=== PATIENT | male | born 1955 | race Caucasian/White ===

== ENCOUNTER 2024-01-25 13:30 | Emergency (ER) | payer MEDICARE, MEDICAID, SELFPAY ==
[2024-01-25 13:35] VITALS: BP 158/99; PULSE 58; TEMP 36.6; O2SAT 97; BMI 25.1
--- NOTE | 2024-01-25 15:04 | ED_ITS ---
HPI - Skin/Abscess/Foreign Bdy General Chief complaint: Skin/Abscess/Foreign Body Stated complaint: RASH ON BODY Time Seen by Provider: 01/25/24 13:36 Source: patient Mode of arrival: walk-in Limitations: no limitations History of Present Illness HPI narrative: Patient is a 68-year-old male presents to the ER with concerns of pruritic skin rash, noted at bilateral hands, forearms and back. Denies involvement of the groin or abdomen. Notes there are some areas on his right ankle. Patient denies any new soaps lotions or detergents. States he is highly allergic to poison reyna. He was mowing grass earlier in the week. Symptoms have been present for a week but was just [place] now to get into the ER to be seen. He denies any new foods. He is without any abdominal pain lip swelling or tongue swelling. He denies any chest pain or shortness of breath. He denies any exposures to people with scabies or bedbugs. He just MD complaint: Reports rash Location: Reports back, LUE and RUE Related Data Previous Rx's ?Medication ?Instructions ?Recorded famotidine 20 mg tablet (Pepcid) 20 mg PO DAILY 14 days #14 tabs 01/25/24 prednisone 20 mg tablet 40 mg (2 x 20 mg) PO BID 5 days 01/25/24 #20 tabs Allergies Allergy/AdvReac Type Severity Reaction Status Date / Time No Known Drug Allergies Allergy Verified 01/25/24 13:35 Review of Systems ROS Constitutional Denies: fever or chills Eyes Denies: change in vision or blurry vision Ears, nose, mouth, and throat Denies: throat pain or neck pain Cardiovascular Denies: chest pain or palpitations Respiratory Denies: shortness of breath Gastrointestinal Denies: abdominal pain, nausea or vomiting Musculoskeletal Denies: back pain or neck pain Integumentary/Breast Reports: rash and itching; Denies: redness or skin tenderness Hematologic/Lymphatic Denies: easy bruising Allergic/Immunologic Denies: hives, throat swelling, tongue swelling, facial swelling, wheezing or itchy eyes Exam Narrative Exam Narrative: Vital Signs and nurse's notes are reviewed. The patient is not hypoxic. General: Alert, no acute distress, patient resting comfortably Skin: warm, intact, no pallor noted. The patient has evidence of dry skin to the bilateral MCPs. No burrowing. Patient has small erythematous papules that almost represents a urticaria with excoriation on the dorsal forearms. There is no blistering. There is no evidence of cellulitis. The patient has no evidence of petechiae, purpura, or vesicles. The patient has no sloughing of the skin. The patient does have blanching noted. The patient has no involvement of the palms, soles, or oral mucosa. Involvement of the back, mostly noted to the bilateral upper extremities distal to the elbow. Head: Normocephalic, atraumatic Eye: Normal conjunctiva, No exudates Ears, nose, throat: moist mucous membranes, there is no involvement of the oral mucosa, there is no lip or tongue swelling. The patient has airway patent. The patient has no tonsillar hypertrophy or swelling to the posterior oropharynx. No evidence of Vesicles. Neck: The patient has no masses, warmth, or erythema. The patient has no meningeal signs. The patient has no nuchal rigidity noted. Cardiovascular: Regular Rate and Rhythm Respiratory: No acute distress, tachypnea, mild rhonchi and wheezing noted in bilateral lung [place]. No round noted. No retractions or stridor. Abdomen: Normal bowel sounds, soft, nontender, no rebound, guarding or rigidity noted. No masses detected. Musculoskeletal: Normal range of motion, no calf tenderness noted bilaterally, no edema noted. Negative Chuyita's sign bilaterally. no evidence of cyanosis or mottling noted to the extremities. Pulses intact. Neurological: alert and oriented x4, normal speech, normal motor, normal sensory Psychiatric: Cooperative Constitutional Vital Signs, click to edit/add: Last Vital Signs Temp 97.9 F 01/25/24 13:35 Pulse 58 L 01/25/24 13:35 Resp 18 01/25/24 13:35 BP 158/99 H 01/25/24 13:35 Pulse Ox 97 01/25/24 13:35 O2 Del Method Room Air 01/25/24 13:35 Course Vital Signs Vital signs: Vital Signs Temperature 97.9 F 01/25/24 13:35 Pulse Rate 58 L 01/25/24 13:35 Respiratory Rate 18 01/25/24 13:35 Blood Pressure 158/99 H 01/25/24 13:35 Pulse Oximetry 97 01/25/24 13:35 Oxygen Delivery Method Room Air 01/25/24 13:35 Temperature 97.9 F 01/25/24 13:35 Pulse Rate 58 L 01/25/24 13:35 Respiratory Rate 18 01/25/24 13:35 Blood Pressure 158/99 H 01/25/24 13:35 Pulse Oximetry 97 01/25/24 13:35 Oxygen Delivery Method Room Air 01/25/24 13:35 MDM - Skin/Abscess/Foreign Bdy MDM Narrative Medical decision making narrative: Pruritic skin rash present for over a week, only noted after possibly mowing the lawn. Denies any other exposures for cause. Patient without jaundice. Eating well. Denies fever or recent illness. Denies any new medications. We discussed symptomatic treatment with IM Kenalog injection, oral steroid and Pepcid pending follow-up with PCP. Contact dermatitis suspected but excoriation makes diagnosis difficult. Patient does not appear to have any burrowing from scabies. We discussed medication and Benadryl or cetirizine as needed at home for itching. Risks and benefits of steroid treatment discussed, patient to use emollients on dry skin of hands. The patient is to followup with primary care physician in next 2-3 days or to return to the emergency department should any of the signs or symptoms worsen or new symptoms develop. Patient had questions answered. The patient agrees with the following Diagnosis and Treatment plan and the patient will be discharged home. SUPERVISED APC VISIT, PHYSICIAN ATTESTATION: Based on the medical record the care appears appropriate. ? Discharge Plan Discharge Stand Alone Forms: Portal Instructions Chief Complaint: Skin/Abscess/Foreign Body Clinical Impression: Skin rash Patient Disposition: Home, Self-Care Condition: Good Prescriptions / Home Meds: New famotidine [Pepcid] 20 mg tablet 20 mg PO DAILY 14 Days Qty: 14 0RF prednisone 20 mg tablet 40 mg PO BID 5 Days Qty: 20 0RF Print Language: [place] Instructions: Acute Rash (ED) Referrals: RENAY ESCOBEDO [Primary Care Provider] - 1 week Discharge Date/Time: 01/25/24 15:16
[2024-01-25] MEDS: TRIAMCINOLONE ACETONIDE 40 MG/ML VIAL IM (15:10)
[2024-01-25] MEDS: FAMOTIDINE 20 MG TABLET PO (15:10)
== END 2024-01-25 15:16 | disposition home or self-care (01) ==
PROVIDERS: Emergency Provider Student in an Organized Health Care Education/Training Program; PCP Family Medicine
DX: R21 Rash and other nonspecific skin eruption (principal)
CPT/HCPCS: 96372; 99284; J3301

== ENCOUNTER 2024-02-08 10:43 | Emergency (ER) | payer MEDICARE, MEDICAID, SELFPAY ==
[2024-02-08 10:47] VITALS: BP 166/97; PULSE 60; TEMP 36.8; O2SAT 96; BMI 26.3
[2024-02-08 10:56] VITALS: O2SAT 98
--- NOTE | 2024-02-08 11:02 | ED.SKABFB1 ---
HPI - Skin/Abscess/Foreign Bdy General Chief complaint: Skin/Abscess/Foreign Body Stated complaint: RASH Time Seen by Provider: 02/08/24 10:44 Source: patient and family Mode of arrival: walk-in Limitations: no limitations History of Present Illness HPI narrative: This patient is here for generalized itching and a rash to his skin. He was seen here approximately [address] Andersen and prescribed steroids and Pepcid. He said while on steroids the itching was much better. He does notice that the heat and sun and warm showers make it worse. He has not developed any fever. He says he has generalized aches and pains but no specific arthropathy. He has no autoimmune diseases. He is on a new medications. In fact he is not taking any medication. 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 He cannot think of any new dietary intake. No new skin lotions or ointments soaps salves or shampoos. He does have mild irritation of his scalp but most of the problems on his forearms abdomen and little bit less so on his lower extremities. He has not been on any antibiotics. He does not have any known autoimmune diseases. He has not seen a transmission and coordination engineer. Does not have any lesions in his mouth or oral cavity. Does not have any involvement on the palmar aspect of his hands. no history of STD. Related Data Previous Rx's ?Medication ?Instructions ?Recorded famotidine 20 mg tablet (Pepcid) 20 mg PO DAILY 14 days #14 tabs 01/25/24 prednisone 20 mg tablet 40 mg (2 x 20 mg) PO BID 5 days 01/25/24 #20 tabs Allergies Allergy/AdvReac Type Severity Reaction Status Date / Time No Known Drug Allergies Allergy Verified 01/25/24 13:35 Exam Narrative Exam Narrative: This patient has a dry excoriated erythematous rash primarily in the forearms scattered lesions on his abdomen. I do not see anything on his scalp area. His oral cavity is free of any type of lesions or vesicles. His lips are not swollen. Does not have any discomfort or sores in his intranasal area. His palms of his hands are asymptomatic. There is no tenderness to palpation but if he touches this area of rash he says it makes him itch. Does not have any obvious swollen joints but has diffuse achiness and several aches and pains in his muscle area. Constitutional Vital Signs, click to edit/add: Last Vital Signs Temp 98.2 F 02/08/24 10:47 Pulse 60 02/08/24 10:47 Resp 20 02/08/24 10:47 BP 166/97 H 02/08/24 10:47 Pulse Ox 98 02/08/24 10:56 O2 Del Method Room Air 02/08/24 10:56 Course Vital Signs Vital signs: Vital Signs Temperature 98.2 F 02/08/24 10:47 Pulse Rate 60 02/08/24 10:47 Respiratory Rate 20 02/08/24 10:47 Blood Pressure 166/97 H 02/08/24 10:47 Pulse Oximetry 96 02/08/24 10:47 Oxygen Delivery Method Room Air 02/08/24 10:47 Temperature 98.2 F 02/08/24 10:47 Pulse Rate 60 02/08/24 10:47 Respiratory Rate 20 02/08/24 10:47 Blood Pressure 166/97 H 02/08/24 10:47 Pulse Oximetry 98 02/08/24 10:56 Oxygen Delivery Method Room Air 02/08/24 10:56 MDM - Skin/Abscess/Foreign Bdy MDM Narrative Medical decision making narrative: This patient temporarily responded to steroids and Pepcid but now has a recurrence. He has to nonspecific inflammatory markers elevated but his eosinophil count is normal. He will need referral to rheumatology for further up on this and we will restart him on the steroid. He is to take cool compresses and bathtubs with Epsom salt Discharge Plan Discharge Stand Alone Forms: Work/School Release, Portal Instructions Chief Complaint: Skin/Abscess/Foreign Body Clinical Impression: Contact dermatitis Patient Disposition: Home, Self-Care Time of Disposition Decision: 12:31 Prescriptions / Home Meds: No Action famotidine [Pepcid] 20 mg tablet 20 mg PO DAILY 14 Days Qty: 14 0RF prednisone 20 mg tablet 40 mg PO BID 5 Days Qty: 20 0RF Print Language: Malay Additional Instructions: Follow-up with a transmission and coordination engineer, start steroids. Cool baths with Epsom salt. You may need to see a juvenile justice specialist because of the blood test Referrals: RENAY ESCOBEDO [Primary Care Provider] - 1 week
--- OUTSIDE RECORDS SUMMARY | 2024-02-08 11:24 | XMS_ITS | CCD ---
Author Organization [facility] CliniSyga Care Team Providers Care Egg Gatherer Name Role Phone Lazaro Escobedo Primary Care Provider Unknown, Referring Provider Unavailable Unav ailable Unavailable Unavailable Gonzalez Lazaro Cortes Unavailable BOB SCHOFIELD Consulting Unavailable PAY, DR PEDROZA Attending Unavailable PAY, DR PEDROZA Admitting Unavailable HOUSE, DR NIÑO Primary Care Unavailable SchreibJameel lin Consulting Unavailable KANWAL, BOB ORLANDO Consulting Unavailable PAY, DR PEDROZA Attending Unavailable PAY, DR PEDROZA Admitting Unavailable HOUSE, DR NIÑO Primary Care Unavailable PAY, DR PEDROZA Attending Unavailable PAY, DR PEDROZA Admitting Unavailable HOUSE, DR NIÑO Primary Care Unavailable ZIEBER, DR ALEISHA Sandoval Consulting Unavailable MEKALEE Attending Unavailable MEKA, LEE Admitting Unavailable HOUSE, DR NIÑO Primary Care Unavailable MEKA, LEE Consulting Unavailable TIMMIS, DR DUVAL Consulting Unavailable HOUSE, DR NIÑO Primary Care Unavailable TIMMIS, DR DUVAL Attending Unavailable TIMMIS, DR DUVAL Admitting Unavailable TIMMIS, DR DUVAL Consulting Unavailable HOUSE, DR NIÑO Primary Care Unavailable TIMMIS, DR DUVAL Attending Unavailable TIMMIS, DR DUVAL Admitting Unavailable TIMMIS, DR DUVAL Consulting Unavailable HOUSE, DR NIÑO Primary Care Unavailable TIMMIS, DR DUVAL Attending Unavailable TIMMIS, DR DUVAL Admitting Unavailable LONG, VADIM Consulting Unavailable TIMMIS, DR DUVAL Consulting Unavailable HOUSE, DR NIÑO Primary Care Unavailable TIMMIS, DR DUVAL Attending Unavailable TIMMIS, DR DUVAL Admitting Unavailable LONG, VADIM Consulting Unavailable DERROW, DARREN Consulting Unavailable DORKOSKIECARL Consulting Unavailable HOUSE, DR NIÑO Primary Care Unavailable TIMMIS, DR DUVAL Attending Unavailable TIMMIS, DR DUVAL Admitting Unavailable LAKESHA, BOB VALERA Consulting Unavailable MARKER, DR ORONA Attending Unavailable MARKER, DR ORONA Admitting Unavailable HOUSE, DR NIÑO Primary Care Unavailable BERRY, DR FERNANDES Consulting Unavailable BERRY, DR FERNANDES Attending Unavailable BERRY, DR FERNANDES Admitting Unavailable HOUSE, DR NIÑO Primary Care Unavailable Darryn, Dr. Gregg Maurer Attending Unavail able House, Dr. Lazaro Read [facility] Unava ilable Gonzalez, Dr. Lazaro Read [facility] Unava ilable Darryn, Dr. Gregg Maurer Attending Unavail able Darryn, Dr. Gregg Maurer Attending Unavail able House, Dr. Lazaro Read [facility] Unava ilable Darryn, Dr. Gregg Maurer Attending Unavail able Darryn, Dr. Gregg Maurer Referring Unavail able House, Dr. Lazaro Read [facility] Unava ilable Darryn, Dr. Gregg Maurer Referring Unavail able Darryn, Dr. Gregg Maurer Attending Unavail able Darryn, Dr. Gregg Maurer Admitting Unavail able [place], Dr. Lazaro Read [facility] Gonzalez SAGASTUME, Lazaro [facility] Primary [facility] Provider Medications Completed/Discontinued Medications Medication Drug Class(es) Dates Sig (Normalized) Sig (Original) acetaminophen 325 mg / HYDROcodone bitartrate 5 mg oral tablet (2 sources) Opioid Agonist Start: 04-13-2021 HYDROcodone-Acetam inophen 5-325 MG Oral Tablet Quantity: 10 Refills: 0 Ordered: 13-Apr-2021 DO Start : 13-Apr-2021 Complete amLODIPine 5 mg oral tablet (11 sources) Dihydropyridine Calcium Channel Lesley Start: 06-12-2021 End: 09-25-2021 take 1 tablet by mouth once daily amLODIPine Besylate 5 MG Oral Tablet TAKE 1 TABLET DAILY. Quantity: 0 Refills: 0 Ordered: 12-Jun-2021 DO Start : 12-Jun-2021 End : 25-Sep-2021 Complete amoxicillin 875 mg / clavulanate 125 mg oral tablet (7 sources) Penicillin-class Antibacterial Start: 08-07-2021 End: 09-25-2021 take 1 tablet by mouth twice daily Amoxicillin-Pot Clavulanate 875-125 MG Oral Tablet TAKE 1 TABLET TWICE DAILY UNTIL FINISHED. Quantity: 20 Refills: 0 Ordered: 12-Sep-2021 Gregg Cates MD Start : 07-Aug-2021 End : 25-Sep-2021 Complete ciprofloxacin 750 mg oral tablet (2 sources) Quinolone Antimicrobial Start: 04-03-2021 take 1 tablet by mouth twice daily Ciprofloxacin HCl - 750 MG Oral Tablet TAKE 1 TABLET BY MOUTH TWICE A DAY FOR 10 DAYS Quantity: 20 Refills: 0 Ordered: 03-Apr-2021 DO Start : 03-Apr-2021 Complete ciprofloxacin 3 mg/ml / dexamethasone 1 mg/ml otic suspension (3 sources) Corticosteroid, Quinolone Antimicrobial Start: 09-12-2021 End: 09-25-2021 Ciprofloxacin-Dexa methasone 0.3-0.1 % Otic Suspension INSTILL 5 DROP 3 times daily into T-tube Quantity: 1 Refills: 2 Ordered: 12-Sep-2021 Gregg Cates MD Start : 12-Sep-2021 End : 25-Sep-2021 Complete levoFLOXacin 500 mg oral tablet (2 sources) Quinolone Antimicrobial Start: 04-27-2021 take 1 tablet by mouth once daily levoFLOXacin 500 MG Oral Tablet TAKE 1 TABLET BY MOUTH EVERY DAY Quantity: 7 Refills: 0 Ordered: 28-Apr-2021 DO Start : 27-Apr-2021 Complete No Reported Medications (8 sources) No Reported Medications Quantity: 0 Refills: 0 Ordered: 31-Dec-2021 DO Active predniSONE 20 mg oral tablet (2 sources) Start: 04-13-2021 predniSONE 20 MG Oral Tablet TAKE 3 TABLETS ON DAY 1, THEN 2 TABLETS ON DAYS 2-3, THEN 1 TABLET ON DAYS 4-5 Quantity: 9 Refills: 0 Ordered: 13-Apr-2021 DO Start : 13-Apr-2021 Complete traMADol hydrochloride 50 mg oral tablet (1 source) Opioid Agonist Start: 07-03-2021 take 1-2 tablets by mouth every four to six hours as needed for pain, then take 8 tablets by mouth once daily as needed for pain traMADol HCl - 50 MG Oral Tablet TAKE 1 TO 2 TABLETS EVERY 4 TO 6 HOURS NEEDED FOR PAIN. NO MORE THAN 8 TABLETS PER DAY. 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] Onset: 04-02-2021 Chronic Cancer of head and neck (2 sources) Personal history of malignant neoplasm of larynx; Translations: [Personal history of malignant neoplasm of unspecified site of lip, oral cavity, and pharynx] Onset: 11-29-2020 Episodic Chronic obstructive pulmonary disease and bronchiectasis (1 source) Chronic obstructive pulmonary disease, unspecified; Translations: [COPD UNSPECIFIED] Onset: 05-11-2021 Chronic Complications of surgical procedures or medical care (3 sources) Tracheo-esophageal fistula following tracheostomy; Translations: [Tracheoesophageal fistula following tracheostomy] Onset: 10-09-2022 10-16-2022 Episodic Essential hypertension (3 sources) Essential (primary) hypertension; Translations: [Essential hypertension] Onset: 05-11-2021 10-16-2022 Chronic Headache; including migraine (1 source) Headache; including migraine; Translations: [HEADACHE UNSPECIFIED] Onset: 04-02-2021 Other aftercare (1 source) Other manager long term care (current) drug therapy; Translations: [OTH SENIOR LIVING CURRENT DRUG THERAPY] Onset: 09-24-2021 Episodic Other upper respiratory disease (4 sources) Encounter for attention to tracheostomy; Translations: [ENC FOR ATTENTION TRACHEOSTOMY] Onset: 09-21-2021 Chronic Other upper respiratory disease (5 sources) Tracheostomy status; Translations: [TRACHEOSTOMY STATUS] Onset: 04-10-2021 Chronic Other upper respiratory disease (2 sources) Paralysis of vocal cords and larynx, unspecified; Translations: [Paralysis of vocal cords and larynx, unspecified] Onset: 10-09-2022 Chronic Other upper respiratory disease (1 source) Paralysis of larynx; Translations: [Paralysis of vocal cords and larynx, unspecified] 10-09-2022 Chronic Other upper respiratory disease (20 sources) Edema of larynx; Translations: [Edema of larynx] Episodic Other upper respiratory disease (20 sources) Hoarse; Translations: [Dysphonia] Episodic Other upper respiratory disease (4 sources) Dysphonia; Translations: [DYSPHONIA] Onset: 01-10-2021 Episodic Other upper respiratory disease (2 sources) Vocal cord strain; Translations: [Other diseases of vocal cords] Episodic Other upper respiratory disease (2 sources) Other specified diseases of upper respiratory tract; Translations: [Other specified diseases of upper respiratory tract] Onset: 10-09-2022 Episodic Other upper respiratory disease (1 source) Disorder of upper respiratory system; Translations: [Other specified diseases of upper respiratory tract] 10-09-2022 Episodic Other upper respiratory disease (1 source) Dysphonia; Translations: [Dysphonia] 10-16-2022 Episodic Screening and history of mental health and substance abuse codes (3 sources) Personal history of nicotine dependence; Translations: [Personal history of tobacco use] Onset: 04-02-2021 10-16-2022 Episodic Substance-related disorders (1 source) Nicotine dependence, cigarettes, uncomplicated; Translations: [NICOTINE DEPEND CIGARETTES UNCOMP] Onset: 05-11-2021 Chronic Unclassified (1 source) CONTACT W/AND (SUSP) EXPOS COVID-19; Translations: [CONTACT W/AND (SUSP) EXPOS COVID-19] Onset: 05-08-2021 Unclassified (1 source) COUGH, UNSPECIFIED; Translations: [COUGH, UNSPECIFIED] Onset: 03-28-2021 Past or Other Problems Problem Classification Problem Date Documented Da te Episodic/Chronic Other non-traumatic joint disorders (4 sources) Pain in left knee; Translations: [PAIN IN LEFT KNEE] Onset: 04-13-2021 Episodic Other non-traumatic joint disorders (1 source) Pain in right knee; Translations: [PAIN IN RIGHT KNEE] Onset: 04-17-2021 Episodic Other non-traumatic joint disorders (1 source) Effusion, left knee; Translations: [EFFUSION LEFT KNEE] Onset: 04-17-2021 Episodic Other skin disorders (4 sources) Localized swelling, mass and lump, neck; Translations: [LOCALIZED SWELLING MASS AND LUMP NECK] Onset: 11-27-2020 Episodic Other upper respiratory disease (4 sources) Other diseases of larynx; Translations: [OTHER DISEASES OF LARYNX] Onset: 05-01-2021 Episodic Other upper respiratory disease (4 sources) Other diseases of vocal cords; Translations: [OTHER DISEASES OF VOCAL CORDS] Onset: 12-05-2020 Episodic Other upper respiratory disease (1 source) Other diseases of pharynx; Translations: [OTHER DISEASES OF PHARYNX] Onset: 11-29-2020 Episodic Other upper respiratory disease (1 source) Edema of larynx; Translations: [Edema of larynx] Onset: 02-12-2022 Episodic Residual codes; unclassified (1 source) Personal history of other specified conditions; Translations: [PERSONAL HISTORY OTH SPEC CONDITION] Onset: 04-17-2021 Episodic Residual codes; unclassified (1 source) Other specified health status; Translations: [Other specified health status] Onset: 02-12-2022 Episodic Substance-related disorders (1 source) Cannabis use, unspecified, uncomplicated; Translations: [CANNABIS USE UNS UNCOMPLICATED] Onset: 05-11-2021 Episodic Results Test Name Value Interpretation Reference Range Facility SPANISH LECTURER (Voice Evaluation)on SPANISH LECTURER (Voice Evaluation) Therapy Diagnosis Assessed Vocal cord strain (478.5) (J38.3) Hoarseness (784.42) (R49.0) 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 Patient will increase ability to produce voice without tension within 5 minute conversational task x80% accuracy as judged by clinician observation and/or patient report. Patient will demonstrate independent use of voice/breathing techniques x80% accuracy. Patient will increase the balance/coordination of laryngeal/respiratory musculature. Projected STG completion date: x4 ST sessions conducted x1/wk Recommendations For Therapeutic Interventions: speech/voice exercises and vocal hygiene program Patient/family understands and agrees with goals/plan. Potential for improvement: good Factors affecting prognosis: none Discussed plan of care with: patient and caregiver/family Discussed risks/benefits with patient/caregiver. Patient/caregiver agreeable with plan of care. Plan of care was developed with input and agreement by the patient. 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 Surgeon: MD Darryn Resident/Fellow/Other Human Service Coordinator: MD Mauricio Procedure: 1. microdirect larngoscopy diagnostic 2. microdirect laryngoscopy with porlaryn gel injection of the right 3. Closure of tracheocutaneous fistula with muscle flap Anesthesia: GETA Estimated Blood Loss: 5cc Findings: right vocal fold injection with 0.2cc of prolaryn gel, closure with muscle flap Initial voice presentation met with sig laryngeal strain resulting in breathiness and poor vocal quality. Given cues for confidential voicing, RVT hum, patient able to improve vocal quality with an increase in MPT, limited rasp, minimal strain. Patient and daughter agree with vocal improvement. Patient able to maintain this voice within monologue task, negative for speaking on residual air. States breathing has been good with no e/o continued tracheocutaneous fistula. Patient given education on modified voice rest, confidential voicing, RVT - hum with practice dosage. Reviewed POC options for vocal rehabilitation. All questions answered. Patient will follow ST on as needed basis. Treatment recommendations: treatment indicated (see goals below) Overall, patient would benefit from skilled ST in the area of voice x1/wk for x4 wks in order to increase vocal wellness, healthy voicing to foster increased participation and comfort levels at home and in the community environment. Additional recommendations: [facility] possible future repeat injection versus additional augmentation procedures to be determined by my laryngology partner, Dr. Cates. Reason For Visit An interactive audio and video telecommunication system which permits real time communications between the patient (at the originating site) and provider (at the distant site) was utilized to provide this telehealth service. Verbal consent was requested and obtained from LAZARO PETTY on this date, 10/16/2022 08:00 AM , for a telehealth visit. 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 Surgeon: MD Darryn Resident/Fellow/Other Human Service Coordinator: MD Mauricio Procedure: 1. microdirect larngoscopy diagnostic 2. microdirect laryngoscopy with porlaryn gel injection of the right 3. Closure of tracheocutaneous fistula with muscle flap Anesthesia: GETA Estimated Blood Loss: 5cc Findings: right vocal fold injection with 0.2cc of prolaryn gel, closure with muscle flap Adult Risk Screening There are no spiritual/cultural practices/values/needs that are important to know Initial Fall Risk Screening: LAZARO has not fallen in the last 6 months. Pain Scale: On a scale of 0 to 10, the patient rates the pain at 0. Hernandez Learner(s) are identified by the patient as person(s) most likely to participate in providing care, such as managing medications or taking them to doctors? appointments. Primary Language for learning: Italian . Insurance Insurance reviewed Visit number: 1 Subjective Living Environment: home Patient arrival: accompanied by daughter Voice evaluation: Reason for Referral: vocal rehabilitation postop - vocal fold injection, h/o laryngeal cancer Referred by: Dr. Cates Self rating scale totals: Preoperative history per Dr. 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 Normal [facility] Order Reconciliationon 10-09 Order Reconciliation Page 1 Discharge Reconciliation Document Reconciliation Type: Discharge requested on behalf of Romulo Martínez (Resident) done by Romulo Martínez ( (Resident)) Discharge - Reconciliation: 09-Oct-2022 12:45 by: Romulo Martínez ( (Resident)) Home Medications EnteredHOME MEDICATIONS AT DISCHARGE DateReconciliation Comment/ Additional Information None 09-Oct-2022 11:32 None 09-Oct-2022 11:32 None is continued as None Current OrdersDateHOME MEDICATIONS AT DISCHARGE DateReconciliation Comment/ Additional Information HYDROmorphone Injectable (DILAUDID)DOSE = 0.25 mg IntraVenous Push Every 5 Minutes, PRN Pain - Mod (4-6) (PACU)Clinician Notes: Alanis-operative order ONLYMax total of 4 mg regardless of dose. 08-Oct-2022 12:11 HYDROmorphone Injectable is not required HYDROmorphone Injectable (DILAUDID)DOSE = 0.5 mg IntraVenous Push Every 5 Minutes, PRN Pain - Severe (7-10) (PACU)Clinician Notes: Alanis-operative order ONLYMax total of 4 mg regardless of dose. 08-Oct-2022 12:11 HYDROmorphone Injectable is not required Ondansetron Injectable (ZOFRAN)DOSE = 4 mg IntraVenous Push Once, PRN PONV, first lineClinician Notes: Alanis-operative order ONLY 08-Oct-2022 12:11 Ondansetron Injectable is not required oxyCODONE Immediate Release Tablet (OXYIR, ROXICODONE)DOSE = 5 mg Oral Every 4 Hours, PRN Pain - Mod (4-6) (PACU) when able to take OralClinician Notes: Alanis-operative order ONLY 08-Oct-2022 12:11 oxyCODONE Immediate Release is not required Prochlorperazine Injectable (COMPAZINE)DOSE = 5 mg IntraVenous Push Once, PRN persistent post-op nausea/vomitingClinician Notes: Alanis-operative order ONLY 08-Oct-2022 12:11 Prochlorperazine Injectable is not required Promethazine IV Piggy Back in Sodium Chloride 0.9% 50 mL (PHENERGAN)DOSE = 6.25 mg Once, PRN persistent PONV if first line ineffectiveRecommended Infusion Time: 15 minute(s)Clinician Notes: Alanis-operative order ONLY 08-Oct-2022 12:11 Promethazine IV Piggy Back is not required Home Medications Added During Discharge Reconciliation cephalexin 500 mg oral capsule 1 cap(s) orally 3 times a day x 7 days sennosides-docusate 8.6 mg-50 mg oral tablet 2 tab(s) orally once a day (at bedtime) traMADol 50 mg oral tablet 1 tab(s) orally every 6 hours x 5 days, As Needed -for severe pain G89.18 All Active Home Medications at time of Discharge Reconciliation: 09-Oct-2022 12:45 cephalexin 500 mg oral capsule 1 cap(s) orally 3 times a day x 7 days None sennosides-docusate 8.6 mg-50 mg oral tablet 2 tab(s) orally once a day (at bedtime) traMADol 50 mg oral tablet 1 tab(s) orally every 6 hours x 5 days, As Needed -for severe pain G89.18 Normal [facility] Patient Profile - Preop v3on 10-09-2022 Patient Profile - Preop v3 Patient Profile - Preop: Initial Info: Patient DemographicsName: LAZARO PETTY Date: 1955 Address: [address] [place] [address] Primary Phone [phone] How to be Addressedchuck Spoken Language PreferredEnglish Source of Informationpatient Stated Reason for Admissionfixing trach healing site Primary Contact Name and NumberFrandy daughter [phone] Limitations on Visitors/Phone Callsnone Medications Brought to Hospitalno General Health: Weight in kg81 kilogram(s) Weight in brk161.5 pound(s) Weight Methodactual (measured) Scale Typestanding Height in feet5 feet Height in poscjb51 inch(es) Height in cm177.8 centimeter(s) Height Methodstated BMI (kg/m2)25.622 square meter Patient or Family Member Reaction to Anesthesiano previous reaction Blood Avoidance/Restrictionsnone Previous Transfusion Reactionnot applicable Health Mgmt: Symptoms/Conditions Managed at Homevocal cord cancer, HTN Barriers to Managing Healthnone Relationship/Environ: Lives Withdependent child(livia) Living Arrangementshouse Resource/Environmental Concernsnone Anticipated Transition [place] [facility] Anticipated at Transitionnone Tobacco Use: Tobacco Useno Pre-op Checklist: NPOyes Last Food [id number] 21:00 Last Clear Fluid [id number] 08:50 ID Band On Patientpatient ID (name), falls risk Consent Signedpending H&P Completepending Anesthesia Assessment Completedpending EKG Performednot ordered Chest X-Ray Performednot ordered Preop Antibioticsnot ordered Soap and Water Bath the Night Before Surgeryyes Surgical Site Infection Preventionyes Pain Scales and Managementyes Additional Information: Information Review: Allergies, Home Meds and Significant Events have been Reviewed and Verified with Patient/Familyyes Allergy, Intolerance, Adverse Event: Allergies: No Known Allergies: Active Electronic Signatures: Macie Cavazos (PORSHA) (Signed 09-Oct-2022 11:13) Authored: Initial Info, General Health, Health Mgmt, Relationship/Environ, Tobacco Use, Pre-op Checklist, Additional Information Last Updated: 09-Oct-2022 11:13 by Macie Cavazos) [facility] Established Visit (Otolaryng ology)on 08-22-2022 Established Visit (Otolaryngology) Diagnoses/Problems 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 Cates examined your vocal cords 2.We ordered surgery 3.Dr. Cates would like to see you back for this If your symptoms change, or if you have any further questions or concerns, please call the office so we can see you. General Appointment Line: [phone] For general questions or scheduling issues, call our corporation secretary at [phone]. For medical questions or surgery scheduling issues, call [phone]. To reach speech therapy, for appointments or questions, call [phone]. By signing my name below, I, Cynthia Chavis, attest that this documentation has been prepared under the direction and in the presence of Dr. Erasto Cates MD. All medical record entries made by the Scribe were at my direction and personally dictated by me. I have reviewed the chart and agree that the record accurately reflects my personal performance of the history, physical exam, discussion and plan. 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 HE is doing well with no concerning issues at this time. 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 No air leak at this time. He will have a small wheezing from area after a shower. We discussed repairing this in the OR + Scar revision. 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 We will consider this at a time that works for the patient. Avoid submerging/water exposure. 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 He is able to clear his secretions with ocugh. 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 He is here for repeat evaluation. He reports that he is doing well. 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 He is breathing well without any recent problems. Recall: 09/17/2021 This is a 66 year old male previously seen by me on 08/07/2021 with a history of biopsies of granulation tissue with Dr. Domingo which were negative for SCCa. He has findings of necrotic cartilage and ORN of the trachea. We recommended speech therapy and was seen twice where he worked on voicing, breath support, and PMV tolerance. He does have improved voice quality. We discussed the potential for a Cintron stent for him. He reports that he was seen in the ER when his trach fell out. While he was the ED, they were unable to reinsert the tube. He was breathing better without the tube, per his . He was seen by Dr. Christy who was able to insert the tube. After the reinsertion of the tube, his states that his voice has worsened. He has trouble breathing, per his . He reports that he is able to swallow well. He is able to cap his tube. He currently has 6.[address]. Recall: 08/07/2021 LAZARO PETTY is a 66 year old male referred to me today by Dr Chayo CROOK, Joon P for ORN and necrotic bone within larynx. Referred to Dr. Domingo by Dr. Christy He has a history of laryngeal cancer treated with XRT. He subsequently had issues with voice and airway. He has a biopsy of the right posterior arytenoid mucosa which was hyperplastic with granulation with fragments of necrotic cartilage and bone with giant cell reaction, but evidence of carcinoma. The right TVC was seen with fibrin deposition with atrophy. There is no evidence of amyloid in this specimen. Lastly, a a deep right TVC showed granulation tissue with acute on chronic inflammation, necrotic bone, and giant cell reaction without evidence of cancer He reports he has been doing well. He has a hard time with vocalizing and breathing while finger occluding his tracheostomy. Denies fevers, chills, night sweats, nausea/vomiting, wt loss or hemoptysis. No complaints of otalgia. Denies facial pain, pressure or headaches. Denies chronic nasal congestion, stuffiness or postnasal drainage. Review of Systems A 10 point ROS survey and extensive HANDN symptom survey was conducted and discussed with the patient. Pertinent positive items are discussed in HPI. The patient was advised to discuss the non-ENT issues with their PCP. 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 Catse discussed your symptoms 2.Dr. Cates would like to see you back as needed If your symptoms change, or if you have any further questions or concerns, please call the office so we can see you. General Appointment Line: [phone] For general questions or scheduling issues, call our corporation secretary at [phone]. For medical questions or surgery scheduling issues, call [phone]. To reach speech therapy, for appointments or questions, call [phone]. By signing my name below, I, Caitlin Chavisibaamir, attest that this documentation has been prepared under the direction and in the presence of Dr. Erasto Cates MD. All medical record entries made by the Scribe were at my direction and personally dictated by me. I have reviewed the chart and agree that the record accurately reflects my personal performance of the history, physical exam, discussion and plan. 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 He is here in regards to voice changes. 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 He has done well and he was able to cap continuous and was decannulated on 12/2021. Today, he has a pin hole fistula which is improved from where I expect him to be. 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 He is followed by Dr. Christy, and based upon with the patient's desire, he would like to be seen by him for surveillance evaluation. 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 He is here for repeat evaluation. He reports that he is doing well. 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 He is breathing well without any recent problems. Recall: 09/17/2021 This is a 66 year old male previously seen by me on 08/07/2021 with a history of biopsies of granulation tissue with Dr. Domingo which were negative for SCCa. He has findings of necrotic cartilage and ORN of the trachea. We recommended speech therapy and was seen twice where he worked on voicing, breath support, and PMV tolerance. He does have improved voice quality. We discussed the potential for a Cintron stent for him. He reports that he was seen in the ER when his trach fell out. While he was the ED, they were unable to reinsert the tube. He was breathing better without the tube, per his . He was seen by Dr. Christy who was able to insert the tube. After the reinsertion of the tube, his states that his voice has worsened. He has trouble breathing, per his . He reports that he is able to swallow well. He is able to cap his tube. He currently has 6.[address]. Recall: 08/07/2021 LAZARO PETTY is a 66 year old male referred to me today by Dr Chayo CROOK, Joon Cortes for ORN and necrotic bone within larynx. Referred to Dr. Domingo by Dr. Christy He has a history of laryngeal cancer treated with XRT. He subsequently had issues with voice and airway. He has a biopsy of the right posterior arytenoid mucosa which was hyperplastic with granulation with fragments of necrotic cartilage and bone with giant cell reaction, but evidence of carcinoma. The right TVC was seen with fibrin deposition with atrophy. There is no evidence of amyloid in this specimen. Lastly, a a deep right TVC showed granulation tissue with acute on chronic inflammation, necrotic bone, and giant cell reaction without evidence of cancer He reports he has been doing well. He has a hard time with vocalizing and breathing while finger occluding his tracheostomy. Denies fevers, chills, night sweats, nausea/vomiting, wt loss or hemoptysis. No complaints of otalgia. Denies facial pain, pressure or headaches. Denies chronic nasal congestion, stuffiness or postnasal drainage. Review of Systems A 10 point ROS survey and extensive HANDN symptom survey was conducted and discussed with the patient. Pertinent positive items are discussed in HPI. The patient was advised to discuss the non-ENT issues with their PCP. 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 Over the last 2 weeks have you felt down, depressed or hopele (more content not included)... 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 Cates decannulated you 2.We ordered dressing changes twice a week 3.Dr. Cates would like to see you back in 4-6 weeks. If your symptoms change, or if you have any further questions or concerns, please call the office so we can see you. General Appointment Line: [phone] For general questions or scheduling issues, call our corporation secretary at [phone]. For medical questions or surgery scheduling issues, call [phone]. To reach speech therapy, for appointments or questions, call [phone]. By signing my name below, I, Caitlin Chavisibe, attest that this documentation has been prepared under the direction and in the presence of Dr. Erasto Cates MD. All medical record entries made by the Scribe were at my direction and personally dictated by me. I have reviewed the chart and agree that the record accurately reflects my personal performance of the history, physical exam, discussion and plan. Provider Impressions This is a 66 year old male with sever chondronecrosis of the tracheal cartilages and immobility of CA joints. He has findings of improvement in breathing since his last visit. He is able to cap continuously. He presented with a PMV and reports that he is able to cap without difficulty. Finger occlusion of the trach and naked stoma showed good breathing. There is no concerning granulation and has good opening of the posterior glottis during breathing on bronchoscopy. We were able to evaluate the back of the oropharynx from below. After discussion risks and benefits - He was decannulated to and he will have him changes hi dressing BID. He will have some difficulty with healing based on his history. We will consider him for an operative tracheocutaneous fistula closure PRN. I will see him back in 4-6 weeks. Chief Complaint Trach follow-up History of Present IllnessThis is a 66 year old male previously seen by me on 09/25/2021 with severe chondronecrosis of the tracheal cartilages and immobility of CA joints. A size 4-0 tracheostomy was placed. He reports that he is breathing well. He has been performing PMV trials and tolerates this well. He has not changed his trach since his last visit. Recall: 09/25/2021 This is a 66 year old male previously seen by me on 08/07/2021 with a history of biopsies of granulation tissue with Dr. Domingo which were negative for SCCa. He has findings of necrotic cartilage and ORN of the trachea. We recommended speech therapy and was seen twice where he worked on voicing, breath support, and PMV tolerance. He does have improved voice quality. We discussed the potential for a Cintron stent for him. He reports that he was seen in the ER when his trach fell out. While he was the ED, they were unable to reinsert the tube. He was breathing better without the tube, per his . He was seen by Dr. Christy who was able to insert the tube. After the reinsertion of the tube, his states that his voice has worsened. He has trouble breathing, per his . He reports that he is able to swallow well. He is able to cap his tube. He currently has 6.[address]. Recall: 08/07/2021 LAZARO EPTTY is a 66 year old male referred to me today by Dr Chayo CROOK, Joon Cortes for ORN and necrotic bone within larynx. Referred to Dr. Domingo by Dr. Christy He has a history of laryngeal cancer treated with XRT. He subsequently had issues with voice and airway. He has a biopsy of the right posterior arytenoid mucosa which was hyperplastic with granulation with fragments of necrotic cartilage and bone with giant cell reaction, but evidence of carcinoma. The right TVC was seen with fibrin deposition with atrophy. There is no evidence of amyloid in this specimen. Lastly, a a deep right TVC showed granulation tissue with acute on chronic inflammation, necrotic bone, and giant cell reaction without evidence of cancer He reports he has been doing well. He has a hard time with vocalizing and breathing while finger occluding his tracheostomy. Denies fevers, chills, night sweats, nausea/vomiting, wt loss or hemoptysis. No complaints of otalgia. Denies facial pain, pressure or headaches. Denies chronic nasal congestion, stuffiness or postnasal drainage. Review of Systems A 10 point ROS survey and extensive HANDN symptom survey was conducted and discussed with the patient. Pertinent positive items are discussed in HPI. The patient was advised to discuss the non-ENT issues with their PCP. 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 Normal [facility] Tobacco Screening.on Adult depression screening assessment No [facility] [facility] Work Phone: Fall risk assessment a) No falls within the last year [facility] [facility] Work Phone: Tobacco use status CPHS b) No [facility] [facility] Work Phone: Tobacco Screening.on Fall risk assessment a) No falls within the last year [facility] Work Phone: Tobacco use status CPHS b) No [facility] Work Phone: Tobacco Screening.on Fall risk assessment a) No falls within the last year [facility] [facility] [place] Work Phone: Tobacco use status CPHS b) No [facility] [facility] [place] Work Phone: Tobacco Screening.on Fall risk assessment a) No falls within the last year [facility] [facility] Work Phone: Tobacco use status CPHS b) No [facility] [facility] Work Phone: No Panel Informationon 07-02 [facility] Work Phone: Coronavirus 2019 RNA by PCR, Screening Asymptomticon 06-30-2021 Coronavirus 2019 RNA by PCR, Screening Asymptomtic Not detected Normal See Below [facility] Work Phone: Comment on above: SOURCE: Nasal, Nasop haryngealReference Range: Not Detected.This assay is designed to detect the N, ORF1ab and/or S genes of SARS-CoV-2 via nucleic acid amplification. A Negative (NOT DETECTED) result does not preclude 2019-nCoV infection since the adequacy of sample collection and/or low viral burden may result in presence of viral nucleic acids below the clinical sensitivity of this test method. Negative (NOT DETECTED) result should not be used as the sole basis for treatment or other patient management decisions. Rather negative results should be combined with clinical observations, patient history, and epidemiological information to make patient management decisions.Fact sheet for providers: https://www.fda.gov/media/534320/downloadFact sheet for patients: https://www.fda.gov/media/818728/downloadThis test has received FDA Emergency Use Authorization (EUA) and has been verified by [facility] ([facility]). This test is only authorized for the duration of time that circumstances exist to justify the authorization of the emergency use of in vitro diagnostic tests for the detection of SARS-CoV-2 virus and/or diagnosis of COVID-19 infection under section 564(b)(1) of the Act, 21 U.S.C. 360bbb-3(b)(1), unless the authorization is terminated or revoked sooner. [facility] is certified under CLIA-88 as qualified to perform high complexity testing. Testing is performed in the [facility] laboratories located at [address] [place] [address]. Laboratory - Chemistry and C hemistry - challengeon 2021 Albumin BCP dye [Mass/Vol] 4.4 g/dL 3.4 - 5.0 [facility] Work Phone: ALP [Catalytic activity/Vol] 73 U/L 33 - 136 [facility] [facility] Work Phone: 11 ALT With P-5'-P [Catalytic activity/Vol] 11 U/L 10 - 52 [facility] [facility] Work Phone: 11 Comment on above: Patients treated wit h Sulfasalazine may generate falsely decreased results for ALT. Anion gap [Moles/Vol] 15 mmol/L 10 - 20 [facility] [facility] Work Phone: 11 AST With P-5'-P [Catalytic activity/Vol] 17 U/L 9 - 39 [facility] [facility] Work Phone: 11 Bilirubin [Mass/Vol] 0.6 mg/dL 0.0 - 1.2 [facility] [facility] Work Phone: 11 Calcium [Mass/Vol] 10.1 mg/dL 8.6 - 10.6 [facility] [facility] Work Phone: 11 Chloride [Moles/Vol] 101 mmol/L 98 - 107 [facility] [facility] Work Phone: 11 CO2 [Moles/Vol] 24 mmol/L 21 - 32 [facility] [facility] Work Phone: 11 Creatinine [Mass/Vol] 0.60 mg/dL See Below [facility] [facility] Work Phone: 11 Comment on above: Reference Range: 0.5 0 - 1.30 Glucose [Mass/Vol] 73 mg/dL below low threshold 74 - 99 [facility] [facility] Work Phone: 11 Potassium [Moles/Vol] 4.3 mmol/L 3.5 - 5.3 [facility] [facility] Work Phone: 11 Protein [Mass/Vol] 6.9 g/dL 6.4 - 8.2 [facility] [facility] Work Phone: 11 Sodium [Moles/Vol] 136 mmol/L 136 - 145 [facility] [facility] Work Phone: 11 Urea nitrogen [Mass/Vol] 8 mg/dL 6 - 23 [facility] [facility] Work Phone: 11 Laboratory - Hematology and Cell countson 2021 Erythrocyte distribution width (RBC) [Ratio] 14.1 % See Below [facility] [facility] Work Phone: 11 Comment on above: Reference Range: 11. 5 - 14.5 Hematocrit (Bld) [Volume fraction] 43.5 % See Below [facility] [facility] Work Phone: 11 Comment on above: Reference Range: 41. 0 - 52.0 Hemoglobin (Bld) [Mass/Vol] 14.7 g/dL See Below [facility] [facility] Work Phone: 11 Comment on above: Reference Range: 13. 5 - 17.5 MCHC (RBC) [Mass/Vol] 33.8 g/dL See Below [facility] [facility] Work Phone: 11 Comment on above: Reference Range: 32. 0 - 36.0 MCV (RBC) [Entitic vol] 94 fL 80 - 100 [facility] [facility] Work Phone: 11 Platelets (Bld) [#/Vol] 286 10*3/uL 150 - 450 [facility] [facility] Work Phone: 11 RBC (Bld) [#/Vol] 4.65 {x10E12/L} See Below [facility] [facility] Work Phone: 11 Comment on above: Reference Range: 4.5 0 - 5.90 WBC (Bld) [#/Vol] 8.6 10*3/uL 4.4 - 11.3 [facility] [facility] Work Phone: [phone] Panel Informationon 06-19 >90 >90 [facility] [facility] Work Phone: [phone] Comment on above: CALCULATIONS OF GABI MATED GFR ARE PERFORMED USING THE 2020 CKD-EPI STUDY REFIT EQUATION WITHOUT THE RACE VARIABLE FOR THE IDMS-TRACEABLE CREATININE METHODS.https://jasn.asnjournals.org/content/early//ASN .2676927042 0.0 {/100_WBC} 0.0-0.0 [facility] [facility] Work Phone: 1 11 http://[email or web address] 1:8080 /musescripts/museweb.dll?R etrieveTestByDateTime?Marie yruQO=[id number]&Date=04-09&Time=14%3a40%3a26%3a 00&TestType=ECG&Site=1&Out putType=PDF&Ext=PDF [facility] [facility] Work Phone: 1 11 Normal sinus rhythm [facility] Work Phone: 11 Abnormal [facility] [facility] Work Phone: [phone] [facility] [facility] Work Phone: [phone] [facility] [facility] Work Phone: [phone] [facility] [facility] Work Phone: [phone] [facility] [facility] Work Phone: [phone] [facility] [facility] Work Phone: 11 [phone] 1 [facility] [facility] Work Phone: [phone] [facility] [facility] Work Phone: [phone] 1 [facility] [facility] Work Phone: [phone] [facility] [facility] Work Phone: [phone] [facility] [facility] Work Phone: [phone] [facility] [facility] Work Phone: [phone] [facility] [facility] Work Phone: [phone] [facility] [facility] Work Phone: [phone] TSH - Thyroid Stimulating Ho Vicente membrenoon 2021 TSH Qn 3.80 m[IU]/L See Below [facility] [facility] Work Phone: [phone] Comment on above: Reference Range: 0.4 4 - 3.98 TSH testing is performed using different testing methodology at [facility] than at other [facility]. Direct result comparisons should only be made within the same method. CNOVon 06-18-2021 CNOV Office Visit ([facility] ) -- ALZARO PETTY ([id number]) 1955 M Date Time Provider Department 06/18/21 10:00 AM NIK THAYER During your visit today, we recorded the following information about you: Temperature Pulse Respiration Blood pressure 97.8 degrees 66/minute 18/minute 151/83 Weight 84.6 kg Nik Thayer MD 07/06/2021 1:56 AM Addendum Radiation Oncology - Follow Up Note PATIENT NAME: Lazaro Petty PATIENT DIAGNOSIS/PATIENT IDENTIFICATION: Mr. 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 Completed a course of definitive external beam radiation therapy to the larynx on 05/22/2020 (6300 cGy in 28 fractions). INTERVAL HISTORY/ROS: Mr. Petty returns to clinic today for routine follow-up approximately one year after the completion of his radiation treatments and six months since his last visit on 12/15/2020. In the interim, he unfortunately had difficulty breathing and had a tracheostomy placed by Dr. Christy. He recently did a laryngoscopy on 04/11/2021 which showed swelling in the area of the throat and multiple biopsies were taken which were all negative for malignancy. He has been referred to the ENT group at for further evaluation. Today Mr. Montiel is breathing well with the new tracheostomy and is able to swallow and eat all consistencies. He has some soreness at the trach site but otherwise denies any pain or discomfort or any mucositis or dry mouth or loss of taste or new lumps or bumps in the neck. His skin has healed up after the radiation treatments and is no longer using a moisturizer. He does note fatigue with good appetite and hydration with an approximate 10 pound weight gain. He otherwise denies any recent fevers, chills, headaches, difficulty with speech/swallowing, shortness of breath, chest pain/palpitations, abdominal pain, nausea, vomiting, change in bowel/urinary habits, difficulty with gait/balance, recent falls, etc. The remainder of the review of systems was performed and was otherwise noncontributory. ALLERGIES ALLERGIES Allergen Reactions - Lisinopril Cough MEDICATIONS: Current Outpatient Medications: - omeprazole (PRILOSEC) 40 mg capsule - ciprofloxacin HCl (CIPRO) 500 mg tablet - amLODIPine (NORVASC) 5 mg tablet - famotidine (PEPCID) 20 mg tablet PHYSICAL EXAM: GENERAL: middle-aged gentleman sitting in chair in no acute distress. VITALS: BP 151/83 Pulse 66 Temp (Src) 97.8 (Temporal) Resp 18 Wt 186 lb 9.6 oz (84.6kg) SpO2 98% KPS: 80 HEENT: NC/AT, anicteric sclera; trach HEART: S1S2 LUNGS: non-labored breathing ABDOMEN: soft MUSCULOSKELETAL: no peripheral edema, moves all extremities. NEURO: no focal deficit; AANDO X3. PATHOLOGIC DATA: 05/01/2021 ASSESSMENT AND PLAN: Mr. 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 Completed a course of definitive external beam radiation therapy to the larynx on 05/22/2020 (6300 cGy in 28 fractions). He has since had a tracheostomy placed due to laryngeal edema causing airway obstruction. Mr. Petty is without evidence of disease based on recent laryngoscopy and biopsies obtained by Dr. Christy on 05/01/2021. However unfortunately he has required the placement of a tracheostomy due to airway obstruction from laryngeal edema. He is following with the ENT group at for further evaluation. I will plan to see him back in approximately 1 year. The patient is aware to contact the clinic in the interim should any questions or concerns arise. Thank you for allowing us to participate in the care of this patient. Signed by: Nik Thayer MD I spent a total of 20 minutes on the date of the service which included preparing to see the patient, [id number] patient care and counseling and educating the patient/family/caregiver. This document has been created with the use of voice recognition technology. It may contain inaccuracies, misspellings, inaccurate syntax or inappropriate word context that are a result of the inadequacies/shortcomings of said technology/software. Referring Provider: NIK THAYER [[id number]] Allergies As of Date: 06/18/2021 Noted Allergy Reaction LISINOPRIL 12/15/2020 3 - Cough Date Reviewed: 06/18/2021 Reviewed by: Vangie Yeager - Fully Assessed Reason for Visit: malignant neoplasm of glottis [Other] Cmt: follow up Primary Visit Diagnosis:Malignant neoplasm of glottis (HCC) [C32.0] Prescriptions as of 07/06/2021 - omeprazole (PRILOSEC) 40 mg capsule TAKE 1 CAPSULE BY MOUTH EVERY MORNING 30-60 MINUTES BEFORE BREAKFAST - ciprofloxacin HCl (CIPRO) 500 mg tablet TAKE 1 TABLET BY [place] (more content not included)... Normal [facility] Tobacco Screening.on 01-04-2 022 Fall risk assessment a) No falls within the last year [facility] Work Phone: [phone] Tobacco use status CPHS b) No [facility] Work Phone: Coding Queryon 05-16-2021 Coding Query [id number]#[id number]:[id number] Normal [facility] Covid-19 PCR (CVDTB)on 04-10 SARS-CoV-2 (COVID-19) RNA MARCELL+probe Ql (Unsp spec) Not detected Normal NOT DETECTED [facility] Comment on above: Result Comment: This test is not yet approved or cleared by the [place] FDA. When there are no FDA-approved or cleared tests available, and other criteria are met, FDA can make tests available under an emergency access mechanism called an Emergency Use Authorization (EUA). The EUA for this test is supported by the [employer] of Health and Human Service's (HHS's) declaration that circumstances exist to justify the emergency use of in vitro diagnostics for the detection and/or diagnosis of the virus that causes COVID-19. This EUA will remain in effect (meaning this test can be used) for the duration of the COVID-19 declaration justifying emergency of IVDs, unless it is terminated or revoked by FDA (after which the test may no longer be used). When diagnostic testing is negative, the possibility of a false negative should be considered in the context of a patient's recent exposures and the presence of clinical signs and symptoms consistent with SARS-CoV-2. Performed By: #### C VDTB #### [facility] [address], [place] [address] Dontrell Helen CBC AUTO DIFFon 04-24-2021 BASO # 0.0 103/ul Normal 0.0-0.1 [facility] Comment on above: Performed By: #### C VDTB #### [facility] [address], [place] [address] Dontrell Helen Basophils/100 WBC (Bld) 0.3 % Normal 0.2-2.0 [facility] Comment on above: Performed By: #### C VDTBH #### [facility] [address] [place] [id number] Dontrell Helen EO # 0.2 103/ul Normal 0.0-0.7 [facility] Comment on above: Performed By: #### C VDTBH #### [facility] [address] [place] [id number] Dontrell Helen Eosinophils/100 WBC (Bld) 2.1 % Normal 0.9-7.0 [facility] Comment on above: Performed By: #### C VDTBH #### [facility] [address] [place] [address] Dontrell Helen Erythrocyte distribution width (RBC) [Ratio] 12.6 % Normal 11.0-15.0 [facility] Comment on above: Performed By: #### C VDTBH #### [facility] [address] [place] [address] Dontrell Helen Hematocrit (Bld) [Volume fraction] 38.7 % Critically low 42.0-54.0 [facility] Comment on above: Performed By: #### C VDTBH #### [facility] [address] [place] [address] Dontrell Helen Hemoglobin (Bld) [Mass/Vol] 12.9 g/dL Critically low 14.0-18.0 [facility] Comment on above: Performed By: #### C VDTBH #### [facility] [address] [place] [address] Dontrell Helen IG # 0.07 10e3/ul Critically high 0.00-0.03 [facility] Comment on above: Performed By: #### C VDTBH #### [facility] [address] [place], [place] [id number] Dontrell Helen IG % 0.7 % Critically high 0.0-0.5 [facility] Comment on above: Performed By: #### C VDTBH #### [facility] [address] [place] [address] Dontrell Helen LYMPH # 1.6 103/ul Normal 1.2-3.8 [facility] Comment on above: Performed By: #### C VDTBH #### [facility] [address] [place], [place] [address] Dontrelljameel Cervantes Lymphocytes/100 WBC (Bld) 15.7 % Critically low 20.5-60.0 [facility] Comment on above: Performed By: #### C VDTBH #### [facility] [address], [place] [address] Dontrelljameel Cervantes MANUAL DIFF REQ NO Normal [facility] Comment on above: Performed By: #### C VDTBH #### [facility] [address] [place], [place] [address] Dontrelljameel Cervantes MCH (RBC) [Entitic mass] 31.1 pg Normal 25.9-34.0 [facility] Comment on above: Performed By: #### C VDTBH #### [facility] [address] [place], [place] [id number] Dontrelljameel Cervantes MCHC (RBC) [Mass/Vol] 33.3 g/dL Normal 29.9-35.2 [facility] Comment on above: Performed By: #### C VDTBH #### [facility] [address] [place], [place] [id number] Dontrelljameel Cervantes MCV (RBC) [Entitic vol] 93.3 fL Normal 80.0-94.0 [facility] Comment on above: Performed By: #### C VDTBH #### [facility] [address] [place], [place] [id number] Dontrell Helen MONO # 1.0 103/ul Critically high 0.3-0.8 [facility] Comment on above: Performed By: #### C VDTBH #### [facility] [address] [place], [place] [address] Dontrelljameel Cervantes Monocytes/100 WBC (Bld) 9.9 % Normal 1.7-12.0 [facility] Comment on above: Performed By: #### C VDTBH #### [facility] [address] [place] [id number] Dontrell Helen NEUT # 7.1 103/ul Critically high 1.4-6.5 [facility] Comment on above: Performed By: #### C VDTBH #### [facility] [address] [place], [place] [address] Dontrell Cervantes Neutrophils/100 WBC (Bld) 71.3 % Normal 43.0-75.0 [facility] Comment on above: Performed By: #### C VDTBH #### [facility] [address] [place] [id number] Dontrell Cervantes Platelet mean volume (Bld) [Entitic vol] 9.7 fL Normal 9.5-13.5 [facility] Comment on above: Performed By: #### C MEGATBH #### [facility] [address] [place], [place] [address] Dontrell Fernándezen PLT 280 103/ul Normal 150-450 [facility] Comment on above: Performed By: #### C MEGATBH #### [facility] [address] [place], [place] [address] Dontrell Cervantes RBC 4.15 106/ul Critically low 4.70-6.10 [facility] Comment on above: Performed By: #### C MEGATBH #### [facility] [address] [place], [place] [address] Dontrell Cervantes WBC 10.0 103/ul Normal 4.0-11.0 [facility] Comment on above: Performed By: #### C VDTBH #### [facility] [address] [place], [place] [address] Dontrell Cervantes ACETONE SERUMon 04-13-2021 ACETONE Negative Normal NEGATIVE [facility] Comment on above: Performed By: #### C VDTBH #### [facility] [address] [place] [address] Dontrell Cervantes CBC W MANUAL DIFFon 04-13-20 ATYPICAL LYMPH # Normal [facility] Comment on above: Performed By: #### Garry MURPHY #### [facility] [address] [place] [address] [address] [address] Sachin Jackson ATYPICAL LYMPH % Normal [facility] Comment on above: Performed By: #### Garry MURPHY #### [facility] [address] [place] [address] Dr. Sachin Jackson BAND # Normal 0.0-0.3 [facility] Comment on above: Performed By: #### C BCMAN #### [facility] [address] [place] [address] Dr. Sachin Jackson BAND % Normal 0-5 [facility] Comment on above: Performed By: #### C BCMAN #### [facility] [address] [place] [address] Dr. Sachin Jackson BASOM # 0.00 103/ul Normal 0.00-0.10 [facility] Comment on above: Performed By: #### C BCCHASIDY #### [facility] [address] [place] [address] Dr. Sachin Jackson BASOM % 0.0 % Critically low 0.2-2.0 [facility] Comment on above: Performed By: #### C JEFFREY #### [facility] [address] [place] [address] Dr. Sachin Jackson BLAST # Normal [facility] Comment on above: Performed By: #### C JEFFREY #### [facility] [address] [place] [address] Dr. Sachin Jackson BLAST % Normal [facility] Comment on above: Performed By: #### C JEFFREY #### [facility] [address] [place] [address] Dr. Sachin Jackson CORRECTED WBC Normal 4.0-11.0 [facility] Comment on above: Performed By: #### C BCCHASIDY #### [facility] [address] [place] [address] Dr. Sachin Jackson EOS # 0.00 103/ul Normal 0.00-0.70 [facility] Comment on above: Performed By: #### C BCMAN #### [facility] [address] [place] [address] Dr. Sachin Jackson EOS% 0.0 % Critically low 0.9-7.0 [facility] Comment on above: Performed By: #### C JEFFREY #### [facility] [address] [place] [address] Dr. Sachin Jackson HCT 42.3 % Normal 42.0-54.0 [facility] Comment on above: Performed By: #### C JEFFREY #### [facility] [address] [place] [address] [address] Sachin Jackson HGB 14.2 g/dl Normal 14.0-18.0 [facility] Comment on above: Performed By: #### C JEFFREY #### [facility] [address] [place] [address] [address] Sachin Jackson LYMPHM # 1.74 103/ul Normal 1.20-3.80 [facility] Comment on above: Performed By: #### C JEFFREY #### [facility] [address] [place] [address] Dr. Sachin Jackson LYMPHM% 12.0 % Critically low 20.5-60.0 [facility] Comment on above: Performed By: #### C JEFFREY #### [facility] [address] [place] [address] Dr. Sachin Jackson MCH 31.2 pg Normal 25.9-34.0 [facility] Comment on above: Performed By: #### C JEFFREY #### [facility] [address] [place] [address] Dr. Sachin Jackson MCHC 33.6 g/dl Normal 29.9-35.2 [facility] Comment on above: Performed By: #### C JEFFREY #### [facility] [address] [place] [address] Dr. Sachin Jackson MCV 93.0 fL Normal 80.0-94.0 [facility] Comment on above: Performed By: #### C JEFFREY #### [facility] [address] [place] [address] Dr. Sachin Jackson METAMYELOCYTE # Normal [facility] Comment on above: Performed By: #### C JEFFREY #### [facility] [address] [place] [address] Dr. Sachin Jackson METAMYELOCYTE % Normal [facility] Comment on above: Performed By: #### C JEFFREY #### [facility] [address] [place] [address] [address] Sachin Jackson MONOM# 1.59 103/ul Critically high 0.30-0.80 [facility] Comment on above: Performed By: #### C JEFFREY #### [facility] [address] [place] [address] [address] Sachin Jackson MONOM% 11.0 % Normal 1.7-12.0 [facility] Comment on above: Performed By: #### C JEFFREY #### [facility] [address] [place] [address] Dr. Sachin Jackson MPV 10.1 fL Normal 9.5-13.5 [facility] Comment on above: Performed By: #### C JEFFREY #### [facility] [address] [place] [address] Dr. Sachin Jackson MYELOCYTE # Normal [facility] Comment on above: Performed By: #### C JEFFREY #### [facility] [address] [place] [address] [address] Sachin Jackson MYELOCYTE % Normal [facility] Comment on above: Performed By: #### C JEFFREY #### [facility] [address] [place] [address] Dr. Sachin Jackson NRBC Normal [facility] Comment on above: Performed By: #### C JEFFREY #### [facility] [address] [place] [address] Dr. Sachin Jackson PLT 288 103/ul Normal 150-450 [facility] Comment on above: Performed By: #### C JEFFREY #### [facility] [address] [place] [address] Dr. Sachin Jackson RBC 4.55 106/ul Critically low 4.70-6.10 [facility] Comment on above: Performed By: #### C JEFFREY #### [facility] [address] [place] [address] Dr. Sachin Jackson RDW 12.1 % Normal 11.0-15.0 [facility] Comment on above: Performed By: #### C JEFFREY #### [facility] [address] [place] [address] [address] Sachin Jackson SEG # 11.16 103/ul Critically high 1.40-6.50 [facility] Comment on above: Performed By: #### C VERONICAMAN #### [facility] [address] [place] [address] Dr. Sachin Jackson SEG % 77.0 % Critically high 43.0-75.0 [facility] Comment on above: Performed By: #### C VERONICAMAN #### [facility] [address] [place] [address] Dr. Sachin Jackson WBC 14.5 103/ul Critically high 4.0-11.0 [facility] Comment on above: Performed By: #### C BCMAN #### [facility] [address] [place] [address] Dr. Sachin Jackson CRPon 04-13-2021 CRP [Mass/Vol] mg/L Critically high <=1.0 [facility] Comment on above: Performed By: #### T SH, CRP, CMP #### [facility] [address] [place] [address] Dr. Sachin Jackson CULTURE BLOODon 04-13-2021 Microscopic examination of blood, culture Culture Observations: No growth at 5 days. Normal [facility] Comment on above: Performed By: #### S EDR #### [facility] [address] [place] [address] Dr. Sachin Jackson Covid-19 PCR (CVDTB)on SARS-CoV-2 (COVID-19) RNA MARCELL+probe Ql (Unsp spec) Not detected Normal NOT DETECTED [facility] Comment on above: Result Comment: When diagnostic testing is negative, the possibility of a false negative should be considered in the context of a patient's recent exposures and the presence of clinical signs and symptoms consistent with SARS-CoV-2. This test is not yet approved or cleared by the [place] Food and Drug Administration (FDA). This test was developed by [employer], [place], [place]. The performance characteristics of this test were validated by [facility]. The results are not intended to be used as the sole means for clinical diagnosis or patient management decisions. [facility] is authorized under Clinical Laboratory Improvement Amendments (CLIA) to perform high- complexity testing. Performed By: #### S EDR #### [facility] [address] [place] [address] Dr. Sachin Jackson LACTATE/LACTIC ACIDon 2020 Lactate [Moles/Vol] 1.4 mmol/L Normal 0.7-2.0 [facility] Comment on above: Performed By: #### L ACT #### [facility] [address] [place] [address] Dr. Sachin Jackosn PROF 14(COMP METB)on 021 Albumin [Mass/Vol] 2.7 g/dL Critically low 3.5-5.0 [facility] Comment on above: Performed By: #### T SH, CRP, CMP #### [facility] [address] [place] [address] Dr. Sachin Jackson Albumin/Globulin [Mass ratio] 0.5 {ratio} Normal [facility] Comment on above: Performed By: #### T SH, CRP, CMP #### [facility] [address] [place] [address] Dr. Sachin Jackson ALP [Catalytic activity/Vol] 66 U/L Normal 38-126 [facility] Comment on above: Performed By: #### T SH, CRP, CMP #### [facility] [address] [place] [address] Dr. Sachin Jackson ALT [Catalytic activity/Vol] 28 U/L Normal 21-72 [facility] Comment on above: Performed By: #### T SH, CRP, CMP #### [facility] [address] [place] [address] Dr. Sachin Jackson Anion gap [Moles/Vol] 9.6 mmol/L Normal [facility] Comment on above: Performed By: #### T SH, CRP, CMP #### [facility] [address] [place] [address] Dr. Sachin Jackson AST [Catalytic activity/Vol] 18 U/L Normal 17-59 [facility] Comment on above: Performed By: #### T SH, CRP, CMP #### [facility] [address] [place] [address] [address] Sachin Jackson Bilirubin [Mass/Vol] 0.8 mg/dL Normal 0.2-1.3 [facility] Comment on above: Performed By: #### T SH, CRP, CMP #### [facility] [address] [place] [address] Dr. Sachin Jackson Calcium [Mass/Vol] 9.6 mg/dL Normal 8.4-10.2 [facility] Comment on above: Performed By: #### T SH, CRP, CMP #### [facility] [address] [place] [address] Dr. Sachin Jackson Chloride [Moles/Vol] 97 mmol/L Critically low 98-107 [facility] Comment on above: Performed By: #### T SH, CRP, CMP #### [facility] [address] [place] [address] Dr. Sachin Jackson CO2 [Moles/Vol] 28.5 mmol/L Normal 22.0-30.0 [facility] Comment on above: Performed By: #### T SH, CRP, CMP #### [facility] [address] [place] [address] Dr. Sachin Jackson Creatinine [Mass/Vol] 0.73 mg/dL Normal 0.66-1.25 [facility] Comment on above: Performed By: #### T SH, CRP, CMP #### [facility] [address] [place] [address] Dr. Sachin Jackson EGFR-AF FIJIAN >60 Normal >=60 [facility] Comment on above: Performed By: #### T SH, CRP, CMP #### [facility] [address] [place] [address] Dr. Sachin Jackson EGFR-NON AF FIJIAN >60 Normal >=60 [facility] Comment on above: Performed By: #### T SH, CRP, CMP #### [facility] [address] [place] [address] Dr. Sachin Jackson Globulin (S) [Mass/Vol] 5.1 g/dL Normal [facility] Comment on above: Performed By: #### T SH, CRP, CMP #### [facility] [address] [address] [address] Sachin Jackson Glucose [Mass/Vol] 111 mg/dL Critically high 74-106 [facility] Comment on above: Performed By: #### T SH, CRP, CMP #### [facility] [address] [address] [address] Sachin Jackson Potassium [Moles/Vol] 4.1 mmol/L Normal 3.4-5.0 [facility] Comment on above: Performed By: #### T SH, CRP, CMP #### [facility] [address] [place] [address] Dr. Sachin Jackson Protein [Mass/Vol] 7.8 g/dL Normal 6.1-8.2 [facility] Comment on above: Performed By: #### T SH, CRP, CMP #### [facility] [address] [place] [address] Dr. Sachin Jackson Sodium [Moles/Vol] 131 mmol/L Critically low 137-145 [facility] Comment on above: Performed By: #### T SH, CRP, CMP #### [facility] [address] [place] [address] Dr. Sachin Jackson Urea nitrogen [Mass/Vol] 9.0 mg/dL Normal 9.0-20.0 [facility] Comment on above: Performed By: #### T SH, CRP, CMP #### [facility] [address] [place] [address] Dr. Sachin Jackson Urea nitrogen/Creatinine [Mass ratio] 12.3 mg/mg Normal [facility] Comment on above: Performed By: #### T SH, CRP, CMP #### [facility] [address] [place] [address] Dr. Sachin Jackson SED RATE [facility] 2020 SED RATE >130 Critically high <=20 [facility] Comment on above: Performed By: #### S EDR #### [facility] [address] [place] [address] Dr. Sachin Jackson TSHon 04-13-2021 TSH 2.795 uIU/mL Normal 0.470-4.680 [facility] Comment on above: Performed By: #### T SH, CRP, CMP #### [facility] [address], [place] [address] Dr. Sachin Jackson TSH RANGE SEE BELOW Normal [facility] Comment on above: Result Comment: <0.3 4 UIU/ml HYPERTHYROID 0.34-5.60 UIU/ml EUTHYROID >5.60 UIU/ml HYPOTHYROID Performed By: #### T SH, CRP, CMP #### [facility] [address], [place] [address] Dr. Sachin Jackson XR CHEST 1 Von 04-13-2021 XR CHEST 1 V EXAM: XR CHEST 1 V HISTORY: The patient is a 65-year-old male with fever. COMPARISON: 12/05/2020. FINDINGS: There is a tracheostomy tube at the level of the clavicles. The lungs are well-inflated and relatively clear with no confluent airspace infiltrates, pleural effusions, or pneumothoraces. The heart and mediastinum are within normal limits. The trachea is midline. IMPRESSION: No acute cardiopulmonary abnormalities. Electronically authenticated by: JAMEEL NOONAN Date: 2021-04-13 17:24 Normal [facility] XR KNEE KIERA 3 Von 04-13-2021 XR KNEE KIERA 3 V EXAM: XR KNEE KIERA 3 V HISTORY the patient is a 65-year-old male with bilateral knee pain. COMPARISON: None. FINDINGS: The lateral views demonstrate evidence of bilateral effusions within the suprapatellar pouches, larger on the left. I suspect there is narrowing of the patellofemoral compartments, although this could be better evaluated with a patellofemoral view. There is chondrocalcinosis within the lateral compartments of both knee joints. Overall, these findings raise suspicion of calcium pyrophosphate deposition disease. No fractures or dislocations are seen within or around either knee joint. The widths of the medial and lateral compartments of both knees are maintained. No erosions are seen. Small osteophytes are present on the left. IMPRESSION: Findings suggesting CPPD. Electronically authenticated by: JAMEEL NOONAN Date: 2021-04-13 17:28 Normal [facility] Coding Summary.on 04-11-2021 Coding Summary. CD:[id number] Gh0bWw +PGhlYWQ+SN3JGPIoQ79usWYjd H7PB5qQLO3DPEYMFHEHIL9DJW5 ieRW3QMuyY9PczbGl JkahtAGaEG91YDa1SZJ9hTqkUM cryB1moAPiY4m2VzLbVN56jG28 KVptOCWrDwM9MlJtamrvqLZy P8ezKqLxcIToNms+PHRhYmxlIH fuEHRpOUnxAVKeQlBokDebTU8r Qd0rBLRvTATcpKkksSMyFsBb i1hrWVEtIPfxJI9poUojT8FblW K3IKBlp3k5Hc73oTG+PHRkIHN0 zIclEGnah740CgBwq7krZCL9 tKLkZWnzZTK0G10wg1G5ROLlUD HyFCV3dLZ4nZ4nbGemkznkU0Yz hYXuVcM5GSN7pDSnhW8heLog udikcT9oOmi+F80MPL3QEEFTAR 7HJav8C0GzMiyaeHC+LL30AHOl MZ62fKXcwAEsb6iuqOs5GmFe YJCqDBR2nSzqOCyjn2ZkBMZyZ0 3zrXPuh5H1PHKibJcifLRkDuHa oFJ8sC9zCDowudmfl8iwxoyu Hthka4pnbm03dW68L79pKNbyDK VlTSK3RPWfPRJujSytak1eaY5w Ii8+CEjwt3qaa5qkrFf9YySu QTToscQkaTujJJI6t0RbEt82M0 ZldErbo7XsEny3ys17yYTid7O5 tAC3QCqiXXLnwZ0hVMfhZlK7 GXXsXkSteN09eGOfFQbkWv6klU ftfZrrJW0aWIWenrmqPVGkuO5v LKZbxOIqyAbkPW4rNYYvntsv x773RsCzPEI0SOCekHTzY2FlxB 2zLcTfCWOnTKGfU2RrnZStTKvl P412ZMkjUuG9SMPinzJkX9Po SIDokZfkFaP1g1Q2Bw9Cp4Uemf ebKJW3UWrpEHPvYrSpRyWaDmO6 F0YcDgn5IIRwxJxyVI7fS1Sa NMQncgehcqsgnRS7LCPtYRVbxI 57bDOkADkwMi0sa1H5a409VKAc XHUgeV46Mg6moDkdJMOshZWH zO6jnsprk8nkvdrmWgQcOQKmGA s2OSp1BWFutXwcOtFiWFM3HxG4 PLC2eBPkiX9vpLmipwdmmF9w Oyc+R16jgF5rNVP2LDU5ssuqGA XrxvIdQD10CJ23G8RdLuljjNTb bGU+KTPrljFctYsbPX3oEoSn g4gjy3PtHNctU8SbUAHiMQovLj w5BVYwQRZ9tSV3lE1uPMPmIHvt n0Z1nFV1K9XhkpPyig4xm5qt RVTpQMrpB93ptMOmi9D9UFGmtG G3CGYjhLtxWsDrxQ53Xol+PGNv yLglj3SaUmqxm2ktx3gcyNu9 VyDgRAUjhyFrnKveDKD9d3NvJy 22O60eJIhdWXAmWZSgPTDdJAXw mKvltm9yeF7rXp0+PGNvbCB3 nVC2fD6zBNNaGbQ1TKiwX689Yi FimUHdOajtq3rab5kshXz7LnSo BRIejuXuuNmlMHT9g7PfNx15 C79iQVnrIIGtZJHgSOUvQVVieF xeti8blG5wAj4+LQ9ck7sijw22 eF66cAB+PVLrMHQ7lQieRLok WUTduM7fDBzbXvD8EOPoGyUhfE 68fGVbREmwEr0liJjwdIgvHB3d POIwvxmdu720WyZan9qoOQXu oRXgKDnvMGG4M33hp6M0YOGoGE GxJOG0rJR4zX6faHsmyjeyrHNp lHvtykEyeRpgNDrkCWndH802 IHRvcDsnPlBhdGllbnQgTmFtZT w6B4OyBpl1SMHycGxvQV6wcTFc ARhyKo4dqVrijFggJL7oWJCo pyipk568QpBye0cbJDVgsLCkXR udIAO6V19ch8B7TBKzSEBeNWG9 lJO6tO3bcXzxzlztnNSllLsy inMtrIgjBVmcBPnaI866VVYufI pxUnNubcLzCTFieMH8SO38TW75 gKEuc7J8pXP0G3NaCPSoupwi vbulaXP7BEEiJIMisW57Cl3shT ckZu9nDLYcPDW2CVEpeCFqB0Mr qX6uRzVmEZHeDAKtJ5AslGVl MDvxN381RSshWlM4IEFxrzNlS9 HaKDNrsCgzWiA1g7K6Af2QW8K3 UY11UK27cPPvq3X7fPW8N1Kt ZBZxumdsjpvxlYU3SCOjJGRaxI 57Ka6onEawIe8yICMaNQK1PYNw kMJaD7QbiY8rKrScKEOqOIXz N6LapKGnXFttZ641MOlwAhJ6CB NekvKcY5QsSXXthIjhCzR2p2K7 Oi0VISa6VA57QJ84cZEmd3O8 lEL4U2RdABQoxblnwdzijRL9BS UrREYscH47Pm4cuNfxUx0oZEVy JDM1SRQvzHEoX7SqlL8eToAe HSCiTKVnM0GvbKVqWZmhH439NX khUiL7XTHpawGyV6SkRQAnxAqn XeL6k2B7Ai6SIHEpHH01ZCH0 oRI2JO42TZ03F6VgAmgreUQaxM U+PHRhYmxlIHdpZHRoPScxMDAl IbRcwYyuBC8xQf5cOATmFSZj sHzowUXqNwLoe0glBBYgLDfkWB 2jdVieE3TskLT7JOXhz8o6Ic55 A13zK6OymEZ+SVPgwBD1sMJ5 fB6aXrHzLxQ3OZrzO106KuGwdA SlSqhet6fle7gaiXo4BwT5PXGu qwDbvRhvUUF3c8RvSz90G59j IHdpZHRoPSIxNSUiIHZhbGlnbj 8ljB7hJy4+UPStqFL2gFV9bZ7u UhRhSpJ7SYchZ476HpCwbNOy Xutzf5ggh0mbkMr6WoZnMZZthw ElrMpfGJI5b7JgAf94M7ZydRyb e2DoPwd1gz95fUMjd3I0nBS1 X8LkBVJtikwlpVWzsZiuXK0pIG XhbwmlQLAnzB9nLURdK9v1KrDo FmE9PJozU3GpscT2MWPriBCz EEdcPGI4F26gj9H1KVElVTCpLM A4nTY8lI4zcOygfnjonFSruJzz pmOxlCmzAElhOYyoA995IDPo bKmjXVPuqA8bULPllIKpiXeaSM 3xYDXtlfraXo4YBY5xXGKBTRYU RVMgTDwvdGQ+MVYiHNT8fRvn ASowYXHdpG6kZCQzS8v1BsHjGh H0FXjkH8WxEHImouxqMp98cC8f RiWiCtB4AVjkZ1OqatT4QQJz uHWuGCcyKOS1M55de5B6JJMbDU DgZXS7rDL8oL2biRsedbfpoBKq jBpmxnOfpMtoPJypEGhiE127 UVLtfFvhNkDbObCpJpT9RLD5C1 XxZna4VWFisKojGI3bdCDmEQyu Wh0ilBjahYctAI8mUVDexxix TRBkaH1wBYKeqBXbbJorQR5eHG Yrlnyon188NtBtVNB8FFJttIEr G1CvoN3mDfGzECQbYYQoY9Mp gZJwOYueL120GWukIoY5EPQxwm DuO6YhLWNfjJnyIfD0f3V2Kh08 NyBZZWFyczwvdGQ+PHRkIHN0 rTiaXQyiCRTntJ3vCFCvT5c2Lt OgQfL0KIckU8OcRRQwynpmEq87 xM0lMrDdBrJ1NJnpM4VryxQ1 JDQmbJMwTDiwHJC6A46ea4D8QA LdKMVuDBX2kNC5jA0mlEurfhfr bGVmdDsgdmVydGljYWwtYWxp B817AWTdsDnyEv4jaQF6I4LkDz j6XKBuhFrcEC0khVPuFLigTu2b lQxaxKbjEC4vJVVjrwihMWTl nK3aEAUsnLZfqVzfBU5bAIZksc nng545HyAkXRQ6IHNvyCKjQ2Fd kC6yVvLjKVNsWTYmT6JwiPYe FEpuY909UElzGeV8IREhsoUhS9 AkAWQvvOcyOcR4k4S2Ui5UonOn cKzrpdW6S2XqTwdcsON+PC90 GAWvPW02zMZonZRyj4vrdLz3Xw ZkRSJxWOU2gXqfRInap1SjQLMz P88veSJzi1U2PIKwbWuduNRg FnRphUO9sT7aZXsfgomzh2mwsj yjBxqgs7ptgn99qK73G28aCDtg IXApLENaNHVoMIBwkRsdjb5g fJ1tOr7+EBStkVY9zON3jM6gTy KfFzQ0ORsmI298BlVpgWYmZyfh k8ohd1ujyGr5QhUiUFUtbaOv aUadYQH8z4UsNl21W58yRMrzMK OsPRIrBXKvDMQawCecfb2mxZ6z Ii8+BW2jq8ingg85bU37fOA+ BQNaLKP6iQyfEMbtBOVotW8mCJ wuDlF9FCVnEqYqiJ51nYJqWDpj Md6ugOnvyXnrFY1kYHSmisaf y104TwBxa7xpMSAklLGlUYbkXQ M9E99rr6B2PBZdQTAqUXI5hYT6 nY7avAerzoxqtDIqbEsgabTq aXtfZVswFXkcT135NEDojRezHo OwfUPoH4pjomOBYR2xSxcpnPT+ HJJvDHN9sOwyPZvkXWEltF9f ICYdD0o9RySpNnZ8LIaiE7Gytd H1LZPntPQoBULkwADOgJ2jjyte d2riacltJcSzEJAqTQp6SBr9 TXSjfXupLyBeAKV6VtT1TBH4rK HdsV0edRzcnzrmdY3gNry+RklO OjwvdGQ+KISvLOL1pAthJQhh RFZudT8kJCTiS4r2EqRyGcO9XA ulT7HjulM2QTRpvERsQRHkbTNS aW4mhohvh0dzjczmHvMjNNEn XHg3HCy6KBEqyMidWkDjXSE7Um K8EPJ0fCNqzZ6boGqauyiyuJ3i Oyc+TVJOOjwvdGQ+PHRkIHN0 wUnkUVqdATBupQ5eFHCeD1m6Zx OaRtL6MOxlO1QhniU6OSBgsTGx KBGjgYKHxV3qdiajj8ocnrxm KmTeMTYqMFq4ACx2FVPmbRwiZg NxPOA6FtF4KSF3cJSnjN7fsInp xxwjtI5gVzw+LDU3ILX2KD69 WE74X8EuHcewuUGzvKD+PHRhYm xlIHdpZHRoPScxMDAlJyBzdHls YJ0dOg6pAXZiWXFnfUhmmTYx OiBj (more content not included)... Normal [facility] NM PET/CT SKULL-THIGH INITon 04-11-2021 NM PET/CT SKULL-THIGH INIT * * *Final Report* * * DATE OF EXAM: Apr 11 2021 10:45AM NRN 0060 - NM PET/CT SKULL-THIGH INIT / PROCEDURE REASON: Vocal cord cancer * * * * Physician Interpretation * * * * RESULT: EXAMINATION: NM PET/CT SKULL-THIGH INIT HISTORY: 65 years old Male with Vocal cord cancer. 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 TECHNIQUE: F18-FDG administered IV was followed about 60 minutes later by PET imaging from skull vertex to proximal thighs. Free breathing low dose CT was performed without contrast for attenuation correction and anatomic localization. Blood glucose before FDG injection: 82 mg/dL FDG radionuclide dose: 10.[address] Dose-Length Product (DLP): 234 mGy*cm. CT Dose Reduction Employed: Automated exposure control COMPARISON: No prior PET/CT for comparison. CORRELATION: Outside CT neck 11/27/2020 RESULT: - Mediastinum blood pool activity: Max SUV: 2.4 - Background liver activity: Max SUV: 3.7 HEAD AND NECK: Physiologic uptake seen in the visualized brain, extraocular muscles, base of tongue, and salivary glands. Focal increased uptake in the right vocal cord posteriorly involving the right arytenoid cartilage measuring approximately 1.5 cm with max SUV 13.1 , with cartilaginous changes. This finding could be related to radiation necrosis with inflammation, however given the intense uptake possibility of neoplasm is not excluded. ENT correlation recommended. No FDG avid cervical lymphadenopathy. No FDG avid thyroid lesion. Tracheostomy with surrounding increased uptake likely inflammatory postprocedure. CHEST: Chest wall and axilla: No FDG avid axillary lymphadenopathy. Lungs and tracheobronchial tree and pleura: No FDG avid consolidation or FDG avid pulmonary nodule. Note that PET/CT is not sensitive for pulmonary nodules less than 8 mm. No FDG avid pleural effusion or pleural mass. Retained secretions in the right interlobar bronchus Mediastinum and Lymph nodes: No FDG avid mediastinal mass, mediastinal or hilar lymphadenopathy. Heart and great vessels: Physiologic uptake in the heart. Coronary artery calcifications. Ascending aorta measures 3.7 cm. ABDOMEN AND PELVIS: Physiologic uptake seen in the and GI tracts. Liver: No FDG avid lesion. Biliary: Gallbladder is unremarkable. Spleen: No FDG avid lesion. No splenomegaly. Pancreas: No FDG avid lesion. Adrenals: No FDG avid lesion. Kidneys: No stones, hydronephrosis, or FDG avid lesions. GI tract: No dilation or focal suspicious FDG avid lesion. Lymph nodes: No FDG avid abdominal or pelvic lymphadenopathy. Mesentery/Peritoneum: No ascites or FDG avid mass. Vasculature: Vascular patency cannot be assessed due to lack of IV contrast. Atherosclerotic calcifications of the abdominal aorta and iliac vessels without aneurysm. Pelvis: No ascites, fluid collection or FDG avid process. Fat-containing bilateral inguinal and umbilical hernias. BONES AND EXTREMITIES: No suspicious FDG avid osseous lesion. The imaged portions of the skeleton demonstrates age-related degenerative changes. No destructive osseous lesions. Kiln Packer (topogram) images: No additional findings. IMPRESSION: 1. NECK: * Hypermetabolic focus in the right vocal cord posteriorly about the arytenoid cartilage as described. This finding could be related to radiation necrosis with inflammation, however given the intense uptake possibility of viable neoplasm is not excluded. ENT correlation recommended. * No hypermetabolic cervical lymphadenopathy. 2. CHEST: * No FDG avid neoplastic process. 3. ABDOMEN/PELVIS: * No FDG avid neoplastic process. 4. EXTREMITIES/SKELETON: * No suspicious FDG avid osseous lesion. Transcribe Date/Time: Apr 11 2021 10:52A Dictated by: LIAM MARSH MD This examination was interpreted and the report reviewed and electronically signed by: KASI LEAL MD on Apr 11 2021 12:24PM EST Thank you for allowing us to participate in the care of your patient. Should there be any questions regarding this interpretation, please call [phone]. If you are unable to reach us at the number above, please feel free to contact [facility] eRadiology at [phone]. [id number] Normal [facility] Coding Queryon 04-06-2021 Coding Query - From: Gonzalez East RN To: Kelby MENESES MD; Sent: 04/04/2021 07:53:48 EDT ! 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 Final Diagnosis (Verified) RIGHT LARYNX, BIOPSY: ? HYPERPLASTIC SQUAMOUS EPITHELIUM WITH FOCAL INFLAMMATION AND ULCERATIVE CHANGES. ? NO EVIDENCE OF MALIGNANCY OR DYSPLASIA IDENTIFIED. Based on your medical judgment of the documented diagnoses and clinical indicators outlined above, can you please specify the condition or conditions that after study occasioned this patient's admission? Document/clarify: In responding to this request, please exercise your independent professional judgement. The fact that a question is asked does not imply that any particular answer is desired or expected. Thank you![email or web address] [id number] From: Kelby MENESES MD To: Gonzalez East RN; Sent: 04/04/2021 08:17:05 EDT Subject: RE: Coding Query This should be sent to ENT Dr. Christy. Diagnosis: hyperplastic polyp From: Gonzalez East RN To: Mukund Christy MD; Sent: 04/06/2021 14:03:31 EDT Subject: FW: Coding Query Due Date/Time: 04/07/2021 14:03:00 EDT Normal [facility] Pathology Reporton Pathology Report [id number]:127 Normal [facility] IntraOperative Documentson 1 IntraOperative Documents [id number]:127 Normal [facility] SURGICAL PATHOLOGYon 021 SURGICAL PATHOLOGY Specimen #: [id number] Submitting Physician: MUKUND CHRISTY M.D. FINAL DIAGNOSIS Slides and a block labeled [id number]-[id number] are received from [facility] ([place], [place]), collected March 15, 2021. Right larynx, biopsy: - Hyperplastic squamous mucosa with focal ulceration, acute and chronic inflammation, and stromal changes consistent with prior radiation (see comment). - Negative for dysplasia and invasive carcinoma. COMMENT Thank you for sharing this case in consultation. This right larynx biopsy shows reactive/inflammatory changes with evidence of radiation change in the underlying stroma. There is no evidence of dysplasia or carcinoma. The surface epithelium is hyperplastic but bland without evidence of atypia or dysplasia. There is focal ulceration of this epithelium with an associated fibrinopurulent exudate and the underlying stroma shows mixed inflammation. The stroma is moderately cellular with scattered larger nuclei. These nuclei have smudgy chromatin and are focally vacuolated. There is also associated cytomegaly thus preserving the overall nuclear to cytoplasmic ratio. Immunostains performed in you laboratory and at the [facility] show an absence of tumor gene expression and epithelial markers (see microscopic description for stain details). The overall findings are those of a reactive process consistent with the patient's known history of radiation therapy. Chang Grant M.D., PhD (Electronic Signature) SPECIMEN SUBMITTED A: 5 SLIDES and 1 BLOCK ([id number]) MICROSCOPIC DESCRIPTION Ancillary studies performed by the referring institute are as follows: p16: Focal reactivity (negative as a surrogate marker for high-risk HPV p53: Positive in scattered cells in a wild-type pattern Ancillary studies performed by the [facility] (block A1) are as follows: Cam5.2: Negative CK JESSI: Positive only in surface epithelium CK5/6: Positive only in surface epithelium AE1/3: Positive only in surface epithelium p63: Positive only in surface epithelium Laboratory Developed Test (LDT) Disclaimer: Positive and negative controls stain appropriately. Performance characteristics of immunohistochemical, immunofluorescent and chromogenic in-situ hybridization tests have been determined by [facility]'s [facility] Pathology and Laboratory Medicine [place] ([facility]) in a manner consistent with CLIA requirements. One or more of these tests have not been cleared or approved by the FDA. [facility] is regulated under CLIA as qualified to perform high-complexity testing. These tests are used for clinical purposes. They should not be regarded as investigational or for research. CLINICAL DATA None provided. Date of Report: 04/02/2021 Date of Procedure: 03/26/2021 Date of Receipt: 03/26/2021 Submitted by: MUKUND CHRISTY M.D. Location: Diagnostic interpretation performed at [facility], [address] [place] [address]. CLIA Number: [id number] Normal [facility] Reference Lab Comment on above: Performed By: #### S #### See report for performing lab information. CTA Cheston 03-23-2021 CTA Chest Exam Date/Time: 03/23/2021 09:41 EDT Reason for Exam: PE suspected, high prob;Other (please specify) Report IMPRESSION: NO EVIDENCE OF PULMONARY EMBOLI OR ACTIVE CARDIOPULMONARY DISEASE. TRACHEOSTOMY IN EXPECTED POSITION. MILD PROBABLE DEPENDENT ATELECTASIS. EXAM: CTA Chest DATE: 03/23/2021 CLINICAL HISTORY: PE suspected, high prob. COMPARISON: None available. TECHNIQUE: Spiral enhanced images were obtained of the chest after the infusion of approximately 71 mL of Isovue 370 contrast with pulmonary artery CTA protocol. Routine and volume rendered images were performed on a three-dimensional workstation. All CT scans at this facility use dose modulation, iterative reconstruction, and/or weight based dosing when appropriate to reduce radiation dose to as low as reasonably achievable. FINDINGS: A tracheostomy catheter is noted in expected position. No filling defects are identified within the pulmonary arterial vasculature to suggest pulmonary emboli. The thoracic aorta is mildly ectatic with mild atherosclerotic plaquing. There is no dissection. The heart is not enlarged. Mild probable dependent atelectasis is noted of the lung bases, worsening inferiorly. There are no other significant pulmonary infiltrates, lymphadenopathy, worrisome nodules, pleural or pericardial effusions. Mild to moderate degenerative change thoracic spine are present. There are no fractures identified. Report The limited images of the upper abdomen are noncontributory. FINAL REPORT Dictated: 03/23/2021 10:33 am Ulises Camacho MD Signed (Electronic Signature): 03/23/2021 10:33 am Signed by: Ulises Camacho MD Transcribed by: GIORGI Technologist: MINOO Technical Comments GFR (mL/min/1/73m2) >60 Contrast: Isovue 370 Contrast amount in ml's: 71 Normal [facility] Consent for Procedure/Surger yon 03-23-2021 Consent for Procedure/Surgery [id number]#[id number]:127 Normal [facility] Discharge Instructionson Discharge Instructions [id number]#[id number]:127 Normal [facility] Inpatient Clinical Summaryon 03-23-2021 Inpatient Clinical Summary [place] [id number] Clinical Summary Person Information: Name: LAZARO PETTY Age: 65 Years : 1955 Sex: Male PCP: Lazaro Escobedo DO Marital Status: Race: White Ethnicity: Non- or Language: Italian Visit Id: Visit Reason: VOCAL CORD CA Speciality: Acuity: Enc Type: Inpatient Med Service: Surgery Arrival: 03/15/2021 10:59:05 Discharge: Dispo Type: Address: [address] [place] [id number] Provider Notes: Diagnosis: 1:Larynx cancer; 2:Swelling of left knee joint; 3:Chronic obstructive pulmonary disease; 4:Hypertension; 5:Sequential compression device (SCD) in place on patient Problems Active Chronic obstructive pulmonary disease Hypertension Marijuana use Smoking Status: Former Smoker Functional Status: Sensory Deficits: History of Falls: Mobility Assistance Prior to Admission: ADLs: Minimal assistance Current Level of Assistance for Self-Care/Mobility: Cognitive Status: Oriented x 3 Allergies Bee Stings (Swelling) Measurements: Height: 177.8 cm Weight: 80.8 kg Blood Pressure: 120 mmHg / 71 mmHg BMI: 25.53 kg/m2 Procedures Laryngoscopy (03/15/2021) Immunizations No Immunizations Documented This Visit Final Med List: amlodipine (amLODIPine 5 mg Tab) 1 Tablets By Mouth every day. camphor/menthol/methyl salicylate topical (camphor/menthol/methyl salicylate 4%-10%-30% topical cream) 1 Application Topical 4 times a day as needed Pain. famotidine (famotidine 20 mg Tab) 1 Tablets By Mouth 2 times a day. naproxen (Aleve 220 mg oral capsule) 1 tab By Mouth as needed as needed for pain. Care Team Members: Attending Physician: Mukund Christy MD Consulting Physician: Benjamin Johnson DO, MD, Joe Mancera Referring Physician: Mukund Christy MD Follow up: With: Address: When: Mukund Christy [address] [facility] [address], [address] [place] [address] Business (1) In 1 week 03/30/2021 With: Address: When: [facility] [address] [place] [address] Business (1) Patient Education Information: Tracheostomy Normal [facility] Inpatient Patient Summaryon 03-23-2021 Inpatient Patient Summary [place] [id number] Patient Discharge Instructions PERSON INFORMATION Name: LAZARO PETTY Date of : 1955 Current Date: 03/23/2021 14:11:18 PHYSICIANS Admitting Physician: Mukund Christy MD Primary Care Physician: Lazaro Escobedo DO PCP Comment: Discharge Diagnosis: 1:Larynx cancer; 2:Swelling of left knee joint; 3:Chronic obstructive pulmonary disease; 4:Hypertension; 5:Sequential compression device (SCD) in place on patient Condition at Discharge: Stable LAZARO PETTY has been given the following list of follow-up instructions, prescriptions, and patient education materials: PATIENT FOLLOW-UP INFORMATION Diet: Regular Discharge Activity: Discharge Restrictions: No restrictions Wound Care Instructions: Remove Your Dressing In Days Call Your Doctor For: IF UNABLE TO CONTACT YOUR PHYSICIAN AND YOU FEEL IT IS AN EMERGENCY, GO TO THE NEAREST EMERGENCY ROOM OR CALL 911 Home Treatment: Devices/Equipment: Special Services: Additional Instructions: Primary Care Physician to provide the following pending test results: None Follow up: With: Address: When: Mukund Christy [address] [place] [address] [address], [address] [place] [phone] Business (1) In 1 week 03/30/2021 With: Address: When: Lazaro Escobedo [address] [place] [address] Business (1) In the event that this physician does not participate in your insurance network, please consult with your insurance company to find a nearby participating provider. Comment: IDREW CHARLES L, have received the attached patient education materials/instructions and have verbalized understanding: Patient Signature __ Date Clinican/Nurse Signature Date HERE ARE THE MEDICATION CHANGES THAT OCCURRED DURING YOUR HOSPITAL STAY New Medications Other Medications camphor/menthol/methyl salicylate topical (camphor/menthol/methyl salicylate 4%-10%-30% topical cream) 1 Application Topical 4 times a day as needed Pain. Last Dose: N ext Dose: famotidine (famotidine 20 mg Tab) 1 Tablets By Mouth 2 times a day. Last Dose: N ext Dose: Medications to Continue with No Changes Other Medications amlodipine (amLODIPine 5 mg Tab) 1 Tablets By Mouth every day. Last Dose: N ext Dose: naproxen (Aleve 220 mg oral capsule) 1 tab By Mouth as needed as needed for pain. Last Dose: N ext Dose: Comment: MEDICATION LIST PROVIDED FOR YOU IS A LIST OF YOUR CURRENT MEDICATIONS. PLEASE CARRY THIS WITH YOU AT ALL TIMES. amlodipine (amLODIPine 5 mg Tab) 1 Tablets By Mouth every day. camphor/menthol/methyl salicylate topical (camphor/menthol/methyl salicylate 4%-10%-30% topical cream) 1 Application Topical 4 times a day as needed Pain. famotidine (famotidine 20 mg Tab) 1 Tablets By Mouth 2 times a day. naproxen (Aleve 220 mg oral capsule) 1 tab By Mouth as needed as needed for pain. [facility]: PATIENT EDUCATION INFORMATION Instructions: Tracheostomy A tracheostomy is a procedure to create an opening in the windpipe (trachea). A breathing tube (tracheostomy tube) is then placed in this opening. This allows you to breathe without using your nose or mouth. A tracheostomy may be permanent or temporary. It may be planned and performed in an operating room, or it may be an emergency procedure performed at your hospital bedside or in an emergency room. You may need to have a tracheostomy if: ? You need long-term help with breathing (ventilation). ? Your airway is blocked by: ? Swelling. ? Injury. ? Tumor. ? A foreign object. ? A vocal cord problem. ? Severe narrowing of the trachea. ? You have too much mucus or other fluids (secretions) in your airway that need to be suctioned often. Tell a health care provider about: ? Any allergies you have. ? All medicines you are taking, including vitamins, herbs, eye drops, creams, and uhkj-tvn-jrgirbr medicines. ? Any problems you or family members have had with anesthetic medicines. ? Any blood disorders you have. ? Any surgeries you have had. ? Any medical conditions you have. ? Whether you are or may be . What are the risks? Generally, this is a safe procedure. However, problems may occur, including: ? Infection. ? Bleeding. ? Puncture of one or both lungs (pneumothorax). ? Narrowing of the trachea, making it hard to breathe. ? Damage to the gland in the lower front part of the neck (thyroid gland). What (more content not included)... Normal [facility] Interdisciplinary Note - Jeremy e Manageron 03-23-2021 Interdisciplinary Note - Billing Coordinator CRM spoke with patient in room. Patient is alert and oriented and participates in discharge planning. No family in room. Patient white board updated, and CRM contact information provided. Discussed CRM spoke with Dr Meneses who saw patient earlier today and will have CT chest d/t still has a cough. If CT okay will plan to discharge to [facility] today. patient is on room air and has trach collar at bedside. patient has passe alexei valve and able to verbalize. Reviewed Medicare rights with patient , he denies any questions and gave him copy of signed form. [id number] CRM called daughter Frandy and updated her patient will dc today. She will transport patient to [facility] today. she denies any other questions Normal [facility] Comment on above: Result Comment: Elec tronically Signed By: Franck STORY, Madonna\.br\Date and Time Signed: 03/23/21 14:12 EDT Interdisciplinary Note - Nut ritionon 03-23-2021 Interdisciplinary Note - Nutrition Pt reassessed. Results of MBS noted. Pt diet adv to regular with MM5 consistency. Pt has no teeth. Demonstrated good intake at k this am eating 100% of meal. Meets nutrition goal, POC d/c'd. Normal [facility] Comment on above: Result Comment: Elec tronically Signed By: Michelle FLETCHER, MALIK., Blank\.br\Date and Time Signed: 03/23/21 10:44 EDT PT & PTTon 03-23-2021 aPTT Coag (PPP) [Time] 30.8 second(s) Normal 25.1-36.5 [facility] Comment on above: Result Comment: Hepa rin therapeutic range (represented by Anti-Factor Xa activity of 0.2 - 0.4 U/mL) corresponds to PTT of 56.6 - 109.0 sec. Performed By: #### 2 [id number] #### [facility] [address] [place] [address] INR Coag (PPP) [Relative time] 1.4 {INR} Invalid Interpretation Code [facility] Comment on above: Result Comment: INR results are specifically intended to assess patients stabilized on long-term Anticoagulation therapy suggested INR?s ?Less Intensive Anticoagulation? 2.0 ? 3.0 Conventional Range 3.0 ? 4.5 Performed By: #### 2 368389, 1805037, 9290200, 67584284, 74102009, 0044084, 0953121 #### [facility] [address] [place] [address] PT Coag (PPP) [Time] 16.7 second(s) High 10.2-12.9 [facility] Comment on above: Performed By: #### 2 138584, 6130450, 7531415, 89067455, 39618886, 5870735, 2031602 #### [facility] [address] [place] [address] Progress Note-Physicianon Progress Note-Physician ENT POD 8 Pt reports he feels SOB when laying down. Transfer to [facility] planned for later today per nurse. Pt passed bedside swallowing eval and diet advanced. AVSS Trach in place and stable with good airflow. Lungs CTA after extensive effort to cough, and sx resolved. Cough with Passey Toyin valve results in sig leak around trach due to severity of laryngeal obstruction. I will order a CXR this morning. Nurse to check a pulse ox. SOB not due to trach issues. I will defer to hospitalist to determine whether pulmonary issues should delay transfer. Unless needed sooner, I will plan to see pt next Friday in my [place] office Normal [facility] Comment on above: Result Comment: Elec tronically Signed By: Juliette CROOK, Mukund Storey\.br\Date and Time Signed: 03/23/21 07:24 EDT Transfer Documentson 021 Transfer Documents [id number]:127 Normal [facility] Auto Diffon 03-22-2021 Basophils/100 WBC (Bld) 0.7 % Normal 0.0-2.0 [facility] Comment on above: Order Comment: Order Added by Discern Expert. Performed By: #### 2 082109, 93933802, 9667197, 3470527 ####[facility] [address] [place] [address] Basophils/Leukocytes Auto (Bld) [Pure # fraction] 0.1 E9/L Normal 0.0-0.2 [facility] Comment on above: Order Comment: Order Added by Discern Expert. Performed By: #### 2 198000, 90595805, 1690375, 1144726 ####[facility] [address] [place] [address] Eosinophils/100 WBC (Bld) 1.7 % Normal 0.0-8.0 [facility] Comment on above: Order Comment: Order Added by Discern Expert. Performed By: #### 2 241441, 18878984, 0039094, 5988446 ####[facility] [address] [place] [address] Eosinophils/Leukocyt es Auto (Bld) [Pure # fraction] 0.2 E9/L Normal 0.0-0.5 [facility] Comment on above: Order Comment: Order Added by Discern Expert. Performed By: #### 2 228661, 33938444, 3676600, 4282923 ####[address] [address] Lymphocytes/100 WBC (Bld) 9.8 % Low 14.0-50.0 [facility] Comment on above: Order Comment: Order Added by Discern Expert. Performed By: #### 2 955915, 20838654, 8451923, 7772203 ####[address] [address] Lymphocytes/Leukocyt es Auto (Bld) [Pure # fraction] 0.9 E9/L Low 1.0-4.0 [facility] Comment on above: Order Comment: Order Added by Discern Expert. Performed By: #### 2 763539, 45940313, 4322168, 9264588 ####[address] [address] Monocytes/100 WBC (Bld) 12.6 % Normal 4.0-14.0 [facility] Comment on above: Order Comment: Order Added by Discern Expert. Performed By: #### 2 273519, 58971388, 1258023, 6670169 ####[address] [address] Monocytes/Leukocytes Auto (Bld) [Pure # fraction] 1.1 E9/L High 0.2-1.0 [facility] Comment on above: Order Comment: Order Added by Discern Expert. Performed By: #### 2 670870, 22565684, 8187074, 7558917 ####[address] [address] Neutrophils/100 WBC (Bld) 75.2 % High 36.0-75.0 [facility] Comment on above: Order Comment: Order Added by Discern Expert. Performed By: #### 2 914041, 82154751, 1795873, 3984946 ####[facility] [address] [place] [address] Neutrophils/Leukocyt es Auto (Bld) [Pure # fraction] 6.8 E9/L Normal 2.0-7.5 [facility] Comment on above: Order Comment: Order Added by Discern Expert. Performed By: #### 2 280640, 34418949, 8952646, 3788629 ####[facility] [address] [place] [address] BMPon 03-22-2021 Anion gap [Moles/Vol] 11 mmol/L Normal 6-16 [facility] Comment on above: Performed By: #### 2 295000, 04017222, 9439520, 8758741 ####[address] [place] [address] Calcium [Mass/Vol] 8.6 mg/dL Low 8.9-11.1 [facility] Comment on above: Performed By: #### 2 633990, 88215448, 1393175, 8876366 ####[facility] [address] [place] [address] Chloride [Moles/Vol] 93 mmol/L Low 101-111 [facility] Comment on above: Performed By: #### 2 944636, 03542738, 0929348, 2727710 ####[facility] [address] [place] [address] CO2 [Moles/Vol] 32 mmol/L High 21-31 [facility] Comment on above: Performed By: #### 2 505684, 97063490, 4405948, 6012317 ####[facility] [address] [place] [address] Creatinine [Mass/Vol] 0.7 mg/dL Normal 0.5-1.3 [facility] Comment on above: Performed By: #### 2 935184, 84058000, 7853536, 5107054 ####[facility] [address] [place] [address] Glucose [Mass/Vol] 155 mg/dL Normal 55-199 [facility] Comment on above: Result Comment: If t his glucose result represents a fasting glucose, interpretation should refer to the following reference range: 55-99 mg/dL Performed By: #### 2 999780, 30271268, 6423928, 8140493 ####[facility] [address] [place] [address] Potassium [Moles/Vol] 4.6 mmol/L Normal 3.5-5.3 [facility] Comment on above: Performed By: #### 2 257977, 05336132, 5928105, 2328994 ####[facility] [address] [place] [address] Sodium [Moles/Vol] 131 mmol/L Low 135-145 [facility] Comment on above: Performed By: #### 2 844592, 04479209, 2950194, 2893689 ####[facility] [address] [place] [address] Urea nitrogen [Mass/Vol] 16 mg/dL Normal 5-21 [facility] Comment on above: Performed By: #### 2 124302, 30347282, 1130664, 2860037 ####[facility] [address] [place] [address] Urea nitrogen/Creatinine [Mass ratio] 23 No Units High 10-20 [facility] Comment on above: Performed By: #### 2 905102, 40646434, 6057973, 1117211 ####[facility] [address] [place] [address] CBC w/ Auto Diffon Erythrocyte distribution width (RBC) [Ratio] 12.8 % Normal 10.9-14.2 [facility] Comment on above: Performed By: #### 2 658589, 29881996, 7345902, 2608547 ####[facility] [address] [place] [address] Hematocrit (Bld) [Volume fraction] 41.4 % Normal 37.7-49.0 [facility] Comment on above: Performed By: #### 2 176306, 29137893, 4011742, 5100079 ####[address] [address] Hemoglobin (Bld) [Mass/Vol] 14.0 g/dL Normal 13.5-17.5 [facility] Comment on above: Performed By: #### 2 545598, 18917644, 1470247, 5684512 ####[address] [address] MCH (RBC) [Entitic mass] 32.4 pg Normal 27.0-34.0 [facility] Comment on above: Performed By: #### 2 199013, 21352443, 4232741, 6000016 ####[address] [address] MCHC (RBC) [Mass/Vol] 33.9 g/dL Normal 31.4-36.0 [facility] Comment on above: Performed By: #### 2 493834, 85035968, 6666252, 4446605 ####[address] [address] MCV (RBC) [Entitic vol] 95.5 fL Normal 80.0-100.0 [facility] Comment on above: Performed By: #### 2 657770, 03015126, 8683584, 7492917 ####[address] [address] Platelet mean volume (Bld) [Entitic vol] 9.1 fL Normal 6.4-10.8 [facility] Comment on above: Performed By: #### 2 664965, 73235801, 4831647, 0358909 ####[address] [address] Platelets (Bld) [#/Vol] 255.0 E9/L Normal 150.0-500.0 [facility] Comment on above: Performed By: #### 2 513852, 20614088, 3573110, 7580232 ####[facility] [address] [place] [address] RBC (Bld) [#/Vol] 4.3 E12/L Normal 4.3-5.9 [facility] Comment on above: Performed By: #### 2 962284, 96601057, 0364894, 2425153 ####[facility] [address] [place] [address] WBC corrected for nucl RBC Auto (Bld) [#/Vol] 9.1 E9/L Normal 4.0-11.0 [facility] Comment on above: Performed By: #### 2 068560, 12378226, 8823084, 9397422 ####[facility] [address] [place] [address] Interdisciplinary Note - Jeremy e Manageron 03-22-2021 Interdisciplinary Note - Billing Coordinator Dr. Meneses rounded with patient earlier. CRM stopped by patients room, patient is resting with eyes closed. Per RN patient's trach downsized to size 6. Patient to have swallow eval done. CRM did not awaken patient. Anticipated discharge 03/23/2021 to [facility] with Dr Mason to follow. CRM to follow. CRM called patient;s daughter, Frandy and updated - Frandy is agreeable to [facility]. CRM proved contact information. Normal [facility] Comment on above: Result Comment: Elec tronically Signed By: Noemy STORY, Vandana Mckenzie\.adela\Date and Time Signed: 03/22/21 12:17 EDT Interdisciplinary Note - Spe ech Languageon 03-22-2021 Interdisciplinary Note - Speech Language Pt seen for Passy Toyin Speaking Valve (PMSV) placement upon request of Dr. Christy. Upon entering room pt's oxygen level at 98, respiration 15 and heart rate 80. PMSV place after discussion with pt in which pt tolerated well and was able to voice at sound, word and sentence level. Vital signs re-assessed after 5 minutes of wearing, oxygen 96, heart rate 85 and respirations at 21. Pt maintaining all vital signs with the exception of oxygenation which would fluctuate from 92-94. Upon leaving room pt oxygenation levels stable at 92. Discussed with nursing continued monitoring of oxygen levels over the next hour to determine further swallow evaluation. Discussed with pt wearing schedule/tolerance as well as cleaning. Pt expressed good verbal understanding of information discussed. Pt to be seen for BSE to further evaluate swallow function. No further language needs. Normal [facility] Monitor Recordon 03-22-2021 Monitor Record [id number]#[id number]:127 Normal [facility] Monitor Record [id number]#[id number]:127 Normal [facility] Progress Note - Pharmacyon 1 Progress Note - Pharmacy Pharmacy Medication Review - ICU Patients I have personally reviewed this patient's current inpatient medication orders and will communicate any recommendations to the attending physician. IV antibiotic(s): No Day of therapy: Mechanically ventilated: No Sedation: n/a Continuous infusion(s): No Renal dose adjustment: No Estimated CrCl: 105.73 mL/min Adjusted medications: Candidate for IV to PO conversion: n/a Need for PO/OG/Gtube conversion?no Need for modification of dosing weight vs. measured weight (>10% variance)? no GI Ulcer Prophylaxis yes famotidine VTE Prophylaxis: Below the Knee Intermittent Pneumatic Compression Device Ordered by: Mukund Christy - 03/15/2021 1439 Below the Knee Intermittent Pneumatic Compression Device Ordered by: Joe Mcintosh - 03/15/2021 1721 Labs: ADMISSION LAB WORK 03/22/21 05:40 Creatinine: 0.7 mg/dL 03/22/21 05:40 Calcium Lvl: 8.6 mg/dL 03/22/21 05:40 Sodium Lvl: 131 mmol/L 03/22/21 05:40 Potassium Lvl: 4.6 mmol/L 03/22/21 05:40 Chloride: 93 mmol/L 03/22/21 05:40 CO2: 32 mmol/L 03/22/21 05:40 AGAP: 11 mEq/L 03/22/21 05:40 BUN: 16 mg/dL 03/22/21 05:40 Glucose Lvl: 155 mg/dL 03/22/21 05:40 WBC: 9.1 E9/L 03/22/21 05:40 RBC: 4.3 E12/L 03/22/21 05:40 HGB: 14.0 gm/dL 03/22/21 05:40 Hct: 41.4 % 03/22/21 05:40 Neutro Auto: 75.2 % 03/22/21 05:40 Lymph Auto: 9.8 % 03/22/21 05:40 [place] Auto: 12.6 % 03/22/21 05:40 Eos Auto: 1.7 % 03/22/21 05:40 Basophil Auto: 0.7 % 03/22/21 05:40 Creatinine: 0.7 mg/dL 03/22/21 05:40 BUN/Creat Ratio: 23 03/22/21 05:40 AGAP: 11 mEq/L 03/22/21 05:40 CO2: 32 mmol/L 03/22/21 05:40 Glucose Lvl: 155 mg/dL 03/22/21 05:40 Sodium Lvl: 131 mmol/L 03/22/21 05:40 BUN: 16 mg/dL 03/22/21 05:40 Calcium Lvl: 8.6 mg/dL 03/22/21 05:40 Potassium Lvl: 4.6 mmol/L 03/22/21 05:40 Chloride: 93 mmol/L 03/22/21 05:40 eGFR: >60 mL/min/1.73 m2 03/22/21 05:40 eGFR AA: >60 mL/min/1.73 m2 03/22/21 05:40 Creatinine: 0.7 mg/dL 03/22/21 05:40 BUN/Creat Ratio: 23 03/22/21 05:40 AGAP: 11 mEq/L 03/22/21 05:40 CO2: 32 mmol/L 03/22/21 05:40 Glucose Lvl: 155 mg/dL 03/22/21 05:40 Sodium Lvl: 131 mmol/L 03/22/21 05:40 BUN: 16 mg/dL 03/22/21 05:40 Calcium Lvl: 8.6 mg/dL 03/22/21 05:40 Potassium Lvl: 4.6 mmol/L 03/22/21 05:40 Chloride: 93 mmol/L 03/22/21 05:40 eGFR: >60 mL/min/1.73 m2 03/22/21 05:40 eGFR AA: >60 mL/min/1.73 m2 03/22/21 05:40 Basophil Auto: 0.7 % 03/22/21 05:40 Eos Auto: 1.7 % 03/22/21 05:40 Hct: 41.4 % 03/22/21 05:40 HGB: 14.0 gm/dL 03/22/21 05:40 Lymph Auto: 9.8 % 03/22/21 05:40 RBC: 4.3 E12/L 03/22/21 05:40 RDW: 12.8 % 03/22/21 05:40 MCH: 32.4 pg 03/22/21 05:40 MCHC: 33.9 gm/dL 03/22/21 05:40 MCV: 95.5 fL 03/22/21 05:40 [place] Auto: 12.6 % 03/22/21 05:40 MPV: 9.1 fL 03/22/21 05:40 Neutro Auto: 75.2 % 03/22/21 05:40 Platelet: 255.0 E9/L 03/22/21 05:40 WBC: 9.1 E9/L 03/22/21 05:40 [place] Absolute: 1.1 E9/L 03/22/21 05:40 Eos Absolute: 0.2 E9/L 03/22/21 05:40 Basophil Absolute: 0.1 E9/L 03/22/21 05:40 Neutro Absolute: 6.8 E9/L 03/22/21 05:40 Lymph Absolute: 0.9 E9/L Normal [facility] Progress Note - Pharmacy Pharmacy Medication Review - ICU Patients I have personally reviewed this patient's current inpatient medication orders and will communicate any recommendations to the attending physician. IV Antibiotic(s): No Day of therapy: Mechanically Ventilated: Yes, Tracheostomy Sedation: No Medications Switched to OG: Yes Medications (9) Active Scheduled: (3) amLODIPine 5 mg Tab [F] 5 mg 1 tab(s), NG-Tube, Daily famotidine 10 mg/mL IV Ninoska [F] 20 mg 2 mL, IV Push, BID lactulose Oral Syrup 20 gm/30 mL [F] 30 gram 45 mL, Oral, Once Continuous: (1) Jevity 1.5 Josr 237 mL 237 mL, NG-Tube, 60 mL/hr PRN: (5) hydrALAZINE 20 mg/mL Inj [F] 10 mg 0.5 mL, IV Push, q4hr HYDROmorphone 1 mg/mL SOLN [F] 1 mg 1 mL, IV Push, q4hr methyl salicylate/menthol/camphor cream [F] 1 georgi, Topical, QID ondansetron 2 mg/mL Inj [F] 4 mg 2 mL, IV, Once promethazine 25 mg/mL Inj [F] 6.25 mg 0.25 mL, IV, q6hr Renal dose adjustment: No CrCl: 106 mL/min (scr-0.7) Adjusted Medications:All medications are dosed appropriately for the current renal function. Candidate for IV to PO Conversion: No VTE Prophylaxis: Below the Knee Intermittent Pneumatic Compression Device Ordered by: Joe Mcintosh - 03/15/2021 1721 Labs: Last Month Basic Metabolic Panel: Hematology: : () HGB: 14.0 (03/22/21) : () : () : () : () : () : () : () : () Creatinine: 0.7 (03/22/21) : () Additional - Last Month AGAP: 11 (03/22/21) Basophil Absolute: 0.1 (03/22/21) Basophil Auto: 0.7 (03/22/21) BUN: 16 (03/22/21) BUN/Creat Ratio: 23 (03/22/21) Calcium Lvl: 8.6 (03/22/21) Cell Cnt BF Type: Synovial fluid (03/18/21) Chloride: 93 (03/22/21) Clarity BF: Cloudy (03/18/21) CO2: 32 (03/22/21) Color BF: Yellow (03/18/21) CRP: 20.4 (03/18/21) Crystal: Crystal (03/18/21) Crystal Spec Source: Knee L (03/18/21) Crystal Spec Type: Synovial fluid (03/18/21) eGFR: >60 (03/22/21) eGFR AA: >60 (03/22/21) Eos Absolute: 0.2 (03/22/21) Eos Auto: 1.7 (03/22/21) Fluid Culture: NEG (03/18/21) Glucose Lvl: 155 (03/22/21) Glucose Random: 108 (03/14/21) Hct: 41.4 (03/22/21) Lymph Absolute: 0.9 (03/22/21) Lymph Auto: 9.8 (03/22/21) Lymph BF: 3 (03/18/21) Magnesium: 2.1 (03/18/21) MCH: 32.4 (03/22/21) MCHC: 33.9 (03/22/21) MCV: 95.5 (03/22/21) [place] Absolute: 1.1 (03/22/21) [place] Auto: 12.6 (03/22/21) MPV: 9.1 (03/22/21) Neutro Absolute: 6.8 (03/22/21) Neutro Auto: 75.2 (03/22/21) Phosphorus: 3.7 (03/16/21) Platelet: 255.0 (03/22/21) Potassium Lvl: 4.6 (03/22/21) RBC: 4.3 (03/22/21) RBC BF: 178 (03/18/21) RDW: 12.8 (03/22/21) Sed Rate Automated: 40 (03/18/21) Segs BF: 97 (03/18/21) Sodium Lvl: 131 (03/22/21) Uric Acid: 2.9 (03/17/21) WBC: 9.1 (03/22/21) WBC BF: 04130 (03/18/21) GI Ulcer Prophylaxis: famotidine 10 mg/mL IV Ninoska [F] 20 mg 2 mL, IV Push, BID Normal [facility] Progress Note-Physicianon Progress Note-Physician Assessment/Plan 68-year-old male with past medical history of COPD, hypertension, 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 Patient tolerated the procedure well on 03/15/2021. He has been seen by hospitalist service for medical management 1. Larynx cancer, (C32.9: Malignant neoplasm of larynx, unspecified)Larynx cancer Postop day #6 Tracheostomy downsized to [address] Christy Patient can move out to the floor Speech and swallow consulted for Passy-Dayton valve followed by swallow evaluation CorPak removed 2. Swelling of left knee joint (M25.462: Effusion, left knee) Improved Continue with PT OT-will need rehab for placement Transfer out of ICU to telemetry floor 3. Chronic obstructive pulmonary disease (J44.9: Chronic obstructive pulmonary disease, unspecified) Stable May need O2 on discharge 4. Hypertension (I10: Essential (primary) hypertension) Amlodipine 5. Sequential compression device (SCD) in place on patient (Z78.9: Other specified health status) SCDs Orders: famotidine, 20 mg = 1 tab(s), Tab, Oral, BID, Routine, Start date 03/22/21 9:00:00 EDT, 03/22/21 8:21:00 EDT naproxen, 250 mg = 1 tab(s), Tab, Oral, BID PRN Pain, Routine, Start date 03/22/21 8:21:00 EDT, 03/22/21 8:21:00 EDT Automated Diff Basic Metabolic Panel CBC w/ Auto Diff eGFR Speech Language Pathology Swallow Eval; Evaluate Pt, Develop a Plan of Care & Implement Plan Transfer Patient Intrahospital Plan discussed with patient at bedside This report was transcribed using voice recognition software. Every effort was made to ensure accuracy, however, inadvertently computerized director food safety mistakes may be present. Kelby Meneses Hospitalist Subjective Tracheostomy downsized by Dr. Christy this morning at bedside patient tolerated the procedure well. Can move out to the floor. Had a bowel movement again yesterday Review of Systems Feels well. Still has some secretions Objective Vitals & Measurements T: 36.4 ?C (Oral) TMIN: 36.4 ?C (Oral) TMAX: 37.4 ?C (Oral) HR: 72(Monitored) RR: 18 BP: 112/69 SpO2: 97% Intake & Output This visit (24 hour periods starting at 07:00 EDT) 03/22/21 * 03/21/21 03/20/21 Total Summary Intake mL -- 1,260 568 Output mL -- 440 1,200 Fluid Balance -- 820 -632 Intake (5) Enteral Tube Intake mL -- 540 540 Gastric Tube Intake mL -- 711 -- docusate mL -- -- 20 famotidine mL -- 4 4 hydromorphone mL -- 5 4 Total -- 1,260 568 Output (3) Residual Amount mL -- -- -- Residual Discarded mL -- -- -- Urine Voided mL -- 440 1,200 Total -- 440 1,200 Counts (2) Stool Count 1 1 1 Urine Count -- 2 -- * This column has not completed the indicated time period. Physical Exam General: alert, no acute distress ENMT: Tracheostomy with trach shield at 5 L Cardiovascular: regular rate and rhythm, normal peripheral perfusion Respiratory: Lungs CTA, respirations non labored Abdomen: Soft, nontender, without rebound or rigidity, positive bowel sounds Extremities: no deformity, no trauma. Improving bilateral knee swelling Neurological: oriented x 4, LOC appropriate for age, CN II-XII intact, motor strength equal & normal bilaterally, sensation equal & normal bilaterally, speech normal Lab Results WBC: 9.1 E9/L (03/22/21 05:40:00) RBC: 4.3 E12/L (03/22/21 05:40:00) HGB: 14 gm/dL (03/22/21 05:40:00) Hct: 41.4 % (03/22/21 05:40:00) MCV: 95.5 fL (03/22/21 05:40:00) MCH: 32.4 pg (03/22/21 05:40:00) MCHC: 33.9 gm/dL (03/22/21 05:40:00) RDW: 12.8 % (03/22/21 05:40:00) Platelet: 255 E9/L (03/22/21 05:40:00) MPV: 9.1 fL (03/22/21 05:40:00) Neutro Auto: 75.2 % High (03/22/21 05:40:00) Lymph Auto: 9.8 % Low (03/22/21 05:40:00) [place] Auto: 12.6 % (03/22/21 05:40:00) Eos Auto: 1.7 % (03/22/21 05:40:00) Basophil Auto: 0.7 % (03/22/21 05:40:00) Neutro Absolute: 6.8 E9/L (03/22/21 05:40:00) Lymph Absolute: 0.9 E9/L Low (03/22/21 05:40:00) [place] Absolute: 1.1 E9/L High (03/22/21 05:40:00) Eos Absolute: 0.2 E9/L (03/22/21 05:40:00) Basophil Absolute: 0.1 E9/L (03/22/21 05:40:00) Glucose Lvl: 155 mg/dL (03/22/21 05:40:00) BUN: 16 mg/dL (03/22/21 05:40:00) Creatinine: 0.7 mg/dL (03/22/21 05:40:00) eGFR: >60 (03/22/21 05:40:00) eGFR AA: >60 (03/22/21 05:40:00) BUN/Creat Ratio: 23 High (03/22/21 05:40:00) Sodium Lvl: 131 mmol/L Low (03/22/21 05:40:00) Potassium Lvl: 4.6 mmol/L (03/22/21 05:40:00) Chloride: 93 mmol/L Low (03/22/21 05:40:00) CO2: 32 mmol/L High (03/22/21 05:40:00) AGAP: 11 mEq/L (03/22/21 05:40:00) Calcium Lvl: 8.6 mg/dL Low (03/22/21 05:40:00) Problem List/Past Medical History Ongoing Chronic obstructive pulmonary disease Hypertension Marijuana use Historical Smoker Medications Inpatient amLODIPine 5 mg Tab, 5 mg= 1 tab(s), NG-Tube, Daily camphor/menthol/methyl salicyl (more content not included)... Normal [facility] Comment on above: Result Comment: Elec tronically Signed By: ZAIRA CROOK, Kelby Cortes\.br\Date and Time Signed: 03/22/21 11:59 EDT Progress Note-Physician ENT POD 7 Pt resting comfortably AVSS Trach changed to Shiley 6CFS. Stoma healing well and widely patent. NG Removed Trach downsized without complication. Pt tolerated well. OK to transfer to the floor. Consult speech for Passey-Dayton valve (first) and bedside swallowing eval (second). Pt should be able to advance quickly to a regular diet as the obstruction that necessitated his trach will also limit possible aspiration. Planning can now proceed to d/c to rehab (I prefer the TCU if available). Normal [facility] Comment on above: Result Comment: Elec tronically Signed By: Juliette CROOK, Mukund Storey\.adela\Date and Time Signed: 03/22/21 07:49 EDT Vaccinationson 03-22-2021 Vaccinations [id number]#1.00CD:127 Normal [facility] eGFRon 03-22-2021 GFR/1.73 sq M.predicted among blacks MDRD (S/P/Bld) [Vol rate/Area] mL/min/{1.73_m2} Normal >=59 [facility] Comment on above: Order Comment: Order added by Discern Expert. Result Comment: eGFR is race adjusted. AA=. Performed By: #### 2 [id number], [id number], 7150449, [id number] ####[facility] [address] [place] [address] GFR/1.73 sq M.predicted among non-blacks MDRD (S/P/Bld) [Vol rate/Area] mL/min/{1.73_m2} Normal >=59 [facility] Comment on above: Order Comment: Order added by Discern Expert. Result Comment: Student Counselor karen kidney disease could be indicated at eGFR's of less than 60 mL/min/1.73m2. Kidney failure is indicated at less than 15 mL/min/1.73m2. Performed By: #### 2 801081, [id number], 7099301, 7671069 ####[facility] [address] [place] [address] Progress Note - Pharmacyon 1 Progress Note - Pharmacy Pharmacy Medication Review - ICU Patients I have personally reviewed this patient's current inpatient medication orders and will communicate any recommendations to the attending physician. IV Antibiotic(s): No Day of therapy: NA Mechanically Ventilated: Yes tracheostomy Sedation: No Medications Switched to NG: Yes Medications (10) Active Scheduled: (4) amLODIPine 5 mg Tab [F] 5 mg 1 tab(s), Oral, Daily docusate 10 mg/mL Liqu [F] 100 mg 10 mL, Oral, BID famotidine 10 mg/mL IV Ninoska [F] 20 mg 2 mL, IV Push, BID lactulose Oral Syrup 20 gm/30 mL [F] 30 gram 45 mL, Oral, Once Continuous: (1) Jevity 1.5 Josr 237 mL 237 mL, NG-Tube, 60 mL/hr PRN: (5) hydrALAZINE 20 mg/mL Inj [F] 10 mg 0.5 mL, IV Push, q4hr HYDROmorphone 1 mg/mL SOLN [F] 1 mg 1 mL, IV Push, q4hr methyl salicylate/menthol/camphor cream [F] 1 georgi, Topical, QID ondansetron 2 mg/mL Inj [F] 4 mg 2 mL, IV, Once promethazine 25 mg/mL Inj [F] 6.25 mg 0.25 mL, IV, q6hr Renal dose adjustment: No CrCl: 105 mL/min (scr-0.5) Adjusted Medications:All medications are dosed appropriately for the current renal function. Candidate for IV to PO Conversion: No VTE Prophylaxis: Below the Knee Intermittent Pneumatic Compression Device Ordered by: Mukund Christy - 03/15/2021 1439 Below the Knee Intermittent Pneumatic Compression Device Ordered by: Joe Mcintosh - 03/15/2021 1721 Labs: Last Month Basic Metabolic Panel: Hematology: : () HGB: 14.4 (03/20/21) : () : () : () : () : () : () : () : () Creatinine: 0.5 (03/20/21) : () Additional - Last Month AGAP: 12 (03/20/21) Basophil Absolute: 0.0 (03/20/21) Basophil Auto: 0.4 (03/20/21) BUN: 16 (03/20/21) BUN/Creat Ratio: 32 (03/20/21) Calcium Lvl: 8.6 (03/20/21) Cell Cnt BF Type: Synovial fluid (03/18/21) Chloride: 96 (03/20/21) Clarity BF: Cloudy (03/18/21) CO2: 30 (03/20/21) Color BF: Yellow (03/18/21) CRP: 20.4 (03/18/21) Crystal: Crystal (03/18/21) Crystal Spec Source: Knee L (03/18/21) Crystal Spec Type: Synovial fluid (03/18/21) eGFR: >60 (03/20/21) eGFR AA: >60 (03/20/21) Eos Absolute: 0.2 (03/20/21) Eos Auto: 2.0 (03/20/21) Glucose Lvl: 143 (03/20/21) Glucose Random: 108 (03/14/21) Hct: 41.4 (03/20/21) Lymph Absolute: 0.9 (03/20/21) Lymph Auto: 9.0 (03/20/21) Lymph BF: 3 (03/18/21) Magnesium: 2.1 (03/18/21) MCH: 32.8 (03/20/21) MCHC: 34.8 (03/20/21) MCV: 94.2 (03/20/21) [place] Absolute: 1.4 (03/20/21) [place] Auto: 14.1 (03/20/21) MPV: 8.9 (03/20/21) Neutro Absolute: 7.4 (03/20/21) Neutro Auto: 74.5 (03/20/21) Phosphorus: 3.7 (03/16/21) Platelet: 254.0 (03/20/21) Potassium Lvl: 3.9 (03/20/21) RBC: 4.4 (03/20/21) RBC BF: 178 (03/18/21) RDW: 12.8 (03/20/21) Sed Rate Automated: 40 (03/18/21) Segs BF: 97 (03/18/21) Sodium Lvl: 134 (03/20/21) Uric Acid: 2.9 (03/17/21) WBC: 9.9 (03/20/21) WBC BF: 73685 (03/18/21) GI Ulcer Prophylaxis: famotidine 10 mg/mL IV Ninoska [F] 20 mg 2 mL, IV Push, BID Normal [facility] Progress Note-Physicianon Progress Note-Physician Assessment/Plan 68-year-old male with past medical history of COPD, hypertension, 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 Patient tolerated the procedure well on 03/15/2021. He has been seen by hospitalist service for medical management 1. Larynx cancer, (C32.9: Malignant neoplasm of larynx, unspecified)Larynx cancer S/p laryngoscopy and tracheostomy on 03/15 Patient doing well and has plan for downsizing her tracheostomy tube on when appropriate size is available Continue with tube feeds via [employer] Management as per ENT GI prophylaxis with famotidine Had a bowel movement on 03/20/2021 2. Swelling of left knee joint (M25.462: Effusion, left knee) Has improved Continue with PT Orthopedic consult has been noted and they signed off for now. No signs of infection Outpatient corticosteroid injection 3. Chronic obstructive pulmonary disease (J44.9: Chronic obstructive pulmonary disease, unspecified) Stable Breathing treatment as needed Wean down O2 May need rehab upon discharge 4. Hypertension (I10: Essential (primary) hypertension) Amlodipine 5. Sequential compression device (SCD) in place on patient (Z78.9: Other specified health status) SCDs Orders: Physical Therapy Additional Tx Physical Therapy Evaluate Patient, Develop a Plan of Care and Implement Plan Referral to Resource Center Referral to Resource Center Plan discussed with patient at bedside This report was transcribed using voice recognition software. Every effort was made to ensure accuracy, however, inadvertently computerized director food safety mistakes may be present. Kelby Meneses Hospitalist Subjective Patient doing better. The swelling has been going down. Talked with physical therapy. Had a bowel movement yesterday and feels much better Review of Systems No other complaints. Had a bowel movement. Knee pain is better with ice pack Objective Vitals & Measurements T: 36.9 ?C (Oral) TMIN: 36.5 ?C (Oral) TMAX: 37.5 ?C (Oral) HR: 73(Monitored) RR: 17 BP: 122/73 SpO2: 98% Intake & Output This visit (24 hour periods starting at 07:00 EDT) 03/21/21 * 03/20/21 03/19/21 Total Summary Intake mL 183 568 217 Output mL -- 1,200 400 Fluid Balance 183 -632 -183 Intake (5) Enteral Tube Intake mL 180 540 -- Jevity 1.5 Ojsr 237 mL mL -- -- 210 docusate mL -- 20 -- famotidine mL 2 4 4 hydromorphone mL 1 4 3 Total 183 568 217 Output (3) Residual Amount mL -- -- -- Residual Discarded mL -- -- -- Urine Voided mL -- 1,200 400 Total -- 1,200 400 Counts (1) Stool Count -- 1 -- * This column has not completed the indicated time period. Physical Exam General: alert, no acute distress ENMT: Tracheostomy with trach collar in place on 5 L nasal cannula Cardiovascular: regular rate and rhythm, normal peripheral perfusion Respiratory: Lungs CTA, respirations non labored Abdomen: Soft, nontender, without rebound or rigidity, positive bowel sounds Extremities: no deformity, no trauma Neurological: oriented x 4, LOC appropriate for age, CN II-XII intact, motor strength equal & normal bilaterally, sensation equal & normal bilaterally, speech difficult to talk Lab Results No qualifying data available. Problem List/Past Medical History Ongoing Chronic obstructive pulmonary disease Hypertension Marijuana use Historical Smoker Medications Inpatient amLODIPine 5 mg Tab, 5 mg= 1 tab(s), NG-Tube, Daily camphor/menthol/methyl salicylate 4%-10%-30% topical cream, 1 georgi, Topical, QID, PRN Dilaudid 1 mg/mL injectable solution, 1 mg= 1 mL, IV Push, q4hr, PRN famotidine 10 mg/mL IV Ninoska, 20 mg= 2 mL, IV Push, BID hydrALAZINE 20 mg/mL Inj, 10 mg= 0.5 mL, IV Push, q4hr, PRN Jevity 1.5 Josr (Continuous) 237 mL, 237 mL, NG-Tube lactulose 20 g/30 mL Oral Syrup, 30 gm= 45 mL, Oral, Once Phenergan 25 mg/mL Injection, 6.25 mg= 0.25 mL, IV, q6hr, PRN Zofran 4 mg/2 mL Injection, 4 mg= 2 mL, IV, Once, PRN Home Aleve 220 mg oral capsule, 1 tab, Oral, PRN amLODIPine 5 mg Tab, 5 mg= 1 tab(s), Oral, Daily Normal [facility] Comment on above: Result Comment: Elec tronically Signed By: ZAIRA CROOK, Kelby Cortes\.br\Date and Time Signed: 03/21/21 11:33 EDT Auto Diffon 03-20-2021 Basophils/100 WBC (Bld) 0.4 % Normal 0.0-2.0 [facility] Comment on above: Order Comment: Order Added by Discern Expert. Performed By: #### 2 [id number], 0166601, [id number], [id number] ####[address] [address] Basophils/Leukocytes Auto (Bld) [Pure # fraction] 0.0 E9/L Normal 0.0-0.2 [facility] Comment on above: Order Comment: Order Added by Discern Expert. Performed By: #### 2 347132, 1392734, [id number], 8206224 ####[address] [address] Eosinophils/100 WBC (Bld) 2.0 % Normal 0.0-8.0 [facility] Comment on above: Order Comment: Order Added by Discern Expert. Performed By: #### 2 016967, 7533313, [id number], 3480430 ####[address] [address] Eosinophils/Leukocyt es Auto (Bld) [Pure # fraction] 0.2 E9/L Normal 0.0-0.5 [facility] Comment on above: Order Comment: Order Added by Discern Expert. Performed By: #### 2 492920, 3777247, 40450895, 1816152 ####[address] [address] Lymphocytes/100 WBC (Bld) 9.0 % Low 14.0-50.0 [facility] Comment on above: Order Comment: Order Added by Discern Expert. Performed By: #### 2 653414, 5130137, 56911806, 2975897 ####[address] [address] Lymphocytes/Leukocyt es Auto (Bld) [Pure # fraction] 0.9 E9/L Low 1.0-4.0 [facility] Comment on above: Order Comment: Order Added by Discern Expert. Performed By: #### 2 863920, 0626522, 23309828, 7006358 ####[facility] [address] [place] [address] Monocytes/100 WBC (Bld) 14.1 % High 4.0-14.0 [facility] Comment on above: Order Comment: Order Added by Discern Expert. Performed By: #### 2 249752, 8307767, 36539867, 5475345 ####[address] [place] [address] Monocytes/Leukocytes Auto (Bld) [Pure # fraction] 1.4 E9/L High 0.2-1.0 [facility] Comment on above: Order Comment: Order Added by Discern Expert. Performed By: #### 2 473736, 0523899, 18497801, 6662397 ####[address] [place] [address] Neutrophils/100 WBC (Bld) 74.5 % Normal 36.0-75.0 [facility] Comment on above: Order Comment: Order Added by Discern Expert. Performed By: #### 2 367767, 9369194, 43931826, 7835179 ####[address] [place] [address] Neutrophils/Leukocyt es Auto (Bld) [Pure # fraction] 7.4 E9/L Normal 2.0-7.5 [facility] Comment on above: Order Comment: Order Added by Discern Expert. Performed By: #### 2 027942, 0403087, 32042266, 7927995 ####[facility] [address] [place] [address] BMPon 03-20-2021 Anion gap [Moles/Vol] 12 mmol/L Normal 6-16 [facility] Comment on above: Performed By: #### 2 210247, 5273958, 95286348, 4847370 ####[address] [place] [address] Calcium [Mass/Vol] 8.6 mg/dL Low 8.9-11.1 [facility] Comment on above: Performed By: #### 2 067884, 3026542, 86264183, 5680217 ####[facility] [address] [place] [address] Chloride [Moles/Vol] 96 mmol/L Low 101-111 [facility] Comment on above: Performed By: #### 2 011668, 1958532, 13135099, 9187753 ####[facility] [address] [place] [address] CO2 [Moles/Vol] 30 mmol/L Normal 21-31 [facility] Comment on above: Performed By: #### 2 622992, 5473012, 09676235, 3835519 ####[facility] [address] [place] [address] Creatinine [Mass/Vol] 0.5 mg/dL Normal 0.5-1.3 [facility] Comment on above: Performed By: #### 2 553938, 0267998, 61844213, 6541419 ####[facility] [address] [place] [address] Glucose [Mass/Vol] 143 mg/dL Normal 55-199 [facility] Comment on above: Result Comment: If t his glucose result represents a fasting glucose, interpretation should refer to the following reference range: 55-99 mg/dL Performed By: #### 2 552992, 5183355, 52543337, 8931814 ####[facility] [address] [place] [address] Potassium [Moles/Vol] 3.9 mmol/L Normal 3.5-5.3 [facility] Comment on above: Performed By: #### 2 787993, 4330059, 02831692, 3374867 ####[facility] [address] [place] [address] Sodium [Moles/Vol] 134 mmol/L Low 135-145 [facility] Comment on above: Performed By: #### 2 118225, 3931237, 75149631, 5525695 ####[facility] [address] [place] [address] Urea nitrogen [Mass/Vol] 16 mg/dL Normal 5-21 [facility] Comment on above: Performed By: #### 2 671430, 5587454, 74797032, 5209806 ####[facility] [address] [place] [address] Urea nitrogen/Creatinine [Mass ratio] 32 No Units High 10-20 [facility] Comment on above: Performed By: #### 2 037961, 2443522, 49032969, 6903791 ####[facility] [address] [place] [address] CBC w/ Auto Diffon Erythrocyte distribution width (RBC) [Ratio] 12.8 % Normal 10.9-14.2 [facility] Comment on above: Performed By: #### 2 841390, 1609322, 44666319, 3638784 ####[facility] [address] [place] [address] Hematocrit (Bld) [Volume fraction] 41.4 % Normal 37.7-49.0 [facility] Comment on above: Performed By: #### 2 532783, 6259441, 99475200, 9567242 ####[facility] [address] [place] [address] Hemoglobin (Bld) [Mass/Vol] 14.4 g/dL Normal 13.5-17.5 [facility] Comment on above: Performed By: #### 2 015826, 1802510, 37518527, 7039826 ####[facility] [address] [place] [address] MCH (RBC) [Entitic mass] 32.8 pg Normal 27.0-34.0 [facility] Comment on above: Performed By: #### 2 477689, 7592549, 25742566, 0901562 ####[facility] [address] [place] [address] MCHC (RBC) [Mass/Vol] 34.8 g/dL Normal 31.4-36.0 [facility] Comment on above: Performed By: #### 2 876568, 9246790, 77260494, 0369723 ####[facility] [address] [place] [address] MCV (RBC) [Entitic vol] 94.2 fL Normal 80.0-100.0 [facility] Comment on above: Performed By: #### 2 496627, 9280872, 97425188, 0561913 ####[address] [address] Platelet mean volume (Bld) [Entitic vol] 8.9 fL Normal 6.4-10.8 [facility] Comment on above: Performed By: #### 2 264702, 0017681, 16771703, 3107563 ####[address] [address] Platelets (Bld) [#/Vol] 254.0 E9/L Normal 150.0-500.0 [facility] Comment on above: Performed By: #### 2 763325, 6198652, 37551139, 7979359 ####[address] [address] RBC (Bld) [#/Vol] 4.4 E12/L Normal 4.3-5.9 [facility] Comment on above: Performed By: #### 2 493724, 0102166, 25308024, 2956108 ####[address] [address] WBC corrected for nucl RBC Auto (Bld) [#/Vol] 9.9 E9/L Normal 4.0-11.0 [facility] Comment on above: Performed By: #### 2 721215, 9159112, 35580605, 1012949 ####[address] [address] Progress Note - Pharmacyon 1 Progress Note - Pharmacy Pharmacy Medication Review - ICU Patients I have personally reviewed this patient's current inpatient medication orders and will communicate any recommendations to the attending physician. IV Antibiotic(s): NO Mechanically Ventilated: NO Sedation: N/A Continuous Infusion(s): n/a Renal Dose Adjustment: N/A Estimated CrCl: 106 mL/min (SCr 0.5) Adjusted medication(s): All medications are dosed appropriately for renal function at this time Candidate for IV to PO Conversion: YES > 10% weight variance between dosing weight and measured weight? No VTE Prophylaxis: Below the Knee Intermittent Pneumatic Compression Device Ordered by: Joe Mcintosh - 03/15/2021 1721 Labs: platelets 254, hgb 14.4, hct 41.4 today GI Prophylaxis: pepcid 20 mg IV BID [facility] Progress Note-Physicianon Progress Note-Physician ENT POD 5 Pt resting in chair. Unable to walk due to kiera knee effusions. Has started working with PT AVSS Trach in place and stable Prescriptions written for home supplies. May need PT and rehab once ready for d/c due to knee issues. 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 Patient tolerated the procedure well on 03/15/2021. He has been seen by hospitalist service for medical management 1. Larynx cancer, (C32.9: Malignant neoplasm of larynx, unspecified)Larynx cancer S/p laryngoscopy and tracheostomy on 03/15 Patient doing well and has plan for downsizing her tracheostomy tube on Continue with tube feeds via [employer] Management as per ENT GI prophylaxis with famotidine Still has not had a bowel movement yet-we will add Colace twice a day liquid Ordered: Sbsq Hospital Care/Day Moderate 25 Minutes [address] 2. Swelling of left knee joint (M25.462: Effusion, left knee) Now happening in both the knee Orthopedic on consult No need for aspiration at this point Continue pain control We will start physical therapy to see if that will help with some of the swelling going down 3. Chronic obstructive pulmonary disease (J44.9: Chronic obstructive pulmonary disease, unspecified) Stable Breathing treatment as needed Oxygen being weaned down to 5 L and patient is saturating well He does not have hypoxemic respiratory failure he was placed on [employer] tracheostomy 4. Hypertension (I10: Essential (primary) hypertension) Amlodipine 5. Sequential compression device (SCD) in place on patient (Z78.9: Other specified health status) SCDs Orders: docusate, 100 mg, Soln-Oral, Oral, BID, Routine, Start date 03/20/21 9:00:00 EDT, 03/20/21 7:43:00 EDT lactulose, 30 gram = 45 mL, Syrup, Oral, Once, Stop date 03/19/21 13:21:00 EDT, NOW, Start date 03/19/21 13:21:00 EDT, 03/19/21 13:21:00 EDT Automated Diff Basic Metabolic Panel CBC w/ Auto Diff eGFR Physical Therapy Evaluate Patient, Develop a Plan of Care and Implement Plan Plan discussed with patient at bedside in ICU This report was transcribed using voice recognition software. Every effort was made to ensure accuracy, however, inadvertently computerized director food safety mistakes may be present. Kelby Meneses Hospitalist Subjective Both knees are starting to fill back again with fluids. Previously it was on the left knee. Pain is 4 out of 10. Still has not had a bowel movement for total of 4 days Review of Systems 4 out of 10 pain. Knee pain. Constipation Objective Vitals & Measurements T: 36.5 ?C (Oral) TMIN: 36.5 ?C (Oral) TMAX: 37.4 ?C (Oral) HR: 68(Monitored) RR: 14 BP: 125/76 SpO2: 97% Intake & Output This visit (24 hour periods starting at 07:00 EDT) 03/20/21 * 03/19/21 03/18/21 Total Summary Intake mL -- 217 785 Output mL -- 400 450 Fluid Balance -- -183 335 Intake (5) Enteral Tube Intake mL -- -- 540 Jevity 1.5 Josr 237 mL mL -- 210 235 famotidine mL -- 4 4 hydromorphone mL -- 3 3 morphine mL -- -- 3 Total -- 217 785 Output (3) Residual Amount mL -- -- -- Residual Discarded mL -- -- -- Urine Voided mL -- 400 450 Total -- 400 450 Counts (0) * This column has not completed the indicated time period. Physical Exam General: alert, mild distress ENMT: On trach collar shield at 5 L with moisturizer Cardiovascular: regular rate and rhythm, normal peripheral perfusion Respiratory: Lungs CTA, respirations non labored Abdomen: Soft, nontender, without rebound or rigidity, positive bowel sounds Extremities: no deformity, no trauma Neurological: oriented x 4, LOC appropriate for age, CN II-XII intact, motor strength equal & normal bilaterally, sensation equal & normal bilaterally, speech normal Lab Results WBC: 9.9 E9/L (03/20/21 05:47:00) RBC: 4.4 E12/L (03/20/21 05:47:00) HGB: 14.4 gm/dL (03/20/21 05:47:00) Hct: 41.4 % (03/20/21 05:47:00) MCV: 94.2 fL (03/20/21 05:47:00) MCH: 32.8 pg (03/20/21 05:47:00) MCHC: 34.8 gm/dL (03/20/21 05:47:00) RDW: 12.8 % (03/20/21 05:47:00) Platelet: 254 E9/L (03/20/21 05:47:00) MPV: 8.9 fL (03/20/21 05:47:00) Neutro Auto: 74.5 % (03/20/21 05:47:00) Lymph Auto: 9 % Low (03/20/21 05:47:00) [place] Auto: 14.1 % High (03/20/21 05:47:00) Eos Auto: 2 % (03/20/21 05:47:00) Basophil Auto: 0.4 % (03/20/21 05:47:00) Neutro Absolute: 7.4 E9/L (03/20/21 05:47:00) Lymph Absolute: 0.9 E9/L Low (03/20/21 05:47:00) [place] Absolute: 1.4 E9/L High (03/20/21 05:47:00) Eos Absolute: 0.2 E9/L (03/20/21 05:47:00) Basophil Absolute: 0 E9/L (03/20/21 05:47:00) Glucose Lvl: 143 mg/dL (03/20/21 05:47:00) BUN: 16 mg/dL (03/20/21 05:47:00) Creatinine: 0.5 mg/dL (03/20/21 05:47:00) eGFR: >60 (03/20/21 05:47:00) eGFR AA: >60 (03/20/21 05:47:00) BUN/Creat Ratio: 32 High (03/20/21 05:47:00) Sodium Lvl: 134 mmol/L Low (03/20/21 05:47:00) Potassium Lvl: 3.9 mmol/L (03/20/21 05:47:00) Chloride: 96 mmol/L Low (03/20/21 05:47:00) CO2: 30 mmol/L (03/20/21 05:47:00) AGAP: 12 (more content not included)... Normal [facility] Comment on above: Result Comment: Elec tronically Signed By: Kelby MENESES MD\.br\Date and Time Signed: 03/20/21 07:47 EDT eGFRon 03-20-2021 GFR/1.73 sq M.predicted among blacks MDRD (S/P/Bld) [Vol rate/Area] mL/min/{1.73_m2} Normal >=59 [facility] Comment on above: Order Comment: Order added by Discern Expert. Result Comment: eGFR is race adjusted. AA=. Performed By: #### 2 327329, 9664042, 37329510, [id number] ####[facility] [address] [place] [address] GFR/1.73 sq M.predicted among non-blacks MDRD (S/P/Bld) [Vol rate/Area] mL/min/{1.73_m2} Normal >=59 [facility] Comment on above: Order Comment: Order added by Discern Expert. Result Comment: Student Counselor karen kidney disease could be indicated at eGFR's of less than 60 mL/min/1.73m2. Kidney failure is indicated at less than 15 mL/min/1.73m2. Performed By: #### 2 372247, 6506785, 78508194, 1743616 ####[address] [place] [address] Coding Summary.on 03-19-2021 Coding Summary. [id number] Gh0bWw +PGhlYWQ+SB0AFXPhO53dcJTqt N2QH2mXDG1XDLDARWSCNU0QRT4 fxQB4JVadT0QmytEb UwwlzDWwIS07HTv3MHX0xGcrOP kblB0ycLKyB3c8HaRyNX03mT86 MNmrVSVeSiK4FsBlulibxRXk W7zwLzAunVSpBaj+PHRhYmxlIH aqLAGqQIcwXGKxUvXroYjlPG5a Hp1aYWVjEUTzeEdxgZTmDaXc i5dwYIDiSGrzYU3ewFatG0VyhE N6PCSwy1n0Ke48nSD+PHRkIHN0 lHwkJTdir868KzHuz9xhYJB4 kGHpLCavKMX8R48jf8A0TRTkCN IeLAA8vWR6sC9zlMrliddjR6Am hWDnVrI2JRJ3lIDqrJ8ecLam qypyyS1aTrw+M50WBB7MDOAKBZ 4HZzr7D7HdAztgjJQ+WX41LVSu QS27yBKnyHTar6fshDa2DxIj OHPeAUN9jAarJOhmi0IyHVHpZ8 5uvRGsl9J7NWKduFxluUCbSoJz cMB0gR8lXMnhnwhvp3whhutf Hdted6yxrl02tF05P90pYWktXG LsQVG7NBJdKBAvnHwlft8neE4d Ii8+HNwwn6ban6yakXb3PoPe TXAyzcRmeRqoAWF0l0EfId11T5 UiiEuzi7KcMvv9ou27lFFrf2L9 sHN7TGxqMDOkaK9vAZoqCuI5 DIKrCdXveI08fSNhIBjhOp9hrD epnSwnYM2xLQHyueggLRFhfG4x NKUxsKYafUdbPS9xWYQtzbqs p171PnPwIQP9EIEijPKbL9HhkQ 5vCeUkIIAuAQRtC5YgyKQqJIst P039BMhlEyY1XZTgvaAkQ3Ee ZNLelAwkTyF7d9M2Ht8Cc3Wxew twIPH8OJlcMYGkAxTcTgLkJjY3 C1GkTqo9KORikPasOO4pU0Xl YUHkeahtznsifBP5VJNoDIJjfW 08bSCeSSanIy9ao5V1p577IKYi GWQqwZ91Ts6dgXiqGEKseVAD tY3uimxcl9ygrwmxMoSpFNSqUY p8GAx2SYFdaYisIjIcDTN1HlF4 MIR9nDKtfL7gwSzfzsbijK9i Oyc+Y77evQ8hHPU2NYC6yuueEM IvtaIdAJ50DE25M9YmQkwfwAHo bGU+CICgeuGglBmbCJ1dJgKd d5jmr8ImMKfsJ8GjMGBeKRnrFd p8IDJaRCB0zIV8sZ9dBXXxZPez p7D8qPW7W6StxtRcrj5tz4qa EAGtEHujK27pvYYbd3X3KNLzhX B8SHReyPolQpUanG99Sbf+PGNv zNgwi4UcNipmb2yse7dfkDw4 VmBgMCElcsQcbSimYYM1k3XrBx 60I65hVZyrWOBoIQNwBQPhPOHr mWzvuk5rsD1nUh6+PGNvbCB3 tKY9jP6iHQZxMhE3WTygT690Hh GpbDSlTxbkw2ddi5vhmSb9NpKv XZJefkSwfDkcQHP3n5UuSi90 D94vPFbuDEWtDNKdFUFzQTDpsG xvdc3uoH3nUo9+WB6qh1mljg18 hD14eFU+CPHoMDO9zQcuVWil UNUzwX0mMEmlBjS1QXVrYqJskS 46lVPoCNllVj0flIqxqVznPF9g OHNmbcovy288SdPrw6zrTZQo rOQeFTywMCM7R46gg1V7PPYkRE EmDLQ5mRI3xT9poIkhcinwtKWi yEsezfVthQgyHJylAHitP096 IHRvcDsnPlBhdGllbnQgTmFtZT e4K8GdUie4QCAutVsuUW2hjHCb POghBi7txDtmhEjzLY9tNBCp hwhzd033OsZjd9qcNVDofGBmHL ptHAQ3N36ir3X2APOwFEInVGB0 gOG8aG0yyJeoxsnwbHZwkYpl zoLhbJkhNFznTZhrF521GBKogP ljJtCzntNcTGXmkJT7ZB30EH78 jDGut3W9lHR3R8PeLMKmgcbq rlzjbME5RQBiVRUzwZ44Ec9ukS ldZb1hXGSzVSV6ORCrsYPaU2Kz rO3nTgCxOAVnXXStI9UssAJc NQqdA131FVrtBgR6WYCnvvTgP4 UbCGYjxYfeZgT1d0O3At6ZP0A3 LR66WJ78oACat5A2nTF5R2Br TEBjwcblqrceyLZ7MLLzODQgqJ 89Mg3ttJetQj6zGBHgUZC3LMWg lTXiH7QbwJ9xDiSlMTLvNALy C5WzsLHfGNztY180JSojTlG0ZJ LdnoKoM4GyUQMecUeaNgV6y7R7 Tv9BHVu1QK51PG26yMRih1P9 bER1F1PqFWCovefwbubzsIV1ZS VzUPTnvV85Rm5cgJodJp1dBYPj OUM6NVQevNXrB9IaxS0uRvAt ZNXoKKUuM8WwaOBeAAydH430UL kfGgD5JDYuzcWoB1TtPHBviPnq FvZ8o4R8Rs5JKNBhBA41NLA8 uSQ5PG74TC53Y3VqLbzfbFUsbH U+PHRhYmxlIHdpZHRoPScxMDAl EgLahSlrLR0jBw6bXDWjKWCu tWtbiAPzVoKkr4npGXOaPQvgTO 6dsAxgC1HjdOY7YSTbh2n4Nz21 G29yO3KptUB+FFCakRM6aES5 fO3mDbIxTxE9TEwaR479KoHitD LnPulyy3ena8sxhHb0UcK5KFOo kiCjfDysVPT9m4SyHd26V89i IHdpZHRoPSIxNSUiIHZhbGlnbj 0spQ0hMk0+QWPfwBP9dRR8zN0j CkRiOjV8TWelA806IjFcrOYh Wlxzk4fsc2ytmUq8HiOvBGFkil XpxHhwCEQ0w8HjWw48H4GehWku e4VjOgq1ok89hBJcg0O9pCV8 B1SaBCNojvyjuIGihOceAF4pDJ ZxqvbgIXUfyC0gPSSzF1i0KdPc YsL6AAixQ1BeyfP9KDEruEOz AKlmJFG1S89qy9L0NHVgRRNmDE T9lMF7aA7rdSusqwaavLSyyUpv wnAkwBtgZJvgGXvzT676RIDd mPvlHFAvtI4oDOHhoNKawHgbGX 2qSKUlxakiAh1NRK8cAYGOFGXA RVMgTDwvdGQ+OWUzBPU9cJcf PHtoSJKzuZ2bFDCjE9g8XwYkAh E4ISppJ9AmTCNaawhmPw44sO8a ZjQmGcZ4ALgwG0IdcdV2AADg mABeGSvxZXR3H52jy7F1QCDvYU PaQXU1pNV2yC2diYpnqhiujOQp dIrsufVaeJbzELvaTZbxF145 VFUloSqpFcVrLdMeTiM7FLN2Z4 GxWhd4GJHptIjqCV1iuYDcCEhw Jc0tlOenxWrtOG6lSSBombvf GAYnkK9zZMBmpWVawQigTK7pDM Rfffopy187HzPyZEF9HVVqsAXg N4GnuD4yIaEkUGSfSBPrR7Hd uDRwSNyaK685REjkFdR9IEQhgy WoR2IgADFjdYgpFvK4g0I5Jg15 NyBZZWFyczwvdGQ+PHRkIHN0 fMjyHFleYRHgxZ2wOMRhL6y6Mh LkVmA9QAytJ7ZpHZDsasrwNa56 rE1vWiQyRrY7PSqlX5PlkyN5 NWHkbTDtLJadYFM9Z04ux3Z4UD IsFYPgIDK7wNI0gY7ylIclrhmn bGVmdDsgdmVydGljYWwtYWxp F122LQRnzReuLr4ceTB4G6HpJn l2GIUlrAjzCA7phZWbOJkuKg2a sQtfhGguZS7lLJHqalslNLTj qN0uSTBvlAYejRjdEX9sVNKove hzq220YfUbRMA3NFJgzSPdC7Td oD2bKfEqYHTvTTCeE0YchYVi EUvrS251NZiwRyL8VOJrodYjF6 UkPSMttUnmGoQ7g2I3Tg4FlPWk KVSlYV91HZ90ST07Q2PvJgos dGFibGU+PHRhYmxlIHdpZHRoPS ffTWLgEvAsmSnjQE8fIy6tROYg MNCzjAkrkEFlHeEwt5auUGKk VUttWO7ntYysH9ZneWZ7DRNhj3 l4Me47N22dH5SujCG+PGNvbCB3 dCY6jO2pVhVkLvA0XHmmT423 UtQitYSeBnfkd4bob6bmzKj6Qw IsKAXrvjZyyWhjJXS0t7FnFq93 Y10mRCflGICnQDXnWFHyFKZx gMspbq7haR3lUb2+DZRdjSW0oZ J2cE5mEdVmZqO3FGxuQ693CeXg pJFaNnsmE05dE4LryXD+PHRy Gsp0JWQlpPdnHF0khTZjCWbzUk 2oPEK3SqGsZgSjEGerL5LiMGXx fvbrslkozUB0SWIvVLWgzV20 Kg3leIuhHt8lHPDaZSY6ZMFdxF NpQ3YsyN4lAdBjDTVqNMVyU0Ty xGMzAEmgE096LVhbUpQ7OZXj yrRcR3NdMDYskPqlRqY7m4W5Dj 3MtWbwwJMxAJ6hKnRzSCg3X1Mw Oiw9YFNybFvdSA1ndIQqTUwn Gk3nlMjxoWjwWO2iEHTgjommr8 90MlUmf5beDCKsaMMcDLfgMVX0 P95so1H9GGDxLSCyZGU2xXN4 hN5ftMfyssnnlYYfxGhmvnRwhW shHOhnITqpM869WJCfbPxkSpUO Dto2F7FfOxe3NDTghXwhKQ3t gSCgCBiyCt0gaAbdpFmuMM1bZQ Kbpewvj531CrBkf1iiBYXkkJYt UWvbQFZ7M72xw4Q2MUNdIBMn SKG8mLS3fX5euYexnqhccCCtpH jidiRxrGafWAltQQimM633IPRz jJoyWl2GNzs3U3RiIsp6BOJg cTfjZH3dtHYsYYysSd0qwXmxxN vkUD1bLEWdhwqft175WaMkc4kw GWVzzNKaSCvdUVL0G83bv4J4 EOBzAQRtORT7aGQ5pG2hjJpsgq ogbGVmdDsgdmVydGljYWwtYWxp I457DIRlyNfqYhPfyVKsZvoy dGQ+WE32ra26E2TeTdhkEqr6UK SzNXC3mBK1cU7cRXYyCDzoq3K0 uGM5U8TcwsCuew6ad6dqSJZy ZTog (more content not included)... Normal [facility] Crystal Examon 03-19-2021 Crystal No pathologic maribel ls identified by light and polarized microscopy. Invalid Interpretation Code [facility] Comment on above: Performed By: #### 2 035753, [id number], [id number] ####[facility] [address] [place] [address] Crystal Spec Source Knee L Invalid Interpretation Code [facility] Comment on above: Performed By: #### 2 597675, [id number], [id number] ####[facility] [address] [place] [address] Crystal Spec Type Synovial fluid Normal [facility] Comment on above: Performed By: #### 2 826905, [id number], [id number] ####[facility] [address] [place] [address] Interdisciplinary Note - Jeremy e Manageron 03-19-2021 Interdisciplinary Note - Billing Coordinator Home Health Vran-is-Qfte Encounter Type: Medicare Reason for Revs-cg-Qgur (Diagnosis): s/p tracheotomy Encounter Detail I certify that I, or an advanced practice nurse in collaboration with me or a physician custody assistant under my supervision conducted and documented a zuiu-wv-xcuv (F2F) encounter with the consumer. My clinical findings support the need for the following service(s). Alf: Yes Physical Therapy: _ Occupational Therapy: _ Speech Therapy: _ Flavorer: _ Grab Driver: _ Need for Home Health Services I certify based on my findings that... a. Home health services are medically necessary for this patient, including either intermittent care home and/or therapy, AND b. The patient cannot leave his/her home due to the following reasons: Cardiovasular -_ _ _ _ _ _ _ Pulmonary -? Copious secretions ? at risk for airway obstruction. Frequent suctioning of new tracheostomy required. _ _ _ _ _ _ Musculoskeletal -_ _ _ _ _ _ _ Renal/Endocrine -_ _ _ _ _ _ _ GI -_ _ _ _ _ _ _ Neuro -? Unsteady gait, dizziness, syncope _ _ _ _ _ Integumentary -? At risk for falls ? further injury _ _ _ _ _ _ HIV/AIDS/Immunuocompromise d -_ _ _ _ _ _ _ Cancer -_ _ _ _ _ _ _ [facility] Comment on above: Result Comment: Elec tronically Signed By: Vandana Salguero RN\.br\Date and Time Signed: 03/19/21 12:29 EDT\.br\Electronically Co-Signed By: ZAIRA CROOK, Kelby Cortes\.br\Date and Time Co-Signed: 03/19/21 12:37 EDT Interdisciplinary Note - Billing Coordinator Dr. Meneses rounded with patient earlier. CRM stopped by patients room, Patient is in bed resting with eyes closed. CRM did not awaken patient. Patient has trach shield on at this time. Per RN plan to downsize trach tomorrow. Patient is set up with [facility] 03/22/2021. CRM to follow. [facility] Comment on above: Result Comment: Elec tronically Signed By: Vandana Salguero RN\.br\Date and Time Signed: 03/19/21 12:25 EDT Interdisciplinary Note - Nut ritionon 03-19-2021 Interdisciplinary Note - Nutrition Pt reassessed. Remains on Jevity 1.5 at goal of 60 ml/hr. This provides 2160 kcal with 91 gm protein and 1100 cc free water and meets 93% estimated calorie and 100% estimated protein needs. Pt tolerating feeding with zero residual. Remains on water flush 180 cc q 4 hours. Total water infused from feeding and flush 2180 cc. Meets goal, POC extended. [facility] Comment on above: Result Comment: Elec tronically Signed By: Michelle FLETCHER, MALIK., Blank\.br\Date and Time Signed: 03/19/21 08:23 EDT Main OR Intraoperative Recor don 03-19-2021 Main OR Intraoperative Record IntraOp Document Type FT Summary Primary Physician: Mukund Christy MD Finalized Date/Time: 03/19/21 09:51:11 Pt. Name: LAZARO PETTY /Sex: 1955 Male Med Rec #: [id number] Physician: Mukund Christy MD Financial #: [id number] Pt. Type: I Room/Bed: [place] [address] Admit/Disch: 03/15/21 10:59:05 - Institution: Case Times FT Entry 1 Patient Times In Room 03/15/21 12:49:00 Out Room 03/15/21 14:36:00 Procedure Times Start 03/15/21 13:05:00 Stop 03/15/21 14:25:00 Anesthesia Times Start 03/15/21 12:49:00 Stop 03/15/21 14:36:00 Last Modified By: Asiya RN, Abigail Bonilla 03/15/21 14:36:08 General Comments: Tracheostomy procedure started at 1336. Trach placed and ETT removed at 1410. O.PORSHA Braden 03/19/21 CHART OPEN TO REVIEW AND SEND CHARGES Jonah ALBA RN Case Attendance FT Entry 1 Entry 2 Entry 3 Case Attendee Kenia Wilson MD, Hilary H Wilhelm CST, Benjamin Role Performed Anesthesiologist Surgeon - Primary CORE INSERTER/ Human Service Coordinator Time In 03/15/21 12:49:00 03/15/21 12:56:00 03/15/21 12:49:00 Time Out 03/15/21 14:36:00 03/15/21 14:27:00 03/15/21 14:36:00 Procedure LARYNGOSCOPY MICRO(.) LARYNGOSCOPY MICRO(.) LARYNGOSCOPY MICRO(.) Comments Dr. Cannon supervising Last Modified By: Asiya RN, Abigail Braden RN, Abigail Tate RN 03/15/21 14:36:16 03/15/21 14:36:16 03/15/21 14:36:16 Entry 4 Entry 5 Entry 6 Case Attendee Asiya STORY, Abigail Canales RN, Munira Dominguez CORE INSERTER, Donna Woods Role Performed Field Care Advocate - Primary Field Care Advocate - Primary Scrub - Primary Time In 03/15/21 12:49:00 03/15/21 12:49:00 03/15/21 12:49:00 Time Out 03/15/21 14:36:00 03/15/21 14:36:00 03/15/21 14:36:00 Procedure LARYNGOSCOPY MICRO(.) LARYNGOSCOPY MICRO(.) LARYNGOSCOPY MICRO(.) Comments Orientation Precepting Orientation Last Modified By: Asiya STORY, Abigail Braden RN, Abigail Braden RN, Abigail Bonilla 03/15/21 14:36:16 03/15/21 14:36:16 03/15/21 14:36:16 Entry 7 Entry 8 Case Attendee Yennifer Carter RN, CNOR, Yamilet Guzman Role Performed Scrub - Primary Field Care Advocate - Relief Time In 03/15/21 12:49:00 03/15/21 12:00:00 Time Out 03/15/21 14:36:00 03/15/21 12:40:00 Procedure LARYNGOSCOPY MICRO(.) LARYNGOSCOPY MICRO(.) Comments Precepting Lunch relief Last Modified By: Asiya STORY, Abigail Braden RN, Abigail Bonilla 03/15/21 14:36:16 03/15/21 14:37:51 Perioperative Protocols FT Pre-Care Text: Implements protective measures prior to operative or invasive procedure, confirms identity before the operative or invasive procedure, verifies operative procedure, surgical site, and laterality Entry 1 Procedure(s) LARYNGOSCOPY MICRO(.) Patient Identity Birthday, ID Band Verified (select at Check, Patient least 2): Participation Consents / H and P Anesthesia Consent, Operative Site N/A Verified HandP, Surgery/Procedure Marking Verified Consent, Transfusion Consent Surgical Site Yes Laterality Verified n/a Verified Procedure Verified Yes Correct Patient Yes Position Verified Availability Equipment, Medication Prep Dry n/a Verified (If Applicable) PreOp Antibiotic No Time Out Kenia Wilson Participants EJamie, Juliette CROOK, Asiya Celaya RN, London Alfaro CST, Parker Pavon RN, Alberto Desouza CST, Raul Nunez Rachel L Time Out Complete 03/15/21 13:02:00 Outcomes Met? Yes Last Modified By: Abigail Braden RN 03/15/21 13:18:05 Post-Care Text: The patient is free from signs and symptoms of injury caused by extraneous objects Fire Risk Assessment FT Pre-Care Text: Nursing Diagnosis: Risk for injury (137529) Nursing Interventions: Use supplies and equipment within safe parameters (Im.60) Entry 1 A. Is an No B. Is the Yes alcohol-based skin operative or other antiseptic or other invasive procedure flammable solution being performed being used above the xiphoid preoperatively? process or in the oropharynx? C. Is open oxygen No D. Is an Yes or nitrous oxide electrosurgical being administered? unit, laser, or fiber-optic light being used? E. Are there other No Outcome Met Yes possible contributors (eg, defibrillators, drills, saws, burrs)? Last Modified By: Abigail Braden RN 03/15/21 13:52:53 Post-Care Text: Outcome: Patient is free from signs and symptoms of injury related to thermal sources (O.10) Allergy Information FT Pre-Care Text: Verifies allergies Entry 1 Allergies Reviewed? Yes Allergies Reviewed Self/Patient With Outcomes Met? Yes Last Modified By: Abigail Braden RN 03/15/21 13:17:22 Post-Care Text: The patient received appropriate medication(s) safely administered during the perioperative period Surgical Procedures FT Entry 1 Entry 2 Procedure Description Procedure LARYNGOSCOPY MICRO TRACHEOSTOMY Modifiers . . Surgeon Description MICRO LARYNGOSCOPY WITH MICRO LARYNGOSCOPY WITH BIOPSY AND TRACHEOTOMY BIOPSY AND TRACHEOTOMY Primary Procedure Yes N (more content not included)... Normal [facility] Message from Medicareon 03-09 Message from Medicare [id number]#[id number]:127 Normal [facility] Monitor Recordon 03-19-2021 Monitor Record [id number]#[id number]:127 Normal [facility] Monitor Record [id number]#1.00CD:127 Normal [facility] Progress Note - Pharmacyon 1 Progress Note - Pharmacy Pharmacy Medication Review - ICU Patients I have personally reviewed this patient's current inpatient medication orders and will communicate any recommendations to the attending physician. IV antibiotic(s): No Day of therapy: Mechanically ventilated: No Sedation: n/a Continuous infusion(s): No Renal dose adjustment: No Estimated CrCl: 105.73 mL/min Adjusted medications: Candidate for IV to PO conversion: No Need for PO/OG/Gtube conversion?no Need for modification of dosing weight vs. measured weight (>10% variance)? 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 Patient tolerated the procedure well on 03/15/2021. He has been seen by hospitalist service for medical management 1. Larynx cancer, (C32.9: Malignant neoplasm of larynx, unspecified)Larynx cancer S/p laryngoscopy and tracheostomy on 03 15 Patient doing well and has plan for downsizing her tracheostomy tube on Continue with tube feeds via [employer] Management as per ENT GI prophylaxis with famotidine 2. Swelling of left knee joint (M25.462: Effusion, left knee) Status post aspiration No need for antibiotics Patient feeling better Continue with pain control Appreciate Dr. Johnson input and help 3. Chronic obstructive pulmonary disease (J44.9: Chronic obstructive pulmonary disease, unspecified) Stable Breathing treatment as needed We will wean down O2 4. Hypertension (I10: Essential (primary) hypertension) Amlodipine 5. Sequential compression device (SCD) declined (Z78.9: Other specified health status) SCDs Orders: lactulose, 30 gram = 45 mL, Syrup, Oral, Once, Stop date 03/19/21 13:21:00 EDT, NOW, Start date 03/19/21 13:21:00 EDT, 03/19/21 13:21:00 EDT Plan discussed with patient at bedside This report was transcribed using voice recognition software. Every effort was made to ensure accuracy, however, inadvertently computerized director food safety mistakes may be present. Kelby Meneses Hospitalist Subjective Patient doing well. Tolerating tube feeds. Has not had a bowel movement. No other complaints besides minimal pain that is well controlled with medications Review of Systems No complaints Objective Vitals & Measurements T: 37 ?C (Oral) TMIN: 37 ?C (Oral) TMAX: 37.5 ?C (Oral) HR: 64(Monitored) RR: 14 BP: 100/68 SpO2: 97% WT: 80.8 kg Intake & Output This visit (24 hour periods starting at 07:00 EDT) 03/19/21 * 03/18/21 03/17/21 Total Summary Intake mL 2 785 899 Output mL -- 450 600 Fluid Balance 2 335 299 Intake (5) Enteral Tube Intake mL -- 540 891 Jevity 1.5 Josr 237 mL mL -- 235 -- famotidine mL 2 4 4 hydromorphone mL -- 3 -- morphine mL -- 3 4 Total 2 785 899 Output (3) Residual Amount mL -- -- -- Residual Discarded mL -- -- -- Urine Voided mL -- 450 600 Total -- 450 600 Counts (0) * This column has not completed the indicated time period. Physical Exam General: alert, no acute distress ENMT: Trach collar in place at 10 L with moisturizer Cardiovascular: regular rate and rhythm, normal peripheral perfusion Respiratory: Lungs CTA, respirations non labored Abdomen: Soft, nontender, without rebound or rigidity, positive bowel sounds Extremities: no deformity, no trauma Neurological: oriented x 4, LOC appropriate for age, CN II-XII intact, motor strength equal & normal bilaterally, sensation equal & normal bilaterally, speech normal Lab Results Cell Cnt BF Type: Synovial fluid (03/18/21 17:55:00) Color BF: Yellow2 (03/18/21 17:55:00) Clarity BF: Cloudy (03/18/21 17:55:00) RBC BF: 178 High (03/18/21 17:55:00) WBC BF: 65754 High (03/18/21 17:55:00) Segs BF: 97 % (03/18/21 17:55:00) Lymph BF: 3 % (03/18/21 17:55:00) Crystal Spec Type: Synovial fluid (03/18/21 17:55:00) Crystal Spec Source: Knee L (03/18/21 17:55:00) Crystal: Crystal (03/18/21 17:55:00) Problem List/Past Medical History Ongoing Chronic obstructive pulmonary disease Hypertension Marijuana use Historical Smoker Medications Inpatient amLODIPine 5 mg Tab, 5 mg= 1 tab(s), Oral, Daily camphor/menthol/methyl salicylate 4%-10%-30% topical cream, 1 georgi, Topical, QID, PRN Dilaudid 1 mg/mL injectable solution, 1 mg= 1 mL, IV Push, q4hr, PRN famotidine 10 mg/mL IV Ninoska, 20 mg= 2 mL, IV Push, BID hydrALAZINE 20 mg/mL Inj, 10 mg= 0.5 mL, IV Push, q4hr, PRN Jevity 1.5 Josr (Continuous) 237 mL, 237 mL, NG-Tube lactulose 20 g/30 mL Oral Syrup, 30 gm= 45 mL, Oral, Once morphine 2 mg/mL Inj, 2 mg= 1 mL, IV, q2hr, PRN Phenergan 25 mg/mL Injection, 6.25 mg= 0.25 mL, IV, q6hr, PRN Zofran 4 mg/2 mL Injection, 4 mg= 2 mL, IV, Once, PRN Home Aleve 220 mg oral capsule, 1 tab, Oral, PRN amLODIPine 5 mg Tab, 5 mg= 1 tab(s), Oral, Daily Normal [facility] Comment on above: Result Comment: Elec tronically Signed By: ZAIRA CROOK, Kelby P\.br\Date and Time Signed: 03/19/21 13:26 EDT Progress Note-Physician ENT POD 4 Pt resting comfortably. Knee pain improved somewhat after aspiration last evening AVSS Trach in place and stable Pt stable and doing well. Appreciate Dr Johnson' assistance [facility] Comment on above: Result Comment: Elec tronically Signed By: Juliette CROOK, Mukund Storey\.br\Date and Time Signed: 03/19/21 07:39 EDT Progress Note-Physician Patient: LAZARO PETTY Age: 65 years Sex: Male : 1955 Associated Diagnoses: None Author: Benjamin Johnson DO Basic Information Pt seen and examined. Pain little better left knee. Effusion much improved, no sign of cellulitis, infection or DVT. Cell count reviewed, probable OA vs pseudogout flare, GS cxl, culture pending. No ortho sx at this time. ICE, PT WBAT, Sleeve, Fall precautions. Await final cultures (no abx required at this point). Health Status Allergies: Allergic Reactions (All) Severity Not Documented Bee Stings- Swelling. Normal [facility] Comment on above: Result Comment: Elec tronically Signed By: Benjamin Johnson DO\.br\Date and Time Signed: 03/19/21 07:03 EDT Auto Diffon 03-18-2021 Basophils/100 WBC (Bld) 0.6 % Normal 0.0-2.0 [facility] Comment on above: Order Comment: Order Added by Discern Expert. Performed By: #### 2 379854, 4867021, 9553439, 84316591, 41945512, 5276856, 4948807 #### [facility] [address] [place] [address] Basophils/Leukocytes Auto (Bld) [Pure # fraction] 0.1 E9/L Normal 0.0-0.2 [facility] Comment on above: Order Comment: Order Added by Discern Expert. Performed By: #### 2 804102, 7115719, 2699905, 95358514, 39639117, 8193152, 2340581 #### [facility] [address] [place] [address] Eosinophils/100 WBC (Bld) 1.4 % Normal 0.0-8.0 [facility] Comment on above: Order Comment: Order Added by Discern Expert. Performed By: #### 2 651126, 4512503, 4635439, 20338624, 03866725, 6726393, 4724969 #### [facility] [address] [place] [address] Eosinophils/Leukocyt es Auto (Bld) [Pure # fraction] 0.1 E9/L Normal 0.0-0.5 [facility] Comment on above: Order Comment: Order Added by Discern Expert. Performed By: #### 2 747842, 0212930, 5556525, 56414724, 91641385, 0355057, 4412819 #### [facility] [address] [place] [address] Lymphocytes/100 WBC (Bld) 8.5 % Low 14.0-50.0 [facility] Comment on above: Order Comment: Order Added by Discern Expert. Performed By: #### 2 258480, 0239681, 9303418, 11002229, 18730355, 8644965, 3168502 #### [facility] [address] [place] [address] Lymphocytes/Leukocyt es Auto (Bld) [Pure # fraction] 0.9 E9/L Low 1.0-4.0 [facility] Comment on above: Order Comment: Order Added by Discern Expert. Performed By: #### 2 716589, 8574359, 6191965, 72073107, 86935135, 2687367, 2934628 #### [facility] [address] [place] [address] Monocytes/100 WBC (Bld) 11.0 % Normal 4.0-14.0 [facility] Comment on above: Order Comment: Order Added by Discern Expert. Performed By: #### 2 804691, 4568333, 8524097, 13354771, 19704751, 6678459, 6717542 #### [facility] [address] [place] [address] Monocytes/Leukocytes Auto (Bld) [Pure # fraction] 1.2 E9/L High 0.2-1.0 [facility] Comment on above: Order Comment: Order Added by Deshawn Expert. Performed By: #### 2 265486, 9106092, 1964301, 73166255, 74214983, 8352313, 2950381 #### [facility] [address] [place] [address] Neutrophils/100 WBC (Bld) 78.5 % High 36.0-75.0 [facility] Comment on above: Order Comment: Order Added by Discern Expert. Performed By: #### 2 027070, 3165835, 2212288, 01935007, 99243886, 3240279, 0804806 #### [facility] [address] [place] [address] Neutrophils/Leukocyt es Auto (Bld) [Pure # fraction] 8.3 E9/L High 2.0-7.5 [facility] Comment on above: Order Comment: Order Added by Discern Expert. Performed By: #### 2 396871, 9126635, 2904852, 98015410, 63737164, 4515449, 8722837 #### [facility] [address] [place] [address] BF Cell Cnton 03-18-2021 Clarity (Unsp spec) Cloudy Normal [facility] Comment on above: Performed By: #### 2 587586, 02981819, 75288484 ####[facility] [address] [place] [address] Color (Body fld) YELLOW Normal [facility] Comment on above: Performed By: #### 2 720477, 17847644, 51154709 ####[facility] [address] [place] [address] RBC Auto (Body fld) [#/Vol] 178 High <=0 [facility] Comment on above: Performed By: #### 2 309740, 89362748, 73599000 ####[facility] [address] [place] [address] Specimen type Nom (Spec) Synovial fluid Normal [facility] Comment on above: Performed By: #### 2 310558, 88785441, 23634263 ####[facility] [address] [place] [address] [place] [address] High <=0 [facility] Comment on above: Performed By: #### 2 264086, 69976216, 69324650 ####[facility] [address] [place] [address] BF Diffon 03-18-2021 Lymphocytes Manual cnt (Body fld) [#/Vol] 3 % Invalid Interpretation Code [facility] Comment on above: Order Comment: Order Added By Discern Expert. Performed By: #### 2 963648, 81181721, 51030393 ####[facility] [address] [place] [address] Segmented neutrophils Manual cnt (Body fld) [#/Vol] 97 % Invalid Interpretation Code [facility] Comment on above: Order Comment: Order Added By Discern Expert. Performed By: #### 2 195466, 77476014, 77628849 ####[facility] [address] [place] [address] BMPon 03-18-2021 Anion gap [Moles/Vol] 14 mmol/L Normal 6-16 [facility] Comment on above: Performed By: #### 2 902861, 2941286, 2861483, 77060129, 77948268, 2900391, 4835197 #### [facility] [address] [place] [address] Calcium [Mass/Vol] 8.5 mg/dL Low 8.9-11.1 [facility] Comment on above: Performed By: #### 2 801094, 9964516, 2240488, 62270895, 73484892, 5229332, 6953581 #### [facility] [address] [place] [address] Chloride [Moles/Vol] 93 mmol/L Low 101-111 [facility] Comment on above: Performed By: #### 2 482767, 9106285, 9370432, 11315001, 67410878, 0268204, 9037798 #### [facility] [address] [place] [address] CO2 [Moles/Vol] 29 mmol/L Normal 21-31 [facility] Comment on above: Performed By: #### 2 300091, 4817573, 0744685, 23095105, 40311538, 2306951, 2305397 #### [facility] [address] [place] [address] Creatinine [Mass/Vol] 0.7 mg/dL Normal 0.5-1.3 [facility] Comment on above: Performed By: #### 2 224121, 8070490, 3261302, 22814589, 33802470, 0448081, 8773081 #### [facility] [address] [place] [address] Glucose [Mass/Vol] 132 mg/dL Normal 55-199 [facility] Comment on above: Result Comment: If t his glucose result represents a fasting glucose, interpretation should refer to the following reference range: 55-99 mg/dL Performed By: #### 2 934089, 3957775, 2318453, 21121251, 68598739, 4754231, 5438929 #### [facility] [address] [place] [address] Potassium [Moles/Vol] 3.5 mmol/L Normal 3.5-5.3 [facility] Comment on above: Performed By: #### 2 839668, 1083802, 3605275, 30683260, 52056186, 2553618, 5749348 #### [facility] [address] [place] [address] Sodium [Moles/Vol] 132 mmol/L Low 135-145 [facility] Comment on above: Performed By: #### 2 594366, 3714316, 2127431, 65788061, 41112646, 2205216, 9497752 #### [facility] [address] [place] [address] Urea nitrogen [Mass/Vol] 11 mg/dL Normal 5-21 [facility] Comment on above: Performed By: #### 2 177620, 9708411, 1318393, 87181524, 09787879, 6111496, 3497894 #### [facility] [address] [place] [address] Urea nitrogen/Creatinine [Mass ratio] 16 No Units Normal 10-20 [facility] Comment on above: Performed By: #### 2 194602, 8127713, 9073923, 39748178, 86281865, 5431154, 5767371 #### [facility] [address] [place] [address] CBC w/ Auto Diffon Erythrocyte distribution width (RBC) [Ratio] 12.8 % Normal 10.9-14.2 [facility] Comment on above: Performed By: #### 2 626918, 8197876, 7220057, 62626356, 23094344, 8895251, 0767703 #### [facility] [address] [place] [address] Hematocrit (Bld) [Volume fraction] 43.3 % Normal 37.7-49.0 [facility] Comment on above: Performed By: #### 2 732109, 5945723, 7680001, 38503564, 80598431, 0104201, 7217839 #### [facility] [address] [place] [address] Hemoglobin (Bld) [Mass/Vol] 14.8 g/dL Normal 13.5-17.5 [facility] Comment on above: Performed By: #### 2 647418, 7592945, 5058636, 12973613, 99580014, 6050745, 6765658 #### [facility] [address] [place] [address] MCH (RBC) [Entitic mass] 32.5 pg Normal 27.0-34.0 [facility] Comment on above: Performed By: #### 2 667401, 2003285, 1699667, 10621256, 11659405, 7469696, 7019071 #### [facility] [address] [place] [address] MCHC (RBC) [Mass/Vol] 34.3 g/dL Normal 31.4-36.0 [facility] Comment on above: Performed By: #### 2 230644, 4677966, 3377436, 54429960, 27855959, 4786128, 7842800 #### [facility] [address] [place] [address] MCV (RBC) [Entitic vol] 94.9 fL Normal 80.0-100.0 [facility] Comment on above: Performed By: #### 2 716654, 8520917, 9574748, 47807900, 16945370, 0238932, 5828989 #### [facility] [address] [place] [address] Platelet mean volume (Bld) [Entitic vol] 8.2 fL Normal 6.4-10.8 [facility] Comment on above: Performed By: #### 2 875707, 0088313, 9289037, 49102160, 91551853, 5022542, 6079076 #### [facility] [address] [place] [address] Platelets (Bld) [#/Vol] 216.0 E9/L Normal 150.0-500.0 [facility] Comment on above: Performed By: #### 2 753949, 9844871, 4428545, 12418914, 79737381, 6064244, 5406839 #### [facility] [address] [place] [address] RBC (Bld) [#/Vol] 4.6 E12/L Normal 4.3-5.9 [facility] Comment on above: Performed By: #### 2 255212, 2078879, 9326634, 27543534, 86014089, 6283993, 3833267 #### [facility] [facility] [address] [place] [address] WBC corrected for nucl RBC Auto (Bld) [#/Vol] 10.6 E9/L Normal 4.0-11.0 [facility] Comment on above: Performed By: #### 2 [id number], [id number] #### [facility] [address] [place] [address] CRPon 03-18-2021 CRP [Mass/Vol] 20.4 mg/dL High <=1.9 [facility] Comment on above: Performed By: #### 2 [id number] #### [facility] [address] [place] [address] Magnesiumon 03-18-2021 Magnesium [Mass/Vol] 2.1 mg/dL Normal 1.3-2.4 [facility] Comment on above: Performed By: #### 2 [id number], [id number], [id number], [id number], [id number] #### [facility] [address] [place] [address] Monitor Recordon 03-18-2021 Monitor Record [id number]:[id number] Normal [facility] Progress Note - Pharmacyon 1 Progress Note - Pharmacy Pharmacy Medication Review - ICU Patients I have personally reviewed this patient's current inpatient medication orders and will communicate any recommendations to the attending physician. IV antibiotic(s): No Mechanically ventilated: No Sedation: n/a Continuous infusion(s): No Renal dose adjustment: No Estimated CrCl: 105.73 mL/min Adjusted medications: Candidate for IV to PO conversion: No Need for PO/OG/Gtube conversion?no Need for modification of dosing weight vs. measured weight (>10% variance)? no GI Ulcer Prophylaxis not indicated VTE Prophylaxis: Below the Knee Intermittent Pneumatic Compression Device Ordered by: Mukund Christy - 03/15/2021 1439 Below the Knee Intermittent Pneumatic Compression Device Ordered by: Joe Mcintosh - 03/15/2021 1721 Labs: ADMISSION LAB WORK No Lab Work Done on Admit Date Normal [facility] Progress Note-Physicianon Progress Note-Physician Patient: LAZARO PETTY Age: 65 years Sex: Male : 1955 Associated Diagnoses: None Author: Benjamin Johnson DO Basic Information Full ortho Consult Dictated Left knee atraumatic effusion (hx one other time years ago with intermittent arthritic pain) Xray c moderate OA with large effusion, no fx, tumor or dislocation Consent signed for aspiration, nurse Isaak present. 70cc Straw color fluid aspirated under sterile technique (sent for stat GS and cell count, routine crystals and culture). No signs of infection but will confirm with labs (hold abx) Will follow. Add ice prn. Health Status Allergies: Allergic Reactions (All) Severity Not Documented Bee Stings- Swelling. 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 Larynx cancer s/p laryngoscopy and tracheostomy on 03/15 Procedure was unremarkable. Mild subcutaneous emphysema post procedure ENT following On morphine prn for pain Pt to remain in ICU til and then pt will have down sizing of tracheostomy tube Dietitian following. on TFs via corpak L knee swelling Since 03/17 night. non traumatic. mild to moderate pain. No prosthesis. Mild tenderness on palpation. No redness, erythema. Range of motion is limited No leukocytosis, fever, sepsis. No history of gout. Patient mentioned his knee becomes like this when he does not move around much Uric acid normal f/u left knee x-ray. will consider CT knee depending on what X-ray showed. pt night need aspiration if significant fluid Chronic obstructive pulmonary disease (J44.9: Chronic obstructive pulmonary disease, unspecified) Currently not in acute exacerbation Hypertension (I10: Essential (primary) hypertension) On amlodipine Diet: on TFs Code: Full code DVT prophylaxis: SCDs This report was transcribed using voice recognition software. Every effort was made to ensure accuracy, however, inadvertently computerized director food safety mistakes may be present. Dr. Jeo Mcintosh Hospitalist 1. Larynx cancer, (C32.9: Malignant neoplasm of larynx, unspecified)Larynx cancer 2. Swelling of left knee joint (M25.462: Effusion, left knee) 3. Chronic obstructive pulmonary disease (J44.9: Chronic obstructive pulmonary disease, unspecified) 4. Hypertension (I10: Essential (primary) hypertension) Orders: Add on Test Uric Acid XR Chest Single View XR Knee 1 or 2 Views Left Subjective No major overnight events. No chest pain, palpitations dizziness, shortness of breath, fever, chills, nausea, vomiting, diarrhea. Patient still has left knee swelling with mild to moderate pain. Limited range of motion Objective Vitals & Measurements T: 37.2 ?C (Oral) TMIN: 37.0 ?C (Oral) TMAX: 37.4 ?C (Oral) HR: 73(Monitored) RR: 18 BP: 122/76 SpO2: 97% Intake & Output This visit (24 hour periods starting at 07:00 EDT) 03/18/21 * 03/17/21 03/16/21 Total Summary Intake mL 3 899 481 Output mL -- 600 651 Fluid Balance 3 299 -170 Intake (4) Enteral Tube Intake mL -- 891 -- Jevity 1.5 Josr 237 mL mL -- -- 474 famotidine mL 2 4 4 morphine mL 1 4 3 Total 3 899 481 Output (3) Residual Amount mL -- -- -- Residual Discarded mL -- -- -- Urine Voided mL -- 600 651 Total -- 600 651 Counts (1) Stool Count -- -- 1 * This column has not completed the indicated time period. Physical Exam General: alert, NAD HEENT: eyes show no evidence of icterus Cardiovascular: regular rate and rhythm, no S3/S4 Respiratory: good air entry b/l, rhonchi at bases, respirations non labored Abdomen: soft, non-tender, positive bowel sounds, no organomegaly, no guarding, no rigidity Psych: cooperative Extremities: no peripheral edema Neurological: speech normal Lab Results Uric Acid: 2.9 mg/dL (03/17/21 20:21:00) Problem List/Past Medical History Ongoing Chronic obstructive pulmonary disease Hypertension Marijuana use Historical Smoker Medications Inpatient amLODIPine 5 mg Tab, 5 mg= 1 tab(s), Oral, Daily camphor/menthol/methyl salicylate 4%-10%-30% topical cream, 1 georgi, Topical, QID, PRN famotidine 10 mg/mL IV Ninoska, 20 mg= 2 mL, IV Push, BID hydrALAZINE 20 mg/mL Inj, 10 mg= 0.5 mL, IV Push, q4hr, PRN Jevity 1.5 Josr (Continuous) 237 mL, 237 mL, NG-Tube morphine 2 mg/mL Inj, 2 mg= 1 mL, IV, q2hr, PRN Phenergan 25 mg/mL Injection, 6.25 mg= 0.25 mL, IV, q6hr, PRN Zofran 4 mg/2 mL Injection, 4 mg= 2 mL, IV, Once, PRN Home Aleve 220 mg oral capsule, 1 tab, Oral, PRN amLODIPine 5 mg Tab, 5 mg= 1 tab(s), Oral, Daily L knee X-ray read came back. pt has large effusion. ESR 40, CRP 20. Orthopaedics consulted. I discussed case with Dr. Johnson over the phone. Joint will be aspirated either later today or tomorrow morning. At this time no signs of infection, will hold antibiotics. 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 Normal [facility] Comment on above: Result Comment: Elec tronically Signed By: Dayna CROOK, Joe Mancera\.br\Date and Time Signed: 03/18/21 16:08 EDT Progress Note-Physician ENT POD 3 Pt resting comfortably, but now knee pain limiting mobility. Ortho to be consulted in the morning. AVSS Trach in place and stable. No sign of wound infection or breakdown. Continue intensive nursing due to severe glottic airway obstruction should trach become dislodged Normal [facility] Comment on above: Result Comment: Elec tronically Signed By: Juliette CROOK, Mukund Storey\.br\Date and Time Signed: 03/18/21 16:02 EDT Progress Note-Physician Patient: LAZARO PETTY Age: 65 years Sex: Male : 1955 Associated Diagnoses: None Author: Edmundo Cannon Jr., DO Postoperative Information Post Operative Note: Post Anesthesia Care Unit. Anesthetic utilized: General. Health Status Allergies: Allergic Reactions (Selected) Severity Not Documented Bee Stings- Swelling. Problem list: All Problems High blood pressure / SNOMED CT 7343970132 / Confirmed Marijuana use / SNOMED CT 6019257936 / Confirmed Larynx cancer / SNOMED CT 549439514 / Confirmed Resolved: Smoker / SNOMED CT 779505741 Added secondary to documentation in Social History. quit smoking 5 months ago Physical Examination Vital Signs 03/15/2021 15:31 EDT Peripheral Pulse Rate 77 bpm Respiratory Rate 20 br/min Systolic Blood Pressure 150 mmHg HI Diastolic Blood Pressure 94 mmHg HI Blood Pressure Location Right arm SpO2 98 % FIO2 35 % 03/15/2021 15:28 EDT Heart Rate Monitored 84 bpm Systolic Blood Pressure 135 mmHg Diastolic Blood Pressure 89 mmHg Mean Arterial Pressure, Cuff 104 mmHg SpO2 100 % 03/15/2021 15:00 EDT Temperature Temporal Artery 36.4 DegC Heart Rate Monitored 72 bpm Respiratory Rate Monitored 16 br/min Systolic Blood Pressure 156 mmHg HI Diastolic Blood Pressure 111 mmHg HI Blood Pressure Location Right arm Mean Arterial Pressure, Cuff 126 mmHg SpO2 100 % FIO2 35 % 03/15/2021 14:50 EDT Heart Rate Monitored 76 bpm Respiratory Rate Monitored 22 br/min Systolic Blood Pressure 130 mmHg Diastolic Blood Pressure 83 mmHg Blood Pressure Location Right arm Mean Arterial Pressure, Cuff 99 mmHg SpO2 100 % FIO2 35 % 03/15/2021 14:45 EDT Heart Rate Monitored 77 bpm Respiratory Rate Monitored 25 br/min Systolic Blood Pressure 150 mmHg HI Diastolic Blood Pressure 106 mmHg HI Blood Pressure Location Right arm Mean Arterial Pressure, Cuff 121 mmHg SpO2 100 % FIO2 35 % 03/15/2021 14:40 EDT Heart Rate Monitored 72 bpm Respiratory Rate Monitored 20 br/min Systolic Blood Pressure 157 mmHg HI Diastolic Blood Pressure 95 mmHg HI Blood Pressure Location Right arm Mean Arterial Pressure, Cuff 116 mmHg SpO2 100 % FIO2 35 % 03/15/2021 14:36 EDT Temperature Temporal Artery 36.2 DegC LOW Heart Rate Monitored 70 bpm Respiratory Rate Monitored 22 br/min Systolic Blood Pressure 154 mmHg HI Diastolic Blood Pressure 93 mmHg HI Blood Pressure Location Right arm Mean Arterial Pressure, Cuff 113 mmHg SpO2 100 % FIO2 35 % Pain assessment: Pain Assessment 03/15/2021 15:00 EDT Pain Symptoms Self Report No, able to self report Patient Preferred Pain Tool Verbal descriptor scale Verbal Descriptor Pain Scale No pain Verbal Descriptor Pain Score 0 03/15/2021 14:36 EDT Pain Symptoms Self Report No, able to self report Patient Preferred Pain Tool Verbal descriptor scale Verbal Descriptor Pain Scale No pain Verbal Descriptor Pain Score 0 , Controlled. General: Alert and oriented, No acute distress, No nausea. Adequate hydration.. Respiratory: Adequate air exchange.. Cardiovascular: stable. Neurologic: Normal sensory. Review / Management Condition: Stable. Assessment Anesthetic outcome No anesthetic complications noted. Plan Transfer/ Discharge: Condition stable. Normal [facility] Comment on above: Result Comment: Elec tronically Signed By: Davis Kelley DO, Edmundo Gagnon\.br\Date and Time Signed: 03/18/21 10:10 EDT Sed Rate Automatedon 021 Sed Rate Automated 40 mm/hr High 0-19 [facility] Comment on above: Performed By: #### 2 [id number], [id number], [id number], [id number], [id number], [id number], [id number] #### [facility] [address] [place] [address] XR Knee 1 or 2 Views Lefton 03-18-2021 XR Knee 1 or 2 Views Left Exam Date/Time: 03/17/2021 22:18 EDT Reason for Exam: non traumatic swelling;Other (please specify) Report IMPRESSION: No acute osseous abnormality. Large knee joint effusion. EXAMINATION/TECHNIQUE: XR Knee 1 or 2 Views Left HISTORY: Left knee pain TECHNIQUE: 2 views of the left knee COMPARISON: None RESULT: There are no acute fractures or dislocations. Patellofemoral predominant arthrosis. Large knee joint effusion. There is no focal soft tissue swelling. FINAL REPORT Dictated: 03/18/2021 3:24 pm Marie Mulligan MD, V. Signed (Electronic Signature): 03/18/2021 3:24 pm Signed by: Marie Mulligan MD, V. Transcribed by: GIORGI Technologist: JOHNIE Ahmadi [facility] eGFRon 03-18-2021 GFR/1.73 sq M.predicted among blacks MDRD (S/P/Bld) [Vol rate/Area] mL/min/{1.73_m2} Normal >=59 [facility] Comment on above: Order Comment: Order added by Discern Expert. Result Comment: eGFR is race adjusted. AA=. Performed By: #### 2 [id number], [id number], [id number], [id number], [id number], [id number], [id number] #### [facility] [address] [place] [address] GFR/1.73 sq M.predicted among non-blacks MDRD (S/P/Bld) [Vol rate/Area] mL/min/{1.73_m2} Normal >=59 [facility] Comment on above: Order Comment: Order added by Discern Expert. Result Comment: Student Counselor karen kidney disease could be indicated at eGFR's of less than 60 mL/min/1.73m2. Kidney failure is indicated at less than 15 mL/min/1.73m2. Performed By: #### 2 [id number], [id number], [id number], [id number], [id number], [id number], [id number] #### [facility] [address] [place] [address] Monitor Recordon 03-17-2021 Monitor Record [id number]:127 Normal [facility] Monitor Record [id number]:127 Normal [facility] Monitor Record [id number]:127 Normal [facility] Operative Reporton Operative Report SURGERY DATE: 2020 PRIMARY CARE PHYSICIAN: Lazaro Escobedo D.O. 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 He has been returning for monthly surveillance examinations. In November of 2020 he underwent microlaryngoscopy for possible left tumor, however, biopsies were negative. At that time there was no significant abnormality clearly evident on the right-hand side. He has continued his monthly follow ups and his most recent follow up yesterday reported that he had had a significant increase in his shortness of breath and difficulty breathing. Fiberoptic laryngoscopy in the office yesterday was very suggestive of possible recurrent right-sided carcinoma. The patient was brought to the Operating Room today for direct laryngoscopy and biopsy and probable elective tracheotomy. The patient was intubated under GlideScope which I witnessed and there was significant difficulty passing a 6.0 endotracheal tube through the patient's endolarynx. ANESTHESIA: General endotracheal PROCEDURE: The patient identified in the Holding Area and taken back to the Operating Room where he was placed in the supine position. After induction of general endotracheal anesthesia as noted above, the table was turned, a shoulder roll placed and tooth guard put in position. An anterior commissure laryngoscope was used to examine the endolarynx which showed marked fullness of the right hemilarynx without obvious discrete tumor. The fullness was causing complete obstruction of the anterior larynx so a straight and upbiting cup forceps were used to obtain multiple biopsies throughout the right larynx. Once this was accomplished an endoscope was used to visualize the superior trachea. The scope was passed immediately anterior to the endotracheal tube and the subglottic larynx and superior trachea were examined. There was no abnormality evident. It was clear that the patient did not have sufficient airway to support life and therefore as potentially planned a decision was made to proceed with elective tracheotomy. The table was then turned and the neck was prepped and draped in a sterile fashion. A 4 cm transverse incision was made two finger breadths above the sternal notch. Dissection was carried out with electrocautery medially. The patient had bilateral prominent anterior jugular veins which were identified, dissected and were transected after suture ligation. The dissection continued medially with electrocautery to the strap muscles. Once the strap muscles were identified the strap muscles were incised in the midline and retracted laterally. The patient had a fairly generous thyroid isthmus overlying the superior trachea and decision was made to transect the thyroid isthmus in order to gain exposure of the superior trachea. This was accomplished using harmonic scalpel and then the attachment of the thyroid to the anterior trachea was incised with electrocautery. This resulted in excellent exposure of the anterior trachea. At this point care was taken to ensure that there was no bleeding from skin edges or the thyroid. Using electrocautery an incision was marked out between the first and second intercartilaginous rings and then inferiorly through the second intercartilaginous ring. A cricoid hook was put in position and then the airway was entered with a 15 blade knife after asking anesthesia to pass the patient's tube distally to minimize the risk that the balloon would be ruptured. Then after entering the airway a curved Davila scissors was used to make further incisions through the cartilaginous ring laterally and then inferiorly as planned. A superior and inferior 2-0 Silk stay suture was placed through the inferiorly based cartilage flap inferiorly and through the first cartilaginous ring superiorly. A #8 Shiley low pressure cuff tracheotomy tube was tested. The cuff found to be intact and then the endotracheal tube was gradually withdrawn until it was immediately superior to the patient's tracheotomy site. The trach was then suctioned and with superior and inferior control of the trachea the tracheotomy tube was inserted without difficulty. The cuff was inflated and end tidal carbon dioxide verified by Anesthesia. Once this was completed the patient was ventilated through his endotracheal tube and the orotrac (more content not included)... Normal [facility] Comment on above: Result Comment: Elec tronically Signed By: Juliette CROOK, Mukund Storey\.br\Date and Time Signed: 03/17/21 11:46 EDT Progress Note - Pharmacyon 1 Progress Note - Pharmacy Pharmacy Medication Review - ICU Patients I have personally reviewed this patient's current inpatient medication orders and will communicate any recommendations to the attending physician. IV antibiotic(s): No Day of therapy: Mechanically ventilated: No Sedation: n/a Continuous infusion(s): No Renal dose adjustment: No Estimated CrCl: 105.73 mL/min Adjusted medications: Candidate for IV to PO conversion: No Need for PO/OG/Gtube conversion?no Need for modification of dosing weight vs. measured weight (>10% variance)? no GI Ulcer Prophylaxis yes famotidine VTE Prophylaxis: Below the Knee Intermittent Pneumatic Compression Device Ordered by: Mukund Christy - 03/15/2021 1439 Below the Knee Intermittent Pneumatic Compression Device Ordered by: Joe Argueta 03/15/2021 1721 Labs: ADMISSION LAB WORK No Lab Work Done on Admit Date Normal [facility] Progress Note-Physicianon Progress Note-Physician Assessment/Plan 68-year-old male with past medical history of COPD, hypertension, vocal cord squamous cell carcinoma status post radiation presented for laryngoscopy and tracheostomy. Larynx cancer s/p laryngoscopy and tracheostomy Procedure was unremarkable. Mild subcutaneous emphysema post procedure ENT following On morphine prn for pain Pt to remain in ICU til and then pt will have down sizing of tracheostomy tube Dietitian following. on TFs via corpak L knee swelling For 1 day. non traumatic. mild to moderate pain. Mild tenderness on palpation. No redness, erythema. Range of motion is normal. No leukocytosis, fever, sepsis. No history of gout. Patient mention his knee becomes like this when he does not move around much Check uric acid, left knee x-ray Chronic obstructive pulmonary disease (J44.9: Chronic obstructive pulmonary disease, unspecified) Currently not in acute exacerbation Hypertension (I10: Essential (primary) hypertension) On amlodipine Diet: on TFs Code: Full code DVT prophylaxis: SCDs This report was transcribed using voice recognition software. Every effort was made to ensure accuracy, however, inadvertently computerized director food safety mistakes may be present. Dr. Joe Mcintosh Hospitalist 1. Larynx cancer, (C32.9: Malignant neoplasm of larynx, unspecified)Larynx cancer 2. Chronic obstructive pulmonary disease (J44.9: Chronic obstructive pulmonary disease, unspecified) 3. Hypertension (I10: Essential (primary) hypertension) Orders: Referral to Resource Center XR Chest Single View Subjective No major overnight events. No chest pain, palpitation or dizziness, nausea, vomiting, diarrhea, shortness of breath. Patient is comfortable. Patient is not complaining of anything Objective Vitals & Measurements T: 37.0 ?C (Oral) TMIN: 36.7 ?C (Oral) TMAX: 37.4 ?C (Oral) HR: 79(Monitored) RR: 25 BP: 137/82 SpO2: 96% Intake & Output This visit (24 hour periods starting at 07:00 EDT) 03/17/21 * 03/16/21 03/15/21 Total Summary Intake mL 2 481 1,241.5 Output mL -- 651 5 Fluid Balance 2 -170 1,236.5 Intake (15) Dextrose 5% in Water, clindamycin mL -- -- 50 Jevity 1.5 Josr 237 mL mL -- 474 -- Lactated Ringers Injection mL -- -- 1,100 Lactated Ringers Injection 1,000 mL mL -- -- 50 Oral Intake mL -- -- -- dexamethasone mL -- -- 1 famotidine mL 2 4 2 lidocaine mL -- -- 1.5 midazolam mL -- -- 2 morphine mL -- 3 2 ondansetron mL -- -- 2 propofol mL -- -- 20 rocuronium mL -- -- 5 succinylcholine mL -- -- 4 sugammadex mL -- -- 2 Total 2 481 1,241.5 Output (4) EBL Surgery mL -- -- 5 Residual Amount mL -- -- -- Residual Discarded mL -- -- -- Urine Voided mL -- 651 -- Total -- 651 5 Counts (1) Stool Count -- 1 -- * This column has not completed the indicated time period. Physical Exam General: alert, NAD HEENT: eyes show no evidence of icterus Cardiovascular: regular rate and rhythm, no S3/S4 Respiratory: Lungs CTABL, respirations non labored Abdomen: soft, non-tender, positive bowel sounds, no organomegaly, no guarding, no rigidity Psych: cooperative Extremities: no peripheral edema Neurological: speech normal Lab Results No qualifying data available. Problem List/Past Medical History Ongoing Chronic obstructive pulmonary disease Hypertension Marijuana use Historical Smoker Medications Inpatient amLODIPine 5 mg Tab, 5 mg= 1 tab(s), Oral, Daily camphor/menthol/methyl salicylate 4%-10%-30% topical cream, 1 georgi, Topical, QID, PRN famotidine 10 mg/mL IV Ninoska, 20 mg= 2 mL, IV Push, BID hydrALAZINE 20 mg/mL Inj, 10 mg= 0.5 mL, IV Push, q4hr, PRN Jevity 1.5 Josr (Continuous) 237 mL, 237 mL, NG-Tube morphine 2 mg/mL Inj, 2 mg= 1 mL, IV, q2hr, PRN Phenergan 25 mg/mL Injection, 6.25 mg= 0.25 mL, IV, q6hr, PRN Zofran 4 mg/2 mL Injection, 4 mg= 2 mL, IV, Once, PRN Home Aleve 220 mg oral capsule, 1 tab, Oral, PRN amLODIPine 5 mg Tab, 5 mg= 1 tab(s), Oral, Daily Normal [facility] Comment on above: Result Comment: Elec tronically Signed By: Dayna CROOK, Joe Mancera\.br\Date and Time Signed: 03/17/21 19:09 EDT Progress Note-Physician ENT POD 2 Pt resting comfortably. C/O left knee swelling AVSS Trach in place and stable Moderate left knee swelling. Warm to the touch Pt stable and doing well. Nurse to ask hospitalist to check knee and order ortho consult if they feel appropriate. Normal [facility] Comment on above: Result Comment: Elec tronically Signed By: Juliette CROOK, Mukund Storey\.br\Date and Time Signed: 03/17/21 11:56 EDT Uric Acidon 03-17-2021 Urate [Mass/Vol] 2.9 mg/dL Normal 2.2-7.4 [facility] Comment on above: Performed By: #### 2 [id number] ####[facility] [address] [place] [address] XR Chest Single Viewon 03-17 XR Chest Single View Exam Date/Time: 03/17/2021 06:27 EDT Reason for Exam: progression of subcutaenous empysema;Other (please specify) Report IMPRESSION: STABLE CHEST COMPARED TO YESTERDAY. EXAM: XR Chest Single View DATE: 03/17/2021 CLINICAL HISTORY: progression of subcutaneous emphysema. COMPARISON: 03/16/2021 TECHNIQUE: A portable upright AP radiograph of the chest was obtained. FINDINGS: Soft tissue emphysema in the neck base more prominently on the left appears unchanged. A tracheostomy cannula remains in expected position. Mild streaky infiltrates of the mid to lower lung [place] appear unchanged. There is no pneumothorax, cardiomegaly, or other significant changes identified. FINAL REPORT Dictated: 03/17/2021 10:44 am Ulsies Camacho MD Signed (Electronic Signature): 03/17/2021 10:44 am Signed by: Ulises Camacho MD Transcribed by: GIORGI Technologist: CRISTÓBAL Normal [facility] Auto Diffon 03-16-2021 Basophils/100 WBC (Bld) 0.4 % Normal 0.0-2.0 [facility] Comment on above: Order Comment: Order Added by Discern Expert. Performed By: #### 2 638583, 8817151, 9789813, 80182995, 6664235, 3102824 ####[address] [place] [address] Basophils/Leukocytes Auto (Bld) [Pure # fraction] 0.0 E9/L Normal 0.0-0.2 [facility] Comment on above: Order Comment: Order Added by Discern Expert. Performed By: #### 2 425202, 0691829, 9711236, 77388256, 2766425, 6385728 ####[address] [address] Eosinophils/100 WBC (Bld) 0.2 % Normal 0.0-8.0 [facility] Comment on above: Order Comment: Order Added by Discern Expert. Performed By: #### 2 929227, 7501333, 7004970, 88557794, 0310694, 2624850 ####[address] [place] [address] Eosinophils/Leukocyt es Auto (Bld) [Pure # fraction] 0.0 E9/L Normal 0.0-0.5 [facility] Comment on above: Order Comment: Order Added by Discern Expert. Performed By: #### 2 720071, 3490633, 6338253, 98443560, 7848199, 0049394 ####[address] [place] [address] Lymphocytes/100 WBC (Bld) 10.6 % Low 14.0-50.0 [facility] Comment on above: Order Comment: Order Added by Discern Expert. Performed By: #### 2 579811, 1880158, 2864677, 22738531, 3149808, 5451972 ####[address] [address] Lymphocytes/Leukocyt es Auto (Bld) [Pure # fraction] 1.1 E9/L Normal 1.0-4.0 [facility] Comment on above: Order Comment: Order Added by Discern Expert. Performed By: #### 2 590269, 1408119, 5069293, 62400465, 3707345, 6288064 ####[facility] [address] [place] [address] Monocytes/100 WBC (Bld) 9.7 % Normal 4.0-14.0 [facility] Comment on above: Order Comment: Order Added by Discern Expert. Performed By: #### 2 413780, 2879531, 2923680, 21273364, 8080730, 5273380 ####[address] [place] [address] Monocytes/Leukocytes Auto (Bld) [Pure # fraction] 1.0 E9/L Normal 0.2-1.0 [facility] Comment on above: Order Comment: Order Added by Discern Expert. Performed By: #### 2 491790, 3585346, 2522359, 73007031, 5828269, 7586691 ####[address] [address] Neutrophils/100 WBC (Bld) 79.1 % High 36.0-75.0 [facility] Comment on above: Order Comment: Order Added by Discern Expert. Performed By: #### 2 444545, 3600225, 6483495, 23923373, 5159452, 4491855 ####[facility] [address] [place] [address] Neutrophils/Leukocyt es Auto (Bld) [Pure # fraction] 8.4 E9/L High 2.0-7.5 [facility] Comment on above: Order Comment: Order Added by Discern Expert. Performed By: #### 2 573378, 1109383, 9618727, 75701021, 5495608, 0151080 ####[facility] [address] [place] [address] BMPon 03-16-2021 Anion gap [Moles/Vol] 12 mmol/L Normal 6-16 [facility] Comment on above: Performed By: #### 2 291853, 7767438, 7806213, 07242988, 0279769, 8392330 ####[facility] [address] [facility] [place] [address] Calcium [Mass/Vol] 8.8 mg/dL Low 8.9-11.1 [facility] Comment on above: Performed By: #### 2 174602, 6858274, 7441721, 52197683, 2524539, 5988425 ####[facility] [address] [place] [address] Chloride [Moles/Vol] 99 mmol/L Low 101-111 [facility] Comment on above: Performed By: #### 2 008892, 7215287, 6268277, 10404240, 4808058, 0515022 ####[facility] [address] [place] [address] CO2 [Moles/Vol] 31 mmol/L Normal 21-31 [facility] Comment on above: Performed By: #### 2 985710, 0927415, 5485621, 40439193, 6558550, 5942017 ####[facility] [address] [place] [address] Creatinine [Mass/Vol] 0.6 mg/dL Normal 0.5-1.3 [facility] Comment on above: Performed By: #### 2 024496, 7423707, 4565339, 69007933, 8031363, 8111041 ####[facility] [address] [place] [address] Glucose [Mass/Vol] 135 mg/dL Normal 55-199 [facility] Comment on above: Result Comment: If t his glucose result represents a fasting glucose, interpretation should refer to the following reference range: 55-99 mg/dL Performed By: #### 2 798135, 9235258, 2981699, 78654703, 5407326, 0271624 ####[facility] [address] [place] [address] Potassium [Moles/Vol] 4.1 mmol/L Normal 3.5-5.3 [facility] Comment on above: Performed By: #### 2 201638, 6971832, 1742284, 04389466, 5844064, 7574603 ####[facility] [address] [place] [address] Sodium [Moles/Vol] 138 mmol/L Normal 135-145 [facility] Comment on above: Performed By: #### 2 816798, 6573400, 2934057, 51378386, 0052013, 4806344 ####[facility] [address] [place] [address] Urea nitrogen [Mass/Vol] 11 mg/dL Normal 5-21 [facility] Comment on above: Performed By: #### 2 477140, 1459749, 4820332, 34517478, 4906415, 9223160 ####[facility] [address] [place] [address] Urea nitrogen/Creatinine [Mass ratio] 18 No Units Normal 10-20 [facility] Comment on above: Performed By: #### 2 933264, 2776763, 6774994, 50796607, 8764397, 3918498 ####[facility] [address] [place] [address] CBC w/ Auto Diffon Erythrocyte distribution width (RBC) [Ratio] 13.0 % Normal 10.9-14.2 [facility] Comment on above: Performed By: #### 2 490659, 0629289, 9691717, 72651665, 1944031, 7960674 ####[facility] [address] [place] [address] Hematocrit (Bld) [Volume fraction] 43.7 % Normal 37.7-49.0 [facility] Comment on above: Performed By: #### 2 947817, 2129720, 4813533, 28005991, 7652761, 6651187 ####[address] [place] [address] Hemoglobin (Bld) [Mass/Vol] 14.9 g/dL Normal 13.5-17.5 [facility] Comment on above: Performed By: #### 2 998461, 0574463, 3223860, 52475506, 5018886, 4353247 ####[address] [address] MCH (RBC) [Entitic mass] 32.4 pg Normal 27.0-34.0 [facility] Comment on above: Performed By: #### 2 503069, 1443708, 6807753, 07955124, 3611044, 1346037 ####[address] [address] MCHC (RBC) [Mass/Vol] 34.1 g/dL Normal 31.4-36.0 [facility] Comment on above: Performed By: #### 2 824216, 5607191, 3958216, 69516976, 0600608, 8415202 ####[address] [address] MCV (RBC) [Entitic vol] 95.1 fL Normal 80.0-100.0 [facility] Comment on above: Performed By: #### 2 095276, 8583249, 7857292, 34115653, 3885248, 5391297 ####[address] [address] Platelet mean volume (Bld) [Entitic vol] 8.3 fL Normal 6.4-10.8 [facility] Comment on above: Performed By: #### 2 823316, 4836137, 2638885, 60046392, 4984638, 9906158 ####[address] [address] Platelets (Bld) [#/Vol] 222.0 E9/L Normal 150.0-500.0 [facility] Comment on above: Performed By: #### 2 257042, 1518774, 3714392, 49877176, 4344761, 4361161 ####[facility] [address] [place] [address] RBC (Bld) [#/Vol] 4.6 E12/L Normal 4.3-5.9 [facility] Comment on above: Performed By: #### 2 133689, 7811576, 1300214, 70544895, 0344126, 5294922 ####[facility] [address] [place] [address] WBC corrected for nucl RBC Auto (Bld) [#/Vol] 10.7 E9/L Normal 4.0-11.0 [facility] Comment on above: Performed By: #### 2 712058, 2889815, 6948483, 08893286, 3203050, 5534955 ####[facility] [address] [place] [address] Consent for Anesthesiaon Consent for Anesthesia [id number]#1.00CD:127 Normal [facility] Interdisciplinary Note - Nut ritionon 03-16-2021 Interdisciplinary Note - Nutrition Pt assessed and briefly interviewed to review nutrition POC. Pt with no weight loss reported this far into his cancer treatment. Pt s/p trach and flexiflo placement. Recommend use of Jevity 1.5 with goal rate of 60 ml/hr. This provides 2160 kcal with 91 gm protein and 1100 cc free water and meets 93% estimated calorie and 100% estimated protein needs. Recommend water flush 180 cc q 4 hours. Total water infused from feeding and flush 2180 cc. POC established. Normal [facility] Comment on above: Result Comment: Elec tronically Signed By: Michelle FLETCHER, MALIK., Blank\.br\Date and Time Signed: 03/16/21 10:08 EDT IntraOperative Documentson 1 IntraOperative Documents [id number]#1.00CD:127 Normal [facility] IntraOperative Documents [id number]#1.00CD:127 Normal [facility] Magnesiumon 03-16-2021 Magnesium [Mass/Vol] 1.7 mg/dL Normal 1.3-2.4 [facility] Comment on above: Performed By: #### 2 711062, 8473701, 4129073, 58218913, 1544956, 7316071 ####[facility] [address] [place] [address] Monitor Recordon 03-16-2021 Monitor Record [id number]#1.00CD:127 Normal [facility] Monitor Record [id number]#1.00CD:127 Normal [facility] Monitor Record [id number]#1.00CD:127 Normal [facility] Phosphoruson 03-16-2021 Phosphate [Mass/Vol] 3.7 mg/dL Normal 1.9-4.6 [facility] Comment on above: Performed By: #### 2 392814, 8943178, 6437180, 42428502, 2855359, 5792395 ####[facility] [address] [place] [address] Physician Orderon 03-16-2021 Physician Order [id number]#1.00CD:127 Normal [facility] Preoperative Documentson Preoperative Documents [id number]#1.00CD:127 Normal [facility] Progress Note - Pharmacyon 1 Progress Note - Pharmacy Pharmacy Medication Review - ICU Patients I have personally reviewed this patient's current inpatient medication orders and will communicate any recommendations to the attending physician. IV Antibiotic(s): NO Mechanically Ventilated: NO Sedation: N/A Continuous Infusion(s): D5/.45NS @ 100 mL/hr Renal Dose Adjustment: N/A Estimated CrCl: 106 mL/min (SCr 0.6) Adjusted medication(s): All medications are dosed appropriately for renal function at this time Candidate for IV to PO Conversion: NO NPO with no exceptions > 10% weight variance between dosing weight and measured weight? 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 Larynx cancer s/p laryngoscopy and tracheostomy ENT following On morphine prn for pain Pt to remain in ICU for 7 days and then pt will have down sizing of tracheostomy tube Dietitian following. d/c IVFs. Will start TFs along with water flushes today via corpak Chronic obstructive pulmonary disease (J44.9: Chronic obstructive pulmonary disease, unspecified) Currently not in acute exacerbation Hypertension (I10: Essential (primary) hypertension) On amlodipine Diet: NPO. Start TFs today Code: Full code DVT prophylaxis: SCDs This report was transcribed using voice recognition software. Every effort was made to ensure accuracy, however, inadvertently computerized director food safety mistakes may be present. Dr. Joe Mcintosh Hospitalist 1. Larynx cancer, (C32.9: Malignant neoplasm of larynx, unspecified)Larynx cancer 2. Chronic obstructive pulmonary disease (J44.9: Chronic obstructive pulmonary disease, unspecified) 3. Hypertension (I10: Essential (primary) hypertension) Orders: hydrALAZINE, 10 mg = 0.5 mL, Injection, IV Push, q4hr PRN Other (see comment), Routine, Start date 03/15/21 17:21:00 EDT, 03/15/21 17:21:00 EDT Automated Diff Basic Metabolic Panel Below the Knee Intermittent Pneumatic Compression Device CBC w/ Auto Diff eGFR Magnesium Level Phosphorus Level XR Chest Single View Subjective No major overnight events. Patient is hemodynamically stable. Patient is on trach shield. Pain around 4 out of 10. Patient is on morphine. No chest pain, palpitations, dizziness, nausea, vomiting. Patient is comfortable Objective Vitals & Measurements T: 36.6 ?C (Oral) TMIN: 36.2 ?C (Temporal Artery) TMAX: 36.6 ?C (Oral) HR: 71(Monitored) RR: 17 BP: 157/92 SpO2: 97% SpO2: 97% WT: 80.7 kg Intake & Output This visit (24 hour periods starting at 07:00 EDT) 03/16/21 * 03/15/21 03/14/21 Total Summary Intake mL 3 1,241.5 -- Output mL -- 5 -- Fluid Balance 3 1,236.5 -- Intake (14) Dextrose 5% in Water, clindamycin mL -- 50 -- Lactated Ringers Injection mL -- 1,100 -- Lactated Ringers Injection 1,000 mL mL -- 50 -- Oral Intake mL -- -- -- dexamethasone mL -- 1 -- famotidine mL 2 2 -- lidocaine mL -- 1.5 -- midazolam mL -- 2 -- morphine mL 1 2 -- ondansetron mL -- 2 -- propofol mL -- 20 -- rocuronium mL -- 5 -- succinylcholine mL -- 4 -- sugammadex mL -- 2 -- Total 3 1,241.5 -- Output (2) EBL Surgery mL -- 5 -- Urine Voided mL -- -- -- Total -- 5 -- Counts (0) * This column has not completed the indicated time period. Physical Exam General: alert, NAD HEENT: eyes show no evidence of icterus Cardiovascular: regular rate and rhythm, no S3/S4 Respiratory: Lungs CTABL, respirations non labored Abdomen: soft, non-tender, positive bowel sounds, no organomegaly, no guarding, no rigidity Psych: cooperative Extremities: no peripheral edema Neurological: speech normal Lab Results WBC: 10.7 E9/L (03/16/21 05:33:00) RBC: 4.6 E12/L (03/16/21 05:33:00) HGB: 14.9 gm/dL (03/16/21 05:33:00) Hct: 43.7 % (03/16/21 05:33:00) MCV: 95.1 fL (03/16/21 05:33:00) MCH: 32.4 pg (03/16/21 05:33:00) MCHC: 34.1 gm/dL (03/16/21 05:33:00) RDW: 13 % (03/16/21 05:33:00) Platelet: 222 E9/L (03/16/21 05:33:00) MPV: 8.3 fL (03/16/21 05:33:00) Neutro Auto: 79.1 % High (03/16/21 05:33:00) Lymph Auto: 10.6 % Low (03/16/21 05:33:00) [place] Auto: 9.7 % (03/16/21 05:33:00) Eos Auto: 0.2 % (03/16/21 05:33:00) Basophil Auto: 0.4 % (03/16/21 05:33:00) Neutro Absolute: 8.4 E9/L High (03/16/21 05:33:00) Lymph Absolute: 1.1 E9/L (03/16/21 05:33:00) [place] Absolute: 1 E9/L (03/16/21 05:33:00) Eos Absolute: 0 E9/L (03/16/21 05:33:00) Basophil Absolute: 0 E9/L (03/16/21 05:33:00) Glucose Lvl: 135 mg/dL (03/16/21 05:33:00) BUN: 11 mg/dL (03/16/21 05:33:00) Creatinine: 0.6 mg/dL (03/16/21 05:33:00) eGFR: >60 (03/16/21 05:33:00) eGFR AA: >60 (03/16/21 05:33:00) BUN/Creat Ratio: 18 (03/16/21 05:33:00) Sodium Lvl: 138 mmol/L (03/16/21 05:33:00) Potassium Lvl: 4.1 mmol/L (03/16/21 05:33:00) Chloride: 99 mmol/L Low (03/16/21 05:33:00) CO2: 31 mmol/L (03/16/21 05:33:00) AGAP: 12 mEq/L (03/16/21 05:33:00) Calcium Lvl: 8.8 mg/dL Low (03/16/21 05:33:00) Phosphorus: 3.7 mg/dL (03/16/21 05:33:00) Magnesium: 1.7 mg/dL (03/16/21 05:33:00) Problem List/Past Medical History Ongoing Chronic obstructive pulmonary disease Hypertension Marijuana use Historical Smoker Medications Inpatient famotidine 10 mg/mL IV Ninoska, 20 mg= 2 mL, IV Push, BID hydrALAZINE 20 mg/mL Inj, 10 mg= 0.5 mL, IV Push, q4hr, PRN Jevity 1.5 Josr (Continuous) 237 mL, (more content not included)... Normal [facility] Comment on above: Result Comment: Elec tronically Signed By: Dayna CROOK, Joe Mancera\.br\Date and Time Signed: 03/16/21 10:32 EDT Progress Note-Physician ENT POD 1 Pt resting comfortably in bed. AVSS Trach in place and stable. Minimal bloody secretions. OK to start NG fluids and nutrition. OK to ambulate. Keep cuff inflated and do not adjust strap. Appreciate hospitalist comanagement of day to day medical issues. Normal [facility] Comment on above: Result Comment: Elec tronically Signed By: Juliette CROOK, Mukund Storey\.br\Date and Time Signed: 03/16/21 07:22 EDT XR Chest Single Viewon 03-16 XR Chest Single View Exam Date/Time: 03/16/2021 05:53 EDT Reason for Exam: f/u. s/p trachostomy;Other (please specify) Report IMPRESSION: MINIMAL SUPERIOR MEDIASTINUM. INTERVAL INCREASE OF THE SUBCUTANEOUS EMPHYSEMA ALONG THE BILATERAL NECK. CLINICAL HISTORY: f/u. s/p tracheostomy COMPARISON: 03/15/2021. FINDINGS: AP upright portable chest shows trachea stone tube in good position. There is an enteric tube crossing the diaphragm. The size of the heart is within normal limit. Both lungs are clear. There is minimal superior pneumomediastinum. There is interval increase of subcutaneous emphysema along the bilateral neck. FINAL REPORT Dictated: 03/16/2021 8:57 am Ezekiel Mcnally M.D. Signed (Electronic Signature): 03/16/2021 8:57 am Signed by: Ezekiel Mcnally M.D. Transcribed by: GIORGI Technologist: MAURILIO Normal [facility] eGFRon 03-16-2021 GFR/1.73 sq M.predicted among blacks MDRD (S/P/Bld) [Vol rate/Area] mL/min/{1.73_m2} Normal >=59 [facility] Comment on above: Order Comment: Order added by Discern Expert. Result Comment: eGFR is race adjusted. AA=. Performed By: #### 2 092202, 2325436, 1062471, 08865052, 0357723, 4718334 ####[facility] [address] [place] [address] GFR/1.73 sq M.predicted among non-blacks MDRD (S/P/Bld) [Vol rate/Area] mL/min/{1.73_m2} Normal >=59 [facility] Comment on above: Order Comment: Order added by Discern Expert. Result Comment: Student Counselor karen kidney disease could be indicated at eGFR's of less than 60 mL/min/1.73m2. Kidney failure is indicated at less than 15 mL/min/1.73m2. Performed By: #### 2 494382, 5378780, 4569453, 97573851, 0021690, 8163954 ####[facility] [address] [place] [address] Consent for Treatmenton Consent for Treatment [id number]#1.00CD:127 Normal [facility] H&P Updateon 03-15-2021 H&P Update [id number]#1.00CD:127 Normal [facility] Main OR PACU I Recordon Main OR PACU I Record PACU Phase I Document Type FT Summary Primary Physician: Mukund Christy MD Finalized Date/Time: 03/15/21 15:32:03 Pt. Name: LAZARO PETTY D.O.B./Sex: 1955 Male Med Rec #: [id number] Physician: Mukund Christy MD Financial #: [id number] Pt. Type: A Room/Bed: [address] [address] [address] Admit/Disch: 03/15/21 10:59:05 - Institution: Case Times PACU I FT Pre-Care Text: Identifies barriers to communication and implements measures to provide psychological support Develops individualized plan of care, and ensures continuity of care Maintains patient's dignity and privacy, and maintains patient confidentiality Identifies and reports philosophical, cultural, and spiritual beliefs and values Identifies individual values and wishes concerning care Implements aseptic technique, and administers prescribed antibiotic therapy and immunizing agents as ordered Evaluates postoperative tissue perfusion Implements thermoregulation measures, and monitors body temperature Evaluates postoperative respiratory status Evaluates postoperative cardiac status Evaluates postoperative neurological status Assesses pain control, collaborated in initiating patient-controlled analgesia and implements alternative methods of pain control Verifies allergies, administers prescribed medications and solutions, evaluates response to medications Entry 1 In PACU I 03/15/21 14:36:00 Discharge from PACU 03/15/21 15:06:00 I Outcomes Met? Yes Last Modified By: Charisse Painting RN 03/15/21 15:31:25 Post-Care Text: The patient demonstrates knowledge of the expected response to the operative or invasive procedure The patient's care is consistent with the individualized perioperative plan of care The patient's right to privacy is maintained The patient's value system, lifestyle, ethnicity, and culture are considered, respected, and incorporated into the perioperative plan of care The patient participates in decisions affecting his or her perioperative plan of care The patient is free from signs and symptoms of infection The patient has wound/tissue perfusion consistent with or improved from baseline levels established preoperatively The patient is at or returning to normothermia at the conclusion of the immediate postoperative period The patient's respiratory function is consistent with or improved from baseline levels established preoperatively The patient's cardiovascular status is consistent with or improved from baseline levels established preoperatively The patient's cardiovascular status is consistent with or improved from baseline levels established preoperatively The patient demonstrates and/or reports adequate pain control throughout the perioperative period The patient received appropriate medication(s), safely administered during the perioperative period Acuity Level PACU I FT Entry 1 Start Time 03/15/21 14:36:00 Stop Time 03/15/21 15:06:00 Acuity Level Acuity Level I Last Modified By: Charisse Painting RN 03/15/21 15:32:02 Finalized By: Charisse Painting RN Document Signatures Signed By: Charisse Painting RN 03/15/21 15:32 Normal [facility] Main OR Preoperative Recordo n 03-15-2021 Main OR Preoperative Record PreOp Document Type FT Summary Primary Physician: Mukund Christy MD Finalized Date/Time: 03/15/21 13:54:40 Pt. Name: LAZARO PETTY /Sex: 1955 Male Med Rec #: [id number] Physician: Mukund Christy MD Financial #: [id number] Pt. Type: A Room/Bed: Admit/Disch: 03/15/21 10:59:05 - Institution: Case Times PreOp FT Pre-Care Text: Verifies consent for planned procedure, identifies individual values and wishes concerning care, includes family members in perioperative teaching Entry 1 Patient Times. In Pre Surgery 03/15/21 11:05:00 Out Pre Surgery 03/15/21 12:47:00 Outcomes Met? Yes Last Modified By: Abigail Braden RN 03/15/21 13:54:35 Post-Care Text: The patient participates in decisions affecting his or her perioperative plan of care Finalized By: Abigail Braden RN Document Signatures Signed By: Abigail Braden RN 03/15/21 13:54 Normal [facility] Monitor Recordon 03-15-2021 Monitor Record [id number]#[id number]:127 Normal [facility] Monitor Record [id number]#1.00CD:127 [facility] Progress Note-Physicianon Progress Note-Physician Patient: LAZARO PETTY Age: 65 years Sex: Male : 1955 Associated Diagnoses: None Author: Edmundo Cannon Jr., DO Preoperative Information Time patient last ate or drank:=== (NPO since midnight) Anesthesia history: Patient History: No prior problems with anesthesia.. Re-eval prior to induction: Inital eval reviewed: No significant interval change, Surgical H&P documented and on chart. Surgical consent signed and on chart.. Anesthesia results Review of Systems Cardiovascular: Negative except as documented in history of present illness. Respiratory: Negative. Neurologic: Negative. Health Status Allergies: Allergic Reactions (Selected) Severity Not Documented Bee Stings- Swelling., Allergies (1) Active Reaction Bee Stings Swelling Current medications: (Selected) Inpatient Medications Ordered HYDROmorphone 1 mg/mL injectable solution: 0.4 mg = 0.4 mL, Injection, IV Push, q4min PRN Pain for 5 dose(s), Stop date Limited # of times, Routine, Start date 03/15/21 10:48:00 EDT, 03/15/21 10:48:00 EDT Lactated Ringers IV Ninoska 1000 mL 1,000 mL: 1,000 mL, IV, 100 mL/hr, Routine, Start date 03/15/21 10:48:00 EDT, 10 hour(s), Total volume (mL): 1,000, 78.2 kg, 1.97, m2 Lactated Ringers IV Ninoska 1000 mL 1,000 mL: 1,000 mL, IV, 150 mL/hr, Routine, Start date 03/15/21 11:00:00 EDT, 6.7 hour(s), Total volume (mL): 1,000 Phenergan 25 mg/mL Injection: 12.5 mg = 0.5 mL, Injection, IV Push, q2min PRN Other (see comment) for 2 dose(s), Stop date Limited # of times, Routine, Start date 03/15/21 10:48:00 EDT, 03/15/21 10:48:00 EDT Documented Medications Documented Aleve 220 mg oral capsule: 1 tab, Oral, PRN as needed for pain, Refills(s) 0 amLODIPine 5 mg Tab: 5 mg = 1 tab(s), Oral, Daily, High blood pressure Histories Past Medical History: No active or resolved past medical history items have been selected or recorded. Family History: No family history items have been selected or recorded. Procedure history: Diagnostic laryngoscopy ([id number]) on 11/29/2020 at 65 Years. Laryngoscopy ([id number]) on 03/02/2020 at 64 Years. Social History Social & Psychosocial Habits Alcohol 02/09/2020 Use: Current Type: Beer Frequency: Daily Substance Abuse 02/09/2020 Use: Current Type: Marijuana 03/14/2021 Use: Current Type: Marijuana Frequency: Daily Tobacco 02/09/2020 Risk Assessment: Denies Tobacco Use Comment: Quit 1 week ago - 02/09/2020 10:02 - Ashia STORY, Sari Ayala Physical Examination Measurements from flowsheet : Measurements 03/14/2021 13:05 EDT Height/Length Dosing 177.8 cm Weight Dosing 78.2 kg 03/14/2021 13:05 EDT Weight Dosing 78.2 kg Weight Measured 78.2 kg 03/14/2021 11:31 EDT Height/Length Measured 177.8 cm Height/Length Dosing 177.8 cm Weight Dosing 78.2 kg [place] Body Weight Calculated 73 kg BSA Measured 1.97 m2 Body Mass Index Measured 24.74 kg/m2 Weight Measured 78.2 kg Airway: Mallampati classification: II (soft palate, fauces, uvula visible). Respiratory: Lungs are clear to auscultation. Cardiovascular: Regular rhythm. Review / Management Results review: Lab results 03/14/2021 11:30 EDT WBC 8.7 E9/L RBC 5.0 E12/L HGB 16.3 gm/dL Hct 47.9 % MCV 94.7 fL MCH 32.2 pg MCHC 34.0 gm/dL RDW 12.8 % Platelet 253.0 E9/L MPV 9.1 fL Neutro Auto 77.8 % HI Lymph Auto 10.1 % LOW [place] Auto 11.0 % Eos Auto 0.6 % Basophil Auto 0.5 % Neutro Absolute 6.8 E9/L Lymph Absolute 0.9 E9/L LOW [place] Absolute 1.0 E9/L Eos Absolute 0.1 E9/L Basophil Absolute 0.0 E9/L Glucose Random 108 mg/dL BUN 18 mg/dL Creatinine 0.7 mg/dL eGFR >60 mL/min/1.73 m2 eGFR AA >60 mL/min/1.73 m2 Sodium Lvl 133 mmol/L LOW Potassium Lvl 4.2 mmol/L Chloride 95 mmol/L LOW CO2 27 mmol/L AGAP 15 mEq/L . Chest x-ray results * Final Report * Reason For Exam Pre Op POWERSCRIBE REPORT IMPRESSION: NO RADIOGRAPHIC EVIDENCE OF ACTIVE DISEASE IN THE CHEST. SMALL ELONGATED NODULAR DENSITY MEASURING 8 MM, PROBABLY IN THE LINGULAR SEGMENT OF THE LEFT UPPER LOBE. RECOMMEND FOLLOW-UP CT SCAN OF THE CHEST WITHOUT CONTRAST. CLINICAL INFORMATION: Pre Op COMPARISON: None available. FINDINGS: Two views of the chest were obtained. Heart and mediastinum appear normal. There is small elongated nodular density in the left lower lung field, probably in the lingular segment of the left upper lobe. Visualized bony thorax and remainder of the chest appears unremarkable, except for minimal degenerative or hypertrophic spurs from middle and lower dorsal vertebral bodies and old healed fracture of the left fourth through sixth posterolateral rib. Signature Line FINAL REPORT Dictated: 03/14/2021 1:46 pm Ezekiel Mcnally M.D. Signed (Electronic Signature): 03/14/2021 1:46 pm Signed by: Ezekiel Mcnally M.D. Transcribed by: GIORGI Technologist: SHRUTHI RAD REPORT This document has an image Result type: XR Chest 2 Views (more content not included)... Normal [facility] Comment on above: Result Comment: Elec tronically Signed By: Edmundo Cannon Jr., DO\.br\Date and Time Signed: 03/15/21 10:50 EDT XR Chest Single Viewon 03-15 XR Chest Single View Exam Date/Time: 03/15/2021 15:01 EDT Reason for Exam: S/P tracheotomy and feeding tube placement;Post Op Report IMPRESSION: SUPERIOR PNEUMOMEDIASTINUM. TRACHEOSTOMY TUBE IN GOOD POSITION. FEEDING TUBE WITH ITS TIP IN THE GASTRIC FUNDUS. CLINICAL HISTORY: Post Op, S/P tracheotomy and feeding tube placement COMPARISON: 03/14/2021. FINDINGS: AP upright portable chest shows normal-sized heart and unremarkable bronchovascular markings. There is a tracheostomy tube in good position. There is superior pneumomediastinum. There is subcutaneous emphysema in the bilateral neck. There is placement of a feeding tube with its tip in the gastric fundus. The previously seen irregular shaped nodule in the left lower lung field is not seen. Again there are multiple old fracture of the left upper middle posterior ribs. There is no pneumonic infiltrates or consolidation. Both costophrenic angles are sharp. FINAL REPORT Dictated: 03/15/2021 3:19 pm Ezekiel Mcnally M.D. Signed (Electronic Signature): 03/15/2021 3:19 pm Signed by: Ezekiel Mcnally M.D. Transcribed by: GIORGI Technologist: MINOO Normal [facility] Auto Diffon 03-14-2021 Basophils/100 WBC (Bld) 0.5 % Normal 0.0-2.0 [facility] Comment on above: Order Comment: Order Added by Discern Expert. Performed By: #### 2 [id number], [id number] ####[facility] [address] [place] [address] Basophils/Leukocytes Auto (Bld) [Pure # fraction] 0.0 E9/L Normal 0.0-0.2 [facility] Comment on above: Order Comment: Order Added by Discern Expert. Performed By: #### 2 743293, [id number] ####[place] [id number] [place] [address] Eosinophils/100 WBC (Bld) 0.6 % Normal 0.0-8.0 [facility] Comment on above: Order Comment: Order Added by Discern Expert. Performed By: #### 2 [id number], [id number] ####[facility] [address] [place] [address] Eosinophils/Leukocyt es Auto (Bld) [Pure # fraction] 0.1 E9/L Normal 0.0-0.5 [facility] Comment on above: Order Comment: Order Added by Discern Expert. Performed By: #### 2 084556, [id number] ####[facility] [address] [place] [address] Lymphocytes/100 WBC (Bld) 10.1 % Low 14.0-50.0 [facility] Comment on above: Order Comment: Order Added by Discern Expert. Performed By: #### 2 724328, [id number] ####[facility] [address] [place] [address] Lymphocytes/Leukocyt es Auto (Bld) [Pure # fraction] 0.9 E9/L Low 1.0-4.0 [facility] Comment on above: Order Comment: Order Added by Discern Expert. Performed By: #### 2 918959, [id number] ####[place] [place] [address] [place] [address] Monocytes/100 WBC (Bld) 11.0 % Normal 4.0-14.0 [facility] Comment on above: Order Comment: Order Added by Discern Expert. Performed By: #### 2 123076, [id number] ####[place] [place] [place] [address] Monocytes/Leukocytes Auto (Bld) [Pure # fraction] 1.0 E9/L Normal 0.2-1.0 [facility] Comment on above: Order Comment: Order Added by Deshawn Expert. Performed By: #### 2 858723, [id number] ####[address] [address] Neutrophils/100 WBC (Bld) 77.8 % High 36.0-75.0 [facility] Comment on above: Order Comment: Order Added by Deshawn Expert. Performed By: #### 2 367589, [id number] ####[address] [address] Neutrophils/Leukocyt es Auto (Bld) [Pure # fraction] 6.8 E9/L Normal 2.0-7.5 [facility] Comment on above: Order Comment: Order Added by Discern Expert. Performed By: #### 2 461750, 0484029 ####[address] [place] [place] [address] BUNon 03-14-2021 Urea nitrogen [Mass/Vol] 18 mg/dL Normal 5-21 [facility] Comment on above: Performed By: #### 2 288747, 8059993, 9952741, 74083646, 58802381, 5530369, 0405733 #### [facility] [address] [place] [address] CBC w/ Auto Diffon Erythrocyte distribution width (RBC) [Ratio] 12.8 % Normal 10.9-14.2 [facility] Comment on above: Performed By: #### 2 175446, [id number] ####[address] [address] Hematocrit (Bld) [Volume fraction] 47.9 % Normal 37.7-49.0 [facility] Comment on above: Performed By: #### 2 136791, 9299008 ####[address] [address] Hemoglobin (Bld) [Mass/Vol] 16.3 g/dL Normal 13.5-17.5 [facility] Comment on above: Performed By: #### 2 680012, 0011273 ####[address] [address] MCH (RBC) [Entitic mass] 32.2 pg Normal 27.0-34.0 [facility] Comment on above: Performed By: #### 2 568912, 6343668 ####[address] [address] MCHC (RBC) [Mass/Vol] 34.0 g/dL Normal 31.4-36.0 [facility] Comment on above: Performed By: #### 2 911781, 9075160 ####[address] [address] MCV (RBC) [Entitic vol] 94.7 fL Normal 80.0-100.0 [facility] Comment on above: Performed By: #### 2 238600, 5396261 ####[address] [address] Platelet mean volume (Bld) [Entitic vol] 9.1 fL Normal 6.4-10.8 [facility] Comment on above: Performed By: #### 2 642350, 4586996 ####[address] [address] Platelets (Bld) [#/Vol] 253.0 E9/L Normal 150.0-500.0 [facility] Comment on above: Performed By: #### 2 766669, 8399176 ####[facility] [address] [place] [address] RBC (Bld) [#/Vol] 5.0 E12/L Normal 4.3-5.9 [facility] Comment on above: Performed By: #### 2 831748, 1374142 ####[facility] [address] [place] [address] WBC corrected for nucl RBC Auto (Bld) [#/Vol] 8.7 E9/L Normal 4.0-11.0 [facility] Comment on above: Performed By: #### 2 898728, 8008641 ####[facility] [address] [place] [address] Consent for Procedure/Surger yon 03-14-2021 Consent for Procedure/Surgery [id number]:127 Normal [facility] Consent for Treatmenton 10-0 Consent for Treatment [id number]:127 Normal [facility] Creatinineon 03-14-2021 Creatinine [Mass/Vol] 0.7 mg/dL Normal 0.5-1.3 [facility] Comment on above: Performed By: #### 2 284081, 6435758, 0116494, 28300223, 39904477, 2551848, 8514884 #### [facility] [address] [place] [address] Glucoseon 03-14-2021 Glucose [Mass/Vol] 108 mg/dL Normal 55-199 [facility] Comment on above: Performed By: #### 2 346723, 6919306, 2574250, 91872994, 58139068, 5372912, 9185364 #### [facility] [address] [place] [address] Lyteson 03-14-2021 Anion gap [Moles/Vol] 15 mmol/L Normal 6-16 [facility] Comment on above: Performed By: #### 2 177915, 2813727, 4348440, 91113767, 83896863, 4628555, 5477107 #### [facility] [address] [place] [address] Chloride [Moles/Vol] 95 mmol/L Low 101-111 [facility] Comment on above: Performed By: #### 2 028991, 8767607, 7364737, 10980545, 29508252, 4879968, 3381546 #### [facility] [address] [place] [address] CO2 [Moles/Vol] 27 mmol/L Normal 21-31 [facility] Comment on above: Performed By: #### 2 790754, 6536528, 9573613, 12546198, 99880483, 0465101, 4299826 #### [facility] [address] [place] [address] Potassium [Moles/Vol] 4.2 mmol/L Normal 3.5-5.3 [facility] Comment on above: Performed By: #### 2 808895, 3537096, 7124257, 64897440, 50170676, 3304253, 6141436 #### [facility] [address] [place] [address] Sodium [Moles/Vol] 133 mmol/L Low 135-145 [facility] Comment on above: Performed By: #### 2 407987, 8668910, 1560606, 16084168, 29019225, 0064184, 6488021 #### [facility] [address] [place] [address] Outside Recordson 03-14-2021 Outside Records [id number]:127 Normal [facility] XR Chest 2 Viewson XR Chest 2 Views Exam Date/Time: 03/14/2021 12:07 EDT Reason for Exam: Pre Op Report IMPRESSION: NO RADIOGRAPHIC EVIDENCE OF ACTIVE DISEASE IN THE CHEST. SMALL ELONGATED NODULAR DENSITY MEASURING 8 MM, PROBABLY IN THE LINGULAR SEGMENT OF THE LEFT UPPER LOBE. RECOMMEND FOLLOW-UP CT SCAN OF THE CHEST WITHOUT CONTRAST. CLINICAL INFORMATION: Pre Op COMPARISON: None available. FINDINGS: Two views of the chest were obtained. Heart and mediastinum appear normal. There is small elongated nodular density in the left lower lung field, probably in the lingular segment of the left upper lobe. Visualized bony thorax and remainder of the chest appears unremarkable, except for minimal degenerative or hypertrophic spurs from middle and lower dorsal vertebral bodies and old healed fracture of the left fourth through sixth posterolateral rib. FINAL REPORT Dictated: 03/14/2021 1:46 pm Ezekiel Mcnally M.D. Signed (Electronic Signature): 03/14/2021 1:46 pm Signed by: Ezekiel Mcnally M.D. Transcribed by: GIORGI Technologist: SHRUTHI Normal [facility] eGFRon 03-14-2021 GFR/1.73 sq M.predicted among blacks MDRD (S/P/Bld) [Vol rate/Area] mL/min/{1.73_m2} Normal >=59 [facility] Comment on above: Order Comment: Order added by Discern Expert. Result Comment: eGFR is race adjusted. AA=. Performed By: #### 2 806249, 9038397, 3296402, 98402227, 11028449, 7351188, 7094181 #### [facility] [address] [place] [address] GFR/1.73 sq M.predicted among non-blacks MDRD (S/P/Bld) [Vol rate/Area] mL/min/{1.73_m2} Normal >=59 [facility] Comment on above: Order Comment: Order added by Discern Expert. Result Comment: Student Counselor karen kidney disease could be indicated at eGFR's of less than 60 mL/min/1.73m2. Kidney failure is indicated at less than 15 mL/min/1.73m2. Performed By: #### 2 986059, 9421046, 5532350, 55087301, 03724368, 4392703, 9420320 #### [facility] [address] [place] [address] CNOVon 12-15-2020 CNOV Office Visit (RADTSA ) -- LAZARO PETTY ([id number]) 1955 M Date Time Provider Department 12/15/20 9:00 AM NIK THAYER During your visit today, we recorded the following information about you: Temperature Pulse Respiration Blood pressure 97.7 degrees 68/minute 16/minute 111/76 Weight 81 kg Nik Thayer MD 01/06/2021 5:50 PM Signed Radiation Oncology - Follow Up Note PATIENT NAME: Lazaro Petty PATIENT DIAGNOSIS/PATIENT IDENTIFICATION: Mr. 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 Completed a course of definitive external beam radiation therapy to the larynx on 05/22/2020 (6300 cGy in 28 fractions). INTERVAL HISTORY/ROS: Mr. Petty returns to clinic today for follow-up approximately seven months after the completion of his radiation treatments. He had missed his scheduled follow-up a few months ago however I received a call from Dr. Christy last week as the patient presented to the ER with throat tightness/discomfort. He had recently started an SCOTTY inhibitor for his blood pressure (lisinopril) and had been coughing substantially. CT exam of the neck was performed in the ER which showed swelling in the area of the larynx with narrowing of the airway and no definable mass or cervical lymphadenopathy. He was discharged home on steroids and antibiotics along with stopping lisinopril he notes improvement in his cough as well as throat discomfort. He was seen as an outpatient by Dr. Christy who performed laryngoscopy which noted swelling and changes in the bilateral true vocal cords (left greater than right) concerning for radiation changes/necrosis. Biopsies were obtained and were negative for malignancy or infection but did show inflammation. As mentioned above, Mr. Petty felt improvement in his symptoms upon discharge from the ER and today reports no issues with breathing or swallowing with improvement in his voice. His skin is also recovered with no breakdown and is no longer using a moisturizer. He endorses stable energy appetite and hydration with increase in weight. He notes occasional headaches but otherwise denies any recent fevers, chills, difficulty with swallowing, shortness of breath, chest pain/palpitations, abdominal pain, nausea, vomiting, change in bowel/urinary habits, difficulty with gait/balance, recent falls, etc. The remainder of the review of systems was performed and was otherwise noncontributory. ALLERGIES ALLERGIES Allergen Reactions - Lisinopril Cough MEDICATIONS: Current Outpatient Medications: - ciprofloxacin HCl (CIPRO) 500 mg tablet - amLODIPine (NORVASC) 5 mg tablet - famotidine (PEPCID) 20 mg tablet - omeprazole (PRILOSEC) 40 mg capsule - diphenhydrAMINE 12.5 mg/5mL lidocaine visc 2 % MAALOX 200-200-20 mg/5 mL oral liquid 1:1:1 (CPD) - lisinopril (ZESTRIL, PRINIVIL) 10 mg tablet PHYSICAL EXAM: GENERAL: middle-aged gentleman sitting in chair in no acute distress. VITALS: BP 111/76 Pulse 68 Temp 97.7 Resp 16 Wt 178 lb 9.6 oz (81.0kg) SpO2 97% KPS: 80 HEENT: NC/AT, anicteric sclera NECK: No palpable lymphadenopathy, mild postradiation pigment changes noted. HEART: S1S2 LUNGS: non-labored breathing ABDOMEN: soft MUSCULOSKELETAL: no peripheral edema, moves all extremities. NEURO: no focal deficit; AANDO X3. RADIOLOGIC DATA: CT Neck (11/27/2020) PATHOLOGIC DATA: 12/05/2020 ASSESSMENT AND PLAN: Mr. 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 Completed a course of definitive external beam radiation therapy to the larynx on 05/22/2020 (6300 cGy in 28 fractions). Mr. Petty had been recovering well from his course of radiation therapy to the larynx approximately 7 months ago when he recently had a setback after developing substantial cough resulting throat pain and discomfort. CT examination of the neck noted swelling in the area of the larynx laryngoscopy evaluation by Dr. Christy was concerning for radiation changes and possible necrosis versus disease recurrence. Biopsy from the area of concern in the left vocal cord returned negative for malignancy or infection with inflammatory changes. His symptoms have improved substantially since stopping his SCOTTY inhibitor as well as his course of steroids. He will continue close follow-up with Dr. Christy and I will plan to see him back in approximately 6 months. The patient is aware to contact the clinic in the interim should any questions or concerns arise. Thank you for allowing us to participate in the care of this patient. Signed by: Nik Thayer MD I spent a total of 20 minutes on the date (more content not included)... Normal [facility] 12-05-2020 CNPN Telephone (RADTSA) -- LAZARO PETTY ([id number]) 1955 M Date Time Provider Department 12/05/20 NIK THAYER During your visit today, we recorded the following information about you: Gertrudis Thompson RN 12/05/2020 10:[address] Thayer, please contact pt and arrange for follow up sometime next week. PORSHA Chahal Pss 12/05/2020 10:42 AM Signed Called pt to schedule voicemail not set up to leave message, will try again later today Gayle Gomez Pss 12/05/2020 1:03 PM Signed Scheduled 12/15 @ 915a Allergies As of Date: 12/05/2020 (No Known Allergies) Date Reviewed: 05/23/2020 Reviewed by: Nik Thayer - Fully Assessed Reason for Visit: Future Appointment [[id number]] Prescriptions as of 12/05/2020 Sig: DIPHENHYDRAMINE 12.5 MG/5ML L* Swish/swallow 5-10 mL by mout* LISINOPRIL 10 MG TABLET Problem List As Of Date: 12/05/2020 (None) Encounter Status:Closed by GERTRUDIS THOMPSON on 12/07/20 Normal [facility] XR CHEST 2 Von 12-05-2020 XR CHEST 2 V CLINICAL HISTORY: [place] PD. COMPARISON: Chest radiograph 12/30/2019. FINDINGS: PA and lateral views of the chest obtained. Cardiomediastinal silhouette is normal. Lungs are clear, no evidence of infiltrate or pleural effusion. No suspicious nodule or mass. No evidence of pneumothorax. No acute bony abnormality. IMPRESSION: No acute abnormality. Electronically authenticated by: DARREN DU Date: 2020-12-05 08:29 Normal [facility] CULTURE THROATon 11-29-2020 CULTURE THROAT Isolate 1 Enterobacter cloacae complex Light growth of ORGANISM 1 Enterobacter cloacae complex ANTIBIOTIC M.I.C RX STATUS Piperacillin/Tazobactam <=4 S F Cefazolin >=64 R F Ceftazidime <=1 S F Ceftriaxone <=1 S F Ertapenem <=0.5 S F Imipenem <=0.25 S F Amikacin <=2 S F Gentamicin <=1 S F Tobramycin <=1 S F Ciprofloxacin <=0.25 S F Levofloxacin <=0.12 S F Trimethoprim/Sulfamethoxaz ole <=20 S F Normal [facility] Comment on above: Performed By: #### S EDR #### [facility] [address] [place] [address] Dr. Sachin Jackson CBC AUTO DIFFon 11-27-2020 BASO # 0.1 103/ul Normal 0.0-0.1 [facility] Comment on above: Performed By: #### S EDR #### [facility] [address] [place] [address] Dr. Sachin Jackson Basophils/100 WBC (Bld) 0.4 % Normal 0.2-2.0 [facility] Comment on above: Performed By: #### S EDR #### [facility] [address] [place] [address] Dr. Sachin Jackson EO # 0.1 103/ul Normal 0.0-0.7 [facility] Comment on above: Performed By: #### S EDR #### [facility] [address] [place] [address] Dr. Sachin Jackson Eosinophils/100 WBC (Bld) 1.2 % Normal 0.9-7.0 [facility] Comment on above: Performed By: #### S EDR #### [facility] [address] [place] [address] Dr. Sachin Jackson Erythrocyte distribution width (RBC) [Ratio] 12.4 % Normal 11.0-15.0 [facility] Comment on above: Performed By: #### S EDR #### [facility] [address] [place] [address] Dr. Sachin Jackson Hematocrit (Bld) [Volume fraction] 45.7 % Normal 42.0-54.0 [facility] Comment on above: Performed By: #### S EDR #### [facility] [address] [place] [address] Dr. Sachin Jackson Hemoglobin (Bld) [Mass/Vol] 16.0 g/dL Normal 14.0-18.0 [facility] Comment on above: Performed By: #### S EDR #### [facility] [address] [place] [address] Dr. Sachin Jackson IG # 0.05 10e3/ul Critically high 0.00-0.03 [facility] Comment on above: Performed By: #### S EDR #### [facility] [address] [place] [address] Dr. Sachin Jackson IG % 0.4 % Normal 0.0-0.5 [facility] Comment on above: Performed By: #### S EDR #### [facility] [address] [place] [address] Dr. Sachin Jackson LYMPH # 1.3 103/ul Normal 1.2-3.8 [facility] Comment on above: Performed By: #### S EDR #### [facility] [address] [place] [address] Dr. Sachin Jackson Lymphocytes/100 WBC (Bld) 10.5 % Critically low 20.5-60.0 [facility] Comment on above: Performed By: #### S EDR #### [facility] [address] [place] [address] Dr. Sachin Jackson MANUAL DIFF REQ NO Normal [facility] Comment on above: Performed By: #### S EDR #### [facility] [address] [place] [address] Dr. Sachin Jackson MCH (RBC) [Entitic mass] 33.8 pg Normal 25.9-34.0 [facility] Comment on above: Performed By: #### S EDR #### [facility] [address] [place] [address] Dr. Sachin Jackson MCHC (RBC) [Mass/Vol] 35.0 g/dL Normal 29.9-35.2 [facility] Comment on above: Performed By: #### S EDR #### [facility] [address] [place] [address] Dr. Sachin Jackson MCV (RBC) [Entitic vol] 96.6 fL Critically high 80.0-94.0 [facility] Comment on above: Performed By: #### S EDR #### [facility] [address] [place] [address] Dr. Sachin Jackson MONO # 1.4 103/ul Critically high 0.3-0.8 [facility] Comment on above: Performed By: #### S EDR #### [facility] [address] [place] [address] Dr. Sachin Jackson Monocytes/100 WBC (Bld) 11.9 % Normal 1.7-12.0 [facility] Comment on above: Performed By: #### S EDR #### [facility] [address] [place] [address] Dr. Sachin Jackson NEUT # 9.0 103/ul Critically high 1.4-6.5 [facility] Comment on above: Performed By: #### S EDR #### [facility] [address] [place] [address] Dr. Sachin Jackson Neutrophils/100 WBC (Bld) 75.6 % Critically high 43.0-75.0 [facility] Comment on above: Performed By: #### S EDR #### [facility] [address] [place] [address] Dr. Sachin Jackson Platelet mean volume (Bld) [Entitic vol] 9.9 fL Normal 9.5-13.5 [facility] Comment on above: Performed By: #### S EDR #### [facility] [address] [address] [address] Sachin Jackson PLT 290 103/ul Normal 150-450 [facility] Comment on above: Performed By: #### S EDR #### [facility] [address] [place] [address] Dr. Sachin Jackson RBC 4.73 106/ul Normal 4.70-6.10 [facility] Comment on above: Performed By: #### S EDR #### [facility] [address] [place] [address] Dr. Sachin Jackson WBC 11.9 103/ul Critically high 4.0-11.0 [facility] Comment on above: Performed By: #### S EDR #### [facility] [address] [place] [address] NECK ST W CONon [address] W CON EXAMINATION: CT NECK ST W CON HISTORY: Swelling , shortness of breath, hoarseness; diagnosed with laryngeal cancer a few months ago; post radiation therapy COMPARISON: No relevant comparison available. TECHNIQUE: Axial, Coronal, and Sagittal CT images created with IV contrast. Dose reduction techniques were achieved by using automated exposure control and/or adjustment of mA and/or kV according to patient size and/or use of iterative reconstruction technique. FINDINGS: NASOPHARYNX: No asymmetry of the fossae of Rosenmuller and torus tubarius. ORAL CAVITY: No visible mass. OROPHARYNX: Slight prominence of the left lingual tonsil with 2 small hypodense rounded areas, possibly representing cysts or abscesses within the tonsil. HYPOPHARYNX: No mass or other visible lesion. LARYNX: Soft tissue prominence/swelling within the larynx, slightly greater on left than right. No definable fluid collection or abscess. Narrowing of the airway, 9 x 7 mm. SINUSES: No significant fluid or mucosal thickening. NECK GLADS: No visible abnormality of the parotid, submandibular, and thyroid glands. LYMPH NODES: No pathological-appearing or enlarged lymph nodes. VASCULATURE: No suspicious abnormality. BONES: Multilevel moderate degenerative disc disease of the cervical spine. No significant osseous lesions. OTHER: No additional imaging findings. IMPRESSION: 1. Soft tissue prominence/swelling within the larynx causing airway narrowing to 9 x 7 mm. No definable mass. Increase in soft tissue prominence may be due to underlying tumor or post radiation inflammatory changes. 2. No lymphadenopathy. 3. 2 tiny hypodense areas within the left oral pharyngeal tonsil; chronic cystic areas are suspected. Post radiation changes or abscess cannot be completely excluded. Electronically authenticated by: ALEISHA JJ Date: 2020-11-27 10:49 Normal [facility] CT-CT NECK ST W CON IMPORTon 11-27-2020 CT-CT NECK ST W CON IMPORT Images were obtained outside of [facility] [id number] Normal [facility] Covid-19 PCR (CVDTB)on 11-08 SARS-CoV-2 (COVID-19) RNA MARCELL+probe Ql (Unsp spec) Not detected Normal NOT DETECTED [facility] Comment on above: Result Comment: This test is not yet approved or cleared by the [place] FDA. When there are no FDA-approved or cleared tests available, and other criteria are met, FDA can make tests available under an emergency access mechanism called an Emergency Use Authorization (EUA). The EUA for this test is supported by the Icer Machine of Health and Human Service's (HHS's) declaration that circumstances exist to justify the emergency use of in vitro diagnostics for the detection and/or diagnosis of the virus that causes COVID-19. This EUA will remain in effect (meaning this test can be used) for the duration of the COVID-19 declaration justifying emergency of IVDs, unless it is terminated or revoked by FDA (after which the test may no longer be used). When diagnostic testing is negative, the possibility of a false negative should be considered in the context of a patient's recent exposures and the presence of clinical signs and symptoms consistent with SARS-CoV-2. Performed By: #### C VDTB #### [facility] [address] [id number] Dontrell Cervantes PROF 14(COMP METB)on 021 Albumin [Mass/Vol] 3.5 g/dL Normal 3.5-5.0 [facility] Comment on above: Performed By: #### C MP #### [facility] [address] [id number] Dontrell Helen Albumin/Globulin [Mass ratio] 0.8 {ratio} Normal [facility] Comment on above: Performed By: #### C MP #### [facility] [address] [place], [place] [id number] Dontrell Helen ALP [Catalytic activity/Vol] 75 U/L Normal 38-126 [facility] Comment on above: Performed By: #### C MP #### [facility] [address] [place], [place] [id number] Dontrell Helen ALT [Catalytic activity/Vol] 15 U/L Critically low 21-72 [facility] Comment on above: Performed By: #### C MP #### [facility] [address] [id number] Dontrell Helen Anion gap [Moles/Vol] 12.5 mmol/L Normal [facility] Comment on above: Performed By: #### C MP #### [facility] [address] [place], [place] [id number] Dontrell Helen AST [Catalytic activity/Vol] 13 U/L Critically low 17-59 [facility] Comment on above: Performed By: #### C MP #### [facility] [address] [place], [place] [id number] Dontrell Helen Bilirubin [Mass/Vol] 1.1 mg/dL Normal 0.2-1.3 [facility] Comment on above: Performed By: #### C MP #### [facility] [address] [id number] Dontrell Helen Calcium [Mass/Vol] 9.4 mg/dL Normal 8.4-10.2 [facility] Comment on above: Performed By: #### C MP #### [facility] [address] [id number] Dontrell Helen Chloride [Moles/Vol] 102 mmol/L Normal 98-107 [facility] Comment on above: Performed By: #### C MP #### [facility] [address] [address] Dontrell Helen CO2 [Moles/Vol] 25.4 mmol/L Normal 22.0-30.0 [facility] Comment on above: Performed By: #### C MP #### [facility] [address] [place], [place] [id number] Dontrell Helen Creatinine [Mass/Vol] 0.62 mg/dL Critically low 0.66-1.25 [facility] Comment on above: Performed By: #### C MP #### [facility] [address] [place] [address] Dontrell Helen EGFR-AF FIJIAN >60 Normal >=60 [facility] Comment on above: Performed By: #### C MP #### [facility] [address] [place] [address] Dontrell Helen EGFR-NON AF FIJIAN >60 Normal >=60 [facility] Comment on above: Performed By: #### C MP #### [facility] [address] [place], [place] [id number] Dontrell Helen Globulin (S) [Mass/Vol] 4.2 g/dL Normal [facility] Comment on above: Performed By: #### C MP #### [facility] [address] [place] [address] Dontrell Helen Glucose [Mass/Vol] 97 mg/dL Normal 74-106 [facility] Comment on above: Performed By: #### C MP #### [facility] [address] [place] [address] Dontrell Helen Potassium [Moles/Vol] 3.9 mmol/L Normal 3.4-5.0 [facility] Comment on above: Performed By: #### C MP #### [facility] [address] [place] [address] Dontrell Helen Protein [Mass/Vol] 7.7 g/dL Normal 6.1-8.2 [facility] Comment on above: Performed By: #### C MP #### [facility] [address] [place] [address] Dontrell Cervantes Sodium [Moles/Vol] 136 mmol/L Critically low 137-145 [facility] Comment on above: Performed By: #### C MP #### [facility] [address] [place] [address] Dontrell Cervantes Urea nitrogen [Mass/Vol] 12.0 mg/dL Normal 9.0-20.0 [facility] Comment on above: Performed By: #### C MP #### [facility] [address] [place] [address] Dontrell Cervantes Urea nitrogen/Creatinine [Mass ratio] 19.4 mg/mg Normal [facility] Comment on above: Performed By: #### C MP #### [facility] [address] [place] [address] Dontrell Cervantes RAPID COVID-19 ANTIGENon EUA Statement SEE BELOW Normal [facility] Comment on above: Result Comment: This test has not been FDA cleared or approved, but has been authorized by the FDA under an Emergency Use Authorization (EUA) for use by authorized laboratories certified under CLIA that meet the requirements to perform moderate or high complexity testing. This test has been authorized only for the detection of proteins from SARS-CoV-2, not for any other viruses or pathogens. The emergency use of this test is authorized for the duration of the declaration that circumstances exist justifying the authorization of emergency use of in vitro diagnostic tests for detection and/or diagnosis of Covid-19 under section 564(b)(1) of the Act, 21 U.S.C. 360bbb-3(b)(1), unless the declaration is terminated or authorization is revoked sooner. Performed By: #### C VDAG #### [facility] [address] [place] [address] Dontrell Cervantes SARS-CoV-2 (COVID-19) RNA MARCELL+probe Ql (Unsp spec) Negative Normal NEGATIVE [facility] Comment on above: Result Comment: Nega tive results are presumptive. They do not preclude infection and should not be used as the sole basis for treatment decisions. Additional confirmatory testing by a molecular method should be considered. Performed By: #### C VDAG #### [facility] [address] [place], [place] [address] Dontrell Cervantes STREPT SCREENon 11-27-2020 STREP SCREEN A Negative Normal NEGATIVE [facility] Comment on above: Performed By: #### T HRTCX, SSCRN #### [facility] [address] [place], [place] [address] Dontrell Cervantes Vital Signs Date Time Vital Sign Value Performing Clinician Facility 10-09-2022 11:09-0400 Body height 177.8 cm Gregg Cates MD Work Phone: [phone] [place] [address] 10-09-2022 11:09-0400 Body mass index (BMI) [Ratio] 25.62 kg/m2 Gregg Cates MD Work Phone: [phone] [place] [address] 10-09-2022 11:09-0400 Body temperature 97 [degF] Gregg Cates MD Work Phone: [phone] [place] [address] 10-09-2022 11:09-0400 Body weight 81 kg Gregg Cates MD Work Phone: [phone] [place] [address] 10-09-2022 11:09-0400 Diastolic blood pressure 89 mm[Hg] Gregg Cates MD Work Phone: [facility] 10-09-2022 11:09-0400 Heart rate 69 /min Gregg Cates MD Work Phone: [facility] 10-09-2022 11:09-0400 Respiratory rate 18 /min Gregg Cates MD Work Phone: [facility] 10-09-2022 11:09-0400 Systolic blood pressure 150 mm[Hg] Gregg Cates MD Work Phone: [facility] 08-22-2022 08:11-0400 Body height 177.8 cm Lazaro Escobedo Work Phone: [address] [address] Work Phone: 08-22-2022 08:11-0400 Body mass index (BMI) [Ratio] 26.5 kg/m2 Lazaro P House Work Phone: -[facility] 3310 Work Phone: 08-22-2022 08:11-0400 Body surface area Derived from formula 2.02 m2 Lazaro P House Work Phone: -[facility] 3312 Work Phone: 08-22-2022 08:11-0400 Body temperature 98.7 [degF] Lazaro P House Work Phone: -[facility] 3317 Work Phone: 08-22-2022 08:11-0400 Body weight 83.78 kg Lazaro P House Work Phone: [facility] 3311 Work Phone: 02-12-2022 14:50-0400 Body height 177.8 cm Lazaro P House Work Phone: [facility] 3310 Work Phone: 02-12-2022 14:50-0400 0 1 Lazaro P House Work Phone: [facility] 3313 Work Phone: Comment on above: [employer] 12-31-2021 15:31-0400 Body height 177.8 cm Lazaro P House [facility]: [facility] Work Phone: 12-31-2021 15:31-0400 Body mass index (BMI) [Ratio] 28.71 kg/m2 Lazaro P House Work Phone: [facility] Work Phone: 12-31-2021 15:31-0400 Body surface area Derived from formula 2.09 m2 Lazaro P House Work Phone: [facility] [place] Work Phone: 12-31-2021 15:31-0400 Body temperature 97.2 [degF] Lazaro P House Work Phone: [facility] [place] Work Phone: 12-31-2021 15:31-0400 Body weight 90.77 kg Lazrao P Evergram Work Phone: [facility] [place] Work Phone: 09-25-2021 08:26-0400 Body height 177.8 cm Lazaro P Evergram Work Phone: [facility] [place] Work Phone: 09-25-2021 08:26-0400 Body mass index (BMI) [Ratio] 29.01 kg/m2 Lazaro P Evergram Work Phone: [facility] [place] Work Phone: 09-25-2021 08:26-0400 Body surface area Derived from formula 2.1 m2 Lazaro P Evergram Work Phone: [facility] [place] Work Phone: 09-25-2021 08:26-0400 Body temperature 97.4 [degF] Lazaro P Evergram Work Phone: [facility] [place] Work Phone: 09-25-2021 08:26-0400 Body weight 91.7 kg Lazaro P House Work Phone: [facility] [place] Work Phone: 09-25-2021 08:26-0400 0 1 Lazaro P House Work Phone: [facility] [place] Work Phone: Comment on above: [employer] 08-07-2021 13:35-0500 Body height 177.8 cm Lazaro P House Work Phone: [facility] [place] [facility] [place] Work Phone: 08-07-2021 13:35-0500 Body mass index (BMI) [Ratio] 27.84 kg/m2 Lazaro P House Work Phone: [facility] [place] [facility] [place] Work Phone: 08-07-2021 13:35-0500 Body surface area Derived from formula 2.06 m2 Lazaro P House Work Phone: [facility] [place] [facility] [place] Work Phone: 08-07-2021 13:35-0500 Body weight 88 kg Lazaro P House Work Phone: [facility] [place] [facility] [place] Work Phone: 08-07-2021 13:35-0500 0 1 Lazaro P House Work Phone: [facility] [place] [facility] [place] Work Phone: Comment on above: [employer] 07-10-2021 13:21-0500 Body height 177.8 cm Lazaro P House Work Phone: [facility] [place] Work Phone: 07-10-2021 13:21-0500 Body mass index (BMI) [Ratio] 26.9 kg/m2 Lazaro P House Work Phone: [facility] [place] Work Phone: 07-10-2021 13:21-0500 Body surface area Derived from formula 2.03 m2 Lazaro P House Work Phone: [facility] [place] Work Phone: 07-10-2021 13:21-0500 Body temperature 98 [degF] Lazaro Escobedo Work Phone: [facility] [place] Work Phone: 07-10-2021 13:21-0500 Body weight 85.05 kg Lazaro Escobedo Work Phone: [facility] [place] Work Phone: 06-12-2021 12:39-0500 Body height 177.8 cm Referring Provider Unknown [facility] [place] Work Phone: 06-12-2021 12:39-0500 Body mass index (BMI) [Ratio] 26.26 kg/m2 Referring Provider Unknown [facility] [place] Work Phone: 06-12-2021 12:39-0500 Body surface area Derived from formula 2.01 m2 Referring Provider Unknown [facility] [place] Work Phone: 06-12-2021 12:39-0500 Body temperature 97 [degF] Referring Provider Unknown [facility] [place] Work Phone: 06-12-2021 12:39-0500 Body weight 83.01 kg Referring Provider Unknown [facility] [place] Work Phone: 06-12-2021 12:39-0500 Respiratory rate 18 /min Referring Provider Unknown [facility] [place] Work Phone: Encounters Encounter Date Encounter Type Care Provider Facility Start: [facility]16[facility] [id number] Start: 10-16-2022 Patient encounter procedure Lazaro Escobedo Work Phone: [facility]-Sekrqbkew-Cbxetsj 4200 Work Phone: Start: 10-09-2022 End: 10-09-[address] Gregg Cates Facility[facility] Start: 10-09-2022 End: 10-09-2022 Subsequent hospital visit by physician Gregg Cates MD Work Phone: [facility] Comment on above: Other specified dise ases of upper respiratory tract; Paralysis of vocal cords and larynx, unspecified; Tracheo-esophageal fistula following tracheostomy (CMS/HCC); Dysphonia; Essential (primary) hypertension; Personal history of nicotine dependence Start: 08-22-2022 Office outpatient vi sit 25 minutes Lazaro P House Work Phone: [facility] 4[facility] Work Phone: Start: 08-22-2022 Patient encounter procedure Lazaro P House Work Phone: [facility] 2359 Work Phone: Start: 08-22-[address] Gregg Cates Facility:[id number] Start: 02-12-2022 Office outpatient vi sit 15 minutes Lazaro P House Work Phone: [facility] 9008 Work Phone: Start: 02-12-2022 Patient encounter procedure Lazaro P House Work Phone: [facility] 2557 Work Phone: Start: 02-12-[address] Gregg Cates Facility:[id number] Start: 12-31-2021 Office outpatient vi sit 15 minutes Lazaro P House Work Phone: OZ[facility] 5870 Work Phone: Start: 12-31-2021 Patient encounter procedure Lazaro P House Work Phone: MT-Rpfkbsedflccpb-Rox dman Work Phone: Start: 12-31-[address] Gregg Cates Facility:[facility] Start: 09-25-2021 Office outpatient vi sit 25 minutes Lazaro Escobedo Work Phone: FD-Dbrhqjhxcnjfap-Xxj dman Voice Work Phone: Start: 09-25-2021 Patient encounter procedure Lazaro Escobedo Work Phone: DB-Zcpvwjggtbzhab[place] Work Phone: Start: 09-21-2021 End: 09-21-[address] PEDROZA PAY Facility: Start: 09-12-2021 [facility], Provider : Janice Ruano, Status: Pen, Time: 9:45 AM Lazaro Escobedo Work Phone: [facility] Work Phone: Start: 09-03-2021 Patient encounter procedure Lazaro Escobedo Work Phone: BF-Evxgegpzt-Zbipdve 4200 Work Phone: Start: 08-07-2021 Office outpatient vi sit 25 minutes Lazaro Escobedo Work Phone: AG[facility]pdmnkrly[facility] 4100 Work Phone: Start: 08-07-2021 Patient encounter procedure Lazaro Escobedo Work Phone: ON-Hoxsydzmiiqbsl-Iuy n [facility] [place] Work Phone: Start: 07-10-2021 Office outpatient vi sit 15 minutes Lazaro Escobedo Work Phone: [facility] Work Phone: Start: 07-10-2021 Patient encounter procedure Lazaro Cortes House Work Phone: YJ-Wgamawyaebudyc-Rpr urban Work Phone: Start: 07-03-2021 AUDIT Lazaro [facility] Work Phone: PK-Gukdoprvrclwrd-Epa urban Work Phone: Start: 07-02-2021 Chart Update Lazaro [facility] Work Phone: RH-Drzmvjbviavmfk-Ejp urban Work Phone: Start: 06-12-2021 Office outpatient ne w 45 minutes Referring Provider Unknown VI-Zorzetusjcbgju-Hgb urban Work Phone: Start: 05-08-2021 Encounter for preprocedural laboratory examination DR MUKUND CHRISTY [facility] Start: 05-01-2021 End: 05-01-[address] MUKUND CHRISTY Facility:H1 Start: 04-28-2021 End: 04-28-[address] MUKUND CHRISTY Facility:[facility]1 Start: 04-28-2021 End: 04-28-2021 Encounter for preprocedural laboratory examination DR MUKUND CHRISTY Facility:H1 Start: 04-27-2021 End: 04-27-2021 ambulatory BOB SCHOFIELD Facility:H1 Start: 04-24-2021 End: 04-25-[address] MUKUND CHRISTY Facility:H1 Start: 04-13-2021 End: 04-13-2021 ambulatory BOB SCHOFIELD Facility:H1 Start: 04-10-2021 End: 04-11-[address] LAZARO ESCOBEDO Facility:H1 Start: 03-31-2021 End: 03-31-[address] DENA SMART Facility:H1 Start: 03-26-2021 End: 03-27-2021 ambulatory BOB CROWDER Facility:H1 Start: 12-05-2020 End: 12-05-[address] MUKUND CHRISTY Facility:H1 Start: 11-27-2020 End: 11-27-[address] ALEISHA JJ Facility:H1 Start: 03-17-2020 End: 03-17-2020 Patient encounter procedure External Provider [facility] Start: 03-17-2020 Results Only External Provider Exter nal-NonCCF Procedures Date Procedure Procedure Detail Performing Clinician Start: 03-17-2020 EXTERNAL LAB External P rovider Start: 03-17-2020 EXTERNAL PROCEDURE Exte rnal Provider Plan of Treatment Date Care Activity Detail Author Start: 02-07-2023 Influenza vaccination Influenza Vaccine (#1) [facility] Start: 10-16-2022 KAMI, Provider: Janice Ruano, Status: Pen, Time: 8:00 AM VIRFUVHOME, Provider: Janice Ruano, Status: Pen, Time: 8:00 AM [facility] Work Phone: Start: 10-09-2022 SURGAMC, Provider: Gregg Cates, Status: Pen, Time: 8:00 AM SURGAMC, Provider: Gregg Cates, Status: Pen, Time: 8:00 AM [facility] Work Phone: Start: 09-25-2021 FUV, Provider: Gregg Cates, Status: Pen, Time: 8:20 AM FUV, Provider: Gregg Cates, Status: Pen, Time: 8:20 AM QM-Fwsdxmaylpkeln-Agh n [facility] [place] Work Phone: Start: 07-10-2021 POV, Provider: Joon Domingo, Status: Pen, Time: 1:45 PM POV, Provider: Joon Domingo, Status: Pen, Time: 1:45 PM RY-Kfpqtibnnghtsg-Sdd urban Work Phone: Start: 02-08-2020 Influenza vaccination INFLUENZA (#1) [facility] Start: 2018 ADVANCE DIRECTIVE DISCUSSION ADVANCE DIRECTIVE DISCUSSION [facility] Start: 2018 Pneumococcal Vaccine: 65+ Years (1 - PCV) Pneumococcal Vaccine: 65+ Years (1 - PCV) [facility] Start: 2018 PNEUMOVAX AGE 65 AND OVER WITH 5YR LOOKBACK (#1) PNEUMOVAX AGE 65 AND OVER WITH 5YR LOOKBACK (#1) [facility] Start: 2008 PROSTATE CANCER SCREENING DISCUSSION PROSTATE CANCER SCREENING DISCUSSION [facility] Start: 2003 SHINGRIX VACCINE (1 of 2) SHINGRIX VACCINE (1 of 2) [facility] Start: 2003 Tuberculosis screening COLORECTAL CANCER SCREENING,SEE MODIFIER [facility] Start: 2003 Zoster Vaccines (1 of 2) Zoster Vaccines (1 of 2) [facility] Start: 1998 DIABETES SCREEN DIABETES SCREEN [facility] Start: 1988 LIPID SCREEN LIPID SCREEN [facility] Start: 1975 DTaP/Tdap/Td Vaccines (1 - Tdap) DTaP/Tdap/Td Vaccines (1 - Tdap) [facility] Start: 1972 Urine microalbumin profile DTAP,TDAP,TD (1 - Tdap) [facility] Start: 1971 Diabetes mellitus screening Diabetes Screening [facility] Start: 1971 HEPATITIS C SCREENING HEPATITIS C SCREENING [facility] Start: 1971 Hepatitis C screening Hepatitis C Screening [facility] Start: 1953 COVID-19 Vaccine (#1) COVID-19 Vaccine (#1) [facility] Start: 1953 Lipid panel Lipid Panel [facility] Start: 1953 Screening for malignant neoplasm of colon [facility] Start: 1953 Yearly Adult Physical Yearly Adult Physical [facility] Payers Date Payer Category Payer Medicare MEDICARE MEDICAR E A AND B [id number] 2018-Present [place], [place] Medicare [id number] 1959 Medicaid [id number] 1961 Medicare [id number] 1953 Unknown [id number] [id number] 1953 Unknown [id number] [id number] 1953 Unknown [id number] [id number] 1953 Unknown [id number] [id number] 1953 Unknown [id number] 2.16.840.1.562090.3.579.2.593 1953 Unknown [id number] 2.16.840.1.697666.3.579.2.593 1953 Unknown [id number] 2.16.840.1.570741.3.579.2.593 1953 Unknown [id number] 2.16.840.1.416586.3.579.2.593 1953 Unknown [id number] 2.16.840.1.782650.3.579.2.593 1953 Unknown [id number] 2.16.840.1.632205.3.579.2.593 1953 Unknown [id number] 2.16.840.1.292020.3.579.2.593 1953 Unknown [id number] 2.16.840.1.074860.3.579.2.356 1953 Unknown [id number] 2.16.840.1.011976.3.579.2.356 1953 Unknown [id number] 2.16.840.1.205036.3.579.2.356 1953 Unknown [id number] 1955 Unknown [id number] Unknown Social History Date Type Detail Facility Tobacco smoking status RIIS Unknown if ever smoked [facility] Start: 1955 Sex Assigned At Not on file [facility] Non-smoker Non-smoker [facility] in [facility] 4[address] Work Phone: Tobacco smoking status RIIS Tobacco smoking consumption unknown [facility] Work Phone: Gender identity Not [facility] file [facility] Medical Equipment Procedure Code Equipment Code Equipment Original Text Equipment Identifier Dates Pulmonary Standard Capacity Case [id number] Start: 07-02-2021 Comment on above: Description: Convert ed from [facility]. Please see archived information for full log information. Additional Information:per range oraxel price 08/21/2021 Clinical Notes 06-12-2020 to 10-16-2022 Op Note - Romulo Martínez MD - 10/09/2022 2:00 PM EDTOp Note - Romulo Martínez MD - 10/09/2022 2:00 PM EDTRomulo Martínez MD - 10/09/2022 11:09 AM EDT Note Date & Type Note Facility 10-16-2022 Reason for visit Narrative An interactive audio and video telecommunication system which permits real time communications between the patient (at the originating site) and provider (at the distant site) was utilized to provide this telehealth service.Verbal consent was requested and obtained from LAZARO PETTY on this date, 10/16/2022 08:00 AM , for a telehealth visit.Virtual Voice Evaluation, AdultReason for referral [id number] Work Phone: 10-16-2022 Reason for visit Narrative An interactive audio and video telecommunication system which permits real time communications between the patient (at the originating site) and provider (at the distant site) was utilized to provide this telehealth service.Verbal consent was requested and obtained from LAZARO PETTY on this date, 10/16/2022 08:00 AM , for a telehealth visit.Virtual Voice Evaluation, AdultReason for referral: postoperative vocal rehabilitations/p:PROCEDURE DETAILSPreoperative Diagnosis:hoarseness, tracheocutaneous fistula .Postoperative Diagnosis:hoarseness, tracheocutaneous fistula .Surgeon: Sarahi Cates/Fellow/Other Human Service Coordinator: GEOVANY Martínezrocedure:1. microdirect larngoscopy diagnostic2. microdirect laryngoscopy with porlaryn gel injection of the right3. Closure of tracheocutaneous fistula with muscle flapAnesthesia: GETAEstimated Blood Loss: 5ccFindings: right vocal fold injection with 0.2cc of prolaryn gel, closure withmuscle flap [id number] Work Phone: 10-09-2022 Note Additional Instructi ons: Handouts Given: Topic 1medication education Topic 2anesthesia education Topic 3surgical site infection Electronic Signatures: Quyen Hoover (RN) (Signed 09-Oct-2022 14:24) Authored: Additional Instructions Last Updated: 09-Oct-2022 14:24 by Quyen Hoover (RN) [facility] 10-09-2022 Note 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 Surgeon: MD Darryn Resident/Fellow/Other Human Service Coordinator: MD Mauricio Procedure: 1. microdirect larngoscopy diagnostic 2. microdirect laryngoscopy with porlaryn gel injection of the right 3. Closure of tracheocutaneous fistula with muscle flap Anesthesia: GETA Estimated Blood Loss: 5cc Findings: right vocal fold injection with 0.2cc of prolaryn gel, closure with muscle flap Complications: None immediately apparent Operative Report: Indications: 67-year-old malewho presented to the ENT clinic for consideration of the above issues. Examination in the office as well as appropriate imaging if applicable was completed and therefore the above procedures were recommended. Indications, risk, benefits, and alternatives were discussed with the patient did sign written informed consent to proceed. All questions were answered. For further information please see the ambulatory EMR. Procedure: The patient was brought back to the operating room and transferred to the operating room table. Preoperative huddle/timeout was performed. The patient was pre-oxygenated with 100% oxygen via facemask. Following time-out the patient received anesthesia and was intubated with 5-0 SALES ASSOCIATE CASHIER tube. The bed was turned 90 to the laryngology team. A dental guard was placed on the upper dentition. The Dedo Laryngoscope was introduced transorally along the right side of the tongue. No concerning masses or lesions were identified in the oral cavity, oropharynx, or hypopharynx. The laryngoscope was secured on the mustard stand and a 0 telescope was utilized to inspect the airway. The above findings were visualized. Attention was first directed to the right vocal fold. Prolaryn gel was injected 0.2cc until the anteiror portion of the cord came more medial. We then proceeded to the tracheocutaneous fistula closure. The anterior midline neck was prepped and draped in standard sterile fashion. We designed an elliptical incision in the horizontal plane that would incorporate the skin around the fistula as well as the fistula itself. This was injected with 1% lidocaine with 1-100,000 epinephrine. We then came through the skin through the soft tissue until we are down into the trachea freeing it from surrounding attachments. We then skeletonized it so only the fistulous tract remained. We then through a 4-0 Vicryl through the fistula itself starting on the right side and coming up the left side of the tract. We then sutured the mesh down and used a 15 blade to come through the more superficial portion which was removed from the patient. After this we copiously irrigated. We then undermined the skin and soft tissue in all directions. We then utilized the strap muscles/SCM to perform a muscle flap which was then secured over the fistula site using multiple 4-0 Vicryl's. We then set about closing of the skin. We used 4-0 Vicryl for the deeper layer and then used a running 5-0 fast for the skin layer. We then cleansed and dried the patient and applied bacitracin ointment. The patient was then turned back to the anesthesia team for extubation. The patient was transferred to the PACU in stable condition. Attestation: Note Completion: Attending AttestationI was present for the entire procedure I am a:Resident/Fellow Electronic Signatures: Gregg Cates) (Signed 09-Oct-2022 14:54) Authored: Post-Operative Note, Chart Review, Note Completion Co-Signer: Post-Operative Note, Chart Review Romulo Martínez (Resident)) (Signed 09-Oct-2022 14:04) Authored: Post-Operative Note, Chart Review Last Updated: 09-Oct-2022 14:54 by Gregg Cates) [facility] 10-09-2022 Miscellaneous Notes 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 Surgeon: MD Darryn Resident/Fellow/Other Human Service Coordinator: MD Mauricio Procedure: 1. microdirect larngoscopy diagnostic 2. microdirect laryngoscopy with porlaryn gel injection of the right 3. Closure of tracheocutaneous fistula with muscle flap Anesthesia: GETA Estimated Blood Loss: 5cc Findings: right vocal fold injection with 0.2cc of prolaryn gel, closure with muscle flap Complications: None immediately apparent Operative Report: Indications: 67-year-old malewho presented to the ENT clinic for consideration of the above issues. Examination in the office as well as appropriate imaging if applicable was completed and therefore the above procedures were recommended. Indications, risk, benefits, and alternatives were discussed with the patient did sign written informed consent to proceed. All questions were answered. For further information please see the ambulatory EMR. Procedure: The patient was brought back to the operating room and transferred to the operating room table. Preoperative huddle/timeout was performed. The patient was pre-oxygenated with 100% oxygen via facemask. Following time-out the patient received anesthesia and was intubated with 5-0 SALES ASSOCIATE CASHIER tube. The bed was turned 90 to the laryngology team. A dental guard was placed on the upper dentition. The Dedo Laryngoscope was introduced transorally along the right side of the tongue. No concerning masses or lesions were identified in the oral cavity, oropharynx, or hypopharynx. The laryngoscope was secured on the mustard stand and a 0 telescope was utilized to inspect the airway. The above findings were visualized. Attention was first directed to the right vocal fold. Prolaryn gel was injected 0.2cc until the anteiror portion of the cord came more medial. We then proceeded to the tracheocutaneous fistula closure. The anterior midline neck was prepped and draped in standard sterile fashion. We designed an elliptical incision in the horizontal plane that would incorporate the skin around the fistula as well as the fistula itself. This was injected with 1% lidocaine with 1-100,000 epinephrine. We then came through the skin through the soft tissue until we are down into the trachea freeing it from surrounding attachments. We then skeletonized it so only the fistulous tract remained. We then through a 4-0 Vicryl through the fistula itself starting on the right side and coming up the left side of the tract. We then sutured the mesh down and used a 15 blade to come through the more superficial portion which was removed from the patient. After this we copiously irrigated. We then undermined the skin and soft tissue in all directions. We then utilized the strap muscles/SCM to perform a muscle flap which was then secured over the fistula site using multiple 4-0 Vicryl's. We then set about closing of the skin. We used 4-0 Vicryl for the deeper layer and then used a running 5-0 fast for the skin layer. We then cleansed and dried the patient and applied bacitracin ointment. The patient was then turned back to the anesthesia team for extubation. The patient was transferred to the PACU in stable condition. Attestation: Note Completion: Attending Attestation I was present for the entire procedure I am a: Resident/Fellow Electronic Signatures: Gregg Cates) (Signed 09-Oct-2022 14:54) Authored: Post-Operative Note, Chart Review, Note Completion Co-Signer: Post-Operative Note, Chart Review Romulo Martínez (Resident)) (Signed 09-Oct-2022 14:04) Authored: Post-Operative Note, Chart Review Last Updated: 09-Oct-2022 14:54 by Gregg Cates) documented in this encounter [facility] Work Phone: 10-09-2022 Note Formatting of this n ote is different from the original. 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 Surgeon: MD Darryn Resident/Fellow/Other Human Service Coordinator: MD Mauricio Procedure: 1. microdirect larngoscopy diagnostic 2. microdirect laryngoscopy with porlaryn gel injection of the right 3. Closure of tracheocutaneous fistula with muscle flap Anesthesia: GETA Estimated Blood Loss: 5cc Findings: right vocal fold injection with 0.2cc of prolaryn gel, closure with muscle flap Complications: None immediately apparent Operative Report: Indications: 67-year-old malewho presented to the ENT clinic for consideration of the above issues. Examination in the office as well as appropriate imaging if applicable was completed and therefore the above procedures were recommended. Indications, risk, benefits, and alternatives were discussed with the patient did sign written informed consent to proceed. All questions were answered. For further information please see the ambulatory EMR. Procedure: The patient was brought back to the operating room and transferred to the operating room table. Preoperative huddle/timeout was performed. The patient was pre-oxygenated with 100% oxygen via facemask. Following time-out the patient received anesthesia and was intubated with 5-0 SALES ASSOCIATE CASHIER tube. The bed was turned 90 to the laryngology team. A dental guard was placed on the upper dentition. The Dedo Laryngoscope was introduced transorally along the right side of the tongue. No concerning masses or lesions were identified in the oral cavity, oropharynx, or hypopharynx. The laryngoscope was secured on the mustard stand and a 0 telescope was utilized to inspect the airway. The above findings were visualized. Attention was first directed to the right vocal fold. Prolaryn gel was injected 0.2cc until the anteiror portion of the cord came more medial. We then proceeded to the tracheocutaneous fistula closure. The anterior midline neck was prepped and draped in standard sterile fashion. We designed an elliptical incision in the horizontal plane that would incorporate the skin around the fistula as well as the fistula itself. This was injected with 1% lidocaine with 1-100,000 epinephrine. We then came through the skin through the soft tissue until we are down into the trachea freeing it from surrounding attachments. We then skeletonized it so only the fistulous tract remained. We then through a 4-0 Vicryl through the fistula itself starting on the right side and coming up the left side of the tract. We then sutured the mesh down and used a 15 blade to come through the more superficial portion which was removed from the patient. After this we copiously irrigated. We then undermined the skin and soft tissue in all directions. We then utilized the strap muscles/SCM to perform a muscle flap which was then secured over the fistula site using multiple 4-0 Vicryl's. We then set about closing of the skin. We used 4-0 Vicryl for the deeper layer and then used a running 5-0 fast for the skin layer. We then cleansed and dried the patient and applied bacitracin ointment. The patient was then turned back to the anesthesia team for extubation. The patient was transferred to the PACU in stable condition. Attestation: Note Completion: Attending Attestation I was present for the entire procedure I am a: Resident/Fellow Electronic Signatures: Gregg Cates) (Signed 09-Oct-2022 14:54) Authored: Post-Operative Note, Chart Review, Note Completion Co-Signer: Post-Operative Note, Chart Review Romulo Martínez (Resident)) (Signed 09-Oct-2022 14:04) Authored: Post-Operative Note, Chart Review Last Updated: 09-Oct-2022 14:54 by Gregg Cates) [facility] Work Phone: 10-09-2022 Note History of Present I llness: History Present Illness: Reason for surgery: tracheocutaneous fistula HPI: HPI: No significant changes to the medical history since last clinic visit with ENT. PMH: reviewed in chart Fam Hx: Reviewed in EMR Social Hx: Reviewed in EMR Allergies: Reviewed in EMR ROS: negative except as above in HPI Medications, imaging and pertinent labs reviewed in EMR A/P Proceed with planned surgery Allergies: Allergies: No Known Allergies: Home Medication Review: Home Medications Reviewed: yes Impression/Procedure: Impression and Planned Procedure: TCF closure ERAS (Enhanced Recovery After Surgery): ERAS Patient: no Vital Signs: Temperature C: 36.1 degrees C Temperature F: 96.9 degrees F Heart Rate: 69 beats per minute Respiratory Rate: 18 breath per minute Blood Pressure Systolic: 150 mm/Hg Blood Pressure Diastolic: 89 mm/Hg Physical Exam by System: Respiratory/Thorax: Unlabored breathing Cardiovascular: No clubbing/cyanosis/edema of hands Consent: COVID-19 Consent: COVID-19 Risk ConsentSurgeon has reviewed hernandez risks related to the risk of kyung COVID-19 and if they contract COVID-19 what the risks are. Attestation: Note Completion: I am a: Resident/Fellow Attending AttestationI saw and evaluated the patient. I personally obtained the hernandez and critical portions of the history and physical exam or was physically present for hernandez and critical portions performed by the resident/fellow. I reviewed the resident/fellows documentation and discussed the patient with the resident/fellow. I agree with the resident/fellows medical decision making as documented in the note. I personally evaluated the patient [id number] Comments/ Additional Findings Patient and I discussed the risks, benefits and alternatives to surgery and all questions answered. Cleared to OR. Electronic Signatures: Gregg Cates) (Signed 09-Oct-2022 14:50) Authored: Physical Exam, Note Completion Co-Signer: History of Present Illness, Allergies, Home Medication Review, Impression/Procedure, ERAS, Physical Exam, Consent, Note Completion Romulo Martínez (Resident)) (Signed 09-Oct-2022 11:10) Authored: History of Present Illness, Allergies, Home Medication Review, Impression/Procedure, ERAS, Physical Exam, Consent, Note Completion Last Updated: 09-Oct-2022 14:50 by Gregg Cates) [facility] 10-09-2022 History and physical note History of Present Illness: History Present Illness: Reason for surgery: tracheocutaneous fistula HPI: HPI: No significant changes to the medical history since last clinic visit with ENT. PMH: reviewed in chart Fam Hx: Reviewed in EMR Social Hx: Reviewed in EMR Allergies: Reviewed in EMR ROS: negative except as above in HPI Medications, imaging and pertinent labs reviewed in EMR A/P Proceed with planned surgery Allergies: Allergies: No Known Allergies : Home Medication Review: Home Medications Reviewed: yes Impression/Procedure: Impression and Planned Procedure: TCF closure ERAS (Enhanced Recovery After Surgery): ERAS Patient: no Vital Signs: Temperature C: 36.1 degrees C Temperature F: 96.9 degrees F Heart Rate: 69 beats per minute Respiratory Rate: 18 breath per minute Blood Pressure Systolic: 150 mm/Hg Blood Pressure Diastolic: 89 mm/Hg Physical Exam by System: Respiratory/Thorax: Unlabored breathing Cardiovascular: No clubbing/cyanosis/edema of hands Consent: COVID-19 Consent: COVID-19 Risk Consent Surgeon has reviewed hernandez risks related to the risk of kyung COVID-19 and if they contract COVID-19 what the risks are. Attestation: Note Completion: I am a: Resident/Fellow Attending Attestation I saw and evaluated the patient. I personally obtained the hernandez and critical portions of the history and physical exam or was physically present for hernandez and critical portions performed by the resident/fellow. I reviewed the resident/fellow?s documentation and discussed the patient with the resident/fellow. I agree with the resident/fellow?s medical decision making as documented in the note. I personally evaluated the patient on 09-Oct-2022 Comments/ Additional Findings Patient and I discussed the risks, benefits and alternatives to surgery and all questions answered. Cleared to OR. Electronic Signatures: Gregg Cates) (Signed 09-Oct-2022 14:50) Authored: Physical Exam, Note Completion Co-Signer: History of Present Illness, Allergies, Home Medication Review, Impression/Procedure, ERAS, Physical Exam, Consent, Note Completion Romulo Martínez (Resident)) (Signed 09-Oct-2022 11:10) Authored: History of Present Illness, Allergies, Home Medication Review, Impression/Procedure, ERAS, Physical Exam, Consent, Note Completion Last Updated: 09-Oct-2022 14:50 by Gregg Cates) [facility] 10-09-2022 History and physical note History of Present Illness: History Present Illness: Reason for surgery: tracheocutaneous fistula HPI: HPI: No significant changes to the medical history since last clinic visit with ENT. PMH: reviewed in chart Fam Hx: Reviewed in EMR Social Hx: Reviewed in EMR Allergies: Reviewed in EMR ROS: negative except as above in HPI Medications, imaging and pertinent labs reviewed in EMR A/P Proceed with planned surgery Allergies: Allergies: No Known Allergies : Home Medication Review: Home Medications Reviewed: yes Impression/Procedure: Impression and Planned Procedure: TCF closure ERAS (Enhanced Recovery After Surgery): ERAS Patient: no Vital Signs: Temperature C: 36.1 degrees C Temperature F: 96.9 degrees F Heart Rate: 69 beats per minute Respiratory Rate: 18 breath per minute Blood Pressure Systolic: 150 mm/Hg Blood Pressure Diastolic: 89 mm/Hg Physical Exam by System: Respiratory/Thorax: Unlabored breathing Cardiovascular: No clubbing/cyanosis/edema of hands Consent: COVID-19 Consent: COVID-19 Risk Consent Surgeon has reviewed hernandez risks related to the risk of kyung COVID-19 and if they contract COVID-19 what the risks are. Attestation: Note Completion: I am a: Resident/Fellow Attending Attestation I saw and evaluated the patient. I personally obtained the hernandez and critical portions of the history and physical exam or was physically present for hernandez and critical portions performed by the resident/fellow. I reviewed the resident/fellow?s documentation and discussed the patient with the resident/fellow. I agree with the resident/fellow?s medical decision making as documented in the note. I personally evaluated the patient on 09-Oct-2022 Comments/ Additional Findings Patient and I discussed the risks, benefits and alternatives to surgery and all questions answered. Cleared to OR. Electronic Signatures: Gregg Cates) (Signed 09-Oct-2022 14:50) Authored: Physical Exam, Note Completion Co-Signer: History of Present Illness, Allergies, Home Medication Review, Impression/Procedure, ERAS, Physical Exam, Consent, Note Completion Romulo Martínez (Resident)) (Signed 09-Oct-2022 11:10) Authored: History of Present Illness, Allergies, Home Medication Review, Impression/Procedure, ERAS, Physical Exam, Consent, Note Completion Last Updated: 09-Oct-2022 14:50 by Gregg Cates () documented in this encounter [facility] Work Phone: 02-12-2022 History of Present illness Narrative This is a 67 year old male previously seen by me on 02/12/2022 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 He was decannulated and had a tracheocutaneous fistula that was treated with silver nitrateHe reports that when he gets water in the fistula, he notices wheezing. 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 He is here for repeat evaluation.He reports that he is doing well. 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 He is breathing well without any recent problems.Recall: 09/17/2021 This is a 66 year old male previously seen by me on 08/07/2021 with a history of biopsies of granulation tissue with Dr. Domingo which were negative for SCCa. He has findings of necrotic cartilage and ORN of the trachea. We recommended speech therapy and was seen twice where he worked on voicing, breath support, and PMV tolerance. He does have improved voice quality. We discussed the potential for a Cintron stent for him.He reports that he was seen in the ER when his trach fell out. While he was the ED, they were unable to reinsert the tube. He was breathing better without the tube, per his . He was seen by Dr. Christy who was able to insert the tube. After the reinsertion of the tube, his states that his voice has worsened. He has trouble breathing, per his . He reports that he is able to swallow well. He is able to cap his tube. He currently has 6.[address]Recall: 08/07/2021 LAZARO PETTY is a 66 year old male referred to me today by Dr Chayo CROOK, Joon Cortes for ORN and necrotic bone within larynx. Referred to Dr. Domingo by Dr. Christy He has a history of laryngeal cancer treated with XRT. He subsequently had issues with voice and airway. He has a biopsy of the right posterior arytenoid mucosa which was hyperplastic with granulation with fragments of necrotic cartilage and bone with giant cell reaction, but evidence of carcinoma. The right TVC was seen with fibrin deposition with atrophy. There is no evidence of amyloid in this specimen. Lastly, a a deep right TVC showed granulation tissue with acute on chronic inflammation, necrotic bone, and giant cell reaction without evidence of cancerHe reports he has been doing well. He has a hard time with vocalizing and breathing while finger occluding his tracheostomy.Denies fevers, chills, night sweats, nausea/vomiting, wt loss or hemoptysis. No complaints of otalgia.Denies facial pain, pressure or headaches.Denies chronic nasal congestion, stuffiness or postnasal drainage. 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 He was decannulated and had a tracheocutaneous fistula that was treated with silver nitrateHe reports that when he gets water in the fistula, he notices wheezing. 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 He is here for repeat evaluation.He reports that he is doing well. 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 He is breathing well without any recent problems.Recall: 09/17/2021 This is a 66 year old male previously seen by me on 08/07/2021 with a history of biopsies of granulation tissue with Dr. Domingo which were negative for SCCa. He has findings of necrotic cartilage and ORN of the trachea. We recommended speech therapy and was seen twice where he worked on voicing, breath support, and PMV tolerance. He does have improved voice quality. We discussed the potential for a Cintron stent for him.He reports that he was seen in the ER when his trach fell out. While he was the ED, they were unable to reinsert the tube. He was breathing better without the tube, per his . He was seen by Dr. Christy who was able to insert the tube. After the reinsertion of the tube, his states that his voice has worsened. He has trouble breathing, per his . He reports that he is able to swallow well. He is able to cap his tube. He currently has 6.[address]Recall: 08/07/2021 LAZARO PETTY is a 66 year old male referred to me today by Dr Chayo CROOK, Joon P for ORN and necrotic bone within larynx. Referred to Dr. Domingo by Dr. Christy He has a history of laryngeal cancer treated with XRT. He subsequently had issues with voice and airway. He has a biopsy of the right posterior arytenoid mucosa which was hyperplastic with granulation with fragments of necrotic cartilage and bone with giant cell reaction, but evidence of carcinoma. The right TVC was seen with fibrin deposition with atrophy. There is no evidence of amyloid in this specimen. Lastly, a a deep right TVC showed granulation tissue with acute on chronic inflammation, necrotic bone, and giant cell reaction without evidence of cancerHe reports he has been doing well. He has a hard time with vocalizing and breathing while finger occluding his tracheostomy.Denies fevers, chills, night sweats, nausea/vomiting, wt loss or hemoptysis. No complaints of otalgia.Denies facial pain, pressure or headaches.Denies chronic nasal congestion, stuffiness or postnasal drainage. 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 A size 4-0 tracheostomy was placed.He reports that he is breathing well. He has been performing PMV trials and tolerates this well. He has not changed his trach since his last visit. He is breathing well.Recall: 09/25/2021 This is a 66 year old male previously seen by me on 08/07/2021 with a history of biopsies of granulation tissue with Dr. Domingo which were negative for SCCa. He has findings of necrotic cartilage and ORN of the trachea. We recommended speech therapy and was seen twice where he worked on voicing, breath support, and PMV tolerance. He does have improved voice quality. We discussed the potential for a Cintron stent for him.He reports that he was seen in the ER when his trach fell out. While he was the ED, they were unable to reinsert the tube. He was breathing better without the tube, per his . He was seen by Dr. Christy who was able to insert the tube. After the reinsertion of the tube, his states that his voice has worsened. He has trouble breathing, per his . He reports that he is able to swallow well. He is able to cap his tube. He currently has 6.[address]Recall: 08/07/2021 LAZARO PETTY is a 66 year old male referred to me today by Dr Chayo CROOK, Joon Cortes for ORN and necrotic bone within larynx. Referred to Dr. Domingo by Dr. Christy He has a history of laryngeal cancer treated with XRT. He subsequently had issues with voice and airway. He has a biopsy of the right posterior arytenoid mucosa which was hyperplastic with granulation with fragments of necrotic cartilage and bone with giant cell reaction, but evidence of carcinoma. The right TVC was seen with fibrin deposition with atrophy. There is no evidence of amyloid in this specimen. Lastly, a a deep right TVC showed granulation tissue with acute on chronic inflammation, necrotic bone, and giant cell reaction without evidence of cancerHe reports he has been doing well. He has a hard time with vocalizing and breathing while finger occluding his tracheostomy.Denies fevers, chills, night sweats, nausea/vomiting, wt loss or hemoptysis. No complaints of otalgia.Denies facial pain, pressure or headaches.Denies chronic nasal congestion, stuffiness or postnasal drainage. 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 A size 4-0 tracheostomy was placed.He reports that he is breathing well. He has been performing PMV trials and tolerates this well. He has not changed his trach since his last visit.Recall: 09/25/2021 This is a 66 year old male previously seen by me on 08/07/2021 with a history of biopsies of granulation tissue with Dr. Domingo which were negative for SCCa. He has findings of necrotic cartilage and ORN of the trachea. We recommended speech therapy and was seen twice where he worked on voicing, breath support, and PMV tolerance. He does have improved voice quality. We discussed the potential for a Cintron stent for him.He reports that he was seen in the ER when his trach fell out. While he was the ED, they were unable to reinsert the tube. He was breathing better without the tube, per his . He was seen by Dr. Christy who was able to insert the tube. After the reinsertion of the tube, his states that his voice has worsened. He has trouble breathing, per his . He reports that he is able to swallow well. He is able to cap his tube. He currently has 6.[address]Recall: 08/07/2021 LAZARO PETTY is a 66 year old male referred to me today by Dr Chayo CROOK, Joon P for ORN and necrotic bone within larynx. Referred to Dr. Domingo by Dr. Christy He has a history of laryngeal cancer treated with XRT. He subsequently had issues with voice and airway. He has a biopsy of the right posterior arytenoid mucosa which was hyperplastic with granulation with fragments of necrotic cartilage and bone with giant cell reaction, but evidence of carcinoma. The right TVC was seen with fibrin deposition with atrophy. There is no evidence of amyloid in this specimen. Lastly, a a deep right TVC showed granulation tissue with acute on chronic inflammation, necrotic bone, and giant cell reaction without evidence of cancerHe reports he has been doing well. He has a hard time with vocalizing and breathing while finger occluding his tracheostomy.Denies fevers, chills, night sweats, nausea/vomiting, wt loss or hemoptysis. No complaints of otalgia.Denies facial pain, pressure or headaches.Denies chronic nasal congestion, stuffiness or postnasal drainage. 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 He is here for repeat evaluation.He reports that he is doing well. 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 He is breathing well without any recent problems.Recall: 09/17/2021 This is a 66 year old male previously seen by me on 08/07/2021 with a history of biopsies of granulation tissue with Dr. Domingo which were negative for SCCa. He has findings of necrotic cartilage and ORN of the trachea. We recommended speech therapy and was seen twice where he worked on voicing, breath support, and PMV tolerance. He does have improved voice quality. We discussed the potential for a Cintron stent for him.He reports that he was seen in the ER when his trach fell out. While he was the ED, they were unable to reinsert the tube. He was breathing better without the tube, per his . He was seen by Dr. Christy who was able to insert the tube. After the reinsertion of the tube, his states that his voice has worsened. He has trouble breathing, per his . He reports that he is able to swallow well. He is able to cap his tube. He currently has 6.[address]Recall: 08/07/2021 LAZARO PETTY is a 66 year old male referred to me today by Dr Chayo CROOK, Joon Cortes for ORN and necrotic bone within larynx. Referred to Dr. Domingo by Dr. Christy He has a history of laryngeal cancer treated with XRT. He subsequently had issues with voice and airway. He has a biopsy of the right posterior arytenoid mucosa which was hyperplastic with granulation with fragments of necrotic cartilage and bone with giant cell reaction, but evidence of carcinoma. The right TVC was seen with fibrin deposition with atrophy. There is no evidence of amyloid in this specimen. Lastly, a a deep right TVC showed granulation tissue with acute on chronic inflammation, necrotic bone, and giant cell reaction without evidence of cancerHe reports he has been doing well. He has a hard time with vocalizing and breathing while finger occluding his tracheostomy.Denies fevers, chills, night sweats, nausea/vomiting, wt loss or hemoptysis. No complaints of otalgia.Denies facial pain, pressure or headaches.Denies chronic nasal congestion, stuffiness or postnasal drainage. 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 He is here for repeat evaluation.He reports that he is doing well. 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 He is breathing well without any recent problems.Recall: 09/17/2021 This is a 66 year old male previously seen by me on 08/07/2021 with a history of biopsies of granulation tissue with Dr. Domingo which were negative for SCCa. He has findings of necrotic cartilage and ORN of the trachea. We recommended speech therapy and was seen twice where he worked on voicing, breath support, and PMV tolerance. He does have improved voice quality. We discussed the potential for a Cintron stent for him.He reports that he was seen in the ER when his trach fell out. While he was the ED, they were unable to reinsert the tube. He was breathing better without the tube, per his . He was seen by Dr. Christy who was able to insert the tube. After the reinsertion of the tube, his states that his voice has worsened. He has trouble breathing, per his . He reports that he is able to swallow well. He is able to cap his tube. He currently has 6.[address]Recall: 08/07/2021 LAZARO PETTY is a 66 year old male referred to me today by Dr Chayo CROOK, Joon Cortes for ORN and necrotic bone within larynx. Referred to Dr. Domingo by Dr. Christy He has a history of laryngeal cancer treated with XRT. He subsequently had issues with voice and airway. He has a biopsy of the right posterior arytenoid mucosa which was hyperplastic with granulation with fragments of necrotic cartilage and bone with giant cell reaction, but evidence of carcinoma. The right TVC was seen with fibrin deposition with atrophy. There is no evidence of amyloid in this specimen. Lastly, a a deep right TVC showed granulation tissue with acute on chronic inflammation, necrotic bone, and giant cell reaction without evidence of cancerHe reports he has been doing well. He has a hard time with vocalizing and breathing while finger occluding his tracheostomy.Denies fevers, chills, night sweats, nausea/vomiting, wt loss or hemoptysis. No complaints of otalgia.Denies facial pain, pressure or headaches.Denies chronic nasal congestion, stuffiness or postnasal drainage. ZJ-Vw[facility]heetbdiyqgz[facility]ays[facility] Work Phone: 09-03-2021 Reason for visit Narrative An interactive audio and video telecommunication system which permits real time communications between the patient (at the originating site) and provider (at the distant site) was utilized to provide this telehealth service.Verbal consent was requested and obtained from LAZARO PETTY on this date, 09/03/2021 04:00 PM , for a telehealth visit.Virtual Voice Jean RODRIGUEZ for referral: [facility] Dx: J38.3, R49.0, C32.0, Z93.0 JN-Odegqgckv-Yqzmlcj 4200 Work Phone: 08-07-2021 History of Present illness Narrative This is a 66 year old male previously seen by me on 08/07/2021 with a history of biopsies of granulation tissue with Dr. Domingo which were negative for SCCa. He has findings of necrotic cartilage and ORN of the trachea. We recommended [employer] and was seen twice where he worked on voicing, breath support, and PMV tolerance. He does have improved voice quality. We discussed the potential for a Cintron stent for him.He reports that he was seen in the ER when his trach fell out. While he was the ED, they were unable to reinsert the tube. He was breathing better without the tube, per his . He was seen by Dr. Christy who was able to insert the tube. After the reinsertion of the tube, his states that his voice has worsened. He has trouble breathing, per his . He reports that he is able to swallow well. He is able to cap his tube. He currently has 6.[address]Recall: 08/07/2021 LAZARO PETTY is a 66 year old male referred to me today by Dr Chayo CROOK, Joon Cortes for ORN and necrotic bone within larynx. Referred to Dr. Domingo by Dr. Christy He has a history of laryngeal cancer treated with XRT. He subsequently had issues with voice and airway. He has a biopsy of the right posterior arytenoid mucosa which was hyperplastic with granulation with fragments of necrotic cartilage and bone with giant cell reaction, but evidence of carcinoma. The right TVC was seen with fibrin deposition with atrophy. There is no evidence of amyloid in this specimen. Lastly, a a deep right TVC showed granulation tissue with acute on chronic inflammation, necrotic bone, and giant cell reaction without evidence of cancerHe reports he has been doing well. He has a hard time with vocalizing and breathing while finger occluding his tracheostomy.Denies fevers, chills, night sweats, nausea/vomiting, wt loss or hemoptysis. No complaints of otalgia.Denies facial pain, pressure or headaches.Denies chronic nasal congestion, stuffiness or postnasal drainage. VN-Xwcpvdeqpdskrk-Vfmcwl ke Work Phone: 08-07-2021 History of Present illness Narrative This is a 66 year old male previously seen by me on 08/07/2021 with a history of biopsies of granulation tissue with Dr. Domingo which were negative for SCCa. He has findings of necrotic cartilage and ORN of the trachea. We recommended speech therapy and was seen twice where he worked on voicing, breath support, and PMV tolerance. He does have improved voice quality. We discussed the potential for a Cintron stent for him.He reports that he was seen in the ER when his trach fell out. While he was the ED, they were unable to reinsert the tube. He was breathing better without the tube, per his . He was seen by Dr. Christy who was able to insert the tube. After the reinsertion of the tube, his states that his voice has worsened. He has trouble breathing, per his . He reports that he is able to swallow well. He is able to cap his tube. He currently has 6.[address]Recall: 08/07/2021 LAZARO PETTY is a 66 year old male referred to me today by Dr Chayo CROOK, Joon P for ORN and necrotic bone within larynx. Referred to Dr. Domingo by Dr. Christy He has a history of laryngeal cancer treated with XRT. He subsequently had issues with voice and airway. He has a biopsy of the right posterior arytenoid mucosa which was hyperplastic with granulation with fragments of necrotic cartilage and bone with giant cell reaction, but evidence of carcinoma. The right TVC was seen with fibrin deposition with atrophy. There is no evidence of amyloid in this specimen. Lastly, a a deep right TVC showed granulation tissue with acute on chronic inflammation, necrotic bone, and giant cell reaction without evidence of cancerHe reports he has been doing well. He has a hard time with vocalizing and breathing while finger occluding his tracheostomy.Denies fevers, chills, night sweats, nausea/vomiting, wt loss or hemoptysis. No complaints of otalgia.Denies facial pain, pressure or headaches.Denies chronic nasal congestion, stuffiness or postnasal drainage. MA-Xuwaznbwbsewcs-Vcetwc n Voice Work Phone: 2021 Note HNO ID: [id number] Author: Nik Thayer MD Service: ? Author Type: Physician Type: Progress Notes Filed: 07/06/2021 1:56 AM Note Text: Radiation Oncology - Follow Up Note PATIENT NAME: Lazaro Petty PATIENT DIAGNOSIS/PATIENT IDENTIFICATION: Mr. 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 Completed a course of definitive external beam radiation therapy to the larynx on 05/22/2020 (6300 cGy in 28 fractions). INTERVAL HISTORY/ROS: Mr. Petty returns to clinic today for routine follow-up approximately one year after the completion of his radiation treatments and six months since his last visit on 12/15/2020. In the interim, he unfortunately had difficulty breathing and had a tracheostomy placed by Dr. Christy. He recently did a laryngoscopy on 04/11/2021 which showed swelling in the area of the throat and multiple biopsies were taken which were all negative for malignancy. He has been referred to the ENT group at for further evaluation. Today Mr. Montiel is breathing well with the new tracheostomy and is able to swallow and eat all consistencies. He has some soreness at the trach site but otherwise denies any pain or discomfort or any mucositis or dry mouth or loss of taste or new lumps or bumps in the neck. His skin has healed up after the radiation treatments and is no longer using a moisturizer. He does note fatigue with good appetite and hydration with an approximate 10 pound weight gain. He otherwise denies any recent fevers, chills, headaches, difficulty with speech/swallowing, shortness of breath, chest pain/palpitations, abdominal pain, nausea, vomiting, change in bowel/urinary habits, difficulty with gait/balance, recent falls, etc. The remainder of the review of systems was performed and was otherwise noncontributory. ALLERGIES ALLERGIES Allergen Reactions - Lisinopril Cough MEDICATIONS: Current Outpatient Medications: - omeprazole (PRILOSEC) 40 mg capsule - ciprofloxacin HCl (CIPRO) 500 mg tablet - amLODIPine (NORVASC) 5 mg tablet - famotidine (PEPCID) 20 mg tablet PHYSICAL EXAM: GENERAL: middle-aged gentleman sitting in chair in no acute distress. VITALS: BP 151/83 Pulse 66 Temp (Src) 97.8 (Temporal) Resp 18 Wt 186 lb 9.6 oz (84.6kg) SpO2 98% KPS: 80 HEENT: NC/AT, anicteric sclera; trach HEART: S1S2 LUNGS: non-labored breathing ABDOMEN: soft MUSCULOSKELETAL: no peripheral edema, moves all extremities. NEURO: no focal deficit; AANDO X3. PATHOLOGIC DATA: 05/01/2021 ASSESSMENT AND PLAN: Mr. 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 Completed a course of definitive external beam radiation therapy to the larynx on 05/22/2020 (6300 cGy in 28 fractions). He has since had a tracheostomy placed due to laryngeal edema causing airway obstruction. Mr. Petty is without evidence of disease based on recent laryngoscopy and biopsies obtained by Dr. Christy on 05/01/2021. However unfortunately he has required the placement of a tracheostomy due to airway obstruction from laryngeal edema. He is following with the ENT group at for further evaluation. I will plan to see him back in approximately 1 year. The patient is aware to contact the clinic in the interim should any questions or concerns arise. Thank you for allowing us to participate in the care of this patient. Signed by: Nik Thayer MD I spent a total of 20 minutes on the date of the service which included preparing to see the patient, xpty-tu-[id number] patient care and counseling and educating the patient/family/caregiver. This document has been created with the use of voice recognition technology. It may contain inaccuracies, misspellings, inaccurate syntax or inappropriate word context that are a result of the inadequacies/shortcomings of said technology/software. [facility] 05-01-2021 Note OPERATIVE NOTE OPERATION DATE: 05-01-21 PRIMARY CARE PHYSICIAN:Dr. Escobedo ANESTHETIC:General. PREOPERATIVE DIAGNOSIS:Right laryngeal mass. POSTOPERATIVE DIAGNOSIS:Same. PROCEDURE NAME:Direct laryngoscopy and biopsy. COMPLICATIONS: None. FINDINGS: Fullness of the right larynx, frozen section benign on multiple biopsies. INDICATIONS: This 65 year-old man underwent radiation therapy for squamous cell carcinoma of the right true vocal cord one year ago. He presented two months ago with recent onset of marked right laryngeal fullness and airway obstruction requiring tracheotomy. Biopsy was obtained at that time which was negative. A PET scan was obtained which revealed uptake in the right posterior larynx. The patient was brought back to the OR for direct laryngoscopy and biopsy under frozen section. PROCEDURE: The patient was identified in the holding area and taken back to the OR where she was placed in the supine position. After induction of general anesthesia intravenously the patient's tracheotomy was removed and an orotracheal tube was passed through the tracheotomy stoma. The table was then turned, a shoulder roll placed and a mouth guard put in position. Dedo laryngoscope was used to visualize the endolarynx, there was no mucosal abnormality found, although there was fullness and edema of the larynx. The cup forceps was used to expose the submucosal tissues of the right larynx and then several biopsies were obtained, none of which revealed carcinoma. After extensive biopsy, the decision was made to not proceed with further blind biopsies and the patient was awakened, the orotracheal tube was removed and a new 6 Shiley cuffless trach was inserted without complications. The patient was then taken to the Recovery Room in good condition. [facility] Signed and Approved by: DR MUKUND CHRISTY 05/15/2021 08:11:00 [facility] 04-11-2021 Note HNO ID: [id number] Author: Vandana Corona RT(R) Service: ? Author Type: Technologist Type: Progress Notes Filed: 04/11/2021 10:19 AM Note Text: RADIOLOGY SERVICE PROGRESS NOTE SERVICE DATE: 04/11/2021 SERVICE TIME: 10:18 AM PATIENT IDENTITY VERIFICATION COMPLETED USING TWO (2) STANDARD IDENTIFIERS: Name and Date of confirmed by patient verbally FALL SCREENING: Has the patient had 2 falls in the last year or 1 fall with injury or currently using an Ambulatory Assistive Device (Walker, Cane, Wheelchair, Crutches, etc.)? No PATIENT GENDER DATA: .male ALLERGIES: Reviewed and unchanged MEDICATIONS REVIEWED: Not applicable PATIENT RELEVANT IMPLANT DATA REVIEWED: Not Applicable CREATININE: No results found for: CREAT, EGFROTH, EGFRAA P.O.C.T. RESULTS: POC done: Yes, See Lab Tab April 11, [address] PERFORMED: No IV SITE: Ambulatory: A peripheral IV was started in the Right antecubital site with a Angio cath: 22 gauge. POST EXAM PIV STATUS: Discontinued PROCEDURE TYPE: NM INJECT: PET/CT HEAD, NECK, BODY SCAN. 10.4 mCi F18 FDG. No other medications given.. ADMINISTRATION TIME: 904 PATIENT DISCHARGED TO: Ambulatory patient, left [facility] department area. A Diagnostic radioactive procedure has taken place, with no further precautions necessary other than routine body substance precautions. More information regarding radiation safety can be found using this link: [email or web address] [email or web address] SIGNATURE: RT Fabi(R) PATIENT NAME: Lazaro Petty DATE: April 11, 2021 TIME: 10:18 AM PAGER/CONTACT #: [facility] 03-23-2021 Note Admission Informatio n Admit Date/Time:03/15/2021 14:39 Admitting Physician - Juliette CROOK, Mukund Storey Consulting Physician - Dayna CROOK, Benjamin Mcneil DO Referring Physician - Juliette CROOK, Mukund Storey Hospital Course 68-year-old male with past medical history of COPD, hypertension, vocal cord squamous cell carcinoma status post radiation presented for tracheostomy and mass removal. Patient tolerated the procedure well on 03/15/2021. He was in ICU and was being seen by hospitalist service with a trach collar. Dr. Christy downsize patient's tracheostomy to 6 Shiley on 03/22/2021 which patient has been tolerating well. He had left knee effusion during the hospital stay which was drained by Dr. Johnson and it was negative for any infection it is likely related to osteoarthritis. Patient has significant improvement with activity. He continues to have increasing secretion from his tracheostomy and CTA of the chest was performed which did not show any pulmonary embolism or pneumonia. Does show atelectasis. Patient was educated on doing incentive spirometry. He is doing well and can be discharged from hospitalist standpoint to [facility]. Significant Findings PT: 16.7 second(s) High (03/23/21 06:25:00) INR: 1.4 (03/23/21 06:25:00) PTT: 30.8 second(s) (03/23/21 06:25:00) Physical Exam Vitals & Measurements T: 36.8 ?C (Oral) TMIN: 36.7 ?C (Oral) TMAX: 36.9 ?C (Oral) HR: 75(Monitored) RR: 18 BP: 120/71 SpO2: 97% General: alert, no acute distress ENMT: Trach collar with Passy-Dayton well Cardiovascular: regular rate and rhythm, normal peripheral perfusion Respiratory: Lungs CTA, respirations non labored Abdomen: Soft, nontender, without rebound or rigidity, positive bowel sounds Extremities: no deformity, no trauma Neurological: oriented x 4, LOC appropriate for age, CN II-XII intact, motor strength equal & normal bilaterally, sensation equal & normal bilaterally, speech normal Images CTA Chest 03/23/21 10:36:36 IMPRESSION: NO EVIDENCE OF PULMONARY EMBOLI OR ACTIVE CARDIOPULMONARY DISEASE. TRACHEOSTOMY IN EXPECTED POSITION. MILD PROBABLE DEPENDENT ATELECTASIS. EXAM: CTA Chest DATE: 03/23/2021 CLINICAL HISTORY: PE suspected, high prob. COMPARISON: None available. TECHNIQUE: Spiral enhanced images were obtained of the chest after the infusion of approximately 71 mL of Isovue 370 contrast with pulmonary artery CTA protocol. Routine and volume rendered images were performed on a three-dimensional workstation. All CT scans at this facility use dose modulation, iterative reconstruction, and/or weight based dosing when appropriate to reduce radiation dose to as low as reasonably achievable. FINDINGS: A tracheostomy catheter is noted in expected position. No filling defects are identified within the pulmonary arterial vasculature to suggest pulmonary emboli. The thoracic aorta is mildly ectatic with mild atherosclerotic plaquing. There is no dissection. The heart is not enlarged. Mild probable dependent atelectasis is noted of the lung bases, worsening inferiorly. There are no other significant pulmonary infiltrates, lymphadenopathy, worrisome nodules, pleural or pericardial effusions. Mild to moderate degenerative change thoracic spine are present. There are no fractures identified. The limited images of the upper abdomen are noncontributory. Signed By: Ulises Camacho MD 03/23/21 09:41:14 GFR (mL/min/1/73m2) >60 Contrast: Isovue 370 Contrast amount in ml?s: 71 Signed By: Ulises Camacho MD Discharge Plan 1. Larynx cancer, (C32.9: Malignant neoplasm of larynx, unspecified)Larynx cancer 2. Swelling of left knee joint (M25.462: Effusion, left knee) 3. Chronic obstructive pulmonary disease (J44.9: Chronic obstructive pulmonary disease, unspecified) 4. Hypertension (I10: Essential (primary) hypertension) Ordered: camphor/menthol/methyl salicylate topical, 1 georgi, Topical, QID Pain, Refill(s) 0 5. Sequential compression device (SCD) in place on patient (Z78.9: Other specified health status) Orders: famotidine, 20 mg = 1 tab(s), Oral, BID, Refills(s) 0 CTA Chest Discharge Patient Oxygen Desaturation Study Speech Language Pathology Swallow Eval; Evaluate Pt, Develop a Plan of Care & Implement Plan Discharge Disposition Discharge Status: Improved Discharge Instructions Given: To patient Discharge disposition: [facility] Prescriptions reviewed with PatientPatient 34 min in discharge time Discharge Medication List Prescriptions No active prescription medications Home Aleve 220 mg oral capsule, 1 tab, Oral, PRN amLODIPine 5 mg Tab, 5 mg= 1 tab(s), Oral, Daily camphor/menthol/methyl salicylate 4%-10%-30% topical cream, 1 georgi, Topical, QID, PRN famotidine 20 mg Tab, 20 mg= 1 tab(s), Oral, BID Follow-up With When Contact Information Mukund Christy In 1 week 03/30/2021 EDT [address] [facility] [address], [address] [place] [address] (more content not included)... [facility] Comment on above: Result Comment: Elec tronically Signed By: ZAIRA CROOK, Kelby Cortes\.adela\Date and Time Signed: 03/23/21 12:01 EDT 03-22-2021 Note Pt seen on this date for a methylene blue dye bedside swallow evaluation d/t pt having a tracheostomy. Passy Toyin Speaking Valve placed during evaluation. Respiratory therapist present during evaluation to aide in suctioning from trach. Pt presented with various consistencies, pudding, fruit and thin water via straw that were dyed with methylene blue dye to be visible from trach when suctioned if pt aspirated. Pt consuming various consistencies with stable oxygen levels and no blue dye present in secretions from trach. Pt presents on this date with mild oral dysphagia characterized by insufficient mastication of soft consistencies d/t edentulous status. Pt stating he eats very soft foods at home and a lot of pudding. Recommend IDDSI minced and moist (MM5) with thin liquids, up at 90 for PO intake, small bites/sips. Discussed with nursing to continue to monitor blue secretions from trach, if present to please contact speech. No further dysphagia needs at this time. [facility] 03-21-2021 Note Microbiology PROCEDURE: Fluid Culture [R1] SOURCE: Joint Fl BODY SITE: Knee L COLLECTED DATE/TIME: 03/18/2021 20:18 EDT RECEIVED DATE/TIME: 03/18/2021 20:18 EDT START DATE/TIME: 03/18/2021 20:18 EDT FREE TEXT SOURCE: Benjamin Johnson DO, DO, Benjamin Venegas FINAL REPORTS Final Report [] Verified Date/Time: 03/21/2021 11:30 EDT No growth at 3 days. STAINS Gram Stain Report [] Verified Date/Time: 03/19/2021 07:49 EDT Occasional White Blood Cells No organisms seen. Performing Locations R1: This test was performed at: [facility], [address] [place] [address], [facility]- , , [facility] Comment on above: Performed By: #### 2 [id number], [id number] #### [facility] [address] [place] [id number] 03-21-[address] Meneses rounded wit h patient earlier. CRM stopped into patients room, patient is alert and participates in plan of care. Patient to have trach downsized on 03/22/2021. CRM discussed with patient that WOB, TCU declined due to new trach. CRM discussed with patient that [facility] or [facility] would be good options, they have respiratory on site. Patient is agreeable to [facility]. CRM will send referral. Insurance information, PCP and DME verified. Contact information provided. Patient denies any further discharge needs/concerns at this time. Anticipated discharge 03/22 or 03/23/2021. CRM to follow. [facility] Comment on above: Result Comment: Neville tronically Signed By: Vandana Salguero RN.br\Date and Time Signed: 03/21/21 11:11 EDT 03-20-[address] Meneses rounded wit h patient earlier. CRM stopped into patients room, patient is alert and participates in plan of care. Patient with trach shield on. Patient's trach to be downsized on . Ortho no surgical intervention on knees at this time. Insurance information, PCP and DME verified. Patient informs CRM his daughter will be in shortyl. CRM provided contact information if his daughter would like to speak with CRM. CRM asked RN to please have Dr Christy write prescription for trach supplies that will be needed at discharge. Patient denies any further discharge needs/concerns at this time. Anticipated discharge 03/22 or 03/23/2021 w/HH. CRM to follow CRM stopped back into patient's room to discuss therapy recommendation of SNF. Patient is agreeable. Regional options and quality metrics discussed 1-WOB, 2-TCU. Patient has had COVID Vaccine and will ask his dtr to bring in card. CRM to follow. [facility] Comment on above: Result Comment: Neville tronically Signed By: Vandana Salguero RN\.br\Date and Time Signed: 03/20/21 14:02 EDT 03-20-2021 Note P.T. Evaluation done this date. Pt. with on AM-PAC this date. He is unable to stand or walk for any length of time due to bilat knee pain. He requires assist with all functional activities and will likely require SNF. Will continue to follow. [facility] 03-20-2021 Note HOSPITAL REGULATIONS : All Positive and Important Negative Findings Shall Be Recorded Date of Consultation: March 20, 2021 Attending Physician: Mukund Christy, Consulting Physician: Benjamin Johnson D.O. CHIEF COMPLAINT: Bilateral knee pain HISTORY OF PRESENT ILLNESS: Devin has been seen for the last two days with his left knee effusion. Last night his right knee started to swell as well. He states that has happened in years past as well. There has been no new fall trauma. He has been up in the chair but he has been significantly more stationary since his trach procedure. He has no fever, chills. No drainage. Aspiration thus far is negative for any infection of the left knee. This is early day 2 from the aspirate. PHYSICAL EXAMINATION: His vital signs are 36.6, 70, 120/71. His left knee effusion is much improved. His right knee has moderate effusion. There is tenderness to palpation of both joints. There is no sign of sepsis or erythema or cellulitic pattern. ASSESSMENT: Bilateral knee osteoarthritis with effusions. Recent trach procedure. TREATMENT PLAN: The nature of the findings were discussed at length. He will continue with ice. If he is medically stable he may benefit from anti-inflammatory. Would consider a corticosteroid injection as an outpatient once his surgical site is healed. There is no sign of infection. Orthopedics to sign off. Would recommend physical therapy with early mobilization and assistance as needed. Icing and active motion exercises in bed were reviewed. Orthopedics to sign off. Please call if we can further assist. Benjamin Johnson D.O. rj Dictated: 03/20/2021 [id number] Transcribed: 03/20/2021 [facility] Comment on above: Result Comment: Elec tronically Signed By: Benjamin Johnson DO\.br\Date and Time Signed: 03/20/21 09:59 EDT 03-19-2021 Note HOSPITAL REGULATIONS : All Positive and Important Negative Findings Shall Be Recorded Date of Consultation: March 18, 2021 Attending Physician: Mukund Christy, Consulting Physician: Benjamin Johnson D.O. REFERRING PHYSICIAN: Joe Mcintosh D.O. REASON FOR CONSULTATION: Left knee pain, swelling HISTORY OF PRESENT ILLNESS: Lazaro is admitted postop day [address] Christy for laryngeal carcinoma of which he had trach placement. He is unable to speak. Does communicate through verbal cues as well as writing. Two days ago in the evening he started to have pain and swelling to the knee with difficulty of lifting and emotion. He has no fever, chills. He has had no infection site. He has been afebrile per nursing staff. Request for aspiration was made. He does state riding in a motor home to [facility] several years ago he had the same situation that resolved over several days. He does have arthritic pain in the knee on occasion based on activity. Does have a history of hypertension, tobacco and marijuana abuse, laryngeal squamous cell carcinoma, COPD. PAST SURGICAL HISTORY: As above MEDICATIONS: 1. Norvasc 2. Famotidine ALLERGIES: Bee stings PHYSICAL EXAMINATION: 37.1, 85, 141/90, he is 96%. His a.m. white blood cell count is 10.6, hemoglobin 14.8, hematocrit 43.3, platelets 216. He does have an elevated sedimentation rate and CRP, but it is not uncommon postsurgical. Physical exam, he is alert, pleasant male. Does respond to verbal stimuli. Communicates via nodding as well as written cues. He has a moderate to large aseptic appearing effusion to the left knee. He is unable to lift his leg. He has no sign of skin compromise. No rash, infection signs. No warmth or erythema. Actively, he has difficulty passively, I can lift him and bend to approximately 70 degrees with pain. He has diffuse tenderness throughout the effusion area. There is no sign of instability. IMAGING: X-rays are reviewed. These are nonweightbearing films taken earlier today through [facility], shows moderate degenerative changes, small calcific density laterally. There is a large effusion present. No sign of chondrocalcinosis. No fracture or dislocation seen. ASSESSMENT: Left knee effusion, probable arthritic flare versus chondrocalcinosis versus infection. TREATMENT PLAN: The nature and findings were discussed at length. With consent from the patient and with nursing staff present with Isaak, sterile technique was provided from a lateral approach. 70 cc of straw-colored, slightly turbid fluid was aspirated. No sign of crystals. This was sent for STAT cell count and gram stain, routine culture, as well as routine crystal analysis. He tolerated the aspiration well of 70 cc. His knee feels markedly better and can move much better as well as lift his leg now post aspiration. They will add ice to the regimen for his inflammation. We will check with his cell count later tonight, hold antibiotics until further directed. We will discuss with the nursing staff later once that is back. Should have within one to two hours. We will have more definitive results over the next one to two days. At this point it does not appear to be surgical. We will continue to follow him and make further recommendations with reassessment tomorrow amargo Johnson D.O. gerald Dictated: 03/18/2021 [id number] Transcribed: 03/19/2021 Joe Mcintosh M.D. cc:Lazaro Escobedo D.O. [facility] Comment on above: Result Comment: Elec tronically Signed By: Benjamin Johnson DO\.br\Date and Time Signed: 03/19/21 16:59 EDT 03-18-2021 Note ED: not available H/P: Dayna Profit: complete PIS (OBS/IN): inpt 03/15 14:39 Chgs: D/C: VTE: 6, complete MCG: +inpt head and neck surgery or procedure Tele: no ICU: 03/15- >2mn: yes Insurance: 1) 2)DNA Guide PAT (tests): N/A Readmit: N/A MM: [facility] Comment on above: Result Comment: Elec tronically Signed By: Marc Access/Beck TenderGuillermo\.br\Date and Time Signed: 03/18/21 12:47 EDT 03-16-2021 Note CRM stopped into pat ients room, patient is alert and participates in plan of care. Patient is from home alone. 03/15/2021 Patient had tracheotomy. Per hospitalist in seven days the trach will be down sized. Insurance information, PCP and DME verified. Medicare Rights Form discussed with and signed by patient, original given to patient. CRM discussed HH RN for discharge - regional options discussed - 1-[facility]. Contact information provided. Patient denies any further discharge needs/concerns at this time. Anticipated discharge 03/21/2021. CRM to follow. 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 Patient has history of vocal cord squamous cell carcinoma. Patient follows with ENT. Patient is at radiation. Patient has been experience shortness of breath, airway obstruction. Patient was scheduled for laryngoscopy with possible tracheostomy today. Patient did end up needing tracheostomy. Procedure was uneventful. Patient is admitted to ICU postprocedure. Review of Systems Constitutional: no fever, no chills, no sneezing, no runny nose, no sore throat, no cough Respiratory: no shortness of breath Cardiovascular: no chest pain, no palpitations, no dizziness GI: no abdominal pain, no melana, no hematochezia : no dysuria, no increased urinary frequency Neuro/Behv: no LOC, no paralysis MSK: no stiffness Skin: no new rash Additional ROS info: Except as noted in the above Review of Systems and in the History of Present Illness all other systems have been reviewed and are negative or noncontributory Physical Exam Vitals & Measurements T: 36.4 ?C (Temporal Artery) TMIN: 36.2 ?C (Temporal Artery) TMAX: 36.6 ?C (Oral) HR: 77(Peripheral) RR: 20 BP: 150/94 SpO2: 99% WT: 80.7 kg General: alert, NAD HEENT: eyes show no evidence of icterus Cardiovascular: regular rate and rhythm, no S3/S4 Respiratory: Lungs CTABL, respirations non labored Abdomen: soft, non-tender, positive bowel sounds, no organomegaly, no guarding, no rigidity Psych: cooperative Extremities: no peripheral edema Neurological: speech normal, motor strength equal & normal bilaterally Lab Results No qualifying data available. 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 1. Larynx cancer, (C32.9: Malignant neoplasm of larynx, unspecified)Larynx cancer s/p laryngoscopy and tracheostomy ENT following On morphine prn for pain Pt will be admitted to ICU for 7 days and then pt will have down sizing of tracheostomy tube 2. Chronic obstructive pulmonary disease (J44.9: Chronic obstructive pulmonary disease, unspecified) Currently not in acute exacerbation 3. Hypertension (I10: Essential (primary) hypertension) On amlodipine Diet: NPO. on D5W0.45%NS at 100cc/hr Code: Full code DVT prophylaxis: SCDs This report was transcribed using voice recognition software. Every effort was made to ensure accuracy, however, inadvertently computerized director food safety mistakes may be present. Dr. Joe Mcintosh Hospitalist Orders: Dextrose 5% with 0.45% NaCl intravenous solution 1,000 mL, 1,000 mL, IV, 100 mL/hr, Routine, Start date 03/15/21 17:17:00 EDT, 10 hour(s), Total volume (mL): 1,000, 78.2 kg, 1.97, m2 hydrALAZINE, 10 mg = 0.5 mL, Injection, IV Push, q4hr PRN Other (see comment), Routine, Start date 03/15/21 17:21:00 EDT, 03/15/21 17:21:00 EDT Basic Metabolic Panel Below the Knee Intermittent Pneumatic Compression Device CBC w/ Auto Diff Magnesium Level Phosphorus Level Problem List/Past Medical History Ongoing Chronic obstructive pulmonary disease Hypertension Marijuana use Historical Smoker Procedure/Surgical History Diagnostic laryngoscopy (11/29/2020), Laryngoscopy (03/02/2020). Medications Inpatient Dextrose 5% with 0.45% NaCl IV Ninoska 1000 mL 1,000 mL, 1000 mL, IV famotidine 10 mg/mL IV Ninoska, 20 mg= 2 mL, IV Push, BID hydrALAZINE 20 mg/mL Inj, 10 mg= 0.5 mL, IV Push, q4hr, PRN morphine 2 mg/mL Inj, 2 mg= 1 mL, IV, q2hr, PRN Phenergan 25 mg/mL Injection, 6.25 mg= 0.25 mL, IV, q6hr, PRN Zofran 4 mg/2 mL Injection, 4 mg= 2 mL, IV, Once, PRN Home Aleve 220 mg oral capsule, 1 tab, Oral, PRN amLODIPine 5 mg Tab, 5 mg= 1 tab(s), Oral, Daily Allergies Bee Stings (Swelling) Social History Alcohol Current, Beer, Daily, 02/09/2020 Substance Abuse Current, Marijuana, Daily, 03/14/2021 Current, Marijuana, 02/09/2020 Tobacco - Denies Tobacco Use, 02/09/2020 Former smoker, quit more than 30 days ago Tobacco Use:., 03/15/2021 inpatient, anticipated stay >2midnights [facility] Comment on above: Result Comment: Elec tronically Signed By: Dayna CROOK, Joe Mancera\.br\Date and Time Signed: 03/16/21 10:28 EDT 03-14-2021 Note [id number]:127 [facility] 12-15-2020 Note HNO ID: [id number] Author: Nik Thayer MD Service: ? Author Type: Physician Type: Progress Notes Filed: 01/06/2021 5:50 PM Note Text: Radiation Oncology - Follow Up Note PATIENT NAME: Lazaro Petty PATIENT DIAGNOSIS/PATIENT IDENTIFICATION: Mr. 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 Completed a course of definitive external beam radiation therapy to the larynx on 05/22/2020 (6300 cGy in 28 fractions). INTERVAL HISTORY/ROS: Mr. Petty returns to clinic today for follow-up approximately seven months after the completion of his radiation treatments. He had missed his scheduled follow-up a few months ago however I received a call from Dr. Christy last week as the patient presented to the ER with throat tightness/discomfort. He had recently started an SCOTTY inhibitor for his blood pressure (lisinopril) and had been coughing substantially. CT exam of the neck was performed in the ER which showed swelling in the area of the larynx with narrowing of the airway and no definable mass or cervical lymphadenopathy. He was discharged home on steroids and antibiotics along with stopping lisinopril he notes improvement in his cough as well as throat discomfort. He was seen as an outpatient by Dr. Christy who performed laryngoscopy which noted swelling and changes in the bilateral true vocal cords (left greater than right) concerning for radiation changes/necrosis. Biopsies were obtained and were negative for malignancy or infection but did show inflammation. As mentioned above, Mr. Petty felt improvement in his symptoms upon discharge from the ER and today reports no issues with breathing or swallowing with improvement in his voice. His skin is also recovered with no breakdown and is no longer using a moisturizer. He endorses stable energy appetite and hydration with increase in weight. He notes occasional headaches but otherwise denies any recent fevers, chills, difficulty with swallowing, shortness of breath, chest pain/palpitations, abdominal pain, nausea, vomiting, change in bowel/urinary habits, difficulty with gait/balance, recent falls, etc. The remainder of the review of systems was performed and was otherwise noncontributory. ALLERGIES ALLERGIES Allergen Reactions - Lisinopril Cough MEDICATIONS: Current Outpatient Medications: - ciprofloxacin HCl (CIPRO) 500 mg tablet - amLODIPine (NORVASC) 5 mg tablet - famotidine (PEPCID) 20 mg tablet - omeprazole (PRILOSEC) 40 mg capsule - diphenhydrAMINE 12.5 mg/5mL lidocaine visc 2 % MAALOX 200-200-20 mg/5 mL oral liquid 1:1:1 (CPD) - lisinopril (ZESTRIL, PRINIVIL) 10 mg tablet PHYSICAL EXAM: GENERAL: middle-aged gentleman sitting in chair in no acute distress. VITALS: BP 111/76 Pulse 68 Temp 97.7 Resp 16 Wt 178 lb 9.6 oz (81.0kg) SpO2 97% KPS: 80 HEENT: NC/AT, anicteric sclera NECK: No palpable lymphadenopathy, mild postradiation pigment changes noted. HEART: S1S2 LUNGS: non-labored breathing ABDOMEN: soft MUSCULOSKELETAL: no peripheral edema, moves all extremities. NEURO: no focal deficit; AANDO X3. RADIOLOGIC DATA: CT Neck (11/27/2020) PATHOLOGIC DATA: 12/05/2020 ASSESSMENT AND PLAN: Mr. 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 Completed a course of definitive external beam radiation therapy to the larynx on 05/22/2020 (6300 cGy in 28 fractions). Mr. Petty had been recovering well from his course of radiation therapy to the larynx approximately 7 months ago when he recently had a setback after developing substantial cough resulting throat pain and discomfort. CT examination of the neck noted swelling in the area of the larynx laryngoscopy evaluation by Dr. Christy was concerning for radiation changes and possible necrosis versus disease recurrence. Biopsy from the area of concern in the left vocal cord returned negative for malignancy or infection with inflammatory changes. His symptoms have improved substantially since stopping his SCOTTY inhibitor as well as his course of steroids. He will continue close follow-up with Dr. Christy and I will plan to see him back in approximately 6 months. The patient is aware to contact the clinic in the interim should any questions or concerns arise. Thank you for allowing us to participate in the care of this patient. Signed by: Nki Thayer MD I spent a total of 20 minutes on the date of the service which included preparing to see the patient, [id number] patient care and counseling and educating the patient/family/caregiver. This document has been created with the use of voice recognition technology. It may contain inaccuracies, misspellings, inaccurate syn (more content not included)... [facility] 12-05-2020 Note OPERATIVE NOTE OPERATION DATE: 12-05-20 ANESTHETIC:General endotracheal. PREOPERATIVE DIAGNOSIS:History of squamous cell carcinoma of the vocal cord and left true vocal cord lesion. POSTOPERATIVE DIAGNOSIS:Same as above. PROCEDURE NAME:Microlaryngoscopy and biopsy of left true vocal cord. COMPLICATIONS: None. FINDINGS: Ulceration of the left true vocal cord and edema of the left arotinoid and pyriform sinus. INDICATIONS: This 65 year-old man presented during routine surveillance examination after undergoing radiation therapy for squamous cell carcinoma of the larynx with hoarseness and on examination in the office the suspicious lesion of the left true vocal cord. PROCEDURE: The pt was identified in the holding area and taken back to the OR where he was placed in the supine position. After induction of general endotracheal anesthesia, the table was turned, a shoulder roll placed and tooth guard put in position. An anterior commissure laryngoscope was used to examine the tonsillar fossae, tongue base, pyriform sinuses, post cricoid region, supraglottic larynx and endolarynx. The above findings were noted. Then the scope was suspended and using an operating endoscope magnificent and lamination was obtained. Then using straight and upbiting cup forceps biopsies of the left true vocal cord and left false vocal cord were obtained. There was brief self-limited bleeding. The patient was awakened and taken to the Recovery Room in good condition. [facility] Signed and Approved by: DR MUKUND CHRISTY 01/16/2021 08:05:00 [facility] 09-12-2020 History of Present illness Narrative CC:cocnern for cancerConsulted by: dr Cuba: had cancer last year, went through xrt, voice got betterthen got worsehad trach put in MAR , had breathing issues,stopped smokingmultiple biopsies have been negative for recurrent cancerpet is showing activity near the rigth arytenoid on my reviewpatient has some blood from around the trach2here for follow upfeels goodvoicing better bleeding [facility] Work Phone: 07-10-2020 History of Present illness Narrative CC:cocnern for cancerConsulted by: dr Cuba: had cancer last year, went through xrt, voice got betterthen got worsehad trach put in OCT , had breathing issues,stopped smokingmultiple biopsies have been negative for recurrent cancerpet is showing activity near the rigth arytenoid on my reviewpatient has some blood from around the trach07/10/21here for follow upfeels goodvoicing betterno bleeding DF-Wsbxuwhmxnrhyd-Sqfgfo an Work Phone: 06-12-2020 History of Present illness Narrative CC:cocnern for cancerConsulted by: dr Cuba: had cancer last year, went through xrt, voice got betterthen got worsehad trach put in OCT , had breathing issues,stopped smokingmultiple biopsies have been negative for recurrent cancerpet is showing activity near the rigth arytenoid on my reviewpatient has some blood from around the trachPast medical history: HTN, no DM, no MIPast surgical history: trachSocial history: smoking, drinking, lives with, independentFamily history: Reviewed and not relevant to the presenting complaintCurrent medications:Reviewed as noted in current ordersAllergies:Reviewed and as noted in current ordersROS: All other systems have been reviewed and are negative for complaint. I personally reviewed the intake form that was scanned in todayPE:CONSTITUTIONAL: Vitals -reviewed from intake field, well developed, well nourished.VOICE:RESPIRATION: Breathing comfortably, no stridor.CV: No clubbing/cyanosis/edema in hands.EYES: EOM Intact, sclera normal.NEURO: Alert and oriented times 3, Cranial nerves II-XII intact and symmetric bilaterally.HEAD AND FACE: Symmetric facial features, no masses or lesions, sinuses nontender to palpation.SALIVARY GLANDS: Parotid and submandibular glands normal bilaterally.EARS: Normal external ears, external auditory canals, and TMs to otoscopy, normal hearing to whispered voice.NOSE: External nose midline, anterior rhinoscopy is normal with limited visualization to the anterior aspect of the interior turbinates. No lesions noted.ORAL CAVITY/OROPHARYNX/LIPS: Normal mucous membranes, normal floor of mouth/tongue/OP, no masses or lesions are noted.PHARYNGEAL MORA AND NASOPHARYNX: No masses noted. Mucosa appears clean and moistNECK/LYMPH: No LAD, no thyroid masses. Trachea palpably midlineSKIN: Neck skin with XRT changes, trach in place, some inferior granulationPSYCH: Alert and oriented with appropriate mood and affectRadiology reviewed:I personally reviewed the PET showing activity on the right arytenoidFlexible fiberoptic laryngopharyngoscopy was performed via the nares. After topical anesthesia and decongestant was instilled:Nasopharynx:Eustachian tube orifice normal, fossa of Rosenmueller clear, mucosa clean, no masses appreciatedPalate: Nasopharyngeal surface of palate clearTongue base vallecula clear, lingual surface of epiglottis normal, oropharynx clearLarynx xrt changes to epilottis, omega shape, + AE and SG, false cord edema, cords transiently visible, limited mobility of cords, 6 mm glottic airway, trach able to be seenHypopharynx pyriform sinuses, clear, post cricoid area clearScope was removed, patient tolerated the procedure wellA/P: patient with cocnern for recurrent laryngeal ca based on need for trach and pet activitythis also resembles activy of the cricoarytenoid joint/inflammationwarrants additional biopsiesdiscussed with patient and familywill schedule for TE, biopsies, cauterization/bx of peristomal granulationwill check TSHwill review XRT records KJ-Uihxeqrxkesszx-Wwjaow Work Phone: Evaluation note Diagnosis Other specified diseases of upper respiratory tract Paralysis of vocal cords and larynx, unspecified Tracheo-esophageal fistula following tracheostomy (CMS/HCC) Other tracheostomy complication Dysphonia Essential (primary) hypertension Unspecified essential hypertension Personal history of nicotine dependence documented in this encounter [facility] Work Phone: History of Present illness Narrative* LAZARO PETTY is a 66 year old male referred to me today by Dr Chayo CROOK, Joon P for ORN and necroticbone within larynx. Referred to Dr. Domingo by Dr. Christy He has a history of laryngeal cancer treated with XRT. He subsequently had issues with voice and airway. He has a biopsy of the right posterior arytenoid mucosa which was hyperplastic with granulation with fragments of necrotic cartilage and bone with giant cell reaction, but evidence of carcinoma. The right TVC was seen with fibrin deposition with atrophy. There is no evidence of amyloid in this specimen. Lastly, a a deep right TVC showed granulation tissue with acute on chronic inflammation, necrotic bone, and giant cell reaction without evidence of cancer * He reports he has been doing well. He has a hard time with vocalizing and breathing while finger occluding his tracheostomy. * Denies fevers, chills, night sweats, nausea/vomiting, wt loss or hemoptysis. No complaints of otalgia. * Denies facial pain, pressure or headaches. * Denies chronic nasal congestion, stuffiness or postnasal drainage. WN-Fiteroffchdyuf-Ydjg MOB[facility] [place] Work Phone: History of Present illness Narrative* Voice assessment: * This is a 66 year old male with a history of glottic cancer with XRT with subsequent XRT effects. He had biopsies that appear to be healing fairly well from these. 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 He would benefit from [employer] team. He areas of concern in his trachea concerning for pseudomonas infection. He will trial antibiotics for two weeks and follow up with him afterwards. He would benefit from a Cintron stent instead of tracheostomy. This will help with improved voicing ad breathing. * Contributing Factors: supraglottic compression , inadequate breath support , exposure to environmental irritants (fumes/tobacco) and abnormal vibratory mechanisms due to physical changes * Treatment recommendations: treatment indicated (see goals below) * Overall, patient would benefit from skilled ST in the area of voice x1/wk for x4 wks in order to increase vocal wellness, healthy voicing to foster increased participation and comfort levels at home and in the community environment. * Additional recommendations: ENT/ [facility] JG-Ronfjmfje-Pozwvzs [id number] Work Phone: History of Present illness Narrative* LAZARO PETTY is a 66 year old male referred to me today by Dr Chayo CROOK, Joon P for ORN and necroticbone within larynx. Referred to Dr. Domingo by Dr. Christy He has a history of laryngeal cancer treated with XRT. He subsequently had issues with voice and airway. He has a biopsy of the right posterior arytenoid mucosa which was hyperplastic with granulation with fragments of necrotic cartilage and bone with giant cell reaction, but evidence of carcinoma. The right TVC was seen with fibrin deposition with atrophy. There is no evidence of amyloid in this specimen. Lastly, a a deep right TVC showed granulation tissue with acute on chronic inflammation, necrotic bone, and giant cell reaction without evidence of cancer * He reports he has been doing well. He has a hard time with vocalizing and breathing while finger occluding his tracheostomy. * Denies fevers, chills, night sweats, nausea/vomiting, wt loss or hemoptysis. No complaints of otalgia. * Denies facial pain, pressure or headaches. * Denies chronic nasal congestion, stuffiness or postnasal drainage. XV[facility]exoptquztt[facility] 4[facility] Work Phone: History of Present illness Narrative* Patient presents for virtual follow-up accompanied by his daughter. Trach examined with inner canula in place. Patient utilizing digital occlusion for all voicing. States he has PMV in home but does not know the location presently. Reviewed PMV use and benefit with patient instructed to have this item present for his next therapy follow-up. He reports an improvement in breathing noting better voic ing as well. Today's voicing c/b moderate rasp and depressed pitch - likely continued ventricular phonation as observed on previous exam. Provided instruction of RVT excs with patient able to producetrue phonation at elevated pitch - some progression with high low glides. Patient given instructionon RVT HEP with patient and daughter verbalizing understanding. * Difficulty continues with hoarseness, SOB. Overall, patient continues to benefit from skilled intervention in the area of voice. Recommend continued tx in order to improve patient s overall vocal kimberlee in order to foster increased participation levels at home, work and in the community environment. JC-Mmtlvdboj-Wcfjnfe 7835 Work Phone: History of Present illness Narrative* Patient presents for clinic follow-up. Reports recent episode where he was cleaning his trach and unable to replace at end of cleaning. Both the patient and daughter then presented at the ED for assistance. After several hours they were able to successfully place his trach. Since that time, he has been hoarse and sore around his stoma. Cough has increased as well. Prior to this, he was toleratinghis PMV for 90% of his day and is now unable to tolerate any use. We were able to downsize him today to from a cuffless 6 to a size 4. He was able to show indep in removal/replacement of PMV, inner cannula. Some air escape around the trach when speaking which is to be expected with his new size. Tra ch site has improved in appearance and he is doing better with secretion management. Consideration for T-Tube placement versus decannulation pending response to capping trial. Education provided on capping protocol with patient and daughter able to talk back and verbalize understanding. * Difficulty continues with hoarseness, SOB. Overall, patient continues to benefit from skilled intervention in the area of voice. Recommend continued tx in order to improve patient s overall vocal kimberlee in order to foster increased participation levels at home, work and in the community environment. * Flexible Laryngoscopy w Videostroboscopy * VOICE AND SPEECH CHARACTERISTICS: (+) severe dysphonia, no roughness, (+) severe breathiness, (+) moderate asthenia, (+) severe strain * Intelligibility: reduced. * Resonance: balanced. * Vocal Loudness: reduced. * Breath Support: poor coordination. * PROCEDURE: * PROCEDURE NOTE: FLEXIBLE LARYNGOSCOPY * I recommended a flexible laryngoscopy based on PE findings, and/or concern for pathology based uponhistory and/or for issues associated with hyperreflexic gag on mirror exam concerning for pathology. Risks, benefits, and alternatives were explained. The patient wishes to proceed and gives verbal consent. * PROCEDURE NOTE: BRONCHOSCOPY VIA TRACHEOSTOMY * I recommended bronchoscopy via tracheostomy based on PE findings, and/or concern for pathology based upon history of airway complaints. Risks, benefits, and alternatives were explained. The patient wishes to proceed and gives verbal consent. * Findings: * Assessment of the nasopharynx, base of tongue/vallecula, pyriform sinuses, post-cricoid area and pharyngeal mora was without lesion or mass. * Pharyngeal wall contraction is normal and symmetric. * No pooling of secretions. * no thick mucus. no granuloma. (+) mild ventricular obliteration. no erythema/hyperemia. (+) mild IAthickening. no TVC edema. no diffuse laryngitis. * Gross Arytenoid Movement: limited adduction: bilateral. * Arytenoid Height: normal. * Supraglottic Tension: lateral. * Periodicity: normal. * Additional Findings: * Plica ventricularis voicing. He has a widely patent airway. UP-Rtslxbtnd-Flkkzla [id number] Work Phone: History of Present illness Narrative* Voice assessment: * Patient presents for voice assessment s/p: * PROCEDURE DETAILS * Preoperative Diagnosis: * hoarseness, tracheocutaneous fistula. * Postoperative Diagnosis: * hoarseness, tracheocutaneous fistula. * Surgeon: MD Darryn * Resident/Fellow/Other Human Service Coordinator: MD Mauricio * Procedure: * 1. microdirect larngoscopy diagnostic * 2. microdirect laryngoscopy with porlaryn gel injection of the right * 3. Closure of tracheocutaneous fistula with muscle flap * Anesthesia: GETA * Estimated Blood Loss: 5cc * Findings: right vocal fold injection with 0.2cc of prolaryn gel, closure with * muscle flap * Initial voice presentation met with sig laryngeal strain resulting in breathiness and poor vocal quality. Given cues for confidential voicing, RVT hum, patient able to improve vocal quality with an increase in MPT, limited rasp, minimal strain. Patient and daughter agree with vocal improvement. Marie ent able to maintain this voice within monologue task, negative for speaking on residual air. States breathing has been good with no e/o continued tracheocutaneous fistula. Patient given education onmodified voice rest, confidential voicing, RVT - hum with practice dosage. Reviewed POC options for vocal rehabilitation. All questions answered. Patient will follow ST on as needed basis. * Treatment recommendations: treatment indicated (see goals below) * Overall, patient would benefit from skilled ST in the area of voice x1/wk for x4 wks in order to increase vocal wellness, healthy voicing to foster increased participation and comfort levels at home and in the community environment. * Additional recommendations: ENT/ [facility] * possible future repeat injection versus additional augmentation procedures to be determined by my laryngology partner, Dr. Cates. HB-Yjouhkdyq-Vlydshd 7984 Work Phone: Reason for visit Narrative* Clinic Voice Evaluation, Adult * Reason for referral: Hoarseness * Rehab Dx: J38.3, R49.0, C32.0, Z93.0 IF-Pwbqyjmai-Ctiwfjs 4200 Work Phone: Reason for visit Narrative* Clinic Voice FUV, Adult * Reason for referral: Hoarseness * Rehab Dx: J38.3, R49.0, C32.0, Z93.0 TM-Vkibsgmou-Yzldslk 4200 Work Phone: Summary Purpose Family History No Family History Records FoundNo Family History Records FoundNo Family History Records FoundNo Family History Records FoundNo Family History Records FoundNo Family History Records FoundNo Family History Records Found Advance Directives No Advanced Directives Records FoundNo Advanced Directives Records FoundNo Advanced Directives Records FoundNo Advanced Directives Records FoundNo Advanced Directives Records FoundNo Advanced Directives Records FoundNo Advanced Directives Records Found Chief Complaint vocal cord cancer, recent biopsy negativepost oppost opTrach follow-upTrach follow-upVoiceVoice Additional Source Comments Source Comments (unrecognize d section and content) In the event this informatio n is protected by the Federal Confidentiality of Alcohol and Drug Abuse Patient Records regulations: The Federal rules restrict any use of the information to criminally investigate or prosecute any alcohol or drug abuse patient.[facility] (unrecognized sect ion and content) No Status Records FoundNo Status Records FoundNo Status Records FoundNo Status Records FoundNo Status Records FoundNo Status Records FoundNo Status Records Found INFORMATION SOURCE (unrecogn ized section and content) DATE CREATED AUTHOR 04/02/2021 [facility] DATE CREATED AUTHOR AUTHOR'S ORGANIZ ATION 05/17/2021 [facility] DATE CREATED AUTHOR AUTHOR'S ORGANIZ ATION 08/26/2021 [facility] DATE CREATED AUTHOR AUTHOR'S ORGANIZ ATION 09/25/2021 [facility] DATE CREATED AUTHOR AUTHOR'S ORGANIZ ATION 10/18/2022 [facility] DATE CREATED AUTHOR AUTHOR'S ORGANIZ ATION 10/18/2022 [facility] DATE CREATED AUTHOR AUTHOR'S ORGANIZ ATION 10/19/2022 [employer] Reason for Visit (unrecogniz ed section and content) Reason Comments Other micro-direct laryngo scopy, bronchsocopy, prolaryn plus injection, tracheocutaneus fistula repair Care Teams (unrecognized sec tion and content) 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 This clinical summary was aggregated from multiple sources. Caution should be exercised in using it in the provision of clinical care. This summary normalizes information from multiple sources, and as a consequence, information in this document may materially change the coding, format and clinical context of patient data. In addition, data may be omitted in some cases. CLINICAL DECISIONS SHOULD BE BASED ON THE PRIMARY CLINICAL RECORDS. [facility] [employer] [facility]. provides no warranty or guarantee of the accuracy or completeness of information in this document.
[2024-02-08 11:47] LABS: Basophils Percent Auto 0.5 % (0.2-2.0); Eosinophils Absolute Auto 0.1 10^3/uL (0.0-0.7); Eosinophils Percent Auto 0.9 % (0.9-7.0); Hematocrit 45.2 % (42.0-54.0); Hemoglobin 15.4 g/dL (14.0-18.0); Immature Granulocytes Abs Auto 0.06 10^3/uL (0.00-0.03); Immature Granulocytes Pct Auto 0.7 % (0.0-0.5); Lymphocytes Absolute Auto 1.5 10^3/uL (1.2-3.8); Mean Corpuscular HGB Conc 34.1 g/dL (29.9-35.2); Mean Corpuscular Hemoglobin 32.5 pg (25.9-34.0); Mean Corpuscular Volume 95.4 fL (80.0-94.0); Mean Platelet Volume 10.1 fL (9.5-13.5); Monocytes Percent Auto 11.7 % (1.7-12.0); Neutrophils Absolute Auto 5.9 10^3/uL (1.4-6.5); Neutrophils Percent Auto 69.2 % (43.0-75.0); Platelet Count 182 10^3/uL (150-450); Red Blood Count 4.74 10^6/uL (4.70-6.10); Red Cell Distribution Width 12.3 % (11.0-15.0); White Blood Count 8.5 10^3/uL (4.0-11.0)
[2024-02-08 11:55] LABS: Erythrocyte Sedimentation Rate 46 mm/hr (<=20)
[2024-02-08 11:56] LABS: C Reactive Protein 3.62 mg/dL (<=0.50)
== END 2024-02-08 12:44 | disposition home or self-care (01) ==
PROVIDERS: Emergency Provider Emergency Medicine Emergency Medical Services; PCP Family Medicine
DX: L25.9 Unspecified contact dermatitis, unspecified cause (principal); Z85.21 Personal history of malignant neoplasm of larynx
CPT/HCPCS: 36415; 85025; 85652; 86140; 99283

== ENCOUNTER 2024-02-20 10:33 | Outpatient (OUT) | payer MEDICARE, MEDICAID, SELFPAY ==
--- OUTSIDE RECORDS SUMMARY | 2024-02-20 10:42 | XMS_ITS | CCD ---
Author Organization [facility] Partnership [facility] Clini[facility] Care Team Providers Care Viscose Department Worker Name Role Phone Lazaro Escobedo Primary Care Provider [phone] Unknown, Referring Provider Unavailable Unav ailable Unavailable [...] Attending Unavail able House, Dr. Lazaro Read [facility] Unava ilable Gonzalez, Dr. Lazaro Read [facility] Unava ilable Darryn, Dr. Gregg Maurer Attending Unavail able Darryn, Dr. Gregg Maurer Attending Unavail able House, Dr. Lazaro Read [facility] Unava ilable Darryn, Dr. Gregg Maurer Attending Unavail able Darryn, Dr. Gregg Maurer Referring Unavail able House, Dr. Lazaro Read [facility] Unava ilable Darryn, Dr. Gregg Maurer Referring Unavail able Darryn, Dr. Gregg Maurer Attending Unavail able Darryn, Dr. Gregg Maurer Admitting Unavail able Trenary, Dr. Lazaro Read [facility] Gonzalez SAGASTUME, Lazaro [facility] Primary [facility] Emergency Department Provider Medications Completed/Discontinued Medications Medication Drug Class(es) [...] Onset: 04-02-2021 Other aftercare (1 source) Other [employer] (current) drug therapy; Translations: [OTH LONG-TERM CURRENT DRUG THERAPY] Onset: 09-24-2021 Episodic Other [...] Test Name Value Interpretation Reference Range Facility STRETCHING MACHINE TENDER FRAME (Voice Evaluation)on STRETCHING MACHINE TENDER FRAME (Voice Evaluation) Therapy Diagnosis Assessed Vocal cord strain (478.5) (J38.3) Hoarseness (784.42) (R49.0) 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 Surgeon: MD Darryn Resident/Fellow/Other Picture Frames Inspector: MD Mauricio Procedure: 1. microdirect larngoscopy diagnostic [...] tracheocutaneous fistula . Surgeon: MD Darryn Resident/Fellow/Other Picture Frames Inspector: MD Mauricio Procedure: 1. microdirect larngoscopy diagnostic [...] to doctors? appointments. Primary Language for learning: Swedish . Insurance Insurance reviewed Visit number: 1 [...] As Needed -for severe pain G89.18 Normal [facility] Patient Profile - Preop v3on 10-09-2022 Patient Profile - Preop v3 Patient Profile - Preop: Initial Info: Patient DemographicsName: LAZARO PETTY Date: 1955 Address: [address] [place] [address] Primary Phone [phone] How to be Addressedchuck Spoken Language PreferredEnglish Source of Informationpatient Stated Reason for Admissionfixing trach healing site Primary Contact Name and NumberFrandy daughter [phone] Limitations on Visitors/Phone Callsnone Medications Brought to Hospitalno General Health: Weight in kg81 kilogram(s) Weight in zih848.5 pound(s) Weight Methodactual (measured) Scale Typestanding Height in feet5 feet Height in ryrsch89 inch(es) Height in cm177.8 centimeter(s) Height Methodstated BMI (kg/m2)25.622 square meter Patient or Family Member Reaction to Anesthesiano previous reaction Blood Avoidance/Restrictionsnone Previous Transfusion Reactionnot applicable Health Mgmt: Symptoms/Conditions Managed at Homevocal cord cancer, HTN Barriers to Managing Healthnone Relationship/Environ: Lives Withdependent child(livia) Living Arrangementshouse Resource/Environmental Concernsnone Anticipated Transition Tomanns choice Services Anticipated at Transitionnone Tobacco Use: Tobacco Useno Pre-op Checklist: NPOyes Last Food [id number] 21:00 Last Clear Fluid [id number] 08:50 ID Band On Patientpatient ID (name), [...] Last Updated: 09-Oct-2022 11:13 by Macie Cavazos) [place] Established Visit (Otolaryng ology)on 08-22-2022 Established Visit [...] we can see you. General Appointment Line: [phone] For general questions or scheduling issues, call our secretary to board of commissioners at [phone]. For medical questions or surgery scheduling issues, call [phone]. To reach speech therapy, for appointments or questions, call [phone]. 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 Cates discussed your symptoms 2.Dr. Cates would like to see you back as needed If your symptoms change, or if you have any further questions or concerns, please call the office so we can see you. General Appointment Line: [phone] For general questions or scheduling issues, call our secretary to board of commissioners at [phone]. For medical questions or surgery scheduling issues, call [phone]. To reach speech therapy, for appointments or questions, call [phone]. By signing my name below, I, Caitlin [...] or hopele (more content not included)... Normal [facility] Tobacco Screening.on 022 Adult depression screening assessment No [facility] [place] [address] Work Phone: Fall risk assessment a) No falls within the last year [facility] [place] [facility] Work Phone: Tobacco use status CPHS b) No [facility] [place] [facility] Work Phone: Established Visit (Otolaryng ology)on 12-31-2021 [...] we can see you. General Appointment Line: [phone] For general questions or scheduling issues, call our secretary to board of commissioners at [phone]. For medical questions or surgery scheduling issues, call [phone]. To reach speech therapy, for appointments or questions, call [phone]. By signing my name below, I, Caitlin [...] No falls within the last year [facility] [facility] [place] Work Phone: Tobacco use status CPHS b) No [facility] [facility] [place] Work Phone: Tobacco Screening.on Fall risk assessment a) No falls within the last year [facility] Work Phone: Tobacco use status CPHS b) No [facility] Work Phone: No Panel Informationon 07-02 [facility] an Work Phone: Coronavirus 2019 RNA by PCR, Screening Asymptomticon 06-30-2021 Coronavirus 2019 RNA by PCR, Screening Asymptomtic Not detected Normal See Below [facility] an Work Phone: Comment on above: SOURCE: [...] make patient management decisions.Fact sheet for providers: https://www.fda.gov/media/636206/downloadFact sheet for patients: https://www.fda.gov/media/572749/downloadThis test has received FDA Emergency Use Authorization (EUA) and has been verified by [facility] ([facility]). This test is only authorized for the duration of time that circumstances exist to justify the authorization of the emergency use of in vitro diagnostic tests for the detection of SARS-CoV-2 virus and/or diagnosis of COVID-19 infection under section 564(b)(1) of the Act, 21 U.S.C. 360bbb-3(b)(1), unless the authorization is terminated or revoked sooner. [facility] is certified under CLIA-88 as qualified to perform high complexity testing. Testing is performed in the [facility] laboratories located at [address] [place] [address]. Laboratory - Chemistry and C hemistry - challengeon 2021 Albumin BCP dye [Mass/Vol] 4.4 g/dL 3.4 - 5.0 [facility] an Work Phone: ALP [Catalytic activity/Vol] 73 [...] Calcium [Mass/Vol] 10.1 mg/dL 8.6 - 10.6 [facility] [facility] Work Phone: 11 Chloride [...] Sodium [Moles/Vol] 136 mmol/L 136 - 145 [facility] [facility] Work Phone: 11 Urea [...] (Bld) [#/Vol] 8.6 10*3/uL 4.4 - 11.3 [facility] Work Phone: [phone] Panel Informationon 06-19 >90 >90 [facility] Work Phone: [phone] Comment on above: CALCULATIONS OF GABI MATED GFR ARE PERFORMED USING THE 2020 CKD-EPI STUDY REFIT EQUATION WITHOUT THE RACE VARIABLE FOR THE IDMS-TRACEABLE CREATININE METHODS.https://jasn.asnjournals.org/content/early//ASN .4591765532 0.0 {/100_WBC} 0.0-0.0 [facility] Work Phone: [phone] 11 http://UHMUSEPRDAIO0 1:8080 /musescripts/museweb.dll?R etrieveTestByDateTime?Marie ztbMW=[id number]&Date=04-09&Time=14%3a40%3a26%3a 00&TestType=ECG&Site=1&Out putType=PDF&Ext=PDF [facility] Work Phone: [...] [phone] 1 [facility] Work Phone: [phone] [facility] Work Phone: [phone] [facility] Work Phone: [phone] [facility] Work Phone: [phone] [facility] Work Phone: [phone] [facility] Work Phone: [phone] [facility] Work Phone: [phone] TSH - Thyroid Stimulating Ho Vicente membrenoon 2021 TSH Qn 3.80 m[IU]/L See Below [facility] Work Phone: [phone] Comment on above: Reference Range: 0.4 4 - 3.98 TSH testing is performed using different testing methodology at [facility] than at other [facility]. Direct result comparisons should only be made within the same method. CNOVon 06-18-2021 CNOV Office Visit (RADTSA ) -- LAZARO PETTY ([id number]) 1955 M Date Time Provider Department 06/18/21 [...] which included preparing to see the patient, icpu-ay-vdmc patient care and counseling and educating the patient/family/caregiver. This document has been created with the use of voice recognition technology. It may contain inaccuracies, misspellings, inaccurate syntax or inappropriate word context that are a result of the inadequacies/shortcomings of said technology/software. Referring Provider: NIK THAYER [[id number]] Allergies As of Date: 06/18/2021 Noted Allergy [...] BY NEWTON (more content not included)... Normal [facility] Tobacco Screening.on 01-04-2 022 Fall risk assessment a) No falls within the last year [facility] Work Phone: [phone] Tobacco use status CPHS b) No [facility] Work Phone: Coding Queryon 05-16-2021 Coding Query [id number]:127 Normal [facility] Covid-19 PCR (CVDTB)on 04-10 SARS-CoV-2 (COVID-19) RNA MARCELL+probe Ql (Unsp spec) Not detected Normal NOT DETECTED [facility] Comment on above: Result Comment: This test is not yet approved or cleared by the [place] FDA. When there are no FDA-approved or cleared tests available, and other criteria are met, FDA can make tests available under an emergency access mechanism called an Emergency Use Authorization (EUA). The EUA for this test is supported by the [employer] Offbearer of Health and Human Service's (HHS's) declaration [...] SARS-CoV-2. Performed By: #### C VDTB #### [facility] [address] [place], [place] [address] Dontrell Helen CBC AUTO DIFFon 04-24-2021 BASO # 0.0 103/ul Normal 0.0-0.1 [facility] Comment on above: Performed By: #### C VDTB #### [facility] [address] [place], [place] [address] Dontrell Helen Basophils/100 WBC (Bld) 0.3 % Normal 0.2-2.0 [facility] Comment on above: Performed By: #### C VDTBH #### [facility] [address] [place] [id number] Dontrell Helen EO # 0.2 103/ul Normal 0.0-0.7 [facility] Comment on above: Performed By: #### C VDTBH #### [facility] [address] [place] [id number] Dontrell Helen Eosinophils/100 WBC (Bld) 2.1 % Normal 0.9-7.0 [facility] Comment on above: Performed By: #### C VDTBH #### [facility] [address] [place] [address] Dontrell Helen Erythrocyte distribution width (RBC) [Ratio] 12.6 % Normal 11.0-15.0 [facility] Comment on above: Performed By: #### C VDTBH #### [facility] [address] [place] [address] Dontrell Helen Hematocrit (Bld) [Volume fraction] 38.7 % Critically low 42.0-54.0 [facility] Comment on above: Performed By: #### C VDTBH #### [facility] [address] [place] [address] Dontrell Helen Hemoglobin (Bld) [Mass/Vol] 12.9 g/dL Critically low 14.0-18.0 [facility] Comment on above: Performed By: #### C VDTBH #### [facility] [address] [place] [address] Dontrell Helen IG # 0.07 10e3/ul Critically high 0.00-0.03 [facility] Comment on above: Performed By: #### C VDTBH #### [facility] [address] [place], [place] [id number] Dontrell Helen IG % 0.7 % Critically high 0.0-0.5 [facility] Comment on above: Performed By: #### C VDTBH #### [facility] [address] [place] [address] Dontrell Helen LYMPH # 1.6 103/ul Normal 1.2-3.8 [facility] Comment on above: Performed By: #### C VDTBH #### [facility] [address] [place], [place] [address] Dontrelljameel Cervantes Lymphocytes/100 WBC (Bld) 15.7 % Critically low 20.5-60.0 [facility] Comment on above: Performed By: #### C VDTBH #### [facility] [address] [place], [place] [address] Dontrelljameel Cervantes MANUAL DIFF REQ NO Normal [facility] Comment on above: Performed By: #### C VDTBH #### [facility] [address] [place], [place] [address] Dontrelljameel Cervantes MCH (RBC) [Entitic mass] 31.1 pg Normal 25.9-34.0 [facility] Comment on above: Performed By: #### C VDTBH #### [facility] [address] [place], [place] [id number] Dontrelljameel Cervantes MCHC (RBC) [Mass/Vol] 33.3 g/dL Normal 29.9-35.2 [facility] Comment on above: Performed By: #### C VDTBH #### [facility] [address] [place], [place] [id number] Dontrelljameel Cervantes MCV (RBC) [Entitic vol] 93.3 fL Normal 80.0-94.0 [facility] Comment on above: Performed By: #### C VDTBH #### [facility] [address] [place], [place] [id number] Dontrell Helen MONO # 1.0 103/ul Critically high 0.3-0.8 [facility] Comment on above: Performed By: #### C VDTBH #### [facility] [address] [place], [place] [address] Dontrelljameel Cervantes Monocytes/100 WBC (Bld) 9.9 % Normal 1.7-12.0 [facility] Comment on above: Performed By: #### C VDTBH #### [facility] [address] [place] [id number] Dontrell Helen NEUT # 7.1 103/ul Critically high 1.4-6.5 [facility] Comment on above: Performed By: #### C VDTBH #### [facility] [address] [place], [place] [address] Dontrell Cervantes Neutrophils/100 WBC (Bld) 71.3 % Normal 43.0-75.0 [facility] Comment on above: Performed By: #### C VDTBH #### [facility] [address] [place] [id number] Dontrell Cervantes Platelet mean volume (Bld) [Entitic vol] 9.7 fL Normal 9.5-13.5 [facility] Comment on above: Performed By: #### C MEGATBH #### [facility] [address] [place], [place] [id number] Dontrell Fernándezen PLT 280 103/ul Normal 150-450 [facility] Comment on above: Performed By: #### C MEGATBH #### [facility] [address] [place], [place] [address] Dontrell Cervantes RBC 4.15 106/ul Critically low 4.70-6.10 [facility] Comment on above: Performed By: #### C MEGATBH #### [facility] [address] [place], [place] [address] Dontrell Cervantes WBC 10.0 103/ul Normal 4.0-11.0 [facility] Comment on above: Performed By: #### C VDTBH #### [facility] [address] [place], [place] [address] Dontrell Cervantes ACETONE SERUMon 04-13-2021 ACETONE Negative Normal NEGATIVE [facility] Comment on above: Performed By: #### C VDTBH #### [facility] [address] [place] [address] Dontrell Cervantes CBC W MANUAL DIFFon 04-13-20 ATYPICAL LYMPH # Normal [facility] Comment on above: Performed By: #### Garry MURPHY #### [facility] [address] [place] [address] [address] Sachin Jackson ATYPICAL LYMPH % Normal [facility] Comment on above: Performed By: #### Garry MURPHY #### [facility] [address] [place] [address] Dr. Sachin Jackson BAND # Normal 0.0-0.3 [facility] Comment on above: Performed By: #### C BCMAN #### [facility] [address] [place] [address] Dr. Sachin Jackson BAND % Normal 0-5 [facility] Comment on above: Performed By: #### C BCMAN #### [facility] [address] [place] [address] Dr. Sachin Jackson BASOM # 0.00 103/ul Normal 0.00-0.10 [facility] Comment on above: Performed By: #### C BCCHASIDY #### [facility] [address] [place] [address] Dr. Sachin Jackson BASOM % 0.0 % Critically low 0.2-2.0 [facility] Comment on above: Performed By: #### C JEFFREY #### [facility] [address] [place] [address] Dr. Sachin Jackson BLAST # Normal [facility] Comment on above: Performed By: #### C JEFFREY #### [facility] [address] [place] [address] Dr. Sachin Jackson BLAST % Normal [facility] Comment on above: Performed By: #### C JEFFREY #### [facility] [address] [place] [address] Dr. Sachin Jackson CORRECTED WBC Normal 4.0-11.0 [facility] Comment on above: Performed By: #### C BCCHASIDY #### [facility] [address] [place] [address] Dr. Sachin Jackson EOS # 0.00 103/ul Normal 0.00-0.70 [facility] Comment on above: Performed By: #### C BCMAN #### [facility] [address] [place] [address] Dr. Sachin Jackson EOS% 0.0 % Critically low 0.9-7.0 [facility] Comment on above: Performed By: #### C JEFFREY #### [facility] [address] [place] [address] Dr. Sachin Jackson HCT 42.3 % Normal 42.0-54.0 [facility] Comment on above: Performed By: #### C JEFFREY #### [facility] [address] [place] [address] [address] Sachin Jackson HGB 14.2 g/dl Normal 14.0-18.0 [facility] Comment on above: Performed By: #### C JEFFREY #### [facility] [address] [place] [address] [address] Sachin Jackson LYMPHM # 1.74 103/ul Normal 1.20-3.80 [facility] Comment on above: Performed By: #### C JEFFREY #### [facility] [address] [place] [address] Dr. Sachin Jackson LYMPHM% 12.0 % Critically low 20.5-60.0 [facility] Comment on above: Performed By: #### C JEFFREY #### [facility] [address] [place] [address] Dr. Sachin Jackson MCH 31.2 pg Normal 25.9-34.0 [facility] Comment on above: Performed By: #### C JEFFREY #### [facility] [address] [place] [address] Dr. Sachin Jackson MCHC 33.6 g/dl Normal 29.9-35.2 [facility] Comment on above: Performed By: #### C JEFFREY #### [facility] [address] [place] [address] Dr. Sachin Jackson MCV 93.0 fL Normal 80.0-94.0 [facility] Comment on above: Performed By: #### C JEFFREY #### [facility] [address] [place] [address] Dr. Sachin Jackson METAMYELOCYTE # Normal [facility] Comment on above: Performed By: #### C JEFFREY #### [facility] [address] [place] [address] Dr. Sachin Jackson METAMYELOCYTE % Normal [facility] Comment on above: Performed By: #### C JEFFREY #### [facility] [address] [place] [address] [address] Sachin Jackson MONOM# 1.59 103/ul Critically high 0.30-0.80 [facility] Comment on above: Performed By: #### C JEFFREY #### [facility] [address] [place] [address] [address] Sachin Jackson MONOM% 11.0 % Normal 1.7-12.0 [facility] Comment on above: Performed By: #### C JEFFREY #### [facility] [address] [place] [address] Dr. Sachin Jackson MPV 10.1 fL Normal 9.5-13.5 [facility] Comment on above: Performed By: #### C JEFFREY #### [facility] [address] [place] [address] Dr. Sachin Jackson MYELOCYTE # Normal [facility] Comment on above: Performed By: #### C JEFFREY #### [facility] [address] [place] [address] [address] Sachin Jackson MYELOCYTE % Normal [facility] Comment on above: Performed By: #### C JEFFREY #### [facility] [address] [place] [address] Dr. Sachin Jackson NRBC Normal [facility] Comment on above: Performed By: #### C JEFFREY #### [facility] [address] [place] [address] Dr. Sachin Jackson PLT 288 103/ul Normal 150-450 [facility] Comment on above: Performed By: #### C JEFFREY #### [facility] [address] [place] [address] Dr. Sachin Jackson RBC 4.55 106/ul Critically low 4.70-6.10 [facility] Comment on above: Performed By: #### C JEFFREY #### [facility] [address] [place] [address] Dr. Sachin Jackson RDW 12.1 % Normal 11.0-15.0 [facility] Comment on above: Performed By: #### C JEFFREY #### [facility] [address] [place] [address] [address] Sachin Jackson SEG # 11.16 103/ul Critically high 1.40-6.50 [facility] Comment on above: Performed By: #### C VERONICAMAN #### [facility] [address] [place] [address] Dr. Sachin Jackson SEG % 77.0 % Critically high 43.0-75.0 [facility] Comment on above: Performed By: #### C VERONICAMAN #### [facility] [address] [place] [address] Dr. Sachin Jackson WBC 14.5 103/ul Critically high 4.0-11.0 [facility] Comment on above: Performed By: #### C BCMAN #### [facility] [address] [place] [address] Dr. Sachin Jackson CRPon 04-13-2021 CRP [Mass/Vol] mg/L Critically high <=1.0 [facility] Comment on above: Performed By: #### T SH, CRP, CMP #### [facility] [address] [place] [address] Dr. Sachin Jackson CULTURE BLOODon 04-13-2021 Microscopic examination of blood, culture Culture Observations: No growth at 5 days. Normal [facility] Comment on above: Performed By: #### S EDR #### [facility] [address] [place] [address] Dr. Sachin Jackson Covid-19 PCR (CVDTB)on SARS-CoV-2 (COVID-19) RNA MARCELL+probe Ql (Unsp spec) Not detected Normal NOT DETECTED [facility] Comment on above: Result Comment: When diagnostic testing is negative, the possibility of a false negative should be considered in the context of a patient's recent exposures and the presence of clinical signs and symptoms consistent with SARS-CoV-2. This test is not yet approved or cleared by the [place] Food and Drug Administration (FDA). This test was developed by [employer], [place], [place]. The performance characteristics of this test were validated by [facility]. The results are not intended to be used as the sole means for clinical diagnosis or patient management decisions. [facility] is authorized under Clinical Laboratory Improvement Amendments (CLIA) to perform high- complexity testing. Performed By: #### S EDR #### [facility] [address] [place] [address] Dr. Sachin Jackson LACTATE/LACTIC ACIDon 2020 Lactate [Moles/Vol] 1.4 mmol/L Normal 0.7-2.0 [facility] Comment on above: Performed By: #### L ACT #### [facility] [address] [place] [address] Dr. Sachin Jackson PROF 14(COMP METB)on 021 Albumin [Mass/Vol] 2.7 g/dL Critically low 3.5-5.0 [facility] Comment on above: Performed By: #### T SH, CRP, CMP #### [facility] [address] [place] [address] Dr. Sachin Jackson Albumin/Globulin [Mass ratio] 0.5 {ratio} Normal [facility] Comment on above: Performed By: #### T SH, CRP, CMP #### [facility] [address] [place] [address] Dr. Sachin Jackson ALP [Catalytic activity/Vol] 66 U/L Normal 38-126 [facility] Comment on above: Performed By: #### T SH, CRP, CMP #### [facility] [address] [place] [address] Dr. Sachin Jackson ALT [Catalytic activity/Vol] 28 U/L Normal 21-72 [facility] Comment on above: Performed By: #### T SH, CRP, CMP #### [facility] [address] [place] [address] Dr. Sachin Jackson Anion gap [Moles/Vol] 9.6 mmol/L Normal [facility] Comment on above: Performed By: #### T SH, CRP, CMP #### [facility] [address] [place] [address] Dr. Sachin Jackson AST [Catalytic activity/Vol] 18 U/L Normal 17-59 [facility] Comment on above: Performed By: #### T SH, CRP, CMP #### [facility] [address] [address] [address] Sachin Jackson Bilirubin [Mass/Vol] 0.8 mg/dL Normal 0.2-1.3 [facility] Comment on above: Performed By: #### T SH, CRP, CMP #### [facility] [address] [place] [address] Dr. Sachin Jackson Calcium [Mass/Vol] 9.6 mg/dL Normal 8.4-10.2 [facility] Comment on above: Performed By: #### T SH, CRP, CMP #### [facility] [address] [place] [address] Dr. Sachin Jackson Chloride [Moles/Vol] 97 mmol/L Critically low 98-107 [facility] Comment on above: Performed By: #### T SH, CRP, CMP #### [facility] [address] [place] [address] Dr. Sachin Jackson CO2 [Moles/Vol] 28.5 mmol/L Normal 22.0-30.0 [facility] Comment on above: Performed By: #### T SH, CRP, CMP #### [facility] [address] [place] [address] Dr. Sachin Jackson Creatinine [Mass/Vol] 0.73 mg/dL Normal 0.66-1.25 [facility] Comment on above: Performed By: #### T SH, CRP, CMP #### [facility] [address] [place] [address] Dr. Sachin Jackson EGFR-AF ALGERIAN >60 Normal >=60 [facility] Comment on above: Performed By: #### T SH, CRP, CMP #### [facility] [address] [place] [address] Dr. Sachin Jackson EGFR-NON AF ALGERIAN >60 Normal >=60 [facility] Comment on above: Performed By: #### T SH, CRP, CMP #### [facility] [address] [place] [address] Dr. Sachin Jackson Globulin (S) [Mass/Vol] 5.1 g/dL Normal [facility] Comment on above: Performed By: #### T SH, CRP, CMP #### [facility] [address] [address] [address] Sachin Jackson Glucose [Mass/Vol] 111 mg/dL Critically high 74-106 [facility] Comment on above: Performed By: #### T SH, CRP, CMP #### [facility] [address] [address] [address] Sachin Jackson Potassium [Moles/Vol] 4.1 mmol/L Normal 3.4-5.0 [facility] Comment on above: Performed By: #### T SH, CRP, CMP #### [facility] [address] [place] [address] Dr. Sachin Jackson Protein [Mass/Vol] 7.8 g/dL Normal 6.1-8.2 [facility] Comment on above: Performed By: #### T SH, CRP, CMP #### [facility] [address] [place] [address] Dr. Sachin Jackson Sodium [Moles/Vol] 131 mmol/L Critically low 137-145 [facility] Comment on above: Performed By: #### T SH, CRP, CMP #### [facility] [address] [place] [address] Dr. Sachin Jackson Urea nitrogen [Mass/Vol] 9.0 mg/dL Normal 9.0-20.0 [facility] Comment on above: Performed By: #### T SH, CRP, CMP #### [facility] [address] [place] [address] Dr. Sachin Jackson Urea nitrogen/Creatinine [Mass ratio] 12.3 mg/mg Normal [facility] Comment on above: Performed By: #### T SH, CRP, CMP #### [facility] [address] [place] [address] Dr. Sachin Jackson SED RATE [facility] 2020 SED RATE >130 Critically high <=20 [facility] Comment on above: Performed By: #### S EDR #### [facility] [address] [place] [address] Dr. Sachin Jackson TSHon 04-13-2021 TSH 2.795 uIU/mL Normal 0.470-4.680 [facility] Comment on above: Performed By: #### T SH, CRP, CMP #### [facility] [address] [place], [place] [address] Dr. Sachin Jackson TSH RANGE SEE BELOW Normal [facility] Comment on above: Result Comment: <0.3 4 UIU/ml HYPERTHYROID 0.34-5.60 UIU/ml EUTHYROID >5.60 UIU/ml HYPOTHYROID Performed By: #### T SH, CRP, CMP #### [facility] [address] [place], [place] [address] Dr. Sachin Jackson XR CHEST 1 Von [...] JAMEEL NOONAN Date: 2021-04-13 17:24 Normal [facility] XR KNEE KIERA 3 Von 04-13-2021 XR [...] JAMEEL NOONAN Date: 2021-04-13 17:28 Normal [facility] Coding Summary.on 04-11-2021 Coding Summary. CD:[id number] Gh0bWw +PGhlYWQ+WG6TMAKmL76pePMvm H1CR7gVXP1CYEJIRZPPZS5YYW7 sxQY6VYgrP8FzwmOc AttkfXVwRL69XQg9KLN8rTzdCR nncR4dtUXyR1t9XxHfGN73kB72 VWkpRSFkFcZ4GcRevgnzhGMw W6xaLzCnqUMsPvd+PHRhYmxlIH rtCBCzTSvkEDAdMkUreSwzTR8p Jb2sMUJwMRMstQaffNRyCyRv i7nlKJEiXWlfGE9ufOdyG2LwgD O3TDFmb0k2Vq60jDX+PHRkIHN0 vYdjJXxkc458NpEob6ozJJY1 cEYvBXnrUJS5N60yh3Y5WEVlOA ZcMPM3aWH3pR6hpOqeyndbL3Wp uVDlEcJ5XVP7vWGelR7nuGkp oaswwM4sGcd+T61MGQ2AAEXILA 0FDdn1Z9YhXrnezUM+JU40OKMh NF94uFYutLCij6drrRh7VgNf TEXfLUB3pIjhBOozf4CoMZPfL5 6ssNIgb3B0XQTafSlrwDSaUlVv wRM5lN0kDFjwjrxvc1nmfocx Ehmty5dmmd09qT03X84eOKqaCY WgUQS9LDUcNSFzlMaynr0rhK7m Ii8+BYqcx9nhh5otrAq3MxXy AQRcmiMtzRjlBUZ0s5YmBr14H4 VjnAyhn9EgNqs7li54mYHir5T3 iHC3BKyeDSDrrK4hYQhrEnG8 AKIyCmSelL81uUTiAXnqMh7vmW juaNjnFY3xZUKisiluBMLnrA2s PHCunWIcsHeaDI8eKRPbfgdd w109BmUzSQT7NNEsaLYwZ3UzhW 5dJdWqDISiTQXlR8QmzHYzNSzg X233QFtoQiO4LQIbrjAnK5Wr MYZsmYkwUoW8b3E6Qv9No0Ruic okEYU2RGeaPSGtReNfYqKkFaJ2 M8LeVyb4DHCxgXkqTQ8zO5Fq FZXotutlvxjmfFL9EHTbWMGamK 04cHVsWFycGu4ig8G9e142PEOx TBWroJ07Wn8lgZgbSDBoyKEW tH6siombz6bgdgztGzKzFEWePL e7PWc5JOSvaUmyLmHsSFF6TxE9 OIN4iSPviZ5tqFslgkradN8e Oyc+O62zqC2rAQS2RWA6sgwvUQ GcgxFgTA75NL52M0UmOaxpsUQo bGU+UXQhdvZnfPkiQF8nJxWo r4gqo6AhHIbxB4RiHLLpWOxyPc h9BRDtIMG4eUP2mD6jEJLwRUih m8R7eDW7U8UtsiZslu9bn7qf ZXLnSQdvV97zwLKhr8N1YZBqvZ I6WBKhlXhgYcBjzV14Gmx+PGNv jYfce5MnLakgh5nko9sztRg8 SnAkAXWejhUbnCezYYH4d8UsWk 79Z58qNAguBOZpKBZuHVYbXCHw hNfuaw4sqB5iUb7+PGNvbCB3 wSV1fD1yOOFnRdO4JXjiP333Ol ZciAYjQigfo9qiu9yzsEx1ZpNd JPTopdDxfHefTSI0q3LpVf36 F60lJJskPUVaJDRqMDZoVOHtdF skge4dgW2yEf4+TK1kj0hcjg11 vW16kYI+XPWhWMR0kMljUAxw EVRssQ7mCXxfFlE2PPPtOkOozV 39uWUpQVjqHv3izEiwyBavXN1w ETHxfpsdd966TzGlk5veWBKm yMQlWDbxZHJ2V17yt6U2RLWuWE IxJHN0bZQ2vH6ouJscokjreFXa wEjtixOcaQtiPFfkIDnkA939 IHRvcDsnPlBhdGllbnQgTmFtZT l1M2YgHkx2WEGvmUiiUZ0lmPXm ROjqWp7pjLpzwDmyTU6fAPNb pebmg875PyVhh8kdIAQooJYmJY mhWKI6M60bd7G0NUSoAHAoIWZ2 dGT9zM4gdIggtyphuMHxwHed tdNrqTulCTgwMYkyA787LWFbsY eiRxGjpbDzNDWygSW7OD68KO56 qDHhr0M3qJF0L2EqEAOnxxle exrhoYP0EXZcUGKjgI12Hq7xjJ ptDi3eQKWbJIC6ZHTezWWrI7Nw xZ5oJwYyCBVwSOSsT8CedAKq QJhjA561NFuzZlO3PSZvobDzL0 IeTDBomQdpXcP3l5A7Ga3GL7X3 HQ80LG92iHVmr7U8cUY0B9Bc RBXuropovwwhaBI6FDAbGMWgvP 75Iu4yrIhvLb6hXVBzWRA5TVQa aVCqT3ZelR1gBhCbLEOgEQIh N7UjlISnXIlgT903ABaeZdP2PW AsisRqQ4LjLVTquAvjZbI4s1G3 Kh3CFAx3UQ63YL43fLFfq2K1 vOG8U7SwOTNbtxkgpjfgoTI5ZD RyFAKivR12Za7svBqkNu8zHAQu ZEM4OOJutXObU7TdsI8tRlKu TNYsYUOcF7LsmRNhZOjnX855OK bzLlK4JEVhkwHvG1FlXMAbjQvo EkX2q6J3Yj1OPQIwBS78USU6 jPU5ZN44WB73A3YmBthzjXNahE U+PHRhYmxlIHdpZHRoPScxMDAl KoRutIwbFN2bUc5rBNPtHPVq gBlnsLVkStJcd7puPUNgYBfrXD 8jjFuyY2PuqAS7CLXwr0a5Lu76 N36tT6LdjYR+GJSlfVV4yEB1 cE1sYfAyIkC8MXveW501BjFecC MpBmvyh3pfa1hrvYe7EoJ6LEKb lcGaoDbbUNA9g3VgDm45Y27v IHdpZHRoPSIxNSUiIHZhbGlnbj 4bkG0zUo4+MKBqpRM8hPV8rC7h TdHdMtG8ZMerQ361KnSzeTVn Dgxnq2gwl8jbvHf8WwOiUPZric YctDxoIBC8x6FrJq83O5ArdQtz o9XsVha1aj53fOXih4B3aGW0 T3SaVRMnkawcaYPloKwtVG3yBJ ThklwoNOVxiQ1eNOQdD6v9HlSf JuZ5QWooW6PxotH7LQRdpRDo GNsaXPT0V06dz6R4UAXtPQDgEY B4qTP1bA1qpYprvfmufTUrgTum taXnvUuuVYjxJJwqL749BCLk zLprQHBceC1vIHAejRIaxUfmWG 0nRYQcoybiXm0PHP8yPLEPWNDG RVMgTDwvdGQ+TINnMVC9oOcs SExyDKNzzN1hXENgL4o6YkQeXw Q0RYzjJ5LwQDMdpkujPz02fE4h FtSeZgD3JSidT6ZbxiD1GQCr jWZyZEezTNI7E18qj5P1OVHjPX BfTZY1nCD2lZ9pmVutrmzdhSVf cKrimlVxjVuqSWilWGxrC341 BDBjzYobUpZbMeJjPoY3HAH5T1 RiPyb2MPZocTevQX6oiKYjNUws Op5suYzrnByfOY4yHYUiyamp SLEqwD9cCVXhdYLgbSooPC5nTX Wlixhaw993StQcCUK1RTRjnHOc C5CjkK4mLuDfXWSrEKVrC5Ji rLIfJBpnS022ERhvLpY3AKAhwm CvT8EkNFFziCwuVpX8i8P7Bp82 NyBZZWFyczwvdGQ+PHRkIHN0 vSkfTExrGZMwaZ4dIXNgG4d5Oi YjTxR8OMfyH4IiTGYsqwunOa25 oL5gHhQnFoW4ZMamM3HtyfJ8 QMTzgNMpBOasGVB8K71wo7D7HN DjNIVrSGO5qCJ1iR8kkXvgxngf bGVmdDsgdmVydGljYWwtYWxp H746WDVcmEiiWf7fsPS3Y1MiWw p0MPUbqOrxKO3zhQLeSQleOe9m dVecxRoqMX1hWOWrdtdaTZZx jY8uFZOreYPufDoyYG3rDYDwet mzd665UrZvSRL0MHJfmXTcH1Fx dW7qOzAzVVYoWTLcC9VwoMZy UMhcD046AQjyOzS7LBIblkLgL6 GoRXKtuFirRkO2x9A2Xm5RukHl zLaehmH6E9YnPmyvlRC+PC90 QUVtPC82gVKzwURmu5pmaBv0Re NpKQFoAAT5yJepLWnyq1RdVMZw N81ywLTpu7Z3OJJpzEoyyKWw PjRvxPO7qT4xLMtkgeepr5voki bsRmlxi6qoea28rX93N37fRMwb UJTwFWMcLTDcXGLbxWcfha2r tS7lVb2+SELpwIZ1kCR5vD8xNy FeSsL7NRvbA992HuTusMHnYhfl b5cgx8ibuEw1RuCmGQNxdsNq kCsgKZI0c8RhXx53Q65zIWsoHA LaUPPkOCMhVEUyuVykau7ckE0a Ii8+OE7fe6tnym06tG25gTM+ HRLsJHE7tUaqKVepRHLhfH1gYL ykJqW3MGMpDtSzrD57gSPeYEhc Hu7flQjlvGbzKQ3dWSPvxcma x638SiOqk7ghOXKzbHGoFXobZL H7Q40pn5P4ACAqRKOpSOI4cFR1 nW7nbDbrfkliaCZhpIthgwDu mAaeADfgEQunK458IQDzxIguLv GeoJTvL5sjbeKRWQ0wFrffdDC+ QNYaRTS7vCmmOWifCURmwF0p LYWvQ0i7XbMyEkY8BSssT4Papx T1UIUrrZAuJRGfmDREbZ5dcjup u9ixltrhKsNvEWZeBRg8SIv9 NAYxjOmkSeMhIJX1AlQ0HRG2iV AcrK5lfTsbjrkydY0pSbo+RklO OjwvdGQ+DUSgMYH1rXpbCMkx PHWcuV2hPEBrD4j5TfMsMjS9YV biD6AkfeT3CVWbnYPvBMCshPZA mQ3sgaeeb0mnlzogTsPeDZTh YFp5WBa2OQAgiOqdJdUwDBM1Ep V4CLY6yIDcrM3hpHjezcrmmO7f Oyc+TVJOOjwvdGQ+PHRkIHN0 yApzOQieDGIqzF1iCNLuL2q2Gq VgXuY5JIbsQ6LetzJ5ZQUouDQl JHKzbRVWoW0uqudqy5gmlvnz TePgGEAeITl1UJe6CNQrmEzgRw MhAGV7SqN3TWT9mPDjcP2sqRqg bczzlP9pKtn+KUY6VMC5JH71 IH64Z9UwJbkjzVNctOD+PHRhYm xlIHdpZHRoPScxMDAlJyBzdHls QE6fDb4yEGGsYCCkhTmypSDq OiBj (more content not included)... Normal [facility] NM PET/CT SKULL-THIGH INITon 04-11-2021 NM PET/CT [...] age-related degenerative changes. No destructive osseous lesions. Dry Room Attendant (topogram) images: No additional findings. IMPRESSION: 1. [...] any questions regarding this interpretation, please call [phone]. If you are unable to reach us at the number above, please feel free to contact [facility] eRadiology at [phone]. [id number] Normal [facility] Coding Queryon 04-06-2021 Coding Query - From: [...] Query Due Date/Time: 04/07/2021 14:03:00 EDT Normal [facility] Pathology Reporton Pathology Report [id number]:127 Normal [facility] IntraOperative Documentson 1 IntraOperative Documents [id number]#[id number]:127 Normal [facility] SURGICAL PATHOLOGYon 021 SURGICAL PATHOLOGY Specimen #: [id number] Submitting Physician: MUKUND CHRISTY M.D. FINAL DIAGNOSIS Slides and a block labeled 07-SP-2 8-0145 are received from [facility] ([place], [place]), collected March 15, 2021. Right larynx, [...] performed in you laboratory and at the [facility] show an absence of tumor gene expression and epithelial markers (see microscopic description for stain details). The overall findings are those of a reactive process consistent with the patient's known history of radiation therapy. Chang Grant M.D., PhD (Electronic Signature) SPECIMEN SUBMITTED A: 5 SLIDES and 1 BLOCK ([id number]) MICROSCOPIC DESCRIPTION Ancillary studies performed by the referring institute are as follows: p16: Focal reactivity (negative as a surrogate marker for high-risk HPV p53: Positive in scattered cells in a wild-type pattern Ancillary studies performed by the [facility] (block A1) are as follows: Cam5.2: Negative CK JESSI: Positive only in surface epithelium CK5/6: Positive only in surface epithelium AE1/3: Positive only in surface epithelium p63: Positive only in surface epithelium Laboratory Developed Test (LDT) Disclaimer: Positive and negative controls stain appropriately. Performance characteristics of immunohistochemical, immunofluorescent and chromogenic in-situ hybridization tests have been determined by [facility]'s [facility] Pathology and Laboratory Medicine [place] ([facility]) in a manner consistent with CLIA requirements. One or more of these tests have not been cleared or approved by the FDA. [facility] is regulated under CLIA as qualified to perform high-complexity testing. These tests are used for clinical purposes. They should not be regarded as investigational or for research. CLINICAL DATA None provided. Date of Report: 04/02/2021 Date of Procedure: 03/26/2021 Date of Receipt: 03/26/2021 Submitted by: MUKUND CHRISTY M.D. Location: Diagnostic interpretation performed at [facility], [address] [place] [address]. CLIA Number: [id number] Normal [facility] Reference Lab Comment on above: Performed [...] 370 Contrast amount in ml's: 71 Normal [facility] Consent for Procedure/Surger yon 03-23-2021 Consent for Procedure/Surgery [id number]#[id number]:127 Normal [facility] Discharge Instructionson Discharge Instructions [id number]:127 Normal [facility] Inpatient Clinical Summaryon 03-23-2021 Inpatient Clinical Summary [place] [address] Clinical Summary Person Information: Name: LAZARO PETTY Age: 65 Years : 1955 Sex: Male PCP: Lazaro Escobedo DO Marital Status: Race: White Ethnicity: Non- or Language: Swedish Visit Id: Visit Reason: VOCAL CORD [place] Speciality: Acuity: Enc Type: Inpatient Med Service: Surgery Arrival: 03/15/2021 10:59:05 Discharge: Dispo Type: Address: [address] [place] [address] [id number] Provider Notes: Diagnosis: 1:Larynx cancer; 2:Swelling of [...] up: With: Address: When: Mukund Christy [address] [facility] [address] [place] [address] Business (1) In 1 week 03/30/2021 With: Address: When: [facility] [address] [place] [address] Business (1) Patient Education Information: Tracheostomy Normal [facility] Inpatient Patient Summaryon 03-23-2021 Inpatient Patient Summary [place] [id number] Patient Discharge Instructions PERSON INFORMATION Name: LAZARO [...] Follow up: With: Address: When: Mukund Christy [address] [place] [address] [address], [address] [place] [id number] Business (1) In 1 week 03/30/2021 With: Address: When: Lazaro Escobedo [address] [place] [address] Business (1) In the event that this [...] needed as needed for pain. [facility]: PATIENT EDUCATION INFORMATION Instructions: Tracheostomy [...] including vitamins, herbs, eye drops, creams, and qrrh-xtz-twcsbxt medicines. ? Any problems you or family [...] gland). What (more content not included)... Normal [facility] Interdisciplinary Note - Jeremy e Manageron 03-23-2021 Interdisciplinary Note - Associate Professor Of Engineering CRM spoke with patient in room. Patient is alert and oriented and participates in discharge planning. No family in room. Patient white board updated, and CRM contact information provided. Discussed CRM spoke with Dr Meneses who saw patient earlier today and will have CT chest d/t still has a cough. If CT okay will plan to discharge to [facility] today. patient is on room air and has trach collar at bedside. patient has passe alexei valve and able to verbalize. Reviewed Medicare rights with patient , he denies any questions and gave him copy of signed form. 1480- CRM called daughter Frandy and updated her patient will dc today. She will transport patient to [facility] today. she denies any other questions Normal [facility] Comment on above: Result Comment: Elec [...] meal. Meets nutrition goal, POC d/c'd. Normal [facility] Comment on above: Result Comment: Elec tronically Signed By: Michelle FLETCHER, MALIK., Blank\.br\Date and Time Signed: 03/23/21 10:44 EDT PT & PTTon 03-23-2021 aPTT Coag (PPP) [Time] 30.8 second(s) Normal 25.1-36.5 [facility] Comment on above: Result Comment: Hepa rin therapeutic range (represented by Anti-Factor Xa activity of 0.2 - 0.4 U/mL) corresponds to PTT of 56.6 - 109.0 sec. Performed By: #### 2 [id number], [id number], [id number], [id number], [id number], [id number], [id number] #### [facility] [address] [place] [address] INR Coag (PPP) [Relative time] 1.4 {INR} Invalid Interpretation Code [facility] Comment on above: Result Comment: INR results are specifically intended to assess patients stabilized on long-term Anticoagulation therapy suggested INR?s ?Less Intensive Anticoagulation? 2.0 ? 3.0 Conventional Range 3.0 ? 4.5 Performed By: #### 2 798468, [id number], 4980718, [id number], 75836986, 3118150, [id number] #### [facility] [address] [place] [address] PT Coag (PPP) [Time] 16.7 second(s) High 10.2-12.9 [facility] Comment on above: Performed By: #### 2 333789, 9688909, 7787681, 65635241, 31995231, 5393951, 2531525 #### [facility] [address] [place] [address] Progress Note-Physicianon Progress Note-Physician ENT POD 8 Pt reports he feels SOB when laying down. Transfer to [facility] planned for later today per nurse. Pt passed bedside swallowing eval and diet advanced. AVSS Trach in place and stable with good airflow. Lungs CTA after extensive effort to cough, and sx resolved. Cough with Passey Carr valve results in sig leak around trach due to severity of laryngeal obstruction. I will order a CXR this morning. Nurse to check a pulse ox. SOB not due to trach issues. I will defer to hospitalist to determine whether pulmonary issues should delay transfer. Unless needed sooner, I will plan to see pt next Friday in my [place] office Normal [facility] Comment on above: Result Comment: Elec tronically Signed By: Juliette CROOK, Mukund Storey\.br\Date and Time Signed: 03/23/21 07:24 EDT Transfer Documentson 021 Transfer Documents [id number]:127 Normal [facility] Auto Diffon 03-22-2021 Basophils/100 WBC (Bld) 0.7 % Normal 0.0-2.0 [facility] Comment on above: Order Comment: Order Added by Discern Expert. Performed By: #### 2 021142, [id number], 0862656, [id number] ####[facility] [address] [place] [address] Basophils/Leukocytes Auto (Bld) [Pure # fraction] 0.1 E9/L Normal 0.0-0.2 [facility] Comment on above: Order Comment: Order Added by Discern Expert. Performed By: #### 2 302739, [id number], 5206775, [id number] ####[facility] [address] [place] [address] Eosinophils/100 WBC (Bld) 1.7 % Normal 0.0-8.0 [facility] Comment on above: Order Comment: Order Added by Discern Expert. Performed By: #### 2 239646, [id number], 9011248, 5352795 ####[facility] [address] [place] [address] Eosinophils/Leukocyt es Auto (Bld) [Pure # fraction] 0.2 E9/L Normal 0.0-0.5 [facility] Comment on above: Order Comment: Order Added by Discern Expert. Performed By: #### 2 184847, [id number], 9943139, 9892031 ####[address] [address] Lymphocytes/100 WBC (Bld) 9.8 % Low 14.0-50.0 [facility] Comment on above: Order Comment: Order Added by Discern Expert. Performed By: #### 2 914793, 15557820, 3331259, 1340522 ####[address] [address] Lymphocytes/Leukocyt es Auto (Bld) [Pure # fraction] 0.9 E9/L Low 1.0-4.0 [facility] Comment on above: Order Comment: Order Added by Discern Expert. Performed By: #### 2 [id number], [id number], [id number], [id number] ####[address] [address] Monocytes/100 WBC (Bld) 12.6 % Normal 4.0-14.0 [facility] Comment on above: Order Comment: Order Added by Discern Expert. Performed By: #### 2 [id number], [id number], [id number], [id number] ####[address] [address] Monocytes/Leukocytes Auto (Bld) [Pure # fraction] 1.1 E9/L High 0.2-1.0 [facility] Comment on above: Order Comment: Order Added by Discern Expert. Performed By: #### 2 [id number], [id number], [id number], [id number] ####[address] [address] Neutrophils/100 WBC (Bld) 75.2 % High 36.0-75.0 [facility] Comment on above: Order Comment: Order Added by Discern Expert. Performed By: #### 2 [id number], [id number], [id number], [id number] ####[facility] [id number] [place] [address] Neutrophils/Leukocyt es Auto (Bld) [Pure # fraction] 6.8 E9/L Normal 2.0-7.5 [facility] Comment on above: Order Comment: Order Added by Discern Expert. Performed By: #### 2 [id number], [id number], [id number], [id number] ####[facility] [address] [place] [address] BMPon 03-22-2021 Anion gap [Moles/Vol] 11 mmol/L Normal 6-16 [facility] Comment on above: Performed By: #### 2 [id number], [id number], [id number], [id number] ####[id number] [place] [address] Calcium [Mass/Vol] 8.6 mg/dL Low 8.9-11.1 [facility] Comment on above: Performed By: #### 2 [id number], [id number], [id number], [id number] ####[facility] [address] [place] [address] Chloride [Moles/Vol] 93 mmol/L Low 101-111 [facility] Comment on above: Performed By: #### 2 278623, 75450999, 5392357, 3876520 ####[facility] [address] [place] [address] CO2 [Moles/Vol] 32 mmol/L High 21-[address] [facility] Comment on above: Performed By: #### 2 338041, 83456229, 1875308, 3258924 ####[facility] [address] [place] [address] Creatinine [Mass/Vol] 0.7 mg/dL Normal 0.5-1.3 [facility] Comment on above: Performed By: #### 2 157200, 22908062, 1944407, 3735019 ####[facility] [address] [place] [address] Glucose [Mass/Vol] 155 mg/dL Normal 55-199 [facility] Comment on above: Result Comment: If t his glucose result represents a fasting glucose, interpretation should refer to the following reference range: 55-99 mg/dL Performed By: #### 2 099731, 06425783, 5295154, 6117846 ####[facility] [address] [place] [address] Potassium [Moles/Vol] 4.6 mmol/L Normal 3.5-5.3 [facility] Comment on above: Performed By: #### 2 744243, 53515747, 5437296, 2107416 ####[facility] [address] [place] [address] Sodium [Moles/Vol] 131 mmol/L Low 135-145 [facility] Comment on above: Performed By: #### 2 146621, 30520958, 4366095, 1892635 ####[facility] [address] [place] [address] Urea nitrogen [Mass/Vol] 16 mg/dL Normal 5-21 [facility] Comment on above: Performed By: #### 2 379320, 99163330, 2447062, 8593271 ####[facility] [address] [place] [address] Urea nitrogen/Creatinine [Mass ratio] 23 No Units High 10-20 [facility] Comment on above: Performed By: #### 2 581339, 43036683, 3755616, 0658539 ####[facility] [address] [place] [address] CBC w/ Auto Diffon Erythrocyte distribution width (RBC) [Ratio] 12.8 % Normal 10.9-14.2 [facility] Comment on above: Performed By: #### 2 449427, 97730235, 4739062, 5997329 ####[facility] [address] [place] [address] Hematocrit (Bld) [Volume fraction] 41.4 % Normal 37.7-49.0 [facility] Comment on above: Performed By: #### 2 695373, 78471898, 0622954, 4267504 ####[address] [address] Hemoglobin (Bld) [Mass/Vol] 14.0 g/dL Normal 13.5-17.5 [facility] Comment on above: Performed By: #### 2 746267, 85187797, 1708077, 4859709 ####[address] [address] MCH (RBC) [Entitic mass] 32.4 pg Normal 27.0-34.0 [facility] Comment on above: Performed By: #### 2 778417, 15893063, 9367547, 5940159 ####[address] [address] MCHC (RBC) [Mass/Vol] 33.9 g/dL Normal 31.4-36.0 [facility] Comment on above: Performed By: #### 2 389726, 73363464, 1873591, 6715331 ####[address] [address] MCV (RBC) [Entitic vol] 95.5 fL Normal 80.0-100.0 [facility] Comment on above: Performed By: #### 2 436686, 31180605, 2589722, 5867647 ####[address] [address] Platelet mean volume (Bld) [Entitic vol] 9.1 fL Normal 6.4-10.8 [facility] Comment on above: Performed By: #### 2 077548, 33563409, 3504253, 1423962 ####[address] [address] Platelets (Bld) [#/Vol] 255.0 E9/L Normal 150.0-500.0 [facility] Comment on above: Performed By: #### 2 157223, 20785795, 3812191, 8150201 ####[facility] [address] [place] [address] RBC (Bld) [#/Vol] 4.3 E12/L Normal 4.3-5.9 [facility] Comment on above: Performed By: #### 2 082466, 29290562, 2829265, 5479103 ####[facility] [address] [place] [address] WBC corrected for nucl RBC Auto (Bld) [#/Vol] 9.1 E9/L Normal 4.0-11.0 [facility] Comment on above: Performed By: #### 2 837979, 35972681, 4582389, 0202659 ####[facility] [address] [place] [address] Interdisciplinary Note - Jeremy e Manageron 03-22-2021 Interdisciplinary Note - Associate Professor Of Engineering Dr. Meneses rounded with patient earlier. CRM stopped by patients room, patient is resting with eyes closed. Per RN patient's trach downsized to size 6. Patient to have swallow eval done. CRM did not awaken patient. Anticipated discharge 03/23/2021 to [facility] with Dr Mason to follow. CRM to follow. CRM called patient;s daughter, Frandy and updated - Frandy is agreeable to [facility]. CRM proved contact information. Normal [facility] Comment on above: Result Comment: Elec tronically Signed By: Noemy STORY, Vandana Mckenzie\.adela\Date and Time Signed: 03/22/21 12:17 EDT Interdisciplinary Note - Spe ech Languageon 03-22-2021 Interdisciplinary Note - Speech Language Pt seen for Passy Carr Speaking Valve (PMSV) placement upon request of [...] swallow function. No further language needs. Normal [facility] Monitor Recordon 03-22-2021 Monitor Record [id number]#1.00CD:127 Normal [facility] Monitor Record [id number]#1.00CD:127 Normal [facility] Progress Note - Pharmacyon 1 Progress Note [...] 05:40 Lymph Auto: 9.8 % 03/22/21 05:40 Liberty Auto: 12.6 % 03/22/21 05:40 Eos Auto: [...] 03/22/21 05:40 MCV: 95.5 fL 03/22/21 05:40 Liberty Auto: 12.6 % 03/22/21 05:40 MPV: 9.1 fL 03/22/21 05:40 Neutro Auto: 75.2 % 03/22/21 05:40 Platelet: 255.0 E9/L 03/22/21 05:40 WBC: 9.1 E9/L 03/22/21 05:40 Liberty Absolute: 1.1 E9/L 03/22/21 05:40 Eos Absolute: 0.2 E9/L 03/22/21 05:40 Basophil Absolute: 0.1 E9/L 03/22/21 05:40 Neutro Absolute: 6.8 E9/L 03/22/21 05:40 Lymph Absolute: 0.9 E9/L Normal [facility] Progress Note - Pharmacy Pharmacy Medication Review [...] (03/22/21) MCHC: 33.9 (03/22/21) MCV: 95.5 (03/22/21) Liberty Absolute: 1.1 (03/22/21) Liberty Auto: 12.6 (03/22/21) MPV: 9.1 (03/22/21) Neutro Absolute: 6.8 (03/22/21) Neutro Auto: 75.2 (03/22/21) Phosphorus: 3.7 (03/16/21) Platelet: 255.0 (03/22/21) Potassium Lvl: 4.6 (03/22/21) RBC: 4.3 (03/22/21) RBC BF: 178 (03/18/21) RDW: 12.8 (03/22/21) Sed Rate Automated: 40 (03/18/21) Segs BF: 97 (03/18/21) Sodium Lvl: 131 (03/22/21) Uric Acid: 2.9 (03/17/21) WBC: 9.1 (03/22/21) WBC BF: 78419 (03/18/21) GI Ulcer Prophylaxis: famotidine 10 mg/mL IV Ninoska [F] 20 mg 2 mL, IV Push, BID Normal [facility] Progress Note-Physicianon Progress Note-Physician Assessment/Plan 68-year-old [...] the floor Speech and swallow consulted for Passy-Toyin valve followed by swallow evaluation CorPak removed [...] made to ensure accuracy, however, inadvertently computerized supervisor diagnostic mistakes may be present. Kelby Meneses Hospitalist [...] Lymph Auto: 9.8 % Low (03/22/21 05:40:00) Liberty Auto: 12.6 % (03/22/21 05:40:00) Eos Auto: 1.7 % (03/22/21 05:40:00) Basophil Auto: 0.7 % (03/22/21 05:40:00) Neutro Absolute: 6.8 E9/L (03/22/21 05:40:00) Lymph Absolute: 0.9 E9/L Low (03/22/21 05:40:00) Liberty Absolute: 1.1 E9/L High (03/22/21 05:40:00) Eos [...] camphor/menthol/methyl salicyl (more content not included)... Normal [facility] Comment on above: Result Comment: Elec tronically Signed By: ZAIRA CROOK, Kelby Cortes\.br\Date and Time Signed: 03/22/21 11:59 EDT Progress Note-Physician ENT POD 7 Pt resting comfortably AVSS Trach changed to Shiley 6CFS. Stoma healing well and widely patent. NG Removed Trach downsized without complication. Pt tolerated well. OK to transfer to the floor. Consult speech for Passey-Toyin valve (first) and bedside swallowing eval (second). Pt should be able to advance quickly to a regular diet as the obstruction that necessitated his trach will also limit possible aspiration. Planning can now proceed to d/c to rehab (I prefer the TCU if available). Normal [facility] Comment on above: Result Comment: Elec tronically Signed By: Juliette CROOK, Mukund Storey\.adela\Date and Time Signed: 03/22/21 07:49 EDT Vaccinationson 03-22-2021 Vaccinations [id number]#1.00CD:127 Normal [facility] eGFRon 03-22-2021 GFR/1.73 sq M.predicted among blacks MDRD (S/P/Bld) [Vol rate/Area] mL/min/{1.73_m2} Normal >=59 [facility] Comment on above: Order Comment: Order added by Discern Expert. Result Comment: eGFR is race adjusted. AA=. Performed By: #### 2 636605, 66366255, 5214791, 1835136 ####[facility] [address] [place] [address] GFR/1.73 sq M.predicted among non-blacks MDRD (S/P/Bld) [Vol rate/Area] mL/min/{1.73_m2} Normal >=59 [facility] Comment on above: Order Comment: Order added by Discern Expert. Result Comment: Referral Management Liaison karen kidney disease could be indicated at eGFR's of less than 60 mL/min/1.73m2. Kidney failure is indicated at less than 15 mL/min/1.73m2. Performed By: #### 2 912436, 30576510, 9551197, 3756056 ####[facility] [address] [place] [address] Progress Note - Pharmacyon 1 Progress Note [...] (03/20/21) MCHC: 34.8 (03/20/21) MCV: 94.2 (03/20/21) Liberty Absolute: 1.4 (03/20/21) Liberty Auto: 14.1 (03/20/21) MPV: 8.9 (03/20/21) Neutro Absolute: 7.4 (03/20/21) Neutro Auto: 74.5 (03/20/21) Phosphorus: 3.7 (03/16/21) Platelet: 254.0 (03/20/21) Potassium Lvl: 3.9 (03/20/21) RBC: 4.4 (03/20/21) RBC BF: 178 (03/18/21) RDW: 12.8 (03/20/21) Sed Rate Automated: 40 (03/18/21) Segs BF: 97 (03/18/21) Sodium Lvl: 134 (03/20/21) Uric Acid: 2.9 (03/17/21) WBC: 9.9 (03/20/21) WBC BF: 85649 (03/18/21) GI Ulcer Prophylaxis: famotidine 10 mg/mL IV Ninoska [F] 20 mg 2 mL, IV Push, BID Normal [facility] Progress Note-Physicianon Progress Note-Physician Assessment/Plan 68-year-old [...] made to ensure accuracy, however, inadvertently computerized supervisor diagnostic mistakes may be present. Kelby Meneses Hospitalist [...] Intake mL 180 540 -- Jevity 1.5 Josr 237 mL mL -- -- 210 docusate [...] 5 mg= 1 tab(s), Oral, Daily Normal [facility] Comment on above: Result Comment: Elec tronically Signed By: ZAIRA CROOK, Kelby Cortes\.br\Date and Time Signed: 03/21/21 11:33 EDT Auto Diffon 03-20-2021 Basophils/100 WBC (Bld) 0.4 % Normal 0.0-2.0 [facility] Comment on above: Order Comment: Order Added by Discern Expert. Performed By: #### 2 136571, 1187428, 73069434, 8122468 ####[address] [address] Basophils/Leukocytes Auto (Bld) [Pure # fraction] 0.0 E9/L Normal 0.0-0.2 [facility] Comment on above: Order Comment: Order Added by Discern Expert. Performed By: #### 2 477418, 4155506, 54628544, 5682921 ####[address] [address] Eosinophils/100 WBC (Bld) 2.0 % Normal 0.0-8.0 [facility] Comment on above: Order Comment: Order Added by Discern Expert. Performed By: #### 2 263549, 6548066, 29784271, 1833688 ####[address] [address] Eosinophils/Leukocyt es Auto (Bld) [Pure # fraction] 0.2 E9/L Normal 0.0-0.5 [facility] Comment on above: Order Comment: Order Added by Discern Expert. Performed By: #### 2 084596, 2182075, 42318082, 3909149 ####[address] [address] Lymphocytes/100 WBC (Bld) 9.0 % Low 14.0-50.0 [facility] Comment on above: Order Comment: Order Added by Discern Expert. Performed By: #### 2 366289, 7322940, 20668506, 2234022 ####[address] [address] Lymphocytes/Leukocyt es Auto (Bld) [Pure # fraction] 0.9 E9/L Low 1.0-4.0 [facility] Comment on above: Order Comment: Order Added by Discern Expert. Performed By: #### 2 715918, 3171035, 68375687, 5987431 ####[facility] [address] [place] [address] Monocytes/100 WBC (Bld) 14.1 % High 4.0-14.0 [facility] Comment on above: Order Comment: Order Added by Discern Expert. Performed By: #### 2 786710, 9464634, 17923693, 4877133 ####[address] [place] [address] Monocytes/Leukocytes Auto (Bld) [Pure # fraction] 1.4 E9/L High 0.2-1.0 [facility] Comment on above: Order Comment: Order Added by Discern Expert. Performed By: #### 2 127679, 2444659, 89634809, 7239136 ####[address] [place] [address] Neutrophils/100 WBC (Bld) 74.5 % Normal 36.0-75.0 [facility] Comment on above: Order Comment: Order Added by Discern Expert. Performed By: #### 2 325103, 6526504, 26704782, 8872013 ####[address] [place] [address] Neutrophils/Leukocyt es Auto (Bld) [Pure # fraction] 7.4 E9/L Normal 2.0-7.5 [facility] Comment on above: Order Comment: Order Added by Discern Expert. Performed By: #### 2 993682, 1186074, 06703280, 5254799 ####[facility] [address] [place] [address] BMPon 03-20-2021 Anion gap [Moles/Vol] 12 mmol/L Normal 6-16 [facility] Comment on above: Performed By: #### 2 964483, 9894440, 74549601, 9429278 ####[address] [place] [address] Calcium [Mass/Vol] 8.6 mg/dL Low 8.9-11.1 [facility] Comment on above: Performed By: #### 2 215020, 9250117, 85110800, 4973268 ####[facility] [address] [place] [address] Chloride [Moles/Vol] 96 mmol/L Low 101-111 [facility] Comment on above: Performed By: #### 2 357111, 7182061, 29549895, 5965739 ####[facility] [address] [place] [address] CO2 [Moles/Vol] 30 mmol/L Normal 21-[address] [facility] Comment on above: Performed By: #### 2 440719, 7871191, 47212631, 4612483 ####[facility] [address] [place] [address] Creatinine [Mass/Vol] 0.5 mg/dL Normal 0.5-1.3 [facility] Comment on above: Performed By: #### 2 624830, 0187638, 49756347, 9119928 ####[facility] [address] [place] [address] Glucose [Mass/Vol] 143 mg/dL Normal 55-199 [facility] Comment on above: Result Comment: If t his glucose result represents a fasting glucose, interpretation should refer to the following reference range: 55-99 mg/dL Performed By: #### 2 386235, 4848064, 35273472, 8286181 ####[facility] [address] [place] [address] Potassium [Moles/Vol] 3.9 mmol/L Normal 3.5-5.3 [facility] Comment on above: Performed By: #### 2 113657, 6916508, 05969658, 6581931 ####[facility] [address] [place] [address] Sodium [Moles/Vol] 134 mmol/L Low 135-145 [facility] Comment on above: Performed By: #### 2 884666, 5590340, 21843520, 7264717 ####[facility] [address] [place] [address] Urea nitrogen [Mass/Vol] 16 mg/dL Normal 5-21 [facility] Comment on above: Performed By: #### 2 950183, 7087961, 12396202, 9816496 ####[facility] [address] [place] [address] Urea nitrogen/Creatinine [Mass ratio] 32 No Units High 10-20 [facility] Comment on above: Performed By: #### 2 414748, 5524114, 34206930, 4216002 ####[facility] [address] [place] [address] CBC w/ Auto Diffon Erythrocyte distribution width (RBC) [Ratio] 12.8 % Normal 10.9-14.2 [facility] Comment on above: Performed By: #### 2 828382, 5257272, 33203641, 8254307 ####[facility] [address] [place] [address] Hematocrit (Bld) [Volume fraction] 41.4 % Normal 37.7-49.0 [facility] Comment on above: Performed By: #### 2 657805, 2287945, 82967048, 3579005 ####[facility] [address] [place] [address] Hemoglobin (Bld) [Mass/Vol] 14.4 g/dL Normal 13.5-17.5 [facility] Comment on above: Performed By: #### 2 460647, 0313863, 64004492, 9300339 ####[facility] [address] [place] [address] MCH (RBC) [Entitic mass] 32.8 pg Normal 27.0-34.0 [facility] Comment on above: Performed By: #### 2 328206, 2528237, 74924931, 1961248 ####[facility] [address] [place] [address] MCHC (RBC) [Mass/Vol] 34.8 g/dL Normal 31.4-36.0 [facility] Comment on above: Performed By: #### 2 856189, 7664415, 32537084, 8444958 ####[facility] [address] [place] [address] MCV (RBC) [Entitic vol] 94.2 fL Normal 80.0-100.0 [facility] Comment on above: Performed By: #### 2 072606, 6339200, 40171172, 5518613 ####[address] [address] Platelet mean volume (Bld) [Entitic vol] 8.9 fL Normal 6.4-10.8 [facility] Comment on above: Performed By: #### 2 668899, 4184432, 32792031, 9242504 ####[address] [address] Platelets (Bld) [#/Vol] 254.0 E9/L Normal 150.0-500.0 [facility] Comment on above: Performed By: #### 2 908667, 2517983, 34069042, 2811405 ####[address] [address] RBC (Bld) [#/Vol] 4.4 E12/L Normal 4.3-5.9 [facility] Comment on above: Performed By: #### 2 513847, 5498709, 34089168, 5702864 ####[address] [address] WBC corrected for nucl RBC Auto (Bld) [#/Vol] 9.9 E9/L Normal 4.0-11.0 [facility] Comment on above: Performed By: #### 2 381464, 5095295, 89835732, 5130666 ####[address] [address] Progress Note - Pharmacyon 1 Progress Note [...] GI Prophylaxis: pepcid 20 mg IV BID [facility] Progress Note-Physicianon Progress Note-Physician ENT POD [...] to be ordered to be availble morning [facility] Comment on above: Result Comment: Elec [...] Ordered: Sbsq Hospital Care/Day Moderate 25 Minutes [address] 2. Swelling of left knee joint (M25.462: [...] made to ensure accuracy, however, inadvertently computerized supervisor diagnostic mistakes may be present. Kelby Meneses Hospitalist [...] Lymph Auto: 9 % Low (03/20/21 05:47:00) Liberty Auto: 14.1 % High (03/20/21 05:47:00) Eos Auto: 2 % (03/20/21 05:47:00) Basophil Auto: 0.4 % (03/20/21 05:47:00) Neutro Absolute: 7.4 E9/L (03/20/21 05:47:00) Lymph Absolute: 0.9 E9/L Low (03/20/21 05:47:00) Liberty Absolute: 1.4 E9/L High (03/20/21 05:47:00) Eos [...] AGAP: 12 (more content not included)... Normal [facility] Comment on above: Result Comment: Elec tronically Signed By: Kelby MENESES MD\.br\Date and Time Signed: 03/20/21 07:47 EDT eGFRon 03-20-2021 GFR/1.73 sq M.predicted among blacks MDRD (S/P/Bld) [Vol rate/Area] mL/min/{1.73_m2} Normal >=59 [facility] Comment on above: Order Comment: Order added by Discern Expert. Result Comment: eGFR is race adjusted. AA=. Performed By: #### 2 377867, 9683310, 80989860, 4146571 ####[facility] [address] [place] [address] GFR/1.73 sq M.predicted among non-blacks MDRD (S/P/Bld) [Vol rate/Area] mL/min/{1.73_m2} Normal >=59 [facility] Comment on above: Order Comment: Order added by Discern Expert. Result Comment: Referral Management Liaison karen kidney disease could be indicated at eGFR's of less than 60 mL/min/1.73m2. Kidney failure is indicated at less than 15 mL/min/1.73m2. Performed By: #### 2 590896, 8435151, 28204676, 9394971 ####[address] [place] [address] Coding Summary.on 03-19-2021 Coding Summary. [id number] Gh0bWw +PGhlYWQ+VZ9XZFPaT00cmDXxa O3LQ9oFSE8SYGCLIZIQZH4KNP4 vuHV6WUjbS5SansCm DmpcxYFqNA51IYo4JMP9pWgeDN dblY9wjDZmZ1j0IjTyFZ51iE20 JUtmHAAvMiH4PjIuqizcwZHz B3uiOvTbwRDtZhl+PHRhYmxlIH hyLOCvQUwwQDIoDkQrhCszIV3z Nm4fGJKyQCLtnIsfpSWlXdPs k8spBJWiZBzlGX6jiFsaC2FlgH Q7OCKku6o3Jz18nJX+PHRkIHN0 eHicXGivn674YjXfs5feFOM3 oOMuRJusWJU6F74iz8B9YQOlLK MqSJU8pEW1dN2rpNehtnfiX0Lv qAGsUpP6EEP0bFApnJ5epVje yiqpoR6bVpw+A94FYP4ZXWGDET 8PPqw9X6OpDdvplOH+VX24INJz RL23tKUxpJJcz1zosLl5QiVh PDEzOEH0wMsbVUgpo0UlZTKoL8 0fzFXhh4V8GNAyaPqjoNZcZdRr dEC3xV2iWPgocbbtt6fqolic Ddtbv4iujq28yU88U71lQTheNX BiVVL9DSAkBZKsbHdzhs3ixO7x Ii8+BMjsw0fok4jugMp5IlQc CMCjznQdvBazZXF2b0LrGh47H7 IdwBzua7IpOpb1pm88mFZwe8U4 jTI8NWyfMBOwwE7cKCyvWiC0 JBKvRcVoeX44aILhMCxpRn0qeG tnvDllWW3hNCEsljyeXZJtnU2x KGXffYQgeMxqNI4nEAWmsobu d454AnAoDVL4GFEspLWzH8CrmR 5qPiMlPZCfUXZwQ4FajWOqJHzx N009FWhmFeO6HRInvcWwL4Ei MROxuKsiVvI2z5Z6Pf9Eu7Nvzu meUTZ8MTptRWWgYrJiKoOkFqR8 I2ZvYis5ZUJndIpzFT9jI9Xx MSLwvxeuammrdNP0CPOsAGCicE 31dUYaUIttKi5ks0X3u930NSFy BDSktU28Kk6svLttAOZtiAGG lW8pvwcdd8ldmcasPuRaXVUfVQ d4OBn6GRGubGqeWrAtQNI0QrI0 GYR7uKKoaN1akRroxrclfB5x Oyc+H46jtJ7lIIY3NXH7kgccCL PsmvClMF07FQ95T9NiVzypmSTs bGU+PMEkztActUavBE0iOjDt r7hol6HoWAtgB1RlELQtYKqlWe f0GBGcMEN0kYN6aA8nTYIqNYgw s9Z5bFK4K3GwxpHsxy4jc6ok PJFnZCixE51zeMUtq1T4OJWjxQ I2OCDkwBtcGzZwlT22Wfp+PGNv dEsan8ZsDrcjn0llx1ypnWl6 XtRbCFBeshPxcRtiLNZ5v3WwGc 63M74tZJjqZAWkKMXlEZAmSUZa bMauke9agU7rQl1+PGNvbCB3 qBU4jC3nHPWhUkV1VLdnU657Ns SotFGcTjnqf2kjv5lfqUj3UwZj SKRxhhGlkCbrMFB5v9OwSz46 R26bUJslNUSzXMIwCBXlOYNhgL pmky3ttW5zAu4+LL2wn3ncou04 gM03fIC+CYElXJL3bUdxGPna HWZgyC9qMAglEcA0RAMbVqOidI 75gZFlZQouEi3qtAkiwWowMA2o KXDcvsfhi821JhOlp9akCQOy eITbKWirINB9B42nl7V5GXUrMI CuLXL1pHY7hH7iyHgitorfrDIt uVgkovXppHfeSAzhOXqiS059 IHRvcDsnPlBhdGllbnQgTmFtZT z0Y3EoFhz2RVLteTlrOK5vcDUe GBrhFy5scUowsAxoSC1pQNMt sokux025LwHuf5xiJOAstLBrEC gvPHS2W14we6U2PFMhZPKeUMO2 iEJ3lX8tnCvsonemqGPieJkt fkLukNglVTttNDkjH352NFAjwD wzUxSrqfYpRXKhjPV9SC08KE25 nYImy3S8hHC1L2JxUJBrptqb fniogES8VWAnUUXwjX44Ey7xdW riXd4yXVXoIVV9ETIgeVLrD6Fg iV3dMyMdXZUyEPIqT2GwfPCj YVyjB981RYfjPoA0GLKqmbOnN0 GiMSAmrSprQjY0z5W0Pk7AK8P4 WU52CE66xPFrp9P1aAU4L3Bo YVTdazytlsspcYZ0OUAoNHQaxC 22Se6ijDwaJe2wXCQeOKC5TVMh hKWbI1RnpS2iEwJuQKGrTSWu D0GcfSVqUHoaR311ASyfSoY4WY SfbmHjC3HtJDPwuFhaOzJ3c5M9 Kb3MFZp6CG87VR57pPFej0T5 uJI9Y4JlFXNqnmuepcwxhIK9QT WtNQPloS36Lh3rpOkzKp2xWEHs LLD0OPRefSEhH9QyuY4pPuNt TKIyPXQfN5EjcSVtBChgN342GN kbXaV0ZWIgcdSuQ7EbXDRlyBzy QjZ4o6V9Nj0PQOYtRB48WIC5 cXE4PK20RZ16C8DlGqsmePEsaQ U+PHRhYmxlIHdpZHRoPScxMDAl MfGmiGeaBR4tXf0aNDRaIZFu tBmhpCXhXvJyw9fdIPCkAAsmBJ 0swBbwW4MehHH5GZIlm0i2Yn69 D39xU6LysPI+NNEhyIG9pWI9 wQ5dGkUoZmE0PQokK615QoDixI QtXtbgq8jse2hxvKq8SqU9ETAw orWgkDmmWBQ8i2EpDv04D08t IHdpZHRoPSIxNSUiIHZhbGlnbj 6xzE2pCf6+PWAfpNG4yLY7bL2v EjHpSsM4CPcnF502XkIfyMMd Mucll0ock7cupHf5QiVnYYZblj DjwRdhDKV9a3QhKw17X2OlrEuq j6MpEhg9im15fPFuj3Z3xMH9 L0VkJSQnpjtzrQMvyNswAV0xML LkcltoCJYfiU9sVNQeQ0l1ElMo LsR6GZgbA1JndeZ3JEUiuKJl ZJzkHPM4L91zv2A9PXReRJIiMJ U7uKV2qL9nhFelgbfgvUMurRyo gnMxbWulKEemUAomS311FYXt uXvaUZRofM4ePMImwOMfwHidNW 8uBGYnlaegOr1ENQ4wPRAXKOHC RVMgTDwvdGQ+IWAzHIX9wUjt GBsmFPNaoJ2vEUToZ2r5QuMpGu I3GFtoD0ZsJZViqjbmMu81cW5j JjHbSjJ0IIhcY8RiosK9XUCc gCTiYSyoCMA4B34pa0X2CUHsER StSJJ6tCV1iK0izGeickpafTAi aBccycWkbGcgYCwpEClmG694 PWDovModNrLbZxCtRoZ7ADS2U4 HkGzp3XXZhqVtvHJ4olWPsLSjz Co7mpUasvTjqVU9iXGRniqso JAQnrL7eDQAnyQYxnVidBB6gSP Yzychhs781HnHkLBH2DBOyyUZe S0AudX6lSnJgMSZvNVSdX2Ma qHAgOFciJ664LIsrHsI1SCTrmm QbU5QsCFKnxCafHoN2w5V8Pd05 NyBZZWFyczwvdGQ+PHRkIHN0 mKcyWVanYSGsuF2oYCKhH3d5Bd DiPuK8SZipC7JmXWHauphyBn10 wB4eEaGyEaA3DHcxD0FmlxK9 FAPxiHDbZPehTOO6F66sc6F7FV PnVLKcQSB9qTX2bZ2rsYmfdvbn bGVmdDsgdmVydGljYWwtYWxp S362KWThkSviUf7pyKU1Q9KuXc b4TDNgwIqoSK0zcJBqHZxwDc6a xEujpEtxKS0dQPDtvjhbHGXd tV6kFEMryGColSqzZH4fLCKotm ucv581EoWuDYW0ALEtvGAuK1Ps kZ7bKdBgLGGrKNKtB4OceTUx JXvxH151MYlbIuH1CWRrmeBkS4 DzHBVoyBcbSnY0v4D3Hi5GbIIa JWCfFO26BY23ZI97H7ScCwva dGFibGU+PHRhYmxlIHdpZHRoPS siGBNrXtTreOduDV4eBy4fUMOc CRTnbGxddGDxAcIqj9ntIFVv MZppQC4gxXklO0OzvYS8PPWho9 l1Sa45B02cJ2HyzVT+PGNvbCB3 rEY5wY5gVmWqZtH0YDzyO389 OiIunUHfEbwir3bbt4gemOz1Fj JvEUMjhvAkrRzcPEZ2x3MjQb60 H67sOIfzKXOiHCLdDSLgHXFw bTbivk9voF9iCb9+YBSvwVN0sF P9cL1yOiIbLmF1XKymV248HbNu nBJxXclyB62aS9TrgLW+PHRy Odt6CPBeyKhbNO0tlMWjCUtcXn 5hWVD5PnDwGiMsBNzhX6YvJOTz sobfcspjxVN5IIRiHVSneE19 Uu3kxDjtWi9dZPMfNYE2IEExeF KlK3FrjQ1pKsBpLHQpUQThE3Wj aWGiOZqtE602NGgaMkD6ZOQv hqWjK6WnJUXbiHujFmS1t2W4Rz 7QtIbinZSuMX2sBrTdQTx8T2Sn Mbd6WTXlhNlqJX3zlUWlBAvq Ov8iwIergLzlFP3nBCWqjdiyy2 73WnQde3dbMMEzfVLcGXrxPFW8 F09jz7F2AIRgFTXlINE5vAK2 sX8wsDvpvojnxNLtnEqodvHohJ cqABmiHMcjW052CXVaoAscEzTF Lyy4B5IoSau5ZICztMekLS4r rNMtMQjhHm9heUancBdyQY1nKZ Wicsvow057CwRdl0duNZRhfFUd URpdRAS4F16kf4K4QLFiPSDc JPH3yUL1wB8zyYhkflskjEEzzA zeodVxrZqrKCaaFLatB913LXXq iOdiAi3HEsp6H4DhKsu4BCLh lYrcBO2zyRBeUQdfTo5aiIwgfV uzUB3hNVGidlkgl718PlAcz1ha ZYYtcWEmULatWFM6R52ho6V6 WERqMWUgYRB1yIC3sM1bjQzpms ogbGVmdDsgdmVydGljYWwtYWxp G993VAOymVczZzYjaJGeZicf dGQ+VS56ig94U8SmAsxtPuv0FJ TnZPL2aDH5yS1uHQFzSWcdk5N3 tCQ5O6JpmpRzzv4ae1rgFTXz ZTog (more content not included)... Normal [facility] Crystal Examon 03-19-2021 Crystal No pathologic maribel ls identified by light and polarized microscopy. Invalid Interpretation Code [facility] Comment on above: Performed By: #### 2 [id number], [id number], [id number] ####[facility] [address] [place] [address] Crystal Spec Source Knee L Invalid Interpretation Code [facility] Comment on above: Performed By: #### 2 921235, [id number], [id number] ####[facility] [address] [place] [address] Crystal Spec Type Synovial fluid Normal [facility] Comment on above: Performed By: #### 2 999676, [id number], [id number] ####[facility] [address] [place] [address] Interdisciplinary Note - Jeremy e Manageron 03-19-2021 Interdisciplinary Note - Associate Professor Of Engineering Home Health Zvyw-xu-Nrka Encounter Type: Medicare Reason for Vnos-pv-Octh (Diagnosis): s/p tracheotomy Encounter Detail I certify that I, or an advanced practice nurse in collaboration with me or a physician intellectual property legal assistant under my supervision conducted and documented a sajg-lg-rfcn (F2F) encounter with the consumer. My clinical findings support the need for the following service(s). Halfway: Yes Physical Therapy: _ Occupational Therapy: _ Speech Therapy: _ Dietitian Chief: _ Automotive Dismantler: _ Need for Home Health Services I certify based on my findings that... a. Home health services are medically necessary for this patient, including either intermittent half-way and/or therapy, AND b. The patient cannot [...] -_ _ _ _ _ _ _ [facility] Comment on above: Result Comment: Elec tronically Signed By: Vandana Salguero RN\.br\Date and Time Signed: 03/19/21 12:29 EDT\.br\Electronically Co-Signed By: ZAIRA CROOK, Kelby Cortes\.br\Date and Time Co-Signed: 03/19/21 12:37 EDT Interdisciplinary Note - Associate Professor Of Engineering Dr. Meneses rounded with patient earlier. CRM stopped by patients room, Patient is in bed resting with eyes closed. CRM did not awaken patient. Patient has trach shield on at this time. Per RN plan to downsize trach tomorrow. Patient is set up with [facility] 03/22/2021. CRM to follow. [facility] Comment on above: Result Comment: Elec [...] flush 2180 cc. Meets goal, POC extended. [facility] Comment on above: Result Comment: Elec tronically Signed By: Michelle FLETCHER, MALIK., Blank\.br\Date and Time Signed: 03/19/21 08:23 EDT Main OR Intraoperative Recor don 03-19-2021 Main OR Intraoperative Record IntraOp Document Type FT Summary Primary Physician: Mukund Christy MD Finalized Date/Time: 03/19/21 09:51:11 Pt. Name: LAZARO PETTY /Sex: 1955 Male Med Rec #: [id number] Physician: Mukund Christy MD Financial #: [id number] Pt. Type: I Room/Bed: [place] [address] Admit/Disch: 03/15/21 10:59:05 - Institution: Case Times [...] Benjamin Role Performed Anesthesiologist Surgeon - Primary LEASING CONSULTANT/ Picture Frames Inspector Time In 03/15/21 12:49:00 03/15/21 12:56:00 03/15/21 12:49:00 Time Out 03/15/21 14:36:00 03/15/21 14:27:00 03/15/21 14:36:00 Procedure LARYNGOSCOPY MICRO(.) LARYNGOSCOPY MICRO(.) LARYNGOSCOPY MICRO(.) Comments Dr. Cannon supervising Last Modified By: Asiya RN, Abigail Braden RN, Abigail Tate RN 03/15/21 14:36:16 03/15/21 14:36:16 03/15/21 14:36:16 Entry 4 Entry 5 Entry 6 Case Attendee Asiya STORY, Abigail Canales RN, Munira Dominguez LEASING CONSULTANT, Donna Woods Role Performed Concrete Building Assembler - Primary Concrete Building Assembler - Primary Scrub - Primary Time In 03/15/21 12:49:00 03/15/21 12:49:00 03/15/21 12:49:00 Time Out 03/15/21 14:36:00 03/15/21 14:36:00 03/15/21 14:36:00 Procedure LARYNGOSCOPY MICRO(.) LARYNGOSCOPY MICRO(.) LARYNGOSCOPY MICRO(.) Comments Orientation Precepting Orientation Last Modified By: Asiya STORY, Abigail Braden RN, Abigail Braden RN, Abigial Bonilla 03/15/21 14:36:16 03/15/21 14:36:16 03/15/21 14:36:16 Entry 7 Entry 8 Case Attendee Yennifer Carter RN, CNOR, Yamilet Guzman 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 Normal [facility] Message from Medicareon 03-09 Message from Medicare [id number]#[id number]:127 Normal [facility] Monitor Recordon 03-19-2021 Monitor Record [id number]#1.00CD:127 Normal [facility] Monitor Record [id number]#1.00CD:127 Normal [facility] Progress Note - Pharmacyon 1 Progress Note [...] No Lab Work Done on Admit Date [facility] Progress Note-Physicianon Progress Note-Physician Assessment/Plan 68-year-old [...] made to ensure accuracy, however, inadvertently computerized supervisor diagnostic mistakes may be present. Kelby Meneses Hospitalist [...] BF: 178 High (03/18/21 17:55:00) WBC BF: 42694 High (03/18/21 17:55:00) Segs BF: 97 % [...] 5 mg= 1 tab(s), Oral, Daily Normal [facility] Comment on above: Result Comment: Elec tronically Signed By: ZAIRA CROOK, Kelby P\.br\Date and Time Signed: 03/19/21 13:26 EDT Progress Note-Physician ENT POD 4 Pt resting comfortably. Knee pain improved somewhat after aspiration last evening AVSS Trach in place and stable Pt stable and doing well. Appreciate Dr Johnson' assistance [facility] Comment on above: Result Comment: Elec [...] Severity Not Documented Bee Stings- Swelling. Normal [facility] Comment on above: Result Comment: Elec tronically Signed By: Benjamin Johnson DO\.br\Date and Time Signed: 03/19/21 07:03 EDT Auto Diffon 03-18-2021 Basophils/100 WBC (Bld) 0.6 % Normal 0.0-2.0 [facility] Comment on above: Order Comment: Order Added by Discern Expert. Performed By: #### 2 598987, 4098490, 7413367, 30717608, 84129595, 2823983, 5234705 #### [facility] [address] [place] [address] Basophils/Leukocytes Auto (Bld) [Pure # fraction] 0.1 E9/L Normal 0.0-0.2 [facility] Comment on above: Order Comment: Order Added by Discern Expert. Performed By: #### 2 912450, 3118130, 7197454, 95516448, 46463547, 2137366, 4998593 #### [facility] [address] [place] [address] Eosinophils/100 WBC (Bld) 1.4 % Normal 0.0-8.0 [facility] Comment on above: Order Comment: Order Added by Discern Expert. Performed By: #### 2 575498, 5317284, 3888384, 93396597, 13466854, 1647634, 8332704 #### [facility] [address] [place] [address] Eosinophils/Leukocyt es Auto (Bld) [Pure # fraction] 0.1 E9/L Normal 0.0-0.5 [facility] Comment on above: Order Comment: Order Added by Discern Expert. Performed By: #### 2 303632, 6273350, 3896720, 02156221, 97781148, 0815085, 2576182 #### [facility] [address] [place] [address] Lymphocytes/100 WBC (Bld) 8.5 % Low 14.0-50.0 [facility] Comment on above: Order Comment: Order Added by Discern Expert. Performed By: #### 2 192120, 3695879, 4665448, 76594444, 28228019, 3883904, 5289478 #### [facility] [address] [place] [address] Lymphocytes/Leukocyt es Auto (Bld) [Pure # fraction] 0.9 E9/L Low 1.0-4.0 [facility] Comment on above: Order Comment: Order Added by Discern Expert. Performed By: #### 2 745715, 9769284, 3866361, 34461660, 46285402, 1557985, 3762442 #### [facility] [address] [place] [address] Monocytes/100 WBC (Bld) 11.0 % Normal 4.0-14.0 [facility] Comment on above: Order Comment: Order Added by Discern Expert. Performed By: #### 2 971887, 3470186, 5661005, 03243839, 57865468, 2424748, 9161372 #### [facility] [address] [place] [address] Monocytes/Leukocytes Auto (Bld) [Pure # fraction] 1.2 E9/L High 0.2-1.0 [facility] Comment on above: Order Comment: Order Added by Deshawn Expert. Performed By: #### 2 579614, 0951706, 0212809, 84280258, 32725728, 0318924, 3537693 #### [facility] [address] [place] [address] Neutrophils/100 WBC (Bld) 78.5 % High 36.0-75.0 [facility] Comment on above: Order Comment: Order Added by Discern Expert. Performed By: #### 2 955380, 1805243, 2028403, 77160404, 30150687, 7191966, 1982061 #### [facility] [address] [place] [address] Neutrophils/Leukocyt es Auto (Bld) [Pure # fraction] 8.3 E9/L High 2.0-7.5 [facility] Comment on above: Order Comment: Order Added by Discern Expert. Performed By: #### 2 916243, 9751951, 8988970, 29719479, 00089292, 3730250, 4481811 #### [facility] [address] [place] [address] BF Cell Cnton 03-18-2021 Clarity (Unsp spec) Cloudy Normal [facility] Comment on above: Performed By: #### 2 596550, 78676745, 83694489 ####[facility] [address] [place] [address] Color (Body fld) YELLOW Normal [facility] Comment on above: Performed By: #### 2 453018, 13916644, 93124638 ####[facility] [address] [place] [address] RBC Auto (Body fld) [#/Vol] 178 High <=0 [facility] Comment on above: Performed By: #### 2 928490, 91197837, 12183146 ####[facility] [address] [place] [address] Specimen type Nom (Spec) Synovial fluid Normal [facility] Comment on above: Performed By: #### 2 250057, 59847002, 04200435 ####[facility] [address] [place] [address] [place] [address] High <=0 [facility] Comment on above: Performed By: #### 2 541786, 03266681, 02263268 ####[facility] [address] [place] [address] BF Diffon 03-18-2021 Lymphocytes Manual cnt (Body fld) [#/Vol] 3 % Invalid Interpretation Code [facility] Comment on above: Order Comment: Order Added By Discern Expert. Performed By: #### 2 666401, 83836461, 67069659 ####[facility] [address] [place] [address] Segmented neutrophils Manual cnt (Body fld) [#/Vol] 97 % Invalid Interpretation Code [facility] Comment on above: Order Comment: Order Added By Discern Expert. Performed By: #### 2 531730, 34646934, 09974586 ####[facility] [address] [place] [address] BMPon 03-18-2021 Anion gap [Moles/Vol] 14 mmol/L Normal 6-16 [facility] Comment on above: Performed By: #### 2 150956, 7716515, 8360049, 60128638, 61616504, 9981427, 3950720 #### [facility] [address] [place] [address] Calcium [Mass/Vol] 8.5 mg/dL Low 8.9-11.1 [facility] Comment on above: Performed By: #### 2 046196, 2698759, 8199405, 82054034, 49651714, 6172008, 9104791 #### [facility] [address] [place] [address] Chloride [Moles/Vol] 93 mmol/L Low 101-111 [facility] Comment on above: Performed By: #### 2 021110, 2915105, 8348155, 58065616, 48435643, 8219224, 8049289 #### [facility] [address] [place] [address] CO2 [Moles/Vol] 29 mmol/L Normal 21-[address] [facility] Comment on above: Performed By: #### 2 148517, 1125588, 8101040, 57218267, 97712270, 3193005, 9008632 #### [facility] [address] [place] [address] Creatinine [Mass/Vol] 0.7 mg/dL Normal 0.5-1.3 [facility] Comment on above: Performed By: #### 2 158150, 8237078, 0087766, 26436238, 08319943, 1757170, 7784291 #### [facility] [address] [place] [address] Glucose [Mass/Vol] 132 mg/dL Normal 55-199 [facility] Comment on above: Result Comment: If t his glucose result represents a fasting glucose, interpretation should refer to the following reference range: 55-99 mg/dL Performed By: #### 2 732763, 6834008, 5994064, 74209771, 76871761, 2942427, 6136073 #### [facility] [address] [place] [address] Potassium [Moles/Vol] 3.5 mmol/L Normal 3.5-5.3 [facility] Comment on above: Performed By: #### 2 477448, 8293287, 1310233, 37783471, 97448166, 5090638, 9860069 #### [facility] [address] [place] [address] Sodium [Moles/Vol] 132 mmol/L Low 135-145 [facility] Comment on above: Performed By: #### 2 580921, 5641749, 1594621, 32610519, 86659701, 1733900, 6805025 #### [facility] [address] [place] [address] Urea nitrogen [Mass/Vol] 11 mg/dL Normal 5-21 [facility] Comment on above: Performed By: #### 2 381421, 7345010, 5657978, 33212127, 35931740, 9179538, 5160967 #### [facility] [address] [place] [address] Urea nitrogen/Creatinine [Mass ratio] 16 No Units Normal 10-20 [facility] Comment on above: Performed By: #### 2 219246, 1809311, 7096965, 33804202, 60300585, 8564308, 5246641 #### [facility] [address] [place] [address] CBC w/ Auto Diffon Erythrocyte distribution width (RBC) [Ratio] 12.8 % Normal 10.9-14.2 [facility] Comment on above: Performed By: #### 2 149651, 1812703, 4656115, 25252488, 73805509, 8458913, 6974261 #### [facility] [address] [place] [address] Hematocrit (Bld) [Volume fraction] 43.3 % Normal 37.7-49.0 [facility] Comment on above: Performed By: #### 2 121982, 0298268, 1665373, 23515071, 57933252, 9162536, 1873615 #### [facility] [address] [place] [address] Hemoglobin (Bld) [Mass/Vol] 14.8 g/dL Normal 13.5-17.5 [facility] Comment on above: Performed By: #### 2 748585, 7870989, 4897642, 05184532, 17275914, 7589085, 8219481 #### [facility] [address] [place] [address] MCH (RBC) [Entitic mass] 32.5 pg Normal 27.0-34.0 [facility] Comment on above: Performed By: #### 2 894463, 8028200, 3480435, 43464064, 01462258, 7302675, 0449870 #### [facility] [address] [place] [address] MCHC (RBC) [Mass/Vol] 34.3 g/dL Normal 31.4-36.0 [facility] Comment on above: Performed By: #### 2 404120, 1088787, 5519959, 28050704, 85158801, 1449652, 0431682 #### [facility] [address] [place] [address] MCV (RBC) [Entitic vol] 94.9 fL Normal 80.0-100.0 [facility] Comment on above: Performed By: #### 2 909511, 8730552, 0903152, 26759849, 49683621, 9925983, 1172836 #### [facility] [address] [place] [address] Platelet mean volume (Bld) [Entitic vol] 8.2 fL Normal 6.4-10.8 [facility] Comment on above: Performed By: #### 2 941649, 5622525, 4417178, 71602359, 16068835, 5971726, 6477895 #### [facility] [address] [place] [address] Platelets (Bld) [#/Vol] 216.0 E9/L Normal 150.0-500.0 [facility] Comment on above: Performed By: #### 2 684207, 7745440, 0779616, 57768857, 09242099, 7981750, 5262108 #### [facility] [address] [place] [address] RBC (Bld) [#/Vol] 4.6 E12/L Normal 4.3-5.9 [facility] Comment on above: Performed By: #### 2 654937, 7886613, 7684102, 85363710, 60100332, 9353635, 9389349 #### [facility] [address] [place] [address] WBC corrected for nucl RBC Auto (Bld) [#/Vol] 10.6 E9/L Normal 4.0-11.0 [facility] Comment on above: Performed By: #### 2 090475, 9899686, 5353442, 74631929, 98554282, 4420561, 5031599 #### [facility] [address] [place] [address] CRPon 03-18-2021 CRP [Mass/Vol] 20.4 mg/dL High <=1.9 [facility] Comment on above: Performed By: #### 2 079689, 6888247, 9598372, 38160185, 10127933, 1336538, 9692787 #### [facility] [address] [place] [address] Magnesiumon 03-18-2021 Magnesium [Mass/Vol] 2.1 mg/dL Normal 1.3-2.4 [facility] Comment on above: Performed By: #### 2 813667, 0517595, 1808130, 94406525, 11896259, 6682315, 3787354 #### [facility] [address] [place] [address] Monitor Recordon 03-18-2021 Monitor Record [id number]#[id number]:127 Normal [facility] Progress Note - Pharmacyon 1 Progress Note [...] Lab Work Done on Admit Date Normal [facility] Progress Note-Physicianon Progress Note-Physician Patient: LAZARO [...] Severity Not Documented Bee Stings- Swelling. Normal [facility] Comment on above: Result Comment: Elec [...] made to ensure accuracy, however, inadvertently computerized supervisor diagnostic mistakes may be present. Dr. Joe Mcintosh [...] differential and chondro-calcinosis seen on X-ray. Normal [facility] Comment on above: Result Comment: Elec [...] airway obstruction should trach become dislodged Normal [facility] Comment on above: Result Comment: Elec [...] Problems High blood pressure / SNOMED CT 4153876837 / Confirmed Marijuana use / SNOMED CT 0616783286 / Confirmed Larynx cancer / SNOMED CT 674880173 / Confirmed Resolved: Smoker / SNOMED CT 502131775 Added secondary to documentation in Social History. [...] noted. Plan Transfer/ Discharge: Condition stable. Normal [facility] Comment on above: Result Comment: Elec tronically Signed By: Davis Kelley DO, Edmundo Gagnon\.br\Date and Time Signed: 03/18/21 10:10 EDT Sed Rate Automatedon 021 Sed Rate Automated 40 mm/hr High 0-19 [facility] Comment on above: Performed By: #### 2 207016, 2353050, 3569215, 05393454, 04511546, 7003002, 4453542 #### [facility] [address] [place] [address] XR Knee 1 or 2 Views Lefton [...] V. Transcribed by: GIORGI Technologist: JOHNIE Ahmadi [facility] eGFRon 03-18-2021 GFR/1.73 sq M.predicted among blacks MDRD (S/P/Bld) [Vol rate/Area] mL/min/{1.73_m2} Normal >=59 [facility] Comment on above: Order Comment: Order added by Discern Expert. Result Comment: eGFR is race adjusted. AA=. Performed By: #### 2 987133, 6153874, 4256473, 46943553, 94982605, 1899241, 9413898 #### [facility] [address] [place] [address] GFR/1.73 sq M.predicted among non-blacks MDRD (S/P/Bld) [Vol rate/Area] mL/min/{1.73_m2} Normal >=59 [facility] Comment on above: Order Comment: Order added by Discern Expert. Result Comment: Referral Management Liaison karen kidney disease could be indicated at eGFR's of less than 60 mL/min/1.73m2. Kidney failure is indicated at less than 15 mL/min/1.73m2. Performed By: #### 2 603499, 9818502, 8099780, 76190360, 48663104, 1169450, 6502366 #### [facility] [address] [place] [address] Monitor Recordon 03-17-2021 Monitor Record [id number]#[id number]:127 Normal [facility] Monitor Record [id number]#1.00CD:127 Normal [facility] Monitor Record [id number]#[id number]:127 Normal [facility] Operative Reporton Operative Report SURGERY DATE: 2020 PRIMARY CARE PHYSICIAN: Lazaro Escobedo D.O. JUNIOR DESIGNER: Librado Callahan CFA PREOPERATIVE DIAGNOSIS: History of [...] the orotrac (more content not included)... Normal [facility] Comment on above: Result Comment: Elec [...] Lab Work Done on Admit Date Normal [facility] Progress Note-Physicianon Progress Note-Physician Assessment/Plan 68-year-old [...] made to ensure accuracy, however, inadvertently computerized supervisor diagnostic mistakes may be present. Dr. Joe Mcintosh [...] 5 mg= 1 tab(s), Oral, Daily Normal [facility] Comment on above: Result Comment: Elec [...] ortho consult if they feel appropriate. Normal [facility] Comment on above: Result Comment: Elec tronically Signed By: Juliette CROOK, Mukund Storey\.br\Date and Time Signed: 03/17/21 11:56 EDT Uric Acidon 03-17-2021 Urate [Mass/Vol] 2.9 mg/dL Normal 2.2-7.4 [facility] Comment on above: Performed By: #### 2 207551 ####[facility] [address] [place] [address] XR Chest Single Viewon 03-17 XR Chest [...] identified. FINAL REPORT Dictated: 03/17/2021 10:44 am Ulises Camacho MD Signed (Electronic Signature): 03/17/2021 10:44 am Signed by: Ulises Camacho MD Transcribed by: GIORGI Technologist: CRISTÓBAL Normal [facility] Auto Diffon 03-16-2021 Basophils/100 WBC (Bld) 0.4 % Normal 0.0-2.0 [facility] Comment on above: Order Comment: Order Added by Discern Expert. Performed By: #### 2 095733, 7210276, 3476598, 68745908, 1473446, 8052665 ####[address] [place] [address] Basophils/Leukocytes Auto (Bld) [Pure # fraction] 0.0 E9/L Normal 0.0-0.2 [facility] Comment on above: Order Comment: Order Added by Discern Expert. Performed By: #### 2 546837, 9802653, 2089704, 29650951, 2551716, 6999494 ####[address] [address] Eosinophils/100 WBC (Bld) 0.2 % Normal 0.0-8.0 [facility] Comment on above: Order Comment: Order Added by Discern Expert. Performed By: #### 2 447138, 9709993, 5255709, 23610720, 7421124, 2409602 ####[address] [place] [address] Eosinophils/Leukocyt es Auto (Bld) [Pure # fraction] 0.0 E9/L Normal 0.0-0.5 [facility] Comment on above: Order Comment: Order Added by Discern Expert. Performed By: #### 2 735159, 6415770, 8030236, 24264624, 1682226, 6465213 ####[address] [place] [address] Lymphocytes/100 WBC (Bld) 10.6 % Low 14.0-50.0 [facility] Comment on above: Order Comment: Order Added by Discern Expert. Performed By: #### 2 049865, 0780452, 4861292, 81323982, 9859323, 4800848 ####[address] [address] Lymphocytes/Leukocyt es Auto (Bld) [Pure # fraction] 1.1 E9/L Normal 1.0-4.0 [facility] Comment on above: Order Comment: Order Added by Discern Expert. Performed By: #### 2 981238, 5112101, 7190766, 88140580, 4984535, 4517657 ####[facility] [address] [place] [address] Monocytes/100 WBC (Bld) 9.7 % Normal 4.0-14.0 [facility] Comment on above: Order Comment: Order Added by Discern Expert. Performed By: #### 2 929416, 8393605, 4171933, 58461483, 9231099, 4927560 ####[address] [place] [address] Monocytes/Leukocytes Auto (Bld) [Pure # fraction] 1.0 E9/L Normal 0.2-1.0 [facility] Comment on above: Order Comment: Order Added by Discern Expert. Performed By: #### 2 273788, 7769763, 0361699, 40322657, 3285299, 6771409 ####[address] [address] Neutrophils/100 WBC (Bld) 79.1 % High 36.0-75.0 [facility] Comment on above: Order Comment: Order Added by Discern Expert. Performed By: #### 2 072294, 5509778, 0796591, 63323935, 0646642, 2558408 ####[facility] [address] [place] [address] Neutrophils/Leukocyt es Auto (Bld) [Pure # fraction] 8.4 E9/L High 2.0-7.5 [facility] Comment on above: Order Comment: Order Added by Discern Expert. Performed By: #### 2 976701, 6401301, 0457595, 72222484, 3913701, 7559475 ####[facility] [address] [place] [address] BMPon 03-16-2021 Anion gap [Moles/Vol] 12 mmol/L Normal 6-16 [facility] Comment on above: Performed By: #### 2 039256, 3983095, 2554302, 83994452, 2253901, 1017227 ####[facility] [address] [address] Calcium [Mass/Vol] 8.8 mg/dL Low 8.9-11.1 [facility] Comment on above: Performed By: #### 2 258437, 2118399, 0621266, 95534037, 4939860, 8069441 ####[facility] [address] [address] Chloride [Moles/Vol] 99 mmol/L Low 101-111 [facility] Comment on above: Performed By: #### 2 434519, 3385359, 7447302, 59241266, 2632918, 4610735 ####[facility] [address] [address] CO2 [Moles/Vol] 31 mmol/L Normal 21-[address] [facility] Comment on above: Performed By: #### 2 092164, 2589410, 1817939, 85396501, 9282230, 0926856 ####[facility] [address] [address] Creatinine [Mass/Vol] 0.6 mg/dL Normal 0.5-1.3 [facility] Comment on above: Performed By: #### 2 114791, 9600915, 0647408, 33811037, 5413634, 9111255 ####[facility] [address] [address] Glucose [Mass/Vol] 135 mg/dL Normal 55-199 [facility] Comment on above: Result Comment: If t his glucose result represents a fasting glucose, interpretation should refer to the following reference range: 55-99 mg/dL Performed By: #### 2 679041, 2236610, 8380240, 12374555, 1122985, 7137246 ####[facility] [address] [place] [address] Potassium [Moles/Vol] 4.1 mmol/L Normal 3.5-5.3 [facility] Comment on above: Performed By: #### 2 602969, 8078434, 8332038, 66309956, 1020759, 5959669 ####[facility] [address] [place] [address] Sodium [Moles/Vol] 138 mmol/L Normal 135-145 [facility] Comment on above: Performed By: #### 2 110869, 8717200, 2671871, 85592357, 9564487, 8306429 ####[facility] [address] [place] [address] Urea nitrogen [Mass/Vol] 11 mg/dL Normal 5-21 [facility] Comment on above: Performed By: #### 2 795650, 6948132, 1970235, 48300537, 9874351, 4232182 ####[facility] [address] [place] [address] Urea nitrogen/Creatinine [Mass ratio] 18 No Units Normal 10-20 [facility] Comment on above: Performed By: #### 2 322094, 5429927, 3147391, 33869841, 0950744, 2137279 ####[facility] [address] [place] [address] CBC w/ Auto Diffon Erythrocyte distribution width (RBC) [Ratio] 13.0 % Normal 10.9-14.2 [facility] Comment on above: Performed By: #### 2 399851, 7372143, 1182087, 12339554, 0278755, 6047950 ####[facility] [address] [place] [address] Hematocrit (Bld) [Volume fraction] 43.7 % Normal 37.7-49.0 [facility] Comment on above: Performed By: #### 2 610310, 1430054, 6271408, 30735322, 7729245, 2886750 ####[address] [place] [address] Hemoglobin (Bld) [Mass/Vol] 14.9 g/dL Normal 13.5-17.5 [facility] Comment on above: Performed By: #### 2 678830, 6524883, 5769244, 43656077, 2928675, 2471187 ####[address] [address] MCH (RBC) [Entitic mass] 32.4 pg Normal 27.0-34.0 [facility] Comment on above: Performed By: #### 2 878235, 1366596, 3670727, 10338249, 3685965, 0088807 ####[address] [address] MCHC (RBC) [Mass/Vol] 34.1 g/dL Normal 31.4-36.0 [facility] Comment on above: Performed By: #### 2 401612, 5185849, 9889324, 64703858, 5922003, 8311948 ####[address] [address] MCV (RBC) [Entitic vol] 95.1 fL Normal 80.0-100.0 [facility] Comment on above: Performed By: #### 2 446259, 2202299, 1607044, 21663054, 5611220, 2914956 ####[address] [address] Platelet mean volume (Bld) [Entitic vol] 8.3 fL Normal 6.4-10.8 [facility] Comment on above: Performed By: #### 2 059216, 8814992, 3961471, 37380959, 0844398, 9718550 ####[address] [address] Platelets (Bld) [#/Vol] 222.0 E9/L Normal 150.0-500.0 [facility] Comment on above: Performed By: #### 2 432280, 5826207, 4415671, 40758290, 3041437, 2245496 ####[facility] [address] [place] [address] RBC (Bld) [#/Vol] 4.6 E12/L Normal 4.3-5.9 [facility] Comment on above: Performed By: #### 2 025749, 4513586, 7614142, 72868151, 3800665, 5110710 ####[facility] [address] [place] [address] WBC corrected for nucl RBC Auto (Bld) [#/Vol] 10.7 E9/L Normal 4.0-11.0 [facility] Comment on above: Performed By: #### 2 330832, 9572499, 0079728, 31720970, 8997343, 0941687 ####[facility] [address] [place] [address] Consent for Anesthesiaon Consent for Anesthesia [id number]#1.00CD:127 Normal [facility] Interdisciplinary Note - Nut ritionon 03-16-2021 Interdisciplinary [...] and flush 2180 cc. POC established. Normal [facility] Comment on above: Result Comment: Elec tronically Signed By: Michelle FLETCHER, MALIK., Blank\.br\Date and Time Signed: 03/16/21 10:08 EDT IntraOperative Documentson 1 IntraOperative Documents [id number]#1.00CD:127 Normal [facility] IntraOperative Documents [id number]#1.00CD:127 Normal [facility] Magnesiumon 03-16-2021 Magnesium [Mass/Vol] 1.7 mg/dL Normal 1.3-2.4 [facility] Comment on above: Performed By: #### 2 841921, 9988987, 9047474, 33090284, 6183846, 2433903 ####[facility] [address] [place] [address] Monitor Recordon 03-16-2021 Monitor Record [id number]#1.00CD:127 Normal [facility] Monitor Record [id number]#1.00CD:127 Normal [facility] Monitor Record [id number]#1.00CD:127 Normal [facility] Phosphoruson 03-16-2021 Phosphate [Mass/Vol] 3.7 mg/dL Normal 1.9-4.6 [facility] Comment on above: Performed By: #### 2 187276, 2401162, 6380742, 22814296, 5413039, 7031797 ####[facility] [address] [place] [address] Physician Orderon 03-16-2021 Physician Order [id number]#1.00CD:127 Normal [facility] Preoperative Documentson Preoperative Documents [id number]#1.00CD:127 Normal [facility] Progress Note - Pharmacyon 1 Progress Note [...] GI Prophylaxis: pepcid 20 mg IV BID [facility] Progress Note-Physicianon Progress Note-Physician Assessment/Plan 68-year-old [...] made to ensure accuracy, however, inadvertently computerized supervisor diagnostic mistakes may be present. Dr. Joe Mcintosh [...] Lymph Auto: 10.6 % Low (03/16/21 05:33:00) Liberty Auto: 9.7 % (03/16/21 05:33:00) Eos Auto: 0.2 % (03/16/21 05:33:00) Basophil Auto: 0.4 % (03/16/21 05:33:00) Neutro Absolute: 8.4 E9/L High (03/16/21 05:33:00) Lymph Absolute: 1.1 E9/L (03/16/21 05:33:00) Liberty Absolute: 1 E9/L (03/16/21 05:33:00) Eos Absolute: [...] 237 mL, (more content not included)... Normal [facility] Comment on above: Result Comment: Elec [...] of day to day medical issues. Normal [facility] Comment on above: Result Comment: Elec [...] M.D. Transcribed by: GIORGI Technologist: MAURILIO Normal [facility] eGFRon 03-16-2021 GFR/1.73 sq M.predicted among blacks MDRD (S/P/Bld) [Vol rate/Area] mL/min/{1.73_m2} Normal >=59 [facility] Comment on above: Order Comment: Order added by Discern Expert. Result Comment: eGFR is race adjusted. AA=. Performed By: #### 2 935201, 9371562, 0285786, 89268972, 3533619, 5496026 ####[facility] [address] [place] [address] GFR/1.73 sq M.predicted among non-blacks MDRD (S/P/Bld) [Vol rate/Area] mL/min/{1.73_m2} Normal >=59 [facility] Comment on above: Order Comment: Order added by Discern Expert. Result Comment: Referral Management Liaison karen kidney disease could be indicated at eGFR's of less than 60 mL/min/1.73m2. Kidney failure is indicated at less than 15 mL/min/1.73m2. Performed By: #### 2 374806, 4009443, 3876210, 86943916, 4798526, 2952820 ####[facility] [address] [place] [address] Consent for Treatmenton Consent for Treatment [id number]#1.00CD:127 Normal [facility] H&P Updateon 03-15-2021 H&P Update [id number]#1.00CD:127 Normal [facility] Main OR PACU I Recordon Main OR PACU I Record PACU Phase I Document Type FT Summary Primary Physician: Mukund Christy MD Finalized Date/Time: 03/15/21 15:32:03 Pt. Name: LAZARO PETTY D.O.B./Sex: 1955 Male Med Rec #: [id number] Physician: Mukund Christy MD Financial #: [id number] Pt. Type: A Room/Bed: [place] [address] Admit/Disch: 03/15/21 10:59:05 - Institution: Case Times [...] By: Charisse Painting RN 03/15/21 15:32 Normal [facility] Main OR Preoperative Recordo n 03-15-2021 Main OR Preoperative Record PreOp Document Type FT Summary Primary Physician: Mukund Christy MD Finalized Date/Time: 03/15/21 13:54:40 Pt. Name: LAZARO PETTY /Sex: 1955 Male Med Rec #: [id number] Physician: Mukund Christy MD Financial #: [id number] Pt. Type: A Room/Bed: Admit/Disch: 03/15/21 10:59:05 [...] By: Abigail Braden RN 03/15/21 13:54 Normal [facility] Monitor Recordon 03-15-2021 Monitor Record [id number]#1.00CD:127 Normal [facility] Monitor Record [id number]#1.00CD:127 [facility] Progress Note-Physicianon Progress Note-Physician Patient: LAZARO [...] selected or recorded. Procedure history: Diagnostic laryngoscopy ([id number]) on 11/29/2020 at 65 Years. Laryngoscopy ([id number]) on 03/02/2020 at 64 Years. Social History [...] Dosing 177.8 cm Weight Dosing 78.2 kg Ada Body Weight Calculated 73 kg BSA Measured [...] % HI Lymph Auto 10.1 % LOW Liberty Auto 11.0 % Eos Auto 0.6 % Basophil Auto 0.5 % Neutro Absolute 6.8 E9/L Lymph Absolute 0.9 E9/L LOW Liberty Absolute 1.0 E9/L Eos Absolute 0.1 E9/L [...] 2 Views (more content not included)... Normal [facility] Comment on above: Result Comment: Elec [...] M.D. Transcribed by: GIORGI Technologist: MINOO Normal [facility] Auto Diffon 03-14-2021 Basophils/100 WBC (Bld) 0.5 % Normal 0.0-2.0 [facility] Comment on above: Order Comment: Order Added by Discern Expert. Performed By: #### 2 974668, 8287018 ####[facility] [address] [place] [address] Basophils/Leukocytes Auto (Bld) [Pure # fraction] 0.0 E9/L Normal 0.0-0.2 [facility] Comment on above: Order Comment: Order Added by Discern Expert. Performed By: #### 2 923035, 1212177 ####[address] [place] [address] Eosinophils/100 WBC (Bld) 0.6 % Normal 0.0-8.0 [facility] Comment on above: Order Comment: Order Added by Discern Expert. Performed By: #### 2 203334, 5052120 ####[facility] [address] [place] [address] Eosinophils/Leukocyt es Auto (Bld) [Pure # fraction] 0.1 E9/L Normal 0.0-0.5 [facility] Comment on above: Order Comment: Order Added by Discern Expert. Performed By: #### 2 661531, 0138733 ####[facility] [address] [place] [address] Lymphocytes/100 WBC (Bld) 10.1 % Low 14.0-50.0 [facility] Comment on above: Order Comment: Order Added by Discern Expert. Performed By: #### 2 340104, 7041292 ####[facility] [address] [place] [address] Lymphocytes/Leukocyt es Auto (Bld) [Pure # fraction] 0.9 E9/L Low 1.0-4.0 [facility] Comment on above: Order Comment: Order Added by Discern Expert. Performed By: #### 2 485705, 4583255 ####[address] [place] [address] Monocytes/100 WBC (Bld) 11.0 % Normal 4.0-14.0 [facility] Comment on above: Order Comment: Order Added by Discern Expert. Performed By: #### 2 978117, 4908576 ####[address] [place] [address] Monocytes/Leukocytes Auto (Bld) [Pure # fraction] 1.0 E9/L Normal 0.2-1.0 [facility] Comment on above: Order Comment: Order Added by Deshawn Expert. Performed By: #### 2 475927, 4360737 ####[address] [address] Neutrophils/100 WBC (Bld) 77.8 % High 36.0-75.0 [facility] Comment on above: Order Comment: Order Added by Deshawn Expert. Performed By: #### 2 873866, 8771512 ####[address] [address] Neutrophils/Leukocyt es Auto (Bld) [Pure # fraction] 6.8 E9/L Normal 2.0-7.5 [facility] Comment on above: Order Comment: Order Added by Discern Expert. Performed By: #### 2 509699, 4210281 ####[address] [place] [address] BUNon 03-14-2021 Urea nitrogen [Mass/Vol] 18 mg/dL Normal 5-21 [facility] Comment on above: Performed By: #### 2 859027, 3266645, 9438948, 06449771, 44151154, 1744514, 5616184 #### [facility] [address] [place] [address] CBC w/ Auto Diffon Erythrocyte distribution width (RBC) [Ratio] 12.8 % Normal 10.9-14.2 [facility] Comment on above: Performed By: #### 2 315889, 9069519 ####[address] [address] Hematocrit (Bld) [Volume fraction] 47.9 % Normal 37.7-49.0 [facility] Comment on above: Performed By: #### 2 475240, 0908913 ####[address] [address] Hemoglobin (Bld) [Mass/Vol] 16.3 g/dL Normal 13.5-17.5 [facility] Comment on above: Performed By: #### 2 700321, 6951283 ####[address] [address] MCH (RBC) [Entitic mass] 32.2 pg Normal 27.0-34.0 [facility] Comment on above: Performed By: #### 2 093443, 2610734 ####[address] [address] MCHC (RBC) [Mass/Vol] 34.0 g/dL Normal 31.4-36.0 [facility] Comment on above: Performed By: #### 2 696293, 0572077 ####[address] [address] MCV (RBC) [Entitic vol] 94.7 fL Normal 80.0-100.0 [facility] Comment on above: Performed By: #### 2 350751, 9044879 ####[address] [address] Platelet mean volume (Bld) [Entitic vol] 9.1 fL Normal 6.4-10.8 [facility] Comment on above: Performed By: #### 2 078592, 8946426 ####[address] [address] Platelets (Bld) [#/Vol] 253.0 E9/L Normal 150.0-500.0 [facility] Comment on above: Performed By: #### 2 592512, 5568737 ####[facility] [address] [place] [address] RBC (Bld) [#/Vol] 5.0 E12/L Normal 4.3-5.9 [facility] Comment on above: Performed By: #### 2 896137, 6189937 ####[facility] [address] [place] [address] WBC corrected for nucl RBC Auto (Bld) [#/Vol] 8.7 E9/L Normal 4.0-11.0 [facility] Comment on above: Performed By: #### 2 942119, 2999452 ####[facility] [address] [place] [address] Consent for Procedure/Surger yon 03-14-2021 Consent for Procedure/Surgery [id number]#1.00CD:127 Normal [facility] Consent for Treatmenton 10-0 Consent for Treatment [id number]#1.00CD:127 Normal [facility] Creatinineon 03-14-2021 Creatinine [Mass/Vol] 0.7 mg/dL Normal 0.5-1.3 [facility] Comment on above: Performed By: #### 2 931581, 4262563, 7756544, 34378620, 77403573, 2190164, 0585332 #### [facility] [address] [place] [address] Glucoseon 03-14-2021 Glucose [Mass/Vol] 108 mg/dL Normal 55-199 [facility] Comment on above: Performed By: #### 2 437979, 9840790, 9021232, 18896060, 75754502, 7459528, 7765390 #### [facility] [address] [place] [address] Lyteson 03-14-2021 Anion gap [Moles/Vol] 15 mmol/L Normal 6-16 [facility] Comment on above: Performed By: #### 2 737107, 7661229, 4874600, 43063293, 21683701, 1614161, 6091130 #### [facility] [address] [place] [address] Chloride [Moles/Vol] 95 mmol/L Low 101-111 [facility] Comment on above: Performed By: #### 2 688900, 2373594, 2767557, 83054394, 36950140, 9109074, 7042550 #### [facility] [address] [place] [address] CO2 [Moles/Vol] 27 mmol/L Normal 21-[address] [facility] Comment on above: Performed By: #### 2 148389, 7180612, 8822983, 37057392, 91776145, 9896568, 8988928 #### [facility] [address] [place] [address] Potassium [Moles/Vol] 4.2 mmol/L Normal 3.5-5.3 [facility] Comment on above: Performed By: #### 2 756881, 1763844, 1154782, 73497674, 77189077, 3526923, 1257546 #### [facility] [address] [place] [address] Sodium [Moles/Vol] 133 mmol/L Low 135-145 [facility] Comment on above: Performed By: #### 2 771173, 2747697, 8874436, 19107280, 02019115, 0752043, 7374995 #### [facility] [address] [place] [address] Outside Recordson 03-14-2021 Outside Records [id number]#1.00CD:127 Normal [facility] XR Chest 2 Viewson XR Chest 2 [...] M.D. Transcribed by: GIORGI Technologist: SHRUTHI Normal [facility] eGFRon 03-14-2021 GFR/1.73 sq M.predicted among blacks MDRD (S/P/Bld) [Vol rate/Area] mL/min/{1.73_m2} Normal >=59 [facility] Comment on above: Order Comment: Order added by Discern Expert. Result Comment: eGFR is race adjusted. AA=. Performed By: #### 2 913454, 5776756, 9089773, 66711389, 53071704, 3281006, 9637492 #### [facility] [address] [place] [address] GFR/1.73 sq M.predicted among non-blacks MDRD (S/P/Bld) [Vol rate/Area] mL/min/{1.73_m2} Normal >=59 [facility] Comment on above: Order Comment: Order added by Discern Expert. Result Comment: Referral Management Liaison karen kidney disease could be indicated at eGFR's of less than 60 mL/min/1.73m2. Kidney failure is indicated at less than 15 mL/min/1.73m2. Performed By: #### 2 950430, 8235098, 1605713, 62316344, 96364330, 9655651, 8214305 #### [facility] [address] [place] [address] CNOVon 12-15-2020 CNOV Office Visit (RADTSA ) -- LAZARO PETTY ([id number]) 1955 M Date Time Provider Department 12/15/20 [...] the date (more content not included)... Normal [facility] 12-05-2020 CNPN Telephone (RADTSA) -- LAZARO PETTY ([id number]) 1955 M Date Time Provider Department 12/05/20 [...] Status:Closed by GERTRUDIS THOMPSON on 12/07/20 Normal [facility] XR CHEST 2 Von 12-05-2020 XR CHEST [...] DARREN DU Date: 2020-12-05 08:29 Normal [facility] CULTURE THROATon 11-29-2020 CULTURE THROAT Isolate 1 [...] F Trimethoprim/Sulfamethoxaz ole <=20 S F Normal [facility] Comment on above: Performed By: #### S EDR #### [facility] [address] [place] [address] Dr. Sachin Jackson CBC AUTO DIFFon 11-27-2020 BASO # 0.1 103/ul Normal 0.0-0.1 [facility] Comment on above: Performed By: #### S EDR #### [facility] [address] [place] [address] Dr. Sachin Jackson Basophils/100 WBC (Bld) 0.4 % Normal 0.2-2.0 [facility] Comment on above: Performed By: #### S EDR #### [facility] [address] [place] [address] Dr. Sachin Jackson EO # 0.1 103/ul Normal 0.0-0.7 [facility] Comment on above: Performed By: #### S EDR #### [facility] [address] [place] [address] Dr. Sachin Jackson Eosinophils/100 WBC (Bld) 1.2 % Normal 0.9-7.0 [facility] Comment on above: Performed By: #### S EDR #### [facility] [address] [place] [address] Dr. Sachin Jackson Erythrocyte distribution width (RBC) [Ratio] 12.4 % Normal 11.0-15.0 [facility] Comment on above: Performed By: #### S EDR #### [facility] [address] [place] [address] Dr. Sachin Jackson Hematocrit (Bld) [Volume fraction] 45.7 % Normal 42.0-54.0 [facility] Comment on above: Performed By: #### S EDR #### [facility] [address] [place] [address] Dr. Sachin Jackson Hemoglobin (Bld) [Mass/Vol] 16.0 g/dL Normal 14.0-18.0 [facility] Comment on above: Performed By: #### S EDR #### [facility] [address] [place] [address] Dr. Sachin Jackson IG # 0.05 10e3/ul Critically high 0.00-0.03 [facility] Comment on above: Performed By: #### S EDR #### [facility] [address] [place] [address] Dr. Sachin Jackson IG % 0.4 % Normal 0.0-0.5 [facility] Comment on above: Performed By: #### S EDR #### [facility] [address] [place] [address] Dr. Sachin Jackson LYMPH # 1.3 103/ul Normal 1.2-3.8 [facility] Comment on above: Performed By: #### S EDR #### [facility] [address] [place] [address] Dr. Sachin Jackson Lymphocytes/100 WBC (Bld) 10.5 % Critically low 20.5-60.0 [facility] Comment on above: Performed By: #### S EDR #### [facility] [address] [place] [address] Dr. Sachin Jackson MANUAL DIFF REQ NO Normal [facility] Comment on above: Performed By: #### S EDR #### [facility] [address] [place] [address] Dr. Sachin Jackson MCH (RBC) [Entitic mass] 33.8 pg Normal 25.9-34.0 [facility] Comment on above: Performed By: #### S EDR #### [facility] [address] [place] [address] Dr. Sachin Jackson MCHC (RBC) [Mass/Vol] 35.0 g/dL Normal 29.9-35.2 [facility] Comment on above: Performed By: #### S EDR #### [facility] [address] [place] [address] Dr. Sachin Jackson MCV (RBC) [Entitic vol] 96.6 fL Critically high 80.0-94.0 [facility] Comment on above: Performed By: #### S EDR #### [facility] [address] [place] [address] Dr. Sachin Jackson MONO # 1.4 103/ul Critically high 0.3-0.8 [facility] Comment on above: Performed By: #### S EDR #### [facility] [address] [place] [address] Dr. Sachin Jackson Monocytes/100 WBC (Bld) 11.9 % Normal 1.7-12.0 [facility] Comment on above: Performed By: #### S EDR #### [facility] [address] [place] [address] Dr. Sachin Jackson NEUT # 9.0 103/ul Critically high 1.4-6.5 [facility] Comment on above: Performed By: #### S EDR #### [facility] [address] [place] [address] Dr. Sachin Jackson Neutrophils/100 WBC (Bld) 75.6 % Critically high 43.0-75.0 [facility] Comment on above: Performed By: #### S EDR #### [facility] [address] [place] [address] Dr. Sachin Jackson Platelet mean volume (Bld) [Entitic vol] 9.9 fL Normal 9.5-13.5 [facility] Comment on above: Performed By: #### S EDR #### [facility] [address] [address] [address] Sachin Jackson PLT 290 103/ul Normal 150-450 [facility] Comment on above: Performed By: #### S EDR #### [facility] [address] [place] [address] Dr. Sachin Jackson RBC 4.73 106/ul Normal 4.70-6.10 [facility] Comment on above: Performed By: #### S EDR #### [facility] [address] [place] [address] Dr. Sachin Jackson WBC 11.9 103/ul Critically high 4.0-11.0 [facility] Comment on above: Performed By: #### S EDR #### [facility] [address] [place] [address] NECK [address] W [...] ALEISHA JJ Date: 2020-11-27 10:49 Normal [facility] CT-CT NECK ST W CON IMPORTon 11-27-2020 CT-CT NECK ST W CON IMPORT Images were obtained outside of [facility] [id number] Normal [facility] Covid-19 PCR (CVDTB)on 11-08 SARS-CoV-2 (COVID-19) RNA MARCELL+probe Ql (Unsp spec) Not detected Normal NOT DETECTED [facility] Comment on above: Result Comment: This test is not yet approved or cleared by the [place] FDA. When there are no FDA-approved or cleared tests available, and other criteria are met, FDA can make tests available under an emergency access mechanism called an Emergency Use Authorization (EUA). The EUA for this test is supported by the [place] of Health and Human Service's (HHS's) declaration [...] SARS-CoV-2. Performed By: #### C VDTB #### [facility] [address] [id number] Dontrell Cervantes PROF 14(COMP METB)on 021 Albumin [Mass/Vol] 3.5 g/dL Normal 3.5-5.0 [facility] Comment on above: Performed By: #### C MP #### [facility] [address] [id number] Dontrell Helen Albumin/Globulin [Mass ratio] 0.8 {ratio} Normal [facility] Comment on above: Performed By: #### C MP #### [facility] [address] [place], [place] [id number] Dontrell Helen ALP [Catalytic activity/Vol] 75 U/L Normal 38-126 [facility] Comment on above: Performed By: #### C MP #### [facility] [address] [place], [place] [id number] Dontrell Helen ALT [Catalytic activity/Vol] 15 U/L Critically low 21-72 [facility] Comment on above: Performed By: #### C MP #### [facility] [address] [id number] Dontrell Helen Anion gap [Moles/Vol] 12.5 mmol/L Normal [facility] Comment on above: Performed By: #### C MP #### [facility] [address] [place], [place] [id number] Dontrell Helen AST [Catalytic activity/Vol] 13 U/L Critically low 17-59 [facility] Comment on above: Performed By: #### C MP #### [facility] [address] [place], [place] [id number] Dontrell Helen Bilirubin [Mass/Vol] 1.1 mg/dL Normal 0.2-1.3 [facility] Comment on above: Performed By: #### C MP #### [facility] [address] [id number] Dontrell Helen Calcium [Mass/Vol] 9.4 mg/dL Normal 8.4-10.2 [facility] Comment on above: Performed By: #### C MP #### [facility] [address] [id number] Dontrell Helen Chloride [Moles/Vol] 102 mmol/L Normal 98-107 [facility] Comment on above: Performed By: #### C MP #### [facility] [address] [address] Dontrell Helen CO2 [Moles/Vol] 25.4 mmol/L Normal 22.0-30.0 [facility] Comment on above: Performed By: #### C MP #### [facility] [address] [place], [place] [id number] Dontrell Helen Creatinine [Mass/Vol] 0.62 mg/dL Critically low 0.66-1.25 [facility] Comment on above: Performed By: #### C MP #### [facility] [address] [place] [address] Dontrell Helen EGFR-AF ALGERIAN >60 Normal >=60 [facility] Comment on above: Performed By: #### C MP #### [facility] [address] [place] [address] Dontrell Helen EGFR-NON AF ALGERIAN >60 Normal >=60 [facility] Comment on above: Performed By: #### C MP #### [facility] [address] [place], [place] [id number] Dontrell Helen Globulin (S) [Mass/Vol] 4.2 g/dL Normal [facility] Comment on above: Performed By: #### C MP #### [facility] [address] [place] [address] Dontrell Helen Glucose [Mass/Vol] 97 mg/dL Normal 74-106 [facility] Comment on above: Performed By: #### C MP #### [facility] [address] [place] [address] Dontrell Helen Potassium [Moles/Vol] 3.9 mmol/L Normal 3.4-5.0 [facility] Comment on above: Performed By: #### C MP #### [facility] [address] [place] [address] Dontrell Helen Protein [Mass/Vol] 7.7 g/dL Normal 6.1-8.2 [facility] Comment on above: Performed By: #### C MP #### [facility] [address] [place] [address] Dontrell Cervantes Sodium [Moles/Vol] 136 mmol/L Critically low 137-145 [facility] Comment on above: Performed By: #### C MP #### [facility] [address] [place] [address] Dontrell Cervantes Urea nitrogen [Mass/Vol] 12.0 mg/dL Normal 9.0-20.0 [facility] Comment on above: Performed By: #### C MP #### [facility] [address] [place] [address] Dontrell Cervantes Urea nitrogen/Creatinine [Mass ratio] 19.4 mg/mg Normal [facility] Comment on above: Performed By: #### C MP #### [facility] [address] [place] [address] Dontrell Cervantes RAPID COVID-19 ANTIGENon EUA Statement SEE BELOW Normal [facility] Comment on above: Result Comment: This [...] sooner. Performed By: #### C VDAG #### [facility] [address] [place] [address] Dontrell Cervantes SARS-CoV-2 (COVID-19) RNA MARCELL+probe Ql (Unsp spec) Negative Normal NEGATIVE [facility] Comment on above: Result Comment: Nega tive results are presumptive. They do not preclude infection and should not be used as the sole basis for treatment decisions. Additional confirmatory testing by a molecular method should be considered. Performed By: #### C VDAG #### [facility] [address] [place], [place] [address] Dontrell Cervantes STREPT SCREENon 11-27-2020 STREP SCREEN A Negative Normal NEGATIVE [facility] Comment on above: Performed By: #### T HRTCX, SSCRN #### [facility] [address] [place], [place] [address] Dontrell Cervantes Vital Signs Date Time Vital Sign Value Performing Clinician Facility 10-09-2022 11:09-0400 Body height 177.8 cm Gregg Cates MD Work Phone: [phone])679-074976 [place] [address] 10-09-2022 11:09-0400 Body mass index (BMI) [Ratio] 25.62 kg/m2 Gregg Cates MD Work Phone: 5(864)615-520476 [place] [address] 10-09-2022 11:09-0400 Body temperature 97 [degF] Gregg Cates MD Work Phone: [phone])[phone] [place] [address] 10-09-2022 11:09-0400 Body weight 81 kg Gregg Cates MD Work Phone: [phone])164-923376 [place] [address] 10-09-2022 11:09-0400 Diastolic blood pressure 89 mm[Hg] Gregg Cates MD Work Phone: [facility] 10-09-2022 11:09-0400 Heart rate 69 /min Gregg Cates MD Work Phone: [facility] 10-09-2022 11:09-0400 Respiratory rate 18 /min Gregg Cates MD Work Phone: [facility] 10-09-2022 11:09-0400 Systolic blood pressure 150 mm[Hg] Gregg Cates MD Work Phone: [facility] 08-22-2022 08:11-0400 Body height 177.8 cm Lazaro Escobedo Work Phone: [place] [address] Work Phone: 08-22-2022 08:11-0400 Body mass index (BMI) [Ratio] 26.5 kg/m2 Lazaro P House Work Phone: -[facility] 3314 Work Phone: 08-22-2022 08:11-0400 Body surface area Derived from formula 2.02 m2 Lazaro P House Work Phone: -[facility] 331 Work Phone: 08-22-2022 08:11-0400 Body temperature 98.7 [degF] Lazaro P House Work Phone: -[facility] 3319 Work Phone: 08-22-2022 08:11-0400 Body weight 83.78 kg Lazaro P House Work Phone: [facility] 3312 Work Phone: 02-12-2022 14:50-0400 Body height 177.8 cm Lazaro P House Work Phone: [facility] 3316 Work Phone: 02-12-2022 14:50-0400 0 1 Lazaro P House Work Phone: [facility] 3310 Work Phone: Comment on above: [employer] 12-31-2021 15:31-0400 Body height 177.8 cm Lazaro P House [facility]: [facility] Work Phone: 12-31-2021 15:31-0400 Body mass index (BMI) [Ratio] 28.71 kg/m2 Lazaro P House Work Phone: [facility] Work Phone: 12-31-2021 15:31-0400 Body surface area Derived from formula 2.09 m2 Lazaro P House Work Phone: [facility] [place] Work Phone: 12-31-2021 15:31-0400 Body temperature 97.2 [degF] Lazaro P House Work Phone: [facility] [place] Work Phone: 12-31-2021 15:31-0400 Body weight 90.77 kg Lazaro P [employer] Work Phone: [facility] [place] Work Phone: 09-25-2021 08:26-0400 Body height 177.8 cm Lazaro P [employer] Work Phone: [facility] [place] Work Phone: 09-25-2021 08:26-0400 Body mass index (BMI) [Ratio] 29.01 kg/m2 Lazaro P [employer] Work Phone: [facility] [place] Work Phone: 09-25-2021 08:26-0400 Body surface area Derived from formula 2.1 m2 Lazaro P [employer] Work Phone: [facility] [place] Work Phone: 09-25-2021 08:26-0400 Body temperature 97.4 [degF] Lazaro P [employer] Work Phone: [facility] [place] Work Phone: 09-25-2021 08:26-0400 Body weight 91.7 kg Lazaro P House Work Phone: [facility] [place] Work Phone: 09-25-2021 08:26-0400 0 1 Lazaro P House Work Phone: [facility] [place] Work Phone: Comment on above: [employer] 08-07-2021 13:35-0500 Body height 177.8 cm Lazaro P House Work Phone: [facility] [place] [facility] [place] Work Phone: 08-07-2021 13:35-0500 Body mass index (BMI) [Ratio] 27.84 kg/m2 Lazaro P House Work Phone: [facility] [place] [facility] [place] Work Phone: 08-07-2021 13:35-0500 Body surface area Derived from formula 2.06 m2 Lazaro P House Work Phone: [facility] [place] [facility] [place] Work Phone: 08-07-2021 13:35-0500 Body weight 88 kg Lazaro P House Work Phone: [facility] [place] [facility] [place] Work Phone: 08-07-2021 13:35-0500 0 1 Lazaro P House Work Phone: [facility] [place] [facility] [place] Work Phone: Comment on above: [...] Provider Facility Start: 10-16-[address] [id number] Start: 10-16-2022 Patient encounter procedure Lazaro Escobedo Work Phone: YO-Rrnakfcqz-Blazxpc 4200 Work Phone: Start: 10-09-2022 End: 10-09-[address] Gregg Cates Facility:[facility] [place] [place] Start: 10-09-2022 End: 10-09-2022 Subsequent hospital visit by physician Gregg Cates MD Work Phone: [facility] Comment on above: Other specified dise ases of upper respiratory tract; Paralysis of vocal cords and larynx, unspecified; Tracheo-esophageal fistula following tracheostomy (CMS/HCC); Dysphonia; Essential (primary) hypertension; Personal history of nicotine dependence Start: 08-22-2022 Office outpatient vi sit 25 minutes Lazaro P House Work Phone: [facility] 4101 Work Phone: Start: 08-22-2022 Patient encounter procedure Lazaro P House Work Phone: [facility] 3874 Work Phone: Start: 08-22-[address] Gregg Cates Facility:[id number] Start: 02-12-2022 Office outpatient vi sit 15 minutes Lazaro P House Work Phone: [facility] 5943 Work Phone: Start: 02-12-2022 Patient encounter procedure Lazaro P House Work Phone: [facility] 6064 Work Phone: Start: 02-12-[address] Gregg Cates Facility:[id number] Start: 12-31-2021 Office outpatient vi sit 15 minutes Lazaro P House Work Phone: [facility] 6425 Work Phone: Start: 12-31-2021 Patient encounter procedure Lazaro P House Work Phone: IC-Vspitetbrpcapg-Ckw dman Work Phone: Start: 12-31-[address] Gregg Cates Facility:[facility] Start: 09-25-2021 Office outpatient vi sit 25 minutes Lazaro Escobedo Work Phone: CN-Awfyxvyovxdmxl-Qpn dman Voice Work Phone: Start: 09-25-2021 Patient encounter procedure Lazaro Escobedo Work Phone: CX-Lmhxrsiskbkmuf-Bdx [place] Work Phone: Start: 09-21-2021 End: 09-21-[address] PEDROZA PAY Facility: Start: 09-12-2021 [facility], Provider : Janice Ruano, Status: Pen, Time: 9:45 AM Lazaro Escobedo Work Phone: [facility] Work Phone: Start: 09-03-2021 Patient encounter procedure Lazaro Escobedo Work Phone: NW-Gkilryuvl-Ecejypv 4200 Work Phone: Start: 08-07-2021 Office outpatient vi sit 25 minutes Lazaro Escobedo Work Phone: [facility] 4100 Work Phone: Start: 08-07-2021 Patient encounter procedure Lazaro Escobedo Work Phone: PA-Nufvgepbjghkfr-Ioz n [facility] [place] Work Phone: Start: 07-10-2021 Office outpatient vi sit 15 minutes Lazaro Escobedo Work Phone: [facility] Work Phone: Start: 07-10-2021 Patient encounter procedure Lazaro [facility] Work Phone: YU-Qgbiigbpsinyky-Krj urban Work Phone: Start: 07-03-2021 AUDIT Lazaro [facility] Work Phone: IV-Mrfdbzflvtuprm-Von urban Work Phone: Start: 07-02-2021 Chart Update Lazaro [facility] [facility] Work Phone: YW-Ysujcgnxezucdo-Yjh urban Work Phone: Start: 06-12-2021 Office outpatient ne w 45 minutes Referring Provider Unknown NL-Nzoxqaukrcmfiq-Yvj urban Work Phone: Start: 05-08-2021 Encounter for preprocedural laboratory examination DR MUKUND CHRISTY [facility] Start: 05-01-2021 End: 05-01-[address] MUKUND [...] End: 03-17-2020 Patient encounter procedure External Provider [facility] Start: 03-17-2020 Results Only External Provider Exter nal-NonCCF Procedures Date Procedure Procedure Detail Performing Clinician Start: 03-17-2020 EXTERNAL LAB External P rovider Start: 03-17-2020 EXTERNAL PROCEDURE Exte rnal Provider Plan of Treatment Date Care Activity Detail Author Start: 02-07-2023 Influenza vaccination Influenza Vaccine (#1) [facility] Start: 10-16-2022 KAMI, Provider: Janice Ruano, Status: Pen, Time: 8:00 AM VIRFUVHOME, Provider: Janice Ruano, Status: Pen, Time: 8:00 AM [facility] Work Phone: Start: 10-09-2022 SURGAMC, Provider: Gregg Cates, Status: Pen, Time: 8:00 AM SURGAMC, Provider: Gregg Cates, Status: Pen, Time: 8:00 AM [facility] Work Phone: Start: 09-25-2021 FUV, Provider: Gregg Cates, Status: Pen, Time: 8:20 AM FUV, Provider: Gregg Cates, Status: Pen, Time: 8:20 AM LN-Qtddbujkbadnrf-Ebs n [facility] [place] Work Phone: Start: 07-10-2021 POV, Provider: Joon Domingo, Status: Pen, Time: 1:45 PM POV, Provider: Joon Domingo, Status: Pen, Time: 1:45 PM JY-Eooownxxkfevjz-Ttr urban Work Phone: Start: 02-08-2020 Influenza vaccination INFLUENZA (#1) [facility] Start: 2018 ADVANCE DIRECTIVE DISCUSSION ADVANCE DIRECTIVE DISCUSSION [facility] Start: 2018 Pneumococcal Vaccine: 65+ Years (1 - PCV) Pneumococcal Vaccine: 65+ Years (1 - PCV) [facility] Start: 2018 PNEUMOVAX AGE 65 AND OVER WITH 5YR LOOKBACK (#1) PNEUMOVAX AGE 65 AND OVER WITH 5YR LOOKBACK (#1) [facility] Start: 2008 PROSTATE CANCER SCREENING DISCUSSION PROSTATE CANCER SCREENING DISCUSSION [facility] Start: 2003 SHINGRIX VACCINE (1 of 2) SHINGRIX VACCINE (1 of 2) [facility] Start: 2003 Tuberculosis screening COLORECTAL CANCER SCREENING,SEE MODIFIER [facility] Start: 2003 Zoster Vaccines (1 of 2) Zoster Vaccines (1 of 2) [facility] Start: 1998 DIABETES SCREEN DIABETES SCREEN [facility] Start: 1988 LIPID SCREEN LIPID SCREEN [facility] Start: 1975 DTaP/Tdap/Td Vaccines (1 - Tdap) DTaP/Tdap/Td Vaccines (1 - Tdap) [facility] Start: 1972 Urine microalbumin profile DTAP,TDAP,TD (1 - Tdap) [facility] Start: 1971 Diabetes mellitus screening Diabetes Screening [facility] Start: 1971 HEPATITIS C SCREENING HEPATITIS C SCREENING [facility] Start: 1971 Hepatitis C screening Hepatitis C Screening [facility] Start: 1953 COVID-19 Vaccine (#1) COVID-19 Vaccine (#1) [facility] Start: 1953 Lipid panel Lipid Panel [facility] Start: 1953 Screening for malignant neoplasm of colon [facility] Start: 1953 Yearly Adult Physical Yearly Adult Physical [facility] Payers Date Payer Category Payer Medicare MEDICARE MEDICAR E A AND B [id number] 2018-Present [place] Medicare [id number] 1959 Medicaid [id number] 1961 Medicare [id number] 1953 Unknown [id number] [id number] 1953 Unknown [id number] [id number] 1953 Unknown [id number] [id number] 1953 Unknown [id number] [id number] 1953 Unknown [id number] 2.16.840.1.957844.3.579.2.593 1953 Unknown [id number] 2.16.840.1.210829.3.579.2.593 1953 Unknown [id number] 2.16.840.1.756770.3.579.2.593 1953 Unknown [id number] 2.16.840.1.586811.3.579.2.593 1953 Unknown [id number] 2.16.840.1.127110.3.579.2.593 1953 Unknown [id number] 2.16.840.1.478169.3.579.2.593 1953 Unknown [id number] 2.16.840.1.998585.3.579.2.593 1953 Unknown [id number] 2.16.840.1.022359.3.579.2.356 1953 Unknown [id number] 2.16.840.1.177495.3.579.2.356 1953 Unknown [id number] 2.16.840.1.690514.3.579.2.356 1953 Unknown [id number] [id number] 1953 Unknown [id number] [id number] Unknown Social History Date Type Detail Facility Tobacco smoking status WYIS Unknown if ever smoked [facility] Start: 1955 Sex Assigned At Not on file [facility] Non-smoker Non-smoker [facility] 4100 Work Phone: Tobacco smoking status WYIS Tobacco smoking consumption unknown [facility] Work Phone: Gender identity Not on file [facility] Work Phone: Medical Equipment Procedure Code Equipment Code Equipment Original Text Equipment Identifier Dates Pulmonary Standard Capacity Case [id number] Start: 07-02-2021 Comment on above: Description: Convert ed from [facility]. Please see archived information for full [...] telehealth visit.Virtual Voice Evaluation, AdultReason for referral BC-Bohbjqjab-Nwtagaj 4200 Work Phone: 10-16-2022 Reason for visit [...] .Postoperative Diagnosis:hoarseness, tracheocutaneous fistula .Surgeon: Sarahi Cates/Fellow/Other Picture Frames Inspector: GEOVANY Martínezrocedure:1. microdirect larngoscopy diagnostic2. microdirect laryngoscopy with porlaryn gel injection of the right3. Closure of tracheocutaneous fistula with muscle flapAnesthesia: GETAEstimated Blood Loss: 5ccFindings: right vocal fold injection with 0.2cc of prolaryn gel, closure withmuscle flap HC-Aorhckelb-Xiplzgt 4200 Work Phone: 10-09-2022 Note Additional Instructi ons: Handouts Given: Topic 1medication education Topic 2anesthesia education Topic 3surgical site infection Electronic Signatures: Quyen Hoover (RN) (Signed 09-Oct-2022 14:24) Authored: Additional Instructions Last Updated: 09-Oct-2022 14:24 by Quyen Hoover (RN) [facility] 10-09-2022 Note 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 Surgeon: MD Darryn Resident/Fellow/Other Picture Frames Inspector: MD Mauricio Procedure: 1. microdirect larngoscopy diagnostic [...] received anesthesia and was intubated with 5-0 PEARL TECHNICIAN tube. 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 Surgeon: MD Darryn Resident/Fellow/Other Picture Frames Inspector: MD Mauricio Procedure: 1. microdirect larngoscopy diagnostic [...] received anesthesia and was intubated with 5-0 PEARL TECHNICIAN tube. The bed was turned 90 to [...] by Gregg Cates) documented in this encounter [facility] Work Phone: 10-09-2022 Note Formatting of this n ote is different from the original. 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 Surgeon: MD Darryn Resident/Fellow/Other Picture Frames Inspector: MD Mauricio Procedure: 1. microdirect larngoscopy diagnostic [...] received anesthesia and was intubated with 5-0 PEARL TECHNICIAN tube. The bed was turned 90 to [...] Last Updated: 09-Oct-2022 14:54 by Gregg Cates) [facility] Work Phone: 10-09-2022 Note History of [...] the note. I personally evaluated the patient [id number] Comments/ Additional Findings Patient and I discussed [...] Last Updated: 09-Oct-2022 14:50 by Gregg Cates) [facility] 10-09-2022 History and physical note History [...] Last Updated: 09-Oct-2022 14:50 by Gregg Cates) [facility] 10-09-2022 History and physical note History [...] Gregg Cates () documented in this encounter [facility] Work Phone: 02-12-2022 History of Present [...] chronic nasal congestion, stuffiness or postnasal drainage. [facility] [address] Work Phone: 02-12-2022 History of Present illness [...] chronic nasal congestion, stuffiness or postnasal drainage. [facility] 8[facility] Work Phone: 09-25-2021 History of Present illness [...] chronic nasal congestion, stuffiness or postnasal drainage. OK-Objmwhhrfwspmm-Norqzh samira Work Phone: 09-25-2021 History of Present [...] chronic nasal congestion, stuffiness or postnasal drainage. PY[facility]Tpyrcbbaiwdltd-[facility]ov[facility] 9600 Work Phone: 09-17-2021 History of Present illness [...] chronic nasal congestion, stuffiness or postnasal drainage. [facility] [address] Work Phone: 09-17-2021 History of Present illness [...] chronic nasal congestion, stuffiness or postnasal drainage. VD-Jcnxqwjoonjtvu-[facility]ulwmiEss[facility] 7956 Work Phone: 09-03-2021 Reason for visit Narrative [...] referral: HoarsenessRehab Dx: J38.3, R49.0, C32.0, Z93.0 ZG-Bpwrkhrzt-Namlqwe 4200 Work Phone: 08-07-2021 History of Present illness Narrative This is a 66 year old male previously seen by me on 08/07/2021 with a history of biopsies of granulation tissue with Dr. Domingo which were negative for SCCa. He has findings of necrotic cartilage and ORN of the trachea. 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 KR-Owetelzyjvemua-Pxlwoe ke Work Phone: 08-07-2021 History of Present [...] chronic nasal congestion, stuffiness or postnasal drainage. QM-Mwcaumqwyybocs-Vipwua n Voice Work Phone: 2021 Note HNO ID: [id number] Author: Nik Thayer MD Service: ? Author [...] and had a tracheostomy placed by Dr. hCristy. He recently did a laryngoscopy on 04/11/2021 [...] which included preparing to see the patient, syia-zf-djnj patient care and counseling and educating the patient/family/caregiver. This document has been created with the use of voice recognition technology. It may contain inaccuracies, misspellings, inaccurate syntax or inappropriate word context that are a result of the inadequacies/shortcomings of said technology/software. [facility] 05-01-2021 Note OPERATIVE NOTE OPERATION DATE: 05-01-21 [...] to the Recovery Room in good condition. [facility] Signed and Approved by: DR MUKUND CHRISTY 05/15/2021 08:11:00 [facility] 04-11-2021 Note HNO ID: [id number] Author: Vandana Corona RT(R) Service: ? Author [...] 904 PATIENT DISCHARGED TO: Ambulatory patient, left [place] department area. A Diagnostic radioactive procedure has taken place, with no further precautions necessary other than routine body substance precautions. More information regarding radiation safety can be found using this link: [email or web address] [email or web address] [email or web address] SIGNATURE: RT Fabi(R) PATIENT NAME: Lazaro Petty DATE: April 11, 2021 TIME: 10:18 AM PAGER/CONTACT #: [facility] 03-23-2021 Note Admission Informatio n Admit Date/Time:03/15/2021 [...] can be discharged from hospitalist standpoint to [facility]. Significant Findings PT: 16.7 second(s) High (03/23/21 06:25:00) INR: 1.4 (03/23/21 06:25:00) PTT: 30.8 second(s) (03/23/21 06:25:00) Physical Exam Vitals & Measurements T: 36.8 ?C (Oral) TMIN: 36.7 ?C (Oral) TMAX: 36.9 ?C (Oral) HR: 75(Monitored) RR: 18 BP: 120/71 SpO2: 97% General: alert, no acute distress ENMT: Trach collar with Passy-Toyin well Cardiovascular: regular rate and rhythm, normal [...] Discharge Instructions Given: To patient Discharge disposition: [facility] Prescriptions reviewed with PatientPatient 34 min in [...] 1 week 03/30/2021 EDT [address] [facility] [address], [address] [place] [address] (more content not included)... [facility] Comment on above: Result Comment: Elec tronically Signed By: ZAIRA CROOK, Kelby Cortes\.adela\Date and Time Signed: 03/23/21 12:01 EDT 03-22-2021 Note Pt seen on this date for a methylene blue dye bedside swallow evaluation d/t pt having a tracheostomy. Passy Carr Speaking Valve placed during evaluation. Respiratory therapist [...] No further dysphagia needs at this time. [facility] 03-21-2021 Note Microbiology PROCEDURE: Fluid Culture [R1] [...] Locations R1: This test was performed at: [facility], [address] [place] [address], [facility]- , , [facility] Comment on above: Performed By: #### 2 [id number], [id number], [id number], [id number], [id number], [id number], [id number] #### [facility] [address] [place] [id number] 03-21-[address] Meneses rounded wit h patient earlier. CRM stopped into patients room, patient is alert and participates in plan of care. Patient to have trach downsized on 03/22/2021. CRM discussed with patient that WOB, TCU declined due to new trach. CRM discussed with patient that [facility] or [facility] would be good options, they have respiratory on site. Patient is agreeable to [facility]. CRM will send referral. Insurance information, PCP and DME verified. Contact information provided. Patient denies any further discharge needs/concerns at this time. Anticipated discharge 03/22 or 03/23/2021. CRM to follow. [facility] Comment on above: Result Comment: Neville tronically [...] to bring in card. CRM to follow. [facility] Comment on above: Result Comment: Neville tronically [...] likely require SNF. Will continue to follow. [facility] 03-20-2021 Note HOSPITAL REGULATIONS : All Positive [...] assist. Benjamin Johnson D.O. rj Dictated: 03/20/2021 [id number] Transcribed: 03/20/2021 [facility] Comment on above: Result Comment: Elec [...] state riding in a motor home to [facility] several years ago he had the same [...] are nonweightbearing films taken earlier today through [facility], shows moderate degenerative changes, small calcific density [...] tomorrow amargo Johnson D.O. gerald Dictated: 03/18/2021 [id number] Transcribed: 03/19/2021 Joe Mcintosh M.D. cc:Lazaro Escobedo D.O. [facility] Comment on above: Result Comment: Elec tronically Signed By: Benjamin Johnson DO\.br\Date and Time Signed: 03/19/21 16:59 EDT 03-18-2021 Note ED: not available H/P: Dayna Profit: complete PIS (OBS/IN): inpt 03/15 14:39 Chgs: D/C: VTE: 6, complete MCG: +inpt head and neck surgery or procedure Tele: no ICU: 03/15- >2mn: yes Insurance: 1) 2)Convergin PAT (tests): N/A Readmit: N/A MM: [facility] Comment on above: Result Comment: Elec tronically Signed By: Marc Access/Leak InspectorGuillermo\.br\Date and Time Signed: 03/18/21 12:47 EDT 03-16-2021 [...] for discharge - regional options discussed - [facility]. Contact information provided. Patient denies any further discharge needs/concerns at this time. Anticipated discharge 03/21/2021. CRM to follow. [facility] Comment on above: Result Comment: Elec [...] made to ensure accuracy, however, inadvertently computerized supervisor diagnostic mistakes may be present. Dr. Joe Mcintosh [...] Tobacco Use:., 03/15/2021 inpatient, anticipated stay >2midnights [facility] Comment on above: Result Comment: Elec tronically Signed By: Dayna CROOK, Joe Mancera\.br\Date and Time Signed: 03/16/21 10:28 EDT 03-14-2021 Note [id number]:127 [facility] 12-15-2020 Note HNO ID: [id number] Author: Nik Thayer MD Service: ? Author [...] which included preparing to see the patient, gkmg-im-kzug patient care and counseling and educating the patient/family/caregiver. This document has been created with the use of voice recognition technology. It may contain inaccuracies, misspellings, inaccurate syn (more content not included)... [facility] 12-05-2020 Note OPERATIVE NOTE OPERATION DATE: 12-05-20 [...] to the Recovery Room in good condition. [facility] Signed and Approved by: DR MUKUND CHRISTY 01/16/2021 08:05:00 [facility] 09-12-2020 History of Present illness Narrative CC:cocnern for cancerConsulted by: dr Cuba: had cancer last year, went through xrt, voice got betterthen got worsehad trach put in MAR , had breathing issues,stopped smokingmultiple biopsies have been negative for recurrent cancerpet is showing activity near the rigth arytenoid on my reviewpatient has some blood from around the trach2here for follow upfeels goodvoicing better bleeding [facility] Work Phone: 07-10-2020 History of Present illness [...] trach07/10/21here for follow upfeels goodvoicing betterno bleeding EL-Qslbqmqrooingq-Usvwas an Work Phone: 06-12-2020 History of Present [...] peristomal granulationwill check TSHwill review XRT records SR-Yvetjbnhwrzekg-Tebkpk Work Phone: Evaluation note Diagnosis Other specified diseases of upper respiratory tract Paralysis of vocal cords and larynx, 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 HY-Fhpckrlgkrvjdr-Yyby MOB02 [place] Work Phone: History of Present [...] phona tion trials. 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 He areas of concern in his [...] Additional recommendations: [facility] RB-Sblerzfcs-Mrleiyc 4200 Work Phone: History of Present illness Narrative* LAZARO PETTY is a 66 year old male referred to me today by Dr Chayo CROOK, Joon P for ORN and necroticbone within larynx. Referred to Dr. Dmoingo by Dr. Christy He has a history [...] chronic nasal congestion, stuffiness or postnasal drainage. [facility]vbknwpbvxeimx[facility] 4100 Work Phone: History of Present illness [...] home, work and in the community environment. DJ-Ftncggclz-Rnmoksu 0429 Work Phone: History of Present illness Narrative* [...] voicing. He has a widely patent airway. JQ-Ffhrzqnwr-Yfhrflk 5396 Work Phone: History of Present illness Narrative* Voice assessment: * Patient presents for voice assessment s/p: * PROCEDURE DETAILS * Preoperative Diagnosis: * hoarseness, tracheocutaneous fistula. * Postoperative Diagnosis: * hoarseness, tracheocutaneous fistula. * Surgeon: MD Darryn * Resident/Fellow/Other Picture Frames Inspector: MD Mauricio * Procedure: * 1. microdirect [...] determined by my laryngology partner, Dr. Cates. BF-Xonuigrsb-Abvgifo 0417 Work Phone: Reason for visit Narrative* Clinic Voice Evaluation, Adult * Reason for referral: Hoarseness * Rehab Dx: J38.3, R49.0, C32.0, Z93.0 IN-Iaendehyo-Sxlozqr 4200 Work Phone: Reason for visit Narrative* Clinic Voice FUV, Adult * Reason for referral: Hoarseness * Rehab Dx: J38.3, R49.0, C32.0, Z93.0 VL-Fzzflopoh-Gyhdkqb 4200 Work Phone: Summary Purpose Family History [...] or prosecute any alcohol or drug abuse patient.[facility] (unrecognized sect ion and content) No Status Records FoundNo Status Records FoundNo Status Records FoundNo Status Records FoundNo Status Records FoundNo Status Records FoundNo Status Records Found INFORMATION SOURCE (unrecogn ized section and content) DATE CREATED AUTHOR 04/02/2021 [facility] DATE CREATED AUTHOR AUTHOR'S ORGANIZ ATION 05/17/2021 [facility] DATE CREATED AUTHOR AUTHOR'S ORGANIZ ATION 08/26/2021 [facility] DATE CREATED AUTHOR AUTHOR'S ORGANIZ ATION 09/25/2021 [facility] DATE CREATED AUTHOR AUTHOR'S ORGANIZ ATION 10/18/2022 [facility] DATE CREATED AUTHOR AUTHOR'S ORGANIZ ATION 10/18/2022 [facility] DATE CREATED AUTHOR AUTHOR'S ORGANIZ ATION 10/19/2022 [employer] Reason for Visit (unrecogniz ed section and content) Reason Comments Other micro-direct laryngo scopy, bronchsocopy, prolaryn plus injection, tracheocutaneus fistula repair Care Teams (unrecognized sec tion and content) Viscose Department Worker Relationship Specialty Start Date End Date Gonzalez Lazaro DO Jacek [address] [place] [address] PCP - General 06/09/21 FOR RECORDS PERTAINING [...] BE BASED ON THE PRIMARY CLINICAL RECORDS. [facility]. provides no warranty or guarantee of the accuracy or completeness of information in this document.
[2024-02-20 11:27] LABS: Erythrocyte Sedimentation Rate 17 mm/hr (<=20)
[2024-02-20 11:42] LABS: Alanine Aminotransferase 23 U/L (16-63); Aspartate Amino Transferase 15 U/L (15-37); Estimated GFR (African America >60 (>=60); Estimated GFR (Non-African Ame >60 (>=60); Thyroid Stimulating Hormone 6.907 uIU/mL (0.358-3.740)
[2024-02-21 18:08] LABS: ANA Direct Negative (Negative)
== END 2024-02-20 10:34 | disposition home or self-care (01) ==
LOC: LAB 10:37
PROVIDERS: PCP Family Medicine
DX: R21 Rash and other nonspecific skin eruption (principal)
CPT/HCPCS: 36415; 82565; 84443; 84450; 84460; 84520; 85652; 86038

== ENCOUNTER 2024-11-29 10:31 | Outpatient (OUT) | payer MEDICARE, MEDICAID, SELFPAY ==
--- OUTSIDE RECORDS SUMMARY | 2024-11-29 10:37 | XMS_ITS | Clinical Summary ---
Author Organization [facility] Address [address] [place] [address] Phone Care Team Providers Care Electrical Design Engineer Name Role Phone GonzalezLazaro Primary Care Provider [phone] Social History Tobacco Use Types Packs/Day Years Used Date Smoking Tobacco: Never Assessed Sex and Gender Information Value Date Recorded Sex Assigned at Not on file Legal Sex Male 11:32 AM EST Gender Identity Not on file Sexual Orientation Not on file Last Filed Vital Signs Vital Sign Reading Time Taken Comments Blood Pressure 150/89 10/09/2022 11:09 AM EDT Pulse 69 10/09/2022 11:09 AM EDT Temperature 36.1 C (97 F) 10/09/2022 11:09 AM EDT Respiratory Rate 18 10/09/2022 11:09 AM EDT Oxygen Saturation - - Inhaled Oxygen Concentration - - Weight 81 kg (178 lb 9.2 oz) 10/09/2022 11:09 AM EDT Height 177.8 cm (5' 10 ) 10/09/2022 11:09 AM EDT Body Mass Index 25.62 10/09/2022 11:09 AM EDT Plan of Treatment Health Maintenance Due Date Last Done Comments CT Colonography 1953 Colonoscopy 1953 Colorectal Cancer Screening 1955 FIT-DNA (Cologuard) 1953 FIT 1953 Lipid Panel 1953 Sigmoidoscopy 1955 Yearly Adult Physical 1955 Hepatitis C Screening 1971 DTaP/Tdap/Td Vaccines (1 - Tdap) 1975 Pneumococcal Vaccine (1 of 1 - PCV) 2003 Zoster Vaccines (1 of 2) 2003 COVID-19 Vaccine (2023-2 5 season) 2024 Influenza Vaccine (Season Ended) 2025 RSV High Risk: (Elderly (60+ ) or Population) (1 - 1-dose 75+ series) 2028 HIB Vaccines Aged Out No longer eligi ble based on patient's age to complete this topic HPV Vaccines Aged Out No longer eligi ble based on patient's age to complete this topic Hepatitis A Vaccines Aged Out No long er eligible based on patient's age to complete this topic Hepatitis B Vaccines Aged Out No long er eligible based on patient's age to complete this topic IPV Vaccines Aged Out No longer eligi ble based on patient's age to complete this topic Meningococcal Vaccine Aged Out No treva magali eligible based on patient's age to complete this topic Rotavirus Vaccines Aged Out No longer eligible based on patient's age to complete this topic Medical Devices Implanted Type Area Project Manager Interior Design Device Identifier Shelf Expiration Date Model / Serial / Lot Pulmonary Standard Capacity Case [id number] Implanted:Qty: 1 on 07/02/2021 by Joon Domingo MD Implant [email or web address] 12/12/2023 [id number] / / [id number] Description:Converted from [facility]. Please see archived information for full log information. Additional Information:per julia price 08/21/2021 Care Teams Electrical Design Engineer Relationship Specialty Start Date End Date Lazaro Roth DO PCP - General 06/09/21
--- OUTSIDE RECORDS SUMMARY | 2024-11-29 10:37 | XMS_ITS | Clinical Summary ---
Author Organization [facility] Address [address] [place] [address] Care Team Providers Care Importer Exporter Name Role Phone Lazaro Roth MD Primary Care Provider [phone] Allergies Active Allergy Reactions Criticality Noted Date Comments Lisinopril 12/15/2020 Other Reaction(s): Cough Medications amLODIPine (Norvasc) 5 MG tablet 1 (one) time each day at the same time. Active famotidine (Pepcid) 20 MG tablet 1 tablet Orally at bedtime for 30 day(s) 1 Active omeprazole (PriLOSEC) [address] capsule 1 capsule. 1 Active predniSONE (Deltasone) 20 MG tablet every 12 (twelve) hours. 1 Active ketorolac (Acular) 0.5 % ophthalmic solution APPLY 1 DROP IN AFFECTED EYE TWICE A DAY 3 Active ofloxacin (Ocuflox) 0.3 % ophthalmic solution INSTILL 1 DROP INTO AFFECTED EYE 4 TIMES A DAY 3 Active prednisoLONE acetate (Pred-Forte) 1 % ophthalmic suspension INSTILL 1 DROP INTO AFFECTED EYE 4 TIMES A DAY DIRECTED 3 Active [facility] Senna Plus 8.6-50 MG tablet TAKE 2 TABLETS BY MOUTH EVERY DAY AT BEDTIME 3 Active traMADol (Ultram) 50 MG tablet TAKE 1 TABLET BY MOUTH EVERY 6 HOURS FOR 5 DAYS NEEDED FOR SEVERE PAIN 3 Active triamcinolone (Kenalog) 0.1 % creamIndications :Rash and other nonspecific skin eruption Apply a thin layer to rash BID prn for itching. 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3 kg (188 lb) 02/23/2024 12:52 PM EDT Height 177.8 cm (5' 10 ) 02/23/2024 12:52 PM EDT Body Mass Index 26.98 02/23/2024 12:52 PM EDT Plan of Treatment Health Maintenance Due Date Last Done Comments CT Colonography 1953 Colonoscopy 1953 Colorectal Cancer Screening 1953 FIT-DNA 1953 FIT 1953 FOBT 1953 Sigmoidoscopy 1953 Pneumococcal Vaccine: 65+ Years (1 of 1 - PCV) 004 Influenza Vaccine (Season Ended) 2025 Insurance MEDICARE MEDICAID [place] Care Teams Importer Exporter Relationship Specialty Start Date End Date Lazaro Roth MD [address] [place] [address] PCP - General Family Medicine 10/30/22
--- OUTSIDE RECORDS SUMMARY | 2024-11-29 10:37 | XMS_ITS | Encounter Summary ---
Author Organization [facility] Address [address] [place] [address] Care Team Providers Care Accident Examiner Name Role Phone Lazaro Roth MD Primary Care Provider [phone] Encounter Details Date Type Department Care Team (Late st Contact Info) Description 04/05/2024 Clinisync Result Encounter [facility] Unsolicited Ehsan Winslow, DO [address] [place] [address] Social History Tobacco Use Types Packs/Day Years Used Date Smoking Tobacco: Former Cigarettes Smokeless Tobacco: Never Sex and Gender Information Value Date Recorded Sex Assigned at Not on file Legal Sex Male 11:00 PM EDT Gender Identity Not on file Sexual Orientation Not on file documented as of this encounter Plan of Treatment Not on file documented as of this encounter Procedures Procedure Name Priority Date/Time Associated Diagnosis Comments US CAROTID DUPLEX BILATERAL 04/05/2024 4:02 PM EDT documented in this encounter Results * US CAROTID DUPLEX BILATERAL (04/05/2024 4:02 PM EDT) Anatomical Region Laterality Modality Other 04/05/2024 4:02 PM EDT Narrative 04/05/2024 5:06 PM EDT Exam Date/Time: 04/05/2024 16:28 EDT Reason for Exam: G45.3 Report IMPRESSION: Less than 50% stenosis, bilateral internal carotid arteries. CLINICAL HISTORY: G45.3 COMPARISON: NONE. COMMENT: Calcified plaque is visualized bilaterally within the common carotid arteries, carotid bifurcation, bilateral external iliac arteries, and bilateral proximal internal carotid arteries. There is antegrade blood flow in the right and left vertebral arteries in the neck. On Doppler images, the peak systolic velocity measurements in centimeters per second are as follows: Right proximal common carotid artery is 92.5 / 15.4, right distal common carotid artery is 82.6 / 19.3, right proximal internal carotid artery is 69.8 / 20.1, right mid internal carotid artery is 83.5 / 21.6, right distal internal carotid artery is 82.1 / 23.6, right external carotid artery is 65.4 cm/s, left proximal common carotid artery is 102.0 / 22.4, left distal common carotid artery is 51.7 / 13.7, left proximal internal carotid artery is 109.0 / 46.2, left mid internal carotid artery is 102.0 / 34.3, left distal internal carotid artery is 98.1 / 29.4, left external carotid artery is 103.0 cm/s. The peak systolic internal carotid to common carotid artery ratio on the right is 1.0 and on the left is 2.1. Optimization of duplex velocity criteria for diagnosis of internal carotid artery (ICA) stenosis: A report of the Intersocietal Accreditation Commission (IAC) Vascular Testing Division Carotid Diagnostic Criteria Committee. Vascular Medicine 2020; https://journals.sagepub.com/doi/full/10.1177/9729170G210557433 Ordering Provider: Ehsan Winslow FINAL REPORT Dictated: 04/05/2024 5:03 pm Librado Houston MD Signed (Electronic Signature): 04/05/2024 5:03 pm Signed by: Librado Houston MD Transcribed by: GIORGI Technologist: PHIL Technical Comments Velocities Right Vert. Antegrade Yes Technical Comments Velocities Left Vert. Antegrade Yes Procedure Note Radiology, Radiologist, - 04/05/2024 Exam Date/Time: 04/05/2024 16:28 EDT Reason for Exam: G45.3 Report IMPRESSION: Less than 50% stenosis, bilateral internal carotidarteries. CLINICAL HISTORY: G45.3 COMPARISON: NONE. COMMENT: Calcified plaque is visualized bilaterally within the commoncarotid arteries, carotid bifurcation, bilateral external iliac arteries, andbilateral proximal internal carotid arteries. There is antegrade blood flow in the right and left vertebral arteries inthe neck. On Doppler images, the peak systolic velocity measurements in centimetersper second are as follows: Right proximal common carotid artery is 92.5 / 15.4, right distal common carotid artery is 82.6 / 19.3, right proximal internal carotid artery is 69.8 / 20.1, right mid internal carotid artery is 83.5 / 21.6, right distal internal carotid artery is 82.1 / 23.6, right external carotid artery is 65.4 cm/s, left proximal common carotid artery is 102.0 / 22.4, left distal common carotid artery is 51.7 / 13.7, left proximal internal carotid artery is 109.0 / 46.2, left mid internal carotid artery is 102.0 / 34.3, left distal internal carotid artery is 98.1 / 29.4, left external carotid artery is 103.0 cm/s. The peak systolic internal carotid to common carotid artery ratio on theright is 1.0 and on the left is 2.1. Optimization of duplex velocity criteria for diagnosis of internal carotidartery (ICA) stenosis: A report of the Intersocietal Accreditation Commission(IAC) Vascular Testing Division Carotid Diagnostic Criteria Committee. Vascular [id number]; https://journals.sagepub.com/doi/full/10.1177/9143718A731728696 Ordering Provider: Ehsan Winslow FINAL REPORT Dictated: 04/05/2024 5:03 pm Librado Houston MD Signed (Electronic Signature): 04/05/2024 5:03 pm Signed by: Librado Houston MD Transcribed by: GIORGI Technologist: PHIL Technical Comments Velocities Right Vert. Antegrade Yes Technical Comments Velocities Left Vert. Antegrade Yes us Ehsan Winslow DO [facility] Final Res ult documented in this encounter Visit Diagnoses Not on filedocumented in this encounter Care Teams Accident Examiner Relationship Specialty Start Date End Date Lazaro Roth MD [address] [place] [address] PCP - General Family Medicine 10/30/22 documented as of this encounter
[2024-11-29 11:00] LABS: Basophils Percent Auto 0.5 % (0.2-2.0); Eosinophils Absolute Auto 0.1 10^3/uL (0.0-0.7); Eosinophils Percent Auto 1.2 % (0.9-7.0); Hematocrit 44.3 % (42.0-54.0); Hemoglobin 15.8 g/dL (14.0-18.0); Immature Granulocytes Abs Auto 0.03 10^3/uL (0.00-0.03); Immature Granulocytes Pct Auto 0.4 % (0.0-0.5); Lymphocytes Absolute Auto 1.3 10^3/uL (1.2-3.8); Lymphocytes Percent Auto 17.1 % (20.5-60.0); Mean Corpuscular HGB Conc 35.7 g/dL (29.9-35.2); Mean Corpuscular Hemoglobin 33.8 pg (25.9-34.0); Mean Corpuscular Volume 94.7 fL (80.0-94.0); Mean Platelet Volume 10.1 fL (9.5-13.5); Monocytes Absolute Auto 0.6 10^3/uL (0.3-0.8); Monocytes Percent Auto 8.3 % (1.7-12.0); Neutrophils Absolute Auto 5.5 10^3/uL (1.4-6.5); Neutrophils Percent Auto 72.5 % (43.0-75.0); Platelet Count 207 10^3/uL (150-450); Red Blood Count 4.68 10^6/uL (4.70-6.10); Red Cell Distribution Width 13.4 % (11.0-15.0); White Blood Count 7.6 10^3/uL (4.0-11.0)
[2024-11-29 11:13] LABS: Estimated Average Glucose 108 mg/dL; Glycohemoglobin A1C 5.4 % (4.5-6.2)
[2024-11-29 11:36] LABS: Alanine Aminotransferase 18 U/L (16-63); Alkaline Phosphatase 83 U/L (46-116); Anion Gap 12.1; Aspartate Amino Transferase 18 U/L (15-37); BUN Creatinine Ratio 13.5; Bilirubin Total 0.8 mg/dL (0.2-1.0); Calcium 8.9 mg/dL (8.5-10.1); Carbon Dioxide 25.7 mmol/L (21.0-32.0); Chloride 107 mmol/L (98-107); Estimated GFR (African America >60 (>=60 mL/min/1.73m^2); Estimated GFR (Non-African Ame >60 (>=60 mL/min/1.73m^2); Glucose 157 mg/dL (74-106); Potassium 3.8 mmol/L (3.5-5.1); Sodium 141 mmol/L (136-145); Total Protein 6.4 g/dL (6.4-8.2); Uric Acid 5.4 mg/dL (3.5-7.2)
[2024-11-29 11:37] LABS: Albumin Globulin Ratio 1.1; Albumin Level 3.4 g/dL (3.4-5.0); Chol HDL Ratio 2.6; Cholesterol 156 mg/dL (<=200); HDL Cholesterol 60 mg/dL (40-60); Thyroid Stimulating Hormone 2.774 uIU/mL (0.358-3.740); Triglycerides 68 mg/dL (<=150); VLDL CHOLESTEROL 13.6 mg/dL
[2024-11-29 12:06] LABS: Free T3 2.43 pg/mL (2.18-3.98)
[2024-11-29 12:32] LABS: Prostate Specific Antigen Scrn 8.08 ng/mL (<=4.00)
[2024-11-30 05:07] LABS: Insulin 34.1 uIU/mL (2.6-24.9)
== END 2024-11-29 10:32 | disposition home or self-care (01) ==
LOC: LAB 10:35
PROVIDERS: PCP Nurse Practitioner Family; Visit Provider Nurse Practitioner Family
DX: R55 Syncope and collapse (principal); E78.5 Hyperlipidemia, unspecified; R73.09 Other abnormal glucose; E03.9 Hypothyroidism, unspecified; Z12.5 Encounter for screening for malignant neoplasm of prostate
CPT/HCPCS: 36415; 80053; 80061; 83036; 83525; 84436; 84443; 84481; 84550; 85025; G0103

== ENCOUNTER 2024-12-17 11:05 | Outpatient (OUT) | payer MEDICARE, MEDICAID, SELFPAY ==
[2024-12-18 04:09] LABS: PSA, Free 0.68 ng/mL
== END 2024-12-17 11:06 | disposition home or self-care (01) ==
LOC: LAB 11:06
PROVIDERS: PCP Nurse Practitioner Family; Visit Provider Nurse Practitioner Family
DX: R97.20 Elevated prostate specific antigen [PSA] (principal)
CPT/HCPCS: 36415; 84153; 84154